=== PATIENT | female | born 1950 | race Caucasian/White ===

== ENCOUNTER → 2018-10-31 08:24 | Outpatient (CLI) | payer OTHER, SELFPAY ==
--- OUTSIDE RECORDS SUMMARY | 2018-12-24 08:31 | XMS RPT_ITS | Continuity of Care Document ---
:1950 Author Organization [facility] Address [address] [place] [address] Phone Care Team Providers Name Role Phone Bridgett Bansal DO Unavailable ROMAINE Eckert Unavailable Unavailable Sonia CASTILLORosie Unavailable Katie Kebede Unavailable Unavailable Raya Lou LPN Unavailable Unavailable PETER Guo Unavailable Unavailable Unavailable Unavailable Problems Name Dates Details Abnormal TSH (R79.89, 790.6) Status: Active Abnormal TSH (R79.89, 790.6) Status: Active Abnormal TSH (R79.89, 790.6) Status: Active Arthritis (M19.90, 716.90) Comments: improved pain wiht natural supplement taking with tumeric , boswellia etc in it Status: Active B12 deficiency (E53.8, 266.2) Status: Active BMI 39.0-39.9,adult (Z68.39, V85.39) Status: Active BMI 39.0-39.9,adult (Z68.39, V85.39) Status: Active BMI 40.0-44.9, adult (Z68.41, V85.41) Status: Active Bradycardia (R00.1, 427.89) Comments: holter 0.7% vetricular ectomy and SVE 1.7% Status: Active Bronchitis (J40, 490) Status: Active Colon cancer screening (Renamed from Encounter for screening for malignant neoplasm of colon) (Z12.11, V76.51) Comments: last colonoscopy jab Status: Active Cough (R05, 786.2) Status: Active Current non-smoker (Z78.9, V49.89) Status: Active Dizziness (R42, 780.4) Comments: ? 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, 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) Comments: new dx Status: Active Flexor tenosynovitis of finger (M65.88, 727.05) Comments: lil nodule if worsen or rom impaired rto and head host/hostess refer Status: Active Grieving (F43.21, 309.0) Comments: brother dying with hospice from cancersupport and enc given Status: Active Hand pain (M79.643, 729.5) Comments: suspect carpal tunnel -- wear splints otc and see how responds before do anything further Status: Active Hyperlipidemia (E78.5, 272.4) Comments: LDL >100 but doenst want meds and noncompliant with diet Status: Active Hypothyroidism (E03.9, 244.9) Status: Active Impaired glucose metabolism (R73.02, 790.22) Status: Active Influenza B (J10.1, 487.1) Status: Active Influenza vaccination declined (Renamed from Refused influenza vaccine) (Z28.21, V64.06) Status: Active Interstitial lung disease (J84.9, 515) Status: Active Leg length discrepancy (M21.70, 736.81) Status: Active Macrocytosis (D75.89, 289.89) Status: Active Non morbid obesity, unspecified obesity type (E66.9, 278.00) Status: Active Nonsmoker (Z78.9, V49.89) Status: Active Nutritional counseling (Z71.3, V65.3) Status: Active Paronychia (681.9) Status: Active Postmenopausal (Renamed from Postmenopausal status) (Z78.0, V49.81) Comments: pt refused Status: Active Pre-operative examination (Z01.818, V72.84) Comments: requested by Dr Martinez Status: Active Rash (R21, 782.1) Comments: will check labs and observe and follow up 7-10 days ? drug reaction recent contrast, lasix BP med Status: Active Right sciatic nerve pain (M54.31, 724.3) Status: Active Sinusitis, acute (J01.90, 461.9) Status: Active Therapeutic drug monitoring (Z51.81, V58.83) Status: Active TINEA CORPORIS (110.5) Status: Active Vitamin D deficiency (E55.9, 268.9) Status: Active Vitamin D deficiency (E55.9, 268.9) Status: Active Vitamin D deficiency, unspecified (E55.9, 268.9) Status: Active Well woman exam with routine gynecological exam (Z01.419, V72.31) Status: Active Medications Name Dates Details Bisoprolol-Hydrochlorothiazide 10-6.25 MG Oral Tablet 1/2 (one half) Tablet bid for 0 days Quantity: 30 {Tablet} Refills: 3 Ordered:18-May-2018 Nitin Bansal DO, DO, Kathleen Start : 18-May-2018 Active Comments:new dose-- cant take whole tablet w/o getting dizzy Levothyroxine Sodium 137 MCG Oral Tablet 1 (one) Tablet daily except sundays for 0 days Quantity: 30 {Tablet} Refills: 3 Ordered:15-Nov-2018 Sonia CASTILLO Mily Start : 15-Nov-2018 Active Losartan Potassium 50 MG Oral Tablet 1 (one) Tablet Tablet qd for 0 days Quantity: 30 {Tablet} Refills: 3 Ordered:23-Apr-2017 Radha Eckert LPN Start : 28-Jul-2016 Active AMLODIPINE BESYLATE, 2.5MG (Oral Tablet) 1 (one) Tablet qd for 0 days Quantity: 30 {Tablet} Refills: 3 Ordered:03-Oct-2014 Radha Eckert LPN Start : 10-Sep-2014 End : 03-Oct-2014 Inactive AMOXICILLIN-POT CLAVULANATE, 875-125MG (Oral Tablet) 1 (one) Tablet bid for 0 days Quantity: 20 {Tablet} Refills: 0 Ordered:23-May-2014 Radha Eckert LPN Start : 09-May-2014 End : 23-May-2014 Inactive ANTIVERT, 25MG (Oral Tablet) 1 (one) Tablet TID PRN for 0 days Refills: 0 Ordered:09-Jan-2009 PETER Guo Start : 25-Jul-2008 End : 09-Jan-2009 Inactive AUGMENTIN, 875-125MG (Oral Tablet) 1 (one) Tablet Twice daily for 0 days Quantity: 20 {Tablet} Refills: 0 Ordered:31-Jul-2008 Radha Eckert LPN Start : 31-Jul-2008 End : 10-Oct-2008 Inactive BIAXIN, 500MG (Oral Tablet) 1 Tablet bid for 0 days Quantity: 20 {Tablet} Refills: 0 Ordered:22-Mar-2013 Radha Eckert LPN Start : 04-Jan-2013 End : 22-Mar-2013 Inactive CEFADROXIL, 500MG (Oral Capsule) 1 (one) Capsule Capsule qid with food for 0 days Quantity: 28 {Capsule} Refills: 0 Ordered:22-May-2015 Radha Eckert LPN Start : 20-Feb-2015 End : 22-May-2015 Inactive Cheratussin AC 100-10 MG/5ML Oral Syrup 1-2 Teaspoon Teaspoon q 6hrs, prn for 0 days Quantity: 8 {Ounce} Refills: 0 Ordered:08-Feb-2017 Yaneli Girard Start : 25-Jan-2017 End : 08-Feb-2017 Inactive Comments:eight ounces CLARINEX, 5MG (Oral Tablet) 1 (one) Tablet Daily for 0 days Quantity: 30 {Tablet} Refills: 3 Ordered:12-Aug-2011 Radha Eckert LPN Start : 19-Aug-2009 End : 12-Aug-2011 Inactive ETODOLAC ER, 400MG (Oral Tablet Extended Release 24 Hour) 2 (two) Tablet ER 24HR Tablet ER 24HR qd with food for 0 days Quantity: 20 {Tablet} Refills: 0 Ordered:01-Jan-2016 Sandra Randle Start : 09-May-2014 End : 01-Jan-2016 Inactive LISINOPRIL, 20MG (Oral Tablet) 1 (one) Tablet qd for 0 days Quantity: 30 {Tablet} Refills: 3 Ordered:12-Aug-2011 Radha Eckert LPN Start : 11-Jun-2010 End : 12-Aug-2011 Inactive METFORMIN HCL, 500MG (Oral Tablet) 1 (one) Tablet Tablet qd for 0 days Quantity: 30 {Tablet} Refills: 3 Ordered:23-Jan-2015 Rolf OLIVER SalonijanicealisRolf Bridgett Start : 23-Jan-2015 End : 23-Jan-2015 Inactive Comments:dizzy NASACORT AQ, 55MCG/ACT (Nasal Aerosol Solution) 2 (two) Aerosol Soln Daily for 0 days Refills: 0 Ordered:09-Jan-2009 PETER Guo Start : 25-Jul-2008 End : 09-Jan-2009 Inactive Mize 5-325 MG Oral Tablet 1 (one) Tablet q 6 hrs prn for 7 days Quantity: 28 {Tablet} Refills: 0 Ordered:31-Aug-2016 Rahda Eckert LPN Start : 31-Aug-2016 End : 07-Sep-2016 Inactive Comments:twenty-eight OMNARIS, 50MCG/ACT (Nasal Suspension) 2 (two) Suspension Daily for 0 days Quantity: 1 {Suspension} Refills: 2 Ordered:12-Aug-2011 Radha Eckert LPN Start : 19-Aug-2009 End : 12-Aug-2011 Inactive PREDNISONE, 10MG (Oral Tablet) 3 (three) Tablet daily for 10 days Quantity: 30 {Tablet} Refills: 0 Ordered:30-May-2008 Cimanan CASTILLORosie Start : 30-May-2008 End : 22-Jun-2008 Inactive Prostolic 1 QD Inactive TAMIFLU, 75MG (Oral Capsule) 1 (one) Capsule bid for 0 days Quantity: 10 {Capsule} Refills: 0 Ordered:22-May-2015 Radha Eckert LPN Start : 25-Feb-2015 End : 22-May-2015 Inactive TIZANIDINE HCL, 4MG (Oral Tablet) 1 (one) Tablet Tablet bid prn for 0 days Quantity: 20 {Tablet} Refills: 0 Ordered:01-Jan-2016 Sandra Randel Start : 09-May-2014 End : 01-Jan-2016 Inactive DARVOCET-N 100, 100-650MG (Oral Tablet) 1 (one) Tablet TID for 0 days Quantity: 90 {Tablet} Refills: 0 Ordered:03-Nov-2007 Violet Lal Start : 03-Nov-2007 End : 30-May-2008 Discontinued Furosemide 20 MG Oral Tablet 1 (one) Tablet Tablet qam for 0 days Quantity: 4 {Tablet} Refills: 0 Ordered:22-Feb-2017 Raya Lou LPN Start : 05-Feb-2017 End : 22-Feb-2017 Discontinued Gabapentin 300 MG Oral Capsule 1 (one) Capsule Capsule qhs for 5days then bid for 0 days Quantity: 60 {Capsule} Refills: 0 Ordered:22-Feb-2017 Raya Lou LPN Start : 28-Aug-2016 End : 22-Feb-2017 Discontinued LOTREL, 5-20MG (Oral Capsule) 1 Capsule QD for 0 days Quantity: 30 {Capsule} Refills: 4 Ordered:22-Jun-2008 Janine Galicia RN Start : 06-Jun-2007 End : 22-Jun-2008 Discontinued Medrol 4 MG Oral Tablet Therapy Pack tad Tab Ther Pack Tab Ther Pack uad with food for 0 days Quantity: 1 {Package} Refills: 0 Ordered:22-Feb-2017 Raya Lou LPN Start : 28-Aug-2016 End : 22-Feb-2017 Discontinued Metaxalone 800 MG Oral Tablet 1 (one) Tablet Tablet tid prn for 0 days Quantity: 30 {Tablet} Refills: 0 Ordered:22-Feb-2017 Raya Lou LPN Start : 28-Aug-2016 End : 22-Feb-2017 Discontinued Nasonex 50 MCG/ACT Nasal Suspension 2 (two) Suspension each nostril qd for 0 days Quantity: 1 {[place]} Refills: 0 Ordered:11-Nov-2018 Katie Kebede Start : 25-Oct-2018 End : 11-Nov-2018 Discontinued NYSTATIN (Powder) 1 (one) Powder Twice daily for 0 days Quantity: 1 {Powder} Refills: 3 Ordered:10-Mar-2007 Violet Lal Start : 10-Mar-2007 End : 06-Jun-2007 Discontinued Comments:dispense one large bottle TOPICORT, 0.25% (External Cream) 1 Cream bid for 0 days Quantity: 1 {Cream} Refills: 1 Ordered:05-Jun-2008 Janine Galicia RN Start : 05-Jun-2008 End : 22-Jun-2008 Discontinued Zithromax Z-Silviano 250 MG Oral Tablet tad Tablet qd for 0 days Quantity: 1 {Package} Refills: 0 Ordered:22-Feb-2017 Raya Lou LPN Start : 05-Feb-2017 End : 22-Feb-2017 Discontinued Allergies and Adverse Reactions Name Dates Details amoxicillin (Allergy) Status: Active Comments: Dizziness, Nausea No Known Drug Allergies (Allergy) Onset: 09-May-2014 Status: Active Prednisone (Allergy) Status: Active Past Medical History Name Dates Details Abnormal chest xray (R93.89, 793.2) Status: Inactive as of 11-Aug-2017 Abnormal TSH (R79.89, 790.6) Status: Inactive as of 11-Aug-2017 Benign essential hypertension (I10, 401.1) Status: Resolved as of 18-Oct-2013 Benign paroxysmal positional vertigo (H81.10, 386.11) Status: Resolved as of 11-Jun-2010 BMI 34.0-34.9,adult (Z68.34, V85.34) Status: Inactive as of 22-Apr-2017 BMI 35.0-35.9,adult (Z68.35, V85.35) Status: Inactive as of 22-Apr-2017 BMI 38.0-38.9,adult (Z68.38, V85.38) Status: Resolved as of 11-Aug-2017 Cerumen impaction (H61.20, 380.4) Comments: rt ear Status: Inactive as of 22-May-2015 Contact dermatitis due to poison demi (L23.7, 692.6) Status: Inactive as of 15-May-2009 Cough (R05, 786.2) Status: Inactive as of 22-May-2015 Dorsalgia, unspecified (M54.9, 724.5) Status: Inactive as of 26-Jul-2013 Drug reaction (T50.905A, 995.20) Comments: ? to recent lasix contrast Status: Inactive as of 11-Aug-2017 Edema, unspecified type (R60.9, 782.3) Status: Inactive as of 11-Aug-2017 Eustachian tube dysfunction (H69.80, 381.81) Status: Inactive as of 22-Mar-2013 Excessive cerumen in both ear canals (H61.23, 380.4) Status: Inactive as of 11-Aug-2017 Family history of diabetes mellitus (Z83.3, V18.0) Comments: 2 hr test was negative Status: Inactive as of 15-May-2009 Fever (R50.9, 780.60) Status: Inactive as of 22-May-2015 Finger pain (M79.646, 729.5) Status: Inactive as of 22-May-2015 Flu-like symptoms (R68.89, 780.99) Status: Inactive as of 22-May-2015 Impacted cerumen of right ear (H61.21, 380.4) Comments: get debrox Status: Inactive as of 05-Aug-2016 Impingement syndrome of shoulder region, unspecified laterality (M75.40, 726.2) Status: Inactive as of 15-May-2009 Infected finger (L08.9, 686.9) Status: Inactive as of 22-May-2015 Muscle spasm (M62.838, 728.85) Status: Inactive as of 22-May-2015 Neck pain (M54.2, 723.1) Status: Inactive as of 22-May-2015 Other specified abnormal findings of blood chemistry (R79.89, 790.6) Comments: consider adding gymnema for sugar cravings belly fat etc - enc to do 21 day cleasne Status: Resolved as of 11-Aug-2017 Pharyngitis, acute (J02.9, 462) Status: Inactive as of 11-Jun-2010 Sciatica (M54.30, 724.3) Comments: resolved Status: Resolved as of 14-Oct-2016 Screening for osteoporosis (Renamed from Encounter for screening for osteoporosis) (Z13.820, V82.81) Status: Resolved as of 11-Aug-2017 Shoulder pain (M25.519, 719.41) Status: Inactive as of 15-May-2009 Simple chronic bronchitis (J41.0, 491.0) Status: Resolved as of 11-Aug-2017 Varicose vein (454.9) Status: Resolved as of 11-Aug-2017 Procedures Procedure Dates Details Colonoscopy, Screening Completed Comments: 02/13/2010 Date Value Details 27-Aug-2017 PT D/C Summary (1) Result: Comments: See Note; NOTES: [facility] [address] [place] [address] Fax REHABILITATION SERVICES DISCHAR JOSELINE SUMMARY MR#: [id number] Acct: [id number] Name: ERENDIRA ALANIZ Rep #: [id number] : 1950 67 From: Raya HAGAN Referring Dr.: Javi Washington MD Status: REG RCR [facility] - PT D/C Summary It has been my pleasure to treat ERENDIRA ALANIZ under orders from Javi Washington, for the diagnosis of L TKR for a total of 30 visit(s). Discharge Date: 08/27/17 Please see the following info rmation for a summary of their discharge status. - Subjective Subjective: Pt reports that she has no pain. She reports that she is able to do all of her ADL's independently. She is able to step up int o the buggy using her UE's. - Pain Left Knee Pain Intensity (Out of 10): 0 - Objective Objective/Function: 0 degrees L knee extension and 117 degrees L knee flexion. Gait: walks with increased side to side wobble but improved and able to correct with verbal cues. Stairs: up and down recip with a railing - Goals Goal 1:: I HEP Goal Progress: Goal Met Goal 2:: Increase L knee AROM 0- 120 degrees L knee flexion Goal Progress: Progressing Goal 3:: Increase gait to be able to walk with a normal stride and step length with a straight cane or least restricitive device Goal Progress: Goal Met Goal 4:: Decrease pain to 1/ 10 with ADL's Goal Progress: Goal Met Goal 5:: Up and down stairs recip with 1 rail with good fliudity Goal Progress: Goal Met - Plan Plan: DC PT to HEP - D/C Information Discharg e Comments: DC PT If there are questions or concerns regarding this patient's physical therapy, please feel free to call me at [phone]. Thank you for the referral of this patient. Sincerely, David Mitchell <Electronically signed by Raya Mitchell MPT> 08/27/17 1410 CC: Bridgett Bansal DO; Javi Washington MD Signed 15-May-2017 Venous Duplex Lower Extremity Result: Comments: See Note; NOTES: [facility] Cardiovascular Services [address] [place] [address] Venous Duplex US, Unilateral 05/14/17 1409 MR#: [id number] Acct: [id number] Name: ERENDIRA LAZARO Rep #: [id number] : 1950 66 From: Yash Stern MD Attending Dr: Valorie Wilson Status: REG CLI Ordering Dr: Valorie Wilson Date: 05/14/17 Location: [facility] Sex: F C Admitted: [facility] For Study: LEG PAIN AND SWELLING RIGHT LEFT CFV is compressible, spontaneous, phasic, GSV is normal. competent and demonstrates normal CFV is compressible, spontaneous, phasic , augmentation. compete nt, and demonstrates normal Procedure augmentation. Exam performed in department. FV is compressible, spontaneous, phasic, A preliminary report was called and/or faxed competent and demonstrates normal to Dr. Wilson. augmentation. POP V is compressible, spontaneous, phasic, competent and demonstrates normal augmentation. T/P Trunk is compressible. PTV is compressible. LT PerV is compressible. Interpr etation Summary Deep veins of the left lower extremity are patent and compressible segmentally. There is no evidence of left lower extremity deep vein thrombosis. Valvular competence appears intact with in the proximal deep venous system on the left . The left greater saphenous vein appears patent and compressible segmentally. Ordering Physician: Valorie Wilson Referring Physician: Bridgett Bansal M.D. Performed By: Iona Douglas RVT 05/15/171929 Date Yash Stern MD CC: Valorie Wilson; Bridgett Bansal Date Dictated: 05/14/17 1409 Date Transcribed: 05/15/171929 Complaint Supervisor: Signed 07-May-2017 Inital Evaluation (1) - PT Result: Comments: See Note; NOTES: [facility] [address] [place] [address] Fax REHABILITATION SERVICES INITIAL EVALUATION MR#: [id number] Acct: [id number] Name: ERENDIRA ALANIZ Rep #: [id number] : 1950 66 From: Raya Mitchell MPT Referring Dr.: Javi Washington MD Status: REG RCR Insurance: [employer] Visit Information ERENDIRA ALANIZ is a 66 year old F referred to Physical Therapy by Javi Washington with a diagnosis of L TKR. Date of Evaluation: 05/07/17 Physical Therapist: Raya Mitchell - Visit Pl an Frequency: 2-3x /Week Duration: 4-6 Weeks Plan: 2-3X/ week for 4-6 weeks for L knee AROM, PROM, stretching, strengtheingin *(hip and knee ) gait training, functional activities with HEP and ice PRN - Subjective Subjective: Patient is a 66 y/o female who presents with a knee replacement this past Wednesday. She states that it went okay but is very sore now. She was in the hospital for three days. She has been using a walker to get around. Before the surgery she was having signicant knee pain. She was able to walk but had signicant knee pain. She was able to do stairs before surgery but had to walk b ackwards. After surgery she tried stairs at the hospital in PT. Patient has the incision covered until her next doctor's visit. Currently signicantly swollen and red. She is staying at her daughters who has no stairs, in two weeks she is going to her house that has two stairs. She would like to return to gardening, laundry, cleaning. She has some difficulty getting out of chairs. She had trouble sleep ing the first night but slept well last night - Pain Left Knee Pain Intensity (Out of 10): 8 Pain Intensity Range: 10 - Objective Pt sits with guarded posture with the L knee. Observation: reddness around the medial aspect of the knee with some yellowing of brusing process starting. PALPATION: Tightness with patellar mobs today. ROM: Knee flexion/extension AAROM: -8-60 L knee flexion degrees. GAI T : Step 2 gait pattern with a rolling walker with much fatigue after about 24 feet. Unable to I SLR on the L LE. Poor QS on the L, needs AA to heel slide - Goals Goal 1:: I HEP Goal Time Frame: 4-6 We eks Goal 2:: Increase L knee AROM 0- 120 degrees L knee flexion Goal Time Frame: 4-6 Weeks Goal 3:: Increase gait to be able to walk with a normal stride and step length with a straight cane or least re stricitive device Goal Time Frame: 4-6 Weeks Goal 4:: Decrease pain to 1/ 10 with ADL's Goal Time Frame: 4-6 Weeks Goal 5:: Up and down stairs recip with 1 rail with good fliudity Goal Time Frame: 4-6 W eeks - Rehabilitation Potential Rehabilitation Potential: Good - Anticipated Interventions Therapeutic Exercise to Include: Strength training, Balance training, Flexibilty training, Gait and locomotor training, Neuromotor development, Passive ROM, Active ROM For the Purpose of:: To decrease pain, To decrease swelling/inflammation, To increase ROM, To improve nutrient delivery to tissue, To improve m uscle performance and motor function, To improve ability to perform ADL's, To improve ability of physical actions for home/community/ work/leisure, To improve gait and locomotor functions, To improve he alth of tissue Functional Training to Include: Gait training For the Purpose of:: To improve safety with gait Manual Therapy Techniques to Include: Mobilization, Passive ROM, Soft tissue mobilization Fo r the Purpose of:: To decrease pain, To decrease swelling/inflammation, To increase ROM, To increase oxygenation perfusion, To improve muscle performance and motor function Thank you for the harsha murray to evaluate your patient. For Medicare and Medicare HMO plans, please review the plan of care and approve it. It will need to be FAXED BACK to us at [phone] for Medicare purposes. Please le t me know if there are questions or concerns regarding this plan of care. Physician Signature: Date: <Electronically signed by Herber Mitchell MPT> 05/07/17 1347 CC: Bridgett Bansal DO; Javi Washington MD Signed For Medicare only, by signing this I certify the plan of care. Physicians Signature Date 27-Apr-2017 History and Physical Exam Result: Comments: See Note; NOTES: [facility] Medical Records Department [address] [place] [id number] History and Physical 04/21/17 1334 MR#: [id number] Acct: [id number] Name: Thelma ALANIZ Rep #: [id number] : 1950 66 From: Valorie Wilson PCP: Bridgett Bansal DO Status: PRE IN Location: [facility] DATE OF SERVICE: 05/03/2017 This is Valorie Wilson PA-C, dictating a preoperative history and physical exam per Dr. Javi Washington. PRIMARY CARE PROVIDER: Bridgett Bansal D.O. PROCEDURE TYPE: Left total knee arthroplasty. PROCEDURE DATE: May 03, 2017. ATTENDING PHYSICIAN: Javi Washington M.D. HISTORY OF PRESENT ILLNESS: This is a 66-year-old Anglican female with chief complaint of significant left knee pain over the past 2 or so years, has significant pain when she is active walki ng, constant aching pain between a 2 and 5/10, on average of 3/10. Symptoms are worse with stairs or walking any distance. She has not fallen. She does not feel unsafe doing any activities. She does not have difficulty with activities of daily living. Symptoms are somewhat relieved with ibuprofen. She has had 2 previous cortisone injections by Dr. Jem Babin. She has some mild hip pain. Denies any severe back pain. Left knee pain is limiting her activities. X-rays are with underlying joint degeneration. After failing conservative measures and discussing and reviewing all treatment options with Dr Carmela Washington, the patient does wish to proceed with a left total knee arthroplasty. PAST MEDICAL HISTORY: Significant for: 1. Osteoarthritis. 2. Hypertension. 3. Thyroid disease. PAST SURGICAL HIST ORY: 1. Hernia repair. 2. Bilateral feet bunionectomy. ASSISTIVE DEVICES: The patient admits to glasses, admits to dentures being full upper plate. Denies hearing aids. 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 Denies tobacco use, alcohol use or illicit drug use. REVIEW OF SYSTEMS: Within normal limits outside of what is documented below within the physical exam. ALLERGIES: No known d rug allergies. CURRENT MEDICATIONS: Include: 1. Bisoprolol fumarate/hydrochlorothiazide 10/6.25 one p.o. every day. 2. Levothyroxine 137 mcg 1 p.o. every day. PHYSICAL EXAMINATION: VITAL SIGNS: Height 61 inches, weight 200 pounds, BMI 37.8, blood pressure 150/72, pulse 70, respirations 16, temperature 97.5. GENERAL: The patient is alert and oriented x3 in no acute distress at rest. Breathing easily without respiratory distress. HEENT: Head is normocephalic, atraumatic. Eyes: PERRLA, EOMI, sclerae are anicteric, conjunctivae without injection. Ears: Auditory acuity grossly intact bilaterally. Nose: Bilateral patent nares without tenderness or drainage. Throat: Pharynx clear without erythema or exudate. Tongue and uvula midline. Buccal mucosa pink and moist. NECK: Supple without adenopathy, JVD, c arotid bruit, masses or tenderness. CHEST: Symmetrical, nontender to palpation. AP diameter within normal limits. HEART: Regular rate and rhythm without murmurs, rubs or gallops appreciated at this time . LUNGS: Clear to auscultation bilaterally without wheezes, rales or rhonchi. ABDOMEN: Soft, nondistended. Normoactive bowel sounds x4 without tenderness. NEUROLOGIC: Cranial nerves II through XII gross ly intact without any focal sensorimotor deficits noted. EXTREMITIES AND MUSCULOSKELETAL: Left knee range of motion is 0-100 degrees, varus deformity of the left knee pain and crepitus with left knee mo tion. Knee seems ligamentously stable. Grade 5 strength. No calf pain or swelling. Negative Homans sign. DIAGNOSTIC STUDIES: X-rays of the left knee dated January 22, 2017, [facility], weightbearing, AP, tunnel, sunrise, lateral views are with [id number] contact medially, bone spurring medially and laterally, patellofemoral arthritis with loss of joint space, scleros is of the distal femur, upper tibia varus deformity of the knee. IMPRESSION: 1. Left knee primary osteoarthritis. 2. Obesity. 3. Hypertension. 4. Hypothyroid. PLAN: Dr. Javi Washington did discuss and r nolviawed with the patient all treatment options including surgical versus nonsurgical. At this time, the patient does wish to proceed with left total knee arthroplasty. Potential risks, benefits and comp lications of this procedure were reviewed in detail including but not limited to , infection, nerve and blood vessel damage, persistent pain, numbness, tingling, paresthesias, blood clot, pulmonary embolism and requirement for possible further surgery. The patient expressed full understanding, has no further questions for the doctor and does agree to proceed with the above-stated procedure and si gned the appropriate surgery consent form. Her stay will be greater than 2 midnights. Her plan is for discharge to home upon leaving the hospital. KIMBERLY Duncan T: NTS JOB: [id number] 04/27/17 1025 <Electronically signed by Valorie Wilson > Date: Time: Valorie Wilson CC: Valorie Bansal DO Date Dictated: 0 04/21/17 1334 Date Transcribed: 04/21/171333 Complaint Supervisor: Signed ____ I have re-examined the patient. There are no clinical changes since date of exam. ____ See Progress Notes for Changes ____ D ictated on Admission Date: Time: Signature: 23-Apr-2017 12 Lead Electrocardiogram Result: Comments: See Note; NOTES: [facility] Cardiovascular Services [address] [place] [address] EKG - SDC 04/21/171506 MR#: [id number] Acct: [id number] Name: ERENDIRA ALANIZ Rep #: [id number] : 1950 66 From: Shay Winter MD Attending Dr: Javi Washington MD Status: PRE IN Ordering Dr: Javi Washington MD Date: 04/21/17 Location: [facility] Sex: F C Admitted: Test Reason : Blood Pr essure : / mmHG Vent. Rate : 056 BPM Atrial Rate : 056 BPM P-R Int : 146 ms QRS Dur : 084 ms QT Int : 414 ms P-R-T Axes : 061 036 013 degrees QTc Int : 399 ms Sinus bradycardia Low voltage QRS Santana rderline ECG Confirmed by SHAY WINTER ([id number]), editor newspaper JOSE WASHINGTON ([id number]) on 04/23/2017 11:44:40 AM Referred By: READER JAVI WASHINGTON Confirmed By:SHAY WINTER 04/23/17 1144 Date Shay Winter MD CC: Shay Winter MD; Bridgett Bansal DO Date Dictated: 04/21/17 150 Date Transcribed: 04/21/171506 Complaint Supervisor: Signed 23-Apr-2017 Chest PA and Lateral Result: Comments: See Note; NOTES: [facility] [place] [address] Verdana 4d Chest PA and Lateral MR#: [id number] Acct: [id number] Name: ERENDIRA ALANIZ Rep #: [id number] : 1950 F 66 From: Christian Cornelius MD PCP: Bridgett Bansal DO Status: REG CLI Study: Chest PA and Lateral Date of Exam: 04/23/17 Exam# [id number] Ordering Dr: Bridgett Bansal DO STUDY: X-RAY CHEST REASON FOR EXAM: Female, 66 years old. Preoperative evaluation. TECHNIQUE: PA and lateral views of the chest. COMPARISON: Comparison is made with prior study dated January 25 7. FINDINGS: The lungs are clear and expanded. There is no demonstrated pleural abnormality. There is borderline cardiomegaly. Normal mediastinum and edvin. Normal visualized pulmonary arteries. There is atherosclerotic tortuosity of the aortic arch and descending thoracic aorta. There are diffuse degenerative changes of the visualized thoracic spine. Normal visu alized ribs, clavicles, and shoulders. There is no demonstrated abnormality of the visualized soft tissue structures of the upper abdomen. RAD/C hest PA and Lateral IMPRESSION: Borderline cardiomegaly. Electronically Signed: Christian Cornelius MD at 15:04 EDT Tel [phone], Service support , C C: Bridgett Bansal DO Complaint Supervisor: Signed 03-Mar-2017 PT D/C Summary (1) Result: Comments: See Note; NOTES: [facility] [address] [place] [address]. [address] [place] [address] Fax REHABILITATION SERVICES DISCHAR SUMMARY MR#: [id number] Acct: [id number] Name: ERENDIRA ALANIZ Rep #: [id number] : 1950 66 From: Michelle Martinez DPT Referring Dr.: Javi Washington MD Status: REG RCR Insurance: COMMERCIAL OTHER HP - PT D/C Summary It has been my pleasure to treat EERNDIRA ALANIZ under orders from Javi Washington, for the diagnosis of Left Knee OA for a total of 9 visit(s). Discharge Date: Please see the follow ing information for a summary of their discharge status. - Subjective Subjective: Somedays good and somedays bad- plans to have surgery May 03, 2017- Heading to [place] March 19- will be down there about [address] Javi Washington. - Pain left knee Pain Intensity (Out of 10): 8 - Objective Objective/Function: Posture: FH, RS, Increased kyphosis. Gait: antalgic- decreased stance on left LE. Balance: WS but unable to SLS. HR/TR: able. Stairs: asc/desc non recip- 2 HR. ROM: 10-90 degrees. Strength: 4+/5 throughout - Goals Goal 1:: Patient will be I with HEP and progression Goal Prog ress: Goal Met Goal 2:: Patient will asc/desc 8 recip with 1 HR to ease ADL's. Goal Progress: Progressing Goal 3:: Patient will demo 0-115 degrees of ROM to ease ADL's. Goal Progress: Progressi ng Goal 4:: Patient will demo 4+/5 strength in LE where deficit to ease ADL's. Goal Progress: Goal Met - Plan Plan: Discharge to I HEP - D/C Information If there are questions or concerns regarding th is patient's physical therapy, please feel free to call me at [phone]. Thank you for the referral of this patient. Sincerely, Michelle Martinez <Electronically signed by Michelle Martinez DPT&am p;#62; 03/03/17 0955 CC: Bridgett Bansal DO; Javi Washington MD ELR Signed 01-Mar-2017 Pulmonary Function Report Comp Result: Comments: See Note; NOTES: [facility] Pulmonary Services/Neurology [address] [place] [address] Pulmonary Function Test (Comp) MR#: [id number] Acct: [id number] Name: LISA ALANIZ Rep #: [id number] : 1950 66 From: Godfrey Babin DO Referring Dr: Bridgett Bansal DO Status: REG CLI Ordering Dr: Bridgett Bansal DO Date: 02/26/17 Location: [facility] Sex: F C DATE OF SERVICE: INTRODUCTION: The patient is a 66-year-old female currently being seen by Dr. Bansal that presents for pulmonary function testing secondary to a diagnosis of interstitial lung disease . Respiratory therapy reports good patient effort and reports no other concerns. Bronchodilators were used during testing. INTERPRETATION: Forced expiration spirometry demonstrates no evidence of a lar ge airways obstructive ventilatory defect. There was no significant response to aerosolized bronchodilators. Spirograms are of good quality and do not plateau indicating slow emptying of lungs. The resp iratory flow volume loop reveals decreased expiratory flow rates at high lung volumes consistent with potential small airways obstruction. Body plethysmography was performed and revealed symmetrically r educed lung volumes. The TLC is 4.04 L, 80% of predicted, indicative of a mild restrictive ventilatory defect. Airway resistance is within normal limits. Diffusing capacity by single breath CO is mildly reduced to 64% of predicted. IMPRESSION: These pulmonary function studies demonstrate the presence of a mild restrictive ventilatory defect with symmetric reduction in diffusing capacity. This pattern can be seen in interstitial lung disease or pneumonitis such as sarcoidosis, IPF or drug toxicity. Consider dedicated chest imaging if not already obtained. There are no previous pulmonary function raphael dies available for comparison. DO Moreno Kerr C: The referring provider T: HARPER JOB: [id number] 03/01/17 0824 <Electronically signed by Godfrey Babin DO> Date Godfrey Babin DO CC: Godfrey Babin D.O.; Bridgett Bansal DO Date Dictated: 02/26/17 1248 Date Transcribed: 02/26/17 1248 Complaint Supervisor: Signed 23-Feb-2017 Echo, Complete w/ Contrast Result: Comments: See Note; NOTES: [facility] Cardiovascular Services [address] [place] [address] Echo Complete W/ Contrast 02/23/17 0904 MR#: [id number] Acct: [id number] Name: ERENDIRA PINEDA Rep #: [id number] : 1950 66 From: Andi Qureshi MD Attending Dr: Bridgett Bansal DO Status: REG CLI Ordering Dr: Bridgett Bansal DO Date: 02/23/17 Location: [facility] Sex: F C Admitted: Re ason For Study: Edema Procedure This was a 2D Doppler, Color Flow transthoracic echocardiogram. The study was technically difficult. Exam performed in department. Left Ventricle Normal LV size. Left v entricular systolic function is lower limits of normal. The estimated ejection fraction is 50 %. No regional wall motion abnormalities noted. Right Ventricle Normal RV size. Normal systolic function. Atria The left atrium is mildly enlarged. Normal right atrium. Mitral Valve Normal mitral valve. Tricuspid Valve Normal tricuspid valve. Mild to moderate (1-2+) tricuspid valve insufficiency. Pulmonary artery systolic pressure is 38 mmHg. Aortic Valve Normal aortic valve. Pulmonic Valve The pulmonic valve is not well visualized. Great Vessels Normal aortic root. The pulmonary artery is normal size . Normal inferior vena cava. Pericardium/Pleural No pericardial effusion. Medication Definity0.3ml given slow IV push to enhance endocardial definition. MMode/2D Measurements & Calculations LV IDd: 5.7 cm IVSd: 0.90 cm Ao root diam: 2.9 cm LVIDs: 3.8 cm LVPWd: 0.72 cm LA dimension: 4.0 cm RVDd: 3.5 cm FS: 33.9 % LAV(MOD-bp): 73.0 ml LAV(MOD-bp) Indexed: 36.9 ml/m2 LA A4 area: 23.9 cm2 RA A4 area: 13.8 cm2 LAV(MOD-sp2): 64.7 ml LAV(MOD-sp4): 76.5 ml Doppler Measurements & Calculations MV E max susanna: 61. 0 cm/sec Lat Peak E' Susanna: 11.6 cm/sec Med Peak E' Susanna: 5.1 cm/sec MV A max susanna: 71.4 cm/sec E/E' lat: 5.3 E/E' med: 12.0 MV E/A: 0.85 Ao V2 max: 114.9 cm/sec LV V1 max: 88.7 cm/sec PA V2 max: 67.9 cm/sec Ao max P.3 mmHg LV V1 max P.1 mmHg Ao V2 mean: 88.4 cm/sec Ao mean P.4 mmHg Ao V2 VTI: 25.5 cm TR max susanna: 286.4 cm/sec TR max P.9 mmHg Interpretation Summary Normal LV size. Left ventricular systolic function is lower l imits of normal. The estimated ejection fraction is 50 %. The left atrium is mildly enlarged. Contrast injection was performed. Ordering Physician: Bridgett Bansal Referring Physician: Bridgett Bansal Performed By: Annie Nazario RDCS, RVT 10 :39 AM 02/23/17 1039 Date Andi Qureshi MD CC: Bridgett Bansal DO Date Dictated: 02/23/1704 Date Transcribed: 02/23/17 1039 Complaint Supervisor: Signed 03-Feb-2017 Chest WITH Contrast Result: Comments: See Note; NOTES: [facility] Imaging Services [address] [place] [address] Verdana 4d Chest WITH Contrast MR#: [id number] Acct: [id number] Name: ERENDIRA ALANIZ Rep #: [id number] : 1950 F 66 From: Jun Zazueta MD PCP: Bridgett Bansal DO Status: REG CLI Study: Chest WITH Contrast Date of Exam: 02/03/17 Exam# [id number] Ordering Dr: Bridgett Bansal DO STUDY: CT CHEST WITH CONTRAST REASON FOR EXAM: Female, 66 years old. Hypertension and cough RADIATION DOSAGE (If Supplied By Facility): CTDIvol = ( 17.86 ) mGy, DLP = ( 757.76 ) mGycm TECHNIQUE: Transaxial im aging was performed following intravenous administration of 100mL ml of Isovue 300 contrast material. Multiplanar coronal and sagittal images were reformatted. Individualized dose optimization techniqu es were used for this CT. COMPARISON: None. FINDINGS: Soft tissue windows show a normal-appearing thyroid gland. There are scattered subcentimeter axillary and medi astinal lymph nodes. No pleural or pericardial effusions. No filling defects identified within the pulmonary arteries. Lung windows show chronic interstitial changes with evidence of interstitial edema suggesting pulmonary vascular congestion and peribronchial thickening suggesting bronchitis. Limited cuts through the upper abdomen do not show a suspicious abnormality. Bony structures show degenerat rudi change with multiple bridging anterior osteophytic spurs. CT/Chest WITH Contrast IMPRESSION: Chronic interstitial changes with superimposed i nterstitial edema and evidence of chronic bronchitis. No organized infiltrate or effusion. No suspicious noncalcified mass or nodule Scattered subcentimeter axillary and mediastinal lymphadenopathy D egenerative bony changes Electronically Signed: Alphonse Zazueta MD at 8:16 EST Tel , Service support [phone], CC: Bridgett Bansal DO Complaint Supervisor: Signed 01-Feb-2017 Inital Evaluation (1) - PT Result: Comments: See Note; NOTES: [facility] [address] [facility] [place], [place] [address] Fax REHABILITATION SERVICES INITIAL EVALUATION MR#: [id number] Acct: [id number] Name: ERENDIRA ALANIZ Rep #: [id number] : 1950 66 From: Michelle Martinez DPT Referring Dr.: Javi Washington MD Status: REG RCR Insurance: COMMERCIAL OTHER Patient's Visit Information ERENDIRA ALANIZ is a 66 year old F referred to Physical Therapy by Javi Washington with a diagnosis of Left Knee OA. Date of Evaluation: 02/01/17 Physical Therapist: Michelle goncalves - Visit Plan Frequency: 2x /Week Duration: 4 Weeks Plan: Focus on LE ROM, Strength, and muscular endurance. - Subjective Subjective: Left knee pain for a couple of month-insidious onset. Pain i s locate on the distal patella along the medial and lateral side of the knee. Describes the pain as achy. Worst: 5/10 Agg: walking. Best: 0/10 Eases: sitting or laying down. Sleep: not disturbed. No rad iating pain- Sometimes does have N/T. Has always had back problems. Had x-rays taken which showed arthritis- bone on bone on the inside. Offered an injection and therapy- she declined the injection. He told her that if therapy does not help she would have to have surgery. Scheduled surgery for May 03, 2017 but hoping to not have surgery- Goes to [place] March 22 (2 weeks). Does all her own housework a nd enjoys being on her feet throughout the day- more challenging due to her knee. No edema in the knee or ankle. PMHx: HTN Meds: Bisoprolol, levothyroxin, Codein for a cold. - Objective Posture: FH, RS , Increased kyphosis- unable to correct with verbal cues. Gait: antalgic- no AD - leans to the right to avoid WB through the left LE- poor heel/toe pattern. Stairs: asc non recip with 2 HR and increased UE A. Desc non recip sideways with 2 hands on single rail. HR/TR : able with UE A. Balance: WS but unable to SLS- reports pain with WS to the left. Palpation: tender along medial joint line and distal patella. ROM: 10- 100 degrees with pain at end ranges. Sensation: WNL. Strength: Ankle: 5/5, Knee: 4/5 with pain, Hip: 4/5 throughout, Core: poor - Goals Goal 1:: Patient will be I with HEP and progres joe Goal Time Frame: 4-6 Weeks Goal 2:: Patient will asc/desc 8 recip with 1 HR to ease ADL's. Goal Time Frame: 4-6 Weeks Goal 3:: Patient will demo 0-115 degrees of ROM to ease ADL's. Goal Ti me Frame: 4-6 Weeks Goal 4:: Patient will demo 4+/5 strength in LE where deficit to ease ADL's. Goal Time Frame: 4-6 Weeks - Rehabilitation Potential Physical Therapy Diagnosis: Patient presents with h ypomobility-she has decreased ROM, strength and muscular endurance leading to poor gait pattern and increased pain. Rehabilitation Potential: Fair - Anticipated Interventions Patient/Client Instruction : Educate patient on: Benefits of Fitness Program For the Purpose of:: To increase tolerance to activity/condition/position Therapeutic Exercise to Include: Strength training, Endurance training, Balanc e training, Agility training, Body mechanics, Postural training, Flexibilty training, Gait and locomotor training, Passive ROM, Active ROM, Dynamic Lumbar Stabilization For the Purpose of:: To improve m uscle performance and motor function TENS: Yes Cryotherapy (ice pack, ice massage): Yes Thermo therapy (hot pack): Yes Ultrasound (thermal/non thermal): Yes For the Purpose of:: To decrease pain Jorge nk you for the opportunity to evaluate your patient. For Medicare and Medicare HMO plans, please review the plan of care and approve it. It will need to be FAXED BACK to us at [phone] for Medicare purposes. Please let me know if there are questions or concerns regarding this plan of care. Physician Signature: Date: <Electr onically signed by Michelle Martinez DPT> 02/01/17 0948 CC: Bridgett Bansal DO; Javi Washington MD ELR Signed For Medicare only, by signing this I certify the plan of ca re. Physicians Signature Date 25-Jan-2017 Chest PA and Lateral Result: Comments: See Note; NOTES: [facility] Imaging Services [address] [place] [address] Verdana 4d Chest PA and Lateral MR#: [id number] Acct: [id number] Name: ERENDIRA ALANIZ Rep #: [id number] : 1950 F 66 From: Birgit Vilchis MD PCP: Bridgett Bansal DO Status: REG CLI Study: Chest PA and Lateral Date of Exam: 01/25/17 Exam# [id number] Ordering Dr: Bridgett Bansal DO STUDY: X-RAY CHEST REASON FOR EXAM: Female, 66 years old. Chronic cough TECHNIQUE: PA and lateral views of the chest. COMPARISON: None. FINDINGS: There is blunting of t he right cardiophrenic angle. There is no demonstrated pleural abnormality. There is borderline cardiomegaly. Normal mediastinum and edvin. Normal visualized pulmonary arteries. Normal visualized aortic arch and descending thoracic aorta. There are diffuse degenerative changes of the visualized thoracic spine. Normal visualized ribs, clavicles, and shoulders. There is no demonstrated abnormality of the visualized soft tissue structures of the upper abdomen. RAD/Chest PA and Lateral IMPRESSION: Blunting of the right cardiophrenic angle may be related to a prominent cardiophrenic fat pad however an underlying mass or cyst could potentially have this appearance. Recommend follow up CT scan of the chest when clinically appropriate unless a com parison study can prove stability. Electronically Signed: Birgit Vilchis MD at 23:01 EST Tel , Service support [phone], CC: Bridgett Bansal DO Complaint Supervisor: Signed 16-Sep-2016 PT D/C of Non Returning Pt (1) Result: Comments: See Note; NOTES: [facility] [address] [place], [place] [address] Fax REHABILITATION SERVICES DISCHA RGE SUMMARY MR#: [id number] Acct: [id number] Name: ERENDIRA ALANIZ Rep #: [id number] : 1950 66 From: Mary Cardenas PT, Cert. T Referring Dr.: Bridgett Bansal DO Status: REG R Insurance: [email or web address] - Discharge Summary (1) - Patient Information ERENDIRA ALANIZ was seen in my office for initial evaluation on 09/02/16. The following Plan of Care was established for this patient: Initial Freq uency: 2-3x /Week Initial Duration: 4-6 Weeks - Anticipated Interventions Patient/Client Instruction: Educate patient on: Condition, Plan of Care, Risk Factors, Benefits of Fitness Program For the Purp ose of:: To improve self management Therapeutic Exercise to Include: Strength training, Body mechanics, Postural training, Dynamic Lumbar Stabilization For the Purpose of:: To improve ability of physica l actions for home/community/work/leisure Manual Therapy Techniques to Include: Soft tissue mobilization For the Purpose of:: To decrease pain, To decrease swelling/inflammation, To increase ROM TENS: Y es IF ES: Yes Cryotherapy (ice pack, ice massage): Yes Thermo therapy (hot pack): Yes Ultrasound (thermal/non thermal): Yes This patient was last seen in our office 09/02/16. Pertinent comments regardin g their Physical therapy will appear below: This patient has not returned to PT and is appropriate to return to MD for further follow-up as needed. At this point I will be discontinuing this patient from physical therapy. I would be happy to see this patient again in the future if found appropriate by the physician. Thank you! Mary Cardenas <Electronically signed by Danna Tinajero PT, MDT> 09/16/16 1442 CC: Bridgett Bansal DO TANJA Signed 02-Sep-2016 Inital Evaluation (1) - PT Result: Comments: See Note; NOTES: [facility] [facility] [place], [place] [address] Fax REHABILITATION SERVICES INITIA L EVALUATION MR#: [id number] Acct: [id number] Name: ERENDIRA ALANIZ Rep #: [id number] : 1950 66 From: Mary Cardenas PT, CertCarmela BROWNT Referring Dr.: Bridgett Bansal DO Status: REG RCR Insurance: CIGN A Patient's Visit Information ERENDIRA ALANIZ is a 66 year old F referred to Physical Therapy by Bridgett Bansal with a diagnosis of SCIATICA R. LEG LENGTH DESCREPENCY. 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 Disability: NO. Present symptoms: RIGHT LOW BACK AND DOWN LEG TO THE ANKLE. PATIENT DENIES NUMBNESS AND TINGLING. Present since: ABOUT 3 WEEKS AGO. Pain Scale: 0-10/10. Currently: 0/10. Commenced as a result of: JUST CAME WHEN SHE GOT OUT OF BED ONE MORNING. Sympt oms at onset: RIGHT LATERAL LEG. Worse: WALKING, PERSONAL CARE, LIFTING, SITTING ON RIGHT SIDE OR HARD SURFACE, STANDING, TRAVEL, HOMEMAKING. Better: PAIN MEDICATION. Disturbed sleep: SOMETIMES YES. Pre vious history/Previous treatment: CHRONIC LOW BACK PAIN OFF AND ON FOR YEARS BUT NO H/O LEG SX'S. LONG HISTORY OF CHIROPRACTOR TREATMENTS OF LOW BACK OFF AND ON NEEDED. CHIROPRACTOR YESTERDAY - DIDN' T HELP. Coughing/ sneezing/straining: NO. Gait: LIMPING ON RIGHT LE. Difficulty initiating urinatin: NO. Accidents: NO. Unexplained weight loss: NO. Imaging: RECENENT LUMBAR X-RAY - SEE EMR. PMH: HTN, H YPOTHYROIDISM. Recent major surgery: NO - Objective Sitting Posture: POOR. Standing Posture: POOR. Lordosis: REDUCED. Lateral shift: MILD SCOLIOSIS. Active Correction of posture: WORSE. Other Observati ons: LLE SHORTER THAN RIGHT. Motor deficit: ISATU HIP FLEX 4-/5, BUT OTHERWISE ISATU LE'S 5/5. Sensory deficit: HYPERSENSATIVITY RIGHT LATERAL LEG COMPARED TO LEFT. ROM deficit: TIGHT ISATU HIP FLEXORS. Dural Signs: POSITIVE RIGHT LE. Lumbar mvmt loss: flex - NIL. ext - CAMERON. R SG - CAMERON. L SG - MOD. PATIENT HAS C/O PAIN WITH LUMBAR ROM TESTING ALL PLANES EXCEPT FLEXION. Core strength: POOR. OTHER: PATIENT IS ABLE TO INDEP'LY TRANSFER FROM SIT TO STAND WITHOUT UE ASSIST. GAIT : INDEP GAIT WITHOUT DEVICE AND WADDLE TYPE GAIT PATTERN WITH DECREASED WEIGHT BEARING TIME ON THE RIGHT LE. - Goals Goal 1:: DECREA SE C/O LBP Goal Time Frame: 4-6 Weeks Goal 2:: DECREASE C/O RIGHT LE PAIN Goal Time Frame: 4-6 Weeks Goal 3:: IMPROVE SITTING, STANDING, WALKING, BENDING, LIFTING, ADL, HOMEMAKING AND SLEEP FUNCTION Goa l Time Frame: 4-6 Weeks Goal 4:: INSTRUCT IN PROPHYLAXIS Goal Time Frame: 4-6 Weeks - Rehabilitation Potential Rehabilitation Potential: Good - Anticipated Interventions Patient/Client Instruction: Ed ucate patient on: Condition, Plan of Care, Risk Factors, Benefits of Fitness Program For the Purpose of:: To improve self management Therapeutic Exercise to Include: Strength training, Body mechanics, P ostural training, Dynamic Lumbar Stabilization For the Purpose of:: To improve ability of physical actions for home/community/work/leisure Manual Therapy Techniques to Include: Soft tissue mobilization For the Purpose of:: To decrease pain, To decrease swelling/inflammation, To increase ROM TENS: Yes IF ES: Yes Cryotherapy (ice pack, ice massage): Yes Thermo therapy (hot pack): Yes Ultrasound (thermal /non thermal): Yes Thank you for the opportunity to evaluate your patient. For Medicare and Medicare HMO plans, please review the plan of care and approve it. It will need to be FAXED BACK to us at [phone] for Medicare purposes. Please let me know if there are questions or concerns regarding this plan of care. Physician Signature: Date:____ <Electronically signed by Mary Cardenas PT, Cert. MDT> 09/02/16 1029 CC: Bridgett Bansal DO TANJA Signed For Medicare only, by signing this I certandrew fy the plan of care. Physicians Signature Date 28-Aug-2016 L/S Spine Min 4 Views Result: Comments: See Note; NOTES: [facility] Imaging Services [address] [place] [address] [place] 4d L/S Spine Min 4 Views MR#: [id number] Acct: [id number] Name: ERENDIRA ALANIZ Rep # : [id number] : [id number] F 66 From: Joy Rodriguez MD PCP: Bridgett Bansal DO Status: REG CLI Study: L/S Spine Min 4 Views Date of Exam: 08/28/16 Exam# [id number] Ordering Dr: Bridgett Bansal DO STUDY : X-RAY - LUMBAR SPINE REASON FOR EXAM: Female, 66 years old. right side hip and back pain, no trauma TECHNIQUE: 5 view(s) of the lumbar spine were obtained. COMPARISON: None FINDINGS: Normal lumbar lordosis. There is a dextroconvex curvature centered at the thoracolumbar junction. There is grade 1 anterolisthesis at L4/5, L3/4. There is multilevel endplate spo ndylosis of the lumbar vertebrae. There is multi-level degenerative disc disease with multi-level disc space narrowing. There is multilevel facet arthropathy. There is atherosclerotic calcification of the abdominal aorta without a demonstrated aneurysm. RAD/L/S Spine Min 4 Views IMPRESSION: Degenerative changes of the spine, as detailed above. Electronically Signed: Joy Rodriguez MD at 15:20 EDT cf, Service support [phone], CC: Bridgett Bansal DO Complaint Supervisor: Signed 01-Jan-2016 ELECTROCARDIOGRAM, COMPLETE (ECG) ([id number]) Comments: nsr no acute chg Result: [MEASUREMENTS ANALYSIS] Date of Test: 01/01/2016 10:13:18; Heart Rate: 56; MT Interval: 152; QRS: 90; QT Interval: 408; Corrected QT Interval (QTc): 401; P Wave [place]: 44; QRS [place]: 10; T Wave [place]: -1; Blood Pressure: 138/82 [ECG DIAGNOSTIC STATEMENTS] Date of Test: 01/01/2016 10:13:18; Summary: Sinus Bradycardia - Nonspecific T-abnormality. ABNORMAL 28-May-2014 Soft Tissue Neck WITH Contrast Result: Comments: See Note; NOTES: [facility] Imaging Services [address] [place] [id number] CAT Scan Report MR#: [id number] Acct: [id number] Name: ERENDIRA ALANIZ Rep #: [id number] : [id number] F [id number] From: Anabel Johnson MD PCP: Bridgett Bansal DO Status: REG CLI Study: Soft Tissue Neck WITH Contrast Date of Exam: 05/28/14 Exam# [id number] Ordering Dr: Bridgett Bansal DO STUDY: CT SOFT TISSUE NECK WITH CONTRAST REASON FOR EXAM: Female, 63 years old. Right posterior neck lump. RADIATION DOSAGE (If Supplied By Facility): CTDIvol = ( 31.73 ) mGy, DLP = ( 907.44 ) mGycm TECHNIQUE: The patient was scanned in a multi-detector CT scanner. High resolution transaxial imaging was performed following intravenous administration of 100 ml of Isovue 300 contrast mater ial. Sagittal and coronal images were reconstructed. COMPARISON: None. FINDINGS: No mass lesion is identified in the posterior neck soft tissues. There is pos sibly a small lipoma in the dorsal subcutaneous adipose tissue to the right of midline at the C3 vertebral level. A tiny nonenhancing 3 x 4 mm nodule is present in the upper aspect of this more focal fatty tissue. No mass lesion is identified in the nasopharynx, oropharynx, or hypopharynx. There is an old inflammatory calcification in the right tonsillar pillar within the oropharynx. The laryn x and visualized trachea appear normal. A tiny calcification is present in the right anterior parotid gland. No lesion is identified in the left parotid or submandibular glands. No thyroid lesion i s seen. No abnormal cervical lymph nodes are identified by size or enhancement criteria. The visualized brain shows no acute process. The visualized lung apices are clear. Advanced degenerative disc disease is present at C5-6 and C6-7. IMPRESSION: No malignant lesion identified in the head and neck. Possible small lipoma in the posterior subcutaneous fat of the upper right neck. There is a tiny nodule also in this region, which does not appear significant. 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 Status: Active Smoking Status Name Dates Details Never smoker Vital Signs Date Test Result Details :49 Temperature 97.8 f Comments: Method: Temporal Pulse 61 /min Comments: Pattern: Regular Respiration Rate 17 /min Comments: Pattern: Unlabored O2 SAT 96 % Comments: Room air BP Systolic 128 mm[Hg] Comments: Patient Position: Sitting; Cuff Location: Left Arm; Cuff Size: Standard BP Diastolic 82 mm[Hg] Comments: Patient Position: Sitting; Cuff Location: Left Arm; Cuff Size: Standard Weight 218.375 lb Height 62 in Body Mass Index Calculated 39.94 kg/m2 Body Surface Area Calculated 1.98 m2 :07 Comments: lying 160/82, 60sitting 156/78, 64standing 152/78, 68Asked if noticed any dizziness with positional changes and staes, some Temperature 97.5 f Comments: Method: Temporal Pulse 65 /min Comments: Pattern: Regular Respiration Rate 16 /min Comments: Pattern: Unlabored O2 SAT 94 % Comments: Room air BP Systolic 158 mm[Hg] Comments: Patient Position: Sitting; Cuff Location: Left Arm; Cuff Size: Standard BP Diastolic 80 mm[Hg] Comments: Patient Position: Sitting; Cuff Location: Left Arm; Cuff Size: Standard Weight 218.375 lb Height 62 in Body Mass Index Calculated 39.94 kg/m2 Body Surface Area Calculated 1.98 m2 :24 Temperature 97.2 f Comments: Method: Temporal Pulse 62 /min Comments: Pattern: Regular Respiration Rate 16 /min Comments: Pattern: Unlabored O2 SAT 94 % Comments: Room air BP Systolic 130 mm[Hg] Comments: Patient Position: Sitting; Cuff Location: Left Arm; Cuff Size: Large BP Diastolic 86 mm[Hg] Comments: Patient Position: Sitting; Cuff Location: Left Arm; Cuff Size: Large Weight 219 lb Height 62 in Body Mass Index Calculated 40.06 kg/m2 Body Surface Area Calculated 1.99 m2 :07 Pulse 65 /min Comments: Pattern: Regular Respiration Rate 18 /min Comments: Pattern: Unlabored O2 SAT 98 % Comments: Room air BP Systolic 124 mm[Hg] Comments: Patient Position: Sitting; Cuff Location: Left Arm; Cuff Size: Large BP Diastolic 80 mm[Hg] Comments: Patient Position: Sitting; Cuff Location: Left Arm; Cuff Size: Large Weight 222.25 lb Height 62 in Body Mass Index Calculated 40.65 kg/m2 Body Surface Area Calculated 2 m2 :52 Pulse 57 /min Comments: Pattern: Regular Respiration Rate 18 /min Comments: Pattern: Unlabored O2 SAT 98 % Comments: Room air BP Systolic 128 mm[Hg] Comments: Patient Position: Sitting; Cuff Location: Left Arm; Cuff Size: Large BP Diastolic 80 mm[Hg] Comments: Patient Position: Sitting; Cuff Location: Left Arm; Cuff Size: Large Weight 219 lb Height 62 in Body Mass Index Calculated 40.06 kg/m2 Body Surface Area Calculated 1.99 m2 :46 Pulse 60 /min Comments: Pattern: Regular Respiration Rate 18 /min Comments: Pattern: Unlabored O2 SAT 97 % Comments: Room air BP Systolic 136 mm[Hg] Comments: Patient Position: Sitting; Cuff Location: Left Arm; Cuff Size: Large BP Diastolic 82 mm[Hg] Comments: Patient Position: Sitting; Cuff Location: Left Arm; Cuff Size: Large Weight 219.5 lb Height 62 in Body Mass Index Calculated 40.15 kg/m2 Body Surface Area Calculated 1.99 m2 :40 Pulse 63 /min Comments: Pattern: Regular Respiration Rate 18 /min Comments: Pattern: Unlabored O2 SAT 92 % Comments: Room air BP Systolic 118 mm[Hg] Comments: Patient Position: Sitting; Cuff Location: Left Arm; Cuff Size: Large BP Diastolic 70 mm[Hg] Comments: Patient Position: Sitting; Cuff Location: Left Arm; Cuff Size: Large Weight 219.5 lb Height 62 in Body Mass Index Calculated 40.15 kg/m2 Body Surface Area Calculated 1.99 m2 :50 Temperature 97.6 f Comments: Method: Temporal Pulse 60 /min Comments: Pattern: Regular Respiration Rate 20 /min Comments: Pattern: Unlabored O2 SAT 97 % Comments: Room air BP Systolic 120 mm[Hg] Comments: Patient Position: Sitting; Cuff Location: Left Arm; Cuff Size: Large BP Diastolic 80 mm[Hg] Comments: Patient Position: Sitting; Cuff Location: Left Arm; Cuff Size: Large Weight 218 lb Height 62 in Body Mass Index Calculated 39.87 kg/m2 Body Surface Area Calculated 1.98 m2 [id number] Temperature 96.7 f Comments: Method: Temporal Pulse 74 /min Comments: Pattern: Regular Respiration Rate 18 /min Comments: Pattern: Unlabored O2 SAT 95 % Comments: Room air BP Systolic 162 mm[Hg] Comments: Patient Position: Sitting; Cuff Location: Left Arm; Cuff Size: Large BP Diastolic 80 mm[Hg] Comments: Patient Position: Sitting; Cuff Location: Left Arm; Cuff Size: Large Weight 214.25 lb Height 62 in Body Mass Index Calculated 39.19 kg/m2 Body Surface Area Calculated 1.97 m2 :26 Temperature 97.6 f Pulse 94 /min Comments: Pattern: Regular Respiration Rate 17 /min Comments: Pattern: Unlabored O2 SAT 96 % Comments: Room air BP Systolic 142 mm[Hg] Comments: Patient Position: Sitting; Cuff Location: Left Arm; Cuff Size: Standard BP Diastolic 84 mm[Hg] Comments: Patient Position: Sitting; Cuff Location: Left Arm; Cuff Size: Standard Weight 211.5 lb Height 62 in Body Mass Index Calculated 38.68 kg/m2 Body Surface Area Calculated 1.96 m2 :20 Temperature 98.2 f Comments: Method: Temporal Pulse 110 /min Comments: Pattern: Regular Respiration Rate 16 /min Comments: Pattern: Unlabored O2 SAT 96 % Comments: Room air BP Systolic 130 mm[Hg] Comments: Patient Position: Sitting; Cuff Location: Left Arm; Cuff Size: Standard BP Diastolic 80 mm[Hg] Comments: Patient Position: Sitting; Cuff Location: Left Arm; Cuff Size: Standard Weight 210.5 lb Height 62 in Body Mass Index Calculated 38.5 kg/m2 Body Surface Area Calculated 1.95 m2 :31 Temperature 96.6 f Comments: Method: Tympanic Pulse 62 /min Comments: Pattern: Regular Respiration Rate 18 /min Comments: Pattern: Unlabored O2 SAT 96 % Comments: Room air BP Systolic 120 mm[Hg] Comments: Patient Position: Sitting; Cuff Location: Left Arm; Cuff Size: Standard BP Diastolic 62 mm[Hg] Comments: Patient Position: Sitting; Cuff Location: Left Arm; Cuff Size: Standard Weight 210.5 lb Height 62 in Body Mass Index Calculated 38.5 kg/m2 Body Surface Area Calculated 1.95 m2 [id number] Pulse 76 /min Comments: Pattern: Regular Respiration Rate 18 /min Comments: Pattern: Unlabored O2 SAT 97 % Comments: Room air BP Systolic 138 mm[Hg] Comments: Patient Position: Sitting; Cuff Location: Left Arm; Cuff Size: Large BP Diastolic 80 mm[Hg] Comments: Patient Position: Sitting; Cuff Location: Left Arm; Cuff Size: Large Weight 210.5 lb Height 62 in Body Mass Index Calculated 38.5 kg/m2 Body Surface Area Calculated 1.95 m2 :18 Temperature 98 f Pulse 66 /min Comments: Pattern: Regular Respiration Rate 16 /min Comments: Pattern: Unlabored O2 SAT 96 % Comments: Room air BP Systolic 118 mm[Hg] Comments: Patient Position: Sitting; Cuff Location: Left Arm; Cuff Size: Standard BP Diastolic 72 mm[Hg] Comments: Patient Position: Sitting; Cuff Location: Left Arm; Cuff Size: Standard Weight 213.5 lb Height 62 in Body Mass Index Calculated 39.05 kg/m2 Body Surface Area Calculated 1.97 m2 :54 Pulse 62 /min Comments: Pattern: Regular Respiration Rate 18 /min Comments: Pattern: Unlabored O2 SAT 97 % Comments: Room air BP Systolic 142 mm[Hg] Comments: Patient Position: Sitting; Cuff Location: Left Arm; Cuff Size: Large BP Diastolic 80 mm[Hg] Comments: Patient Position: Sitting; Cuff Location: Left Arm; Cuff Size: Large Weight 210.5 lb Height 62 in Body Mass Index Calculated 38.5 kg/m2 Body Surface Area Calculated 1.95 m2 :15 Pulse 60 /min Comments: Pattern: Regular Respiration Rate 20 /min Comments: Pattern: Unlabored O2 SAT 97 % Comments: Room air BP Systolic 122 mm[Hg] Comments: Patient Position: Sitting; Cuff Location: Left Arm; Cuff Size: Large BP Diastolic 78 mm[Hg] Comments: Patient Position: Sitting; Cuff Location: Left Arm; Cuff Size: Large Weight 210.5 lb Height 62 in Body Mass Index Calculated 38.5 kg/m2 Body Surface Area Calculated 1.95 m2 :59 BP Systolic 158 mm[Hg] Comments: Patient Position: Sitting BP Diastolic 100 mm[Hg] Comments: Patient Position: Sitting :30 Temperature 98 f Pulse 68 /min Comments: Pattern: Regular Respiration Rate 16 /min Comments: Pattern: Unlabored O2 SAT 98 % Comments: Room air BP Systolic 170 mm[Hg] Comments: Patient Position: Sitting; Cuff Location: Left Arm; Cuff Size: Standard BP Diastolic 94 mm[Hg] Comments: Patient Position: Sitting; Cuff Location: Left Arm; Cuff Size: Standard Weight 210 lb Height 62 in Body Mass Index Calculated 38.41 kg/m2 Body Surface Area Calculated 1.95 m2 :25 Pulse 68 /min Comments: Pattern: Regular Respiration Rate 18 /min Comments: Pattern: Unlabored O2 SAT 96 % Comments: Room air BP Systolic 138 mm[Hg] Comments: Patient Position: Sitting; Cuff Location: Left Arm; Cuff Size: Large BP Diastolic 82 mm[Hg] Comments: Patient Position: Sitting; Cuff Location: Left Arm; Cuff Size: Large Weight 220.25 lb Height 62 in Body Mass Index Calculated 40.28 kg/m2 Body Surface Area Calculated 1.99 m2 :13 Pulse 72 /min Comments: Pattern: Regular Respiration Rate 18 /min Comments: Pattern: Unlabored O2 SAT 97 % Comments: Room air BP Systolic 120 mm[Hg] Comments: Patient Position: Sitting; Cuff Location: Left Arm; Cuff Size: Large BP Diastolic 82 mm[Hg] Comments: Patient Position: Sitting; Cuff Location: Left Arm; Cuff Size: Large Weight 220.25 lb Height 62 in Body Mass Index Calculated 40.28 kg/m2 Body Surface Area Calculated 1.99 m2 :58 Pulse 65 /min Comments: Pattern: Regular Respiration Rate 20 /min Comments: Pattern: Unlabored O2 SAT 97 % Comments: Room air BP Systolic 138 mm[Hg] Comments: Patient Position: Sitting; Cuff Location: Left Arm; Cuff Size: Large BP Diastolic 82 mm[Hg] Comments: Patient Position: Sitting; Cuff Location: Left Arm; Cuff Size: Large Weight 218.5 lb Height 62 in Body Mass Index Calculated 39.96 kg/m2 Body Surface Area Calculated 1.98 m2 :51 Temperature 95.8 f Comments: Method: Tympanic Pulse 73 /min Comments: Pattern: Regular Respiration Rate 18 /min Comments: Pattern: Unlabored O2 SAT 95 % Comments: Room air BP Systolic 138 mm[Hg] Comments: Patient Position: Sitting; Cuff Location: Left Arm; Cuff Size: Standard BP Diastolic 82 mm[Hg] Comments: Patient Position: Sitting; Cuff Location: Left Arm; Cuff Size: Standard Weight 208 lb Height 62 in Body Mass Index Calculated 38.04 kg/m2 Body Surface Area Calculated 1.94 m2 :11 Pulse 83 /min Comments: Pattern: Regular Respiration Rate 18 /min Comments: Pattern: Unlabored O2 SAT 98 % Comments: Room air BP Systolic 130 mm[Hg] Comments: Patient Position: Sitting; Cuff Location: Left Arm; Cuff Size: Large BP Diastolic 70 mm[Hg] Comments: Patient Position: Sitting; Cuff Location: Left Arm; Cuff Size: Large Weight 208.25 lb Height 62 in Body Mass Index Calculated 38.09 kg/m2 Body Surface Area Calculated 1.94 m2 :06 Pulse 67 /min Comments: Pattern: Regular Respiration Rate 18 /min Comments: Pattern: Unlabored O2 SAT 97 % Comments: Room air BP Systolic 122 mm[Hg] Comments: Patient Position: Sitting; Cuff Location: Left Arm; Cuff Size: Large BP Diastolic 70 mm[Hg] Comments: Patient Position: Sitting; Cuff Location: Left Arm; Cuff Size: Large Weight 210 lb Height 62 in Body Mass Index Calculated 38.41 kg/m2 Body Surface Area Calculated 1.95 m2 :13 Temperature 96.5 f Comments: Method: Oral Pulse 85 /min Comments: Pattern: Regular Respiration Rate 18 /min Comments: Pattern: Unlabored O2 SAT 97 % Comments: Room air BP Systolic 128 mm[Hg] Comments: Patient Position: Sitting; Cuff Location: Left Arm; Cuff Size: Large BP Diastolic 72 mm[Hg] Comments: Patient Position: Sitting; Cuff Location: Left Arm; Cuff Size: Large Weight 204.9 lb Height 62 in Body Mass Index Calculated 37.48 kg/m2 Body Surface Area Calculated 1.93 m2 :22 Temperature 98.2 f Comments: Method: Oral Pulse 72 /min Comments: Pattern: Regular Respiration Rate 16 /min Comments: Pattern: Unlabored O2 SAT 98 % Comments: Room air BP Systolic 140 mm[Hg] Comments: Patient Position: Sitting; Cuff Location: Left Arm; Cuff Size: Standard BP Diastolic 80 mm[Hg] Comments: Patient Position: Sitting; Cuff Location: Left Arm; Cuff Size: Standard Weight 204.9 lb Height 62 in Body Mass Index Calculated 37.48 kg/m2 Body Surface Area Calculated 1.93 m2 :47 Pulse 76 /min Comments: Pattern: Regular Respiration Rate 20 /min Comments: Pattern: Unlabored O2 SAT 96 % Comments: Room air BP Systolic 128 mm[Hg] Comments: Patient Position: Sitting; Cuff Location: Left Arm; Cuff Size: Large BP Diastolic 80 mm[Hg] Comments: Patient Position: Sitting; Cuff Location: Left Arm; Cuff Size: Large Weight 204.9 lb Height 62 in Body Mass Index Calculated 37.48 kg/m2 Body Surface Area Calculated 1.93 m2 :21 Temperature 98.7 f Comments: Method: Temporal Pulse 62 /min Comments: Pattern: Regular Respiration Rate 16 /min Comments: Pattern: Unlabored O2 SAT 98 % Comments: Room air BP Systolic 122 mm[Hg] Comments: Patient Position: Sitting; Cuff Location: Left Arm; Cuff Size: Standard BP Diastolic 80 mm[Hg] Comments: Patient Position: Sitting; Cuff Location: Left Arm; Cuff Size: Standard Weight 204.9 lb Height 62 in Body Mass Index Calculated 37.48 kg/m2 Body Surface Area Calculated 1.93 m2 :57 Temperature 96.7 f Comments: Method: Oral Pulse 78 /min Comments: Pattern: Regular Respiration Rate 18 /min Comments: Pattern: Unlabored O2 SAT 97 % Comments: Room air BP Systolic 122 mm[Hg] Comments: Patient Position: Sitting; Cuff Location: Left Arm; Cuff Size: Large BP Diastolic 60 mm[Hg] Comments: Patient Position: Sitting; Cuff Location: Left Arm; Cuff Size: Large Weight 203 lb Height 62 in Body Mass Index Calculated 37.13 kg/m2 Body Surface Area Calculated 1.92 m2 :31 Pulse 66 /min Comments: Pattern: Regular Respiration Rate 20 /min Comments: Pattern: Unlabored O2 SAT 99 % Comments: Room air BP Systolic 142 mm[Hg] Comments: Patient Position: Sitting; Cuff Location: Left Arm; Cuff Size: Large BP Diastolic 88 mm[Hg] Comments: Patient Position: Sitting; Cuff Location: Left Arm; Cuff Size: Large Weight 204.4375 lb Height 62 in Body Mass Index Calculated 37.39 kg/m2 Body Surface Area Calculated 1.93 m2 :32 Pulse 78 /min Comments: Pattern: Regular Respiration Rate 20 /min Comments: Pattern: Unlabored O2 SAT 97 % Comments: Room air BP Systolic 142 mm[Hg] Comments: Patient Position: Sitting; Cuff Location: Left Arm; Cuff Size: Large BP Diastolic 70 mm[Hg] Comments: Patient Position: Sitting; Cuff Location: Left Arm; Cuff Size: Large Weight 204.5 lb Height 62 in Body Mass Index Calculated 37.4 kg/m2 Body Surface Area Calculated 1.93 m2 :39 Pulse 80 /min Comments: Pattern: Regular Respiration Rate 18 /min Comments: Pattern: Unlabored O2 SAT 98 % Comments: Room air BP Systolic 128 mm[Hg] Comments: Patient Position: Sitting; Cuff Location: Left Arm; Cuff Size: Standard BP Diastolic 80 mm[Hg] Comments: Patient Position: Sitting; Cuff Location: Left Arm; Cuff Size: Standard Weight 205.5625 lb Height 62 in Body Mass Index Calculated 37.6 kg/m2 Body Surface Area Calculated 1.93 m2 :16 Pulse 60 /min Comments: Pattern: Regular Respiration Rate 18 /min Comments: Pattern: Unlabored O2 SAT 98 % Comments: Room air BP Systolic 124 mm[Hg] Comments: Patient Position: Sitting; Cuff Location: Left Arm; Cuff Size: Large BP Diastolic 82 mm[Hg] Comments: Patient Position: Sitting; Cuff Location: Left Arm; Cuff Size: Large Weight 205.5625 lb Height 62 in Body Mass Index Calculated 37.6 kg/m2 Body Surface Area Calculated 1.93 m2 :49 Temperature 96.4 f Comments: Method: Oral Pulse 64 /min Comments: Pattern: Regular Respiration Rate 18 /min Comments: Pattern: Unlabored O2 SAT 96 % Comments: Room air BP Systolic 128 mm[Hg] Comments: Patient Position: Sitting; Cuff Location: Left Arm; Cuff Size: Standard BP Diastolic 72 mm[Hg] Comments: Patient Position: Sitting; Cuff Location: Left Arm; Cuff Size: Standard Weight 206 lb Height 62 in Body Mass Index Calculated 37.68 kg/m2 Body Surface Area Calculated 1.94 m2 :50 BP Systolic 142 mm[Hg] Comments: Patient Position: Sitting; Cuff Location: Left Arm; Cuff Size: Standard BP Diastolic 86 mm[Hg] Comments: Patient Position: Sitting; Cuff Location: Left Arm; Cuff Size: Standard :47 Temperature 96.8 f Comments: Method: Temporal Pulse 95 /min Comments: Pattern: Regular Respiration Rate 16 /min Comments: Pattern: Unlabored O2 SAT 98 % Comments: Room air BP Systolic 148 mm[Hg] Comments: Patient Position: Sitting; Cuff Location: Left Arm; Cuff Size: Standard BP Diastolic 90 mm[Hg] Comments: Patient Position: Sitting; Cuff Location: Left Arm; Cuff Size: Standard Weight 202.375 lb Height 62 in Body Mass Index Calculated 37.01 kg/m2 Body Surface Area Calculated 1.92 m2 [id number] Pulse 81 /min Comments: Pattern: Regular Respiration Rate 20 /min Comments: Pattern: Unlabored O2 SAT 96 % Comments: Room air BP Systolic 130 mm[Hg] Comments: Patient Position: Sitting; Cuff Location: Left Arm; Cuff Size: Large BP Diastolic 84 mm[Hg] Comments: Patient Position: Sitting; Cuff Location: Left Arm; Cuff Size: Large Weight 202.375 lb Height 62 in Body Mass Index Calculated 37.01 kg/m2 Body Surface Area Calculated 1.92 m2 :24 Temperature 97.9 f Comments: Method: Oral Pulse 60 /min Comments: Pattern: Regular Respiration Rate 18 /min BP Systolic 126 mm[Hg] Comments: Patient Position: Sitting; Cuff Location: Left Arm; Cuff Size: Standard BP Diastolic 72 mm[Hg] Comments: Patient Position: Sitting; Cuff Location: Left Arm; Cuff Size: Standard Weight 196 lb Height 62 in Body Mass Index Calculated 35.85 kg/m2 Body Surface Area Calculated 1.9 m2 :27 BP Systolic 155 mm[Hg] Comments: Patient Position: Supine; Cuff Location: Right Arm; Cuff Size: Standard BP Diastolic 92 mm[Hg] Comments: Patient Position: Supine; Cuff Location: Right Arm; Cuff Size: Standard :35 Temperature 97.8 f Comments: Method: Oral Pulse 84 /min Comments: Pattern: Regular Respiration Rate 18 /min Comments: Pattern: Unlabored O2 SAT 98 % Comments: Room air BP Systolic 168 mm[Hg] Comments: Patient Position: Sitting; Cuff Location: Left Arm; Cuff Size: Standard BP Diastolic 102 mm[Hg] Comments: Patient Position: Sitting; Cuff Location: Left Arm; Cuff Size: Standard Weight 196 lb Height 62 in Body Mass Index Calculated 35.85 kg/m2 Body Surface Area Calculated 1.9 m2 :53 Temperature 97.4 f Comments: Method: Oral Pulse 88 /min Comments: Pattern: Regular Respiration Rate 16 /min Comments: Pattern: Unlabored O2 SAT 98 % Comments: Room air BP Systolic 120 mm[Hg] Comments: Patient Position: Sitting; Cuff Location: Left Arm; Cuff Size: Large BP Diastolic 68 mm[Hg] Comments: Patient Position: Sitting; Cuff Location: Left Arm; Cuff Size: Large Weight 196 lb Height 62 in Body Mass Index Calculated 35.85 kg/m2 Body Surface Area Calculated 1.9 m2 :22 Comments: recheck 144/88 Temperature 97.7 f Comments: Method: Oral Pulse 74 /min Comments: Pattern: Regular Respiration Rate 20 /min Comments: Pattern: Unlabored O2 SAT 97 % Comments: Room air BP Systolic 158 mm[Hg] Comments: Patient Position: Sitting; Cuff Location: Left Arm; Cuff Size: Large BP Diastolic 82 mm[Hg] Comments: Patient Position: Sitting; Cuff Location: Left Arm; Cuff Size: Large Weight 202.5 lb Height 62 in Body Mass Index Calculated 37.04 kg/m2 Body Surface Area Calculated 1.92 m2 :46 Temperature 97.9 f Comments: Method: Oral Pulse 68 /min Comments: Pattern: Regular Respiration Rate 20 /min Comments: Pattern: Unlabored BP Systolic 148 mm[Hg] Comments: Patient Position: Sitting; Cuff Location: Left Arm; Cuff Size: Large BP Diastolic 82 mm[Hg] Comments: Patient Position: Sitting; Cuff Location: Left Arm; Cuff Size: Large Weight 203.0625 lb Height 62 in Body Mass Index Calculated 37.14 kg/m2 Body Surface Area Calculated 1.92 m2 :11 Temperature 97.1 f Comments: Method: Oral Pulse 60 /min Comments: Pattern: Regular Respiration Rate 18 /min Comments: Pattern: Unlabored BP Systolic 138 mm[Hg] Comments: Patient Position: Sitting; Cuff Location: Left Arm; Cuff Size: Large BP Diastolic 78 mm[Hg] Comments: Patient Position: Sitting; Cuff Location: Left Arm; Cuff Size: Large Weight 208.125 lb Height 62 in Body Mass Index Calculated 38.07 kg/m2 Body Surface Area Calculated 1.94 m2 :53 Temperature 98.9 f Comments: Method: Temporal Pulse 78 /min Comments: Pattern: Regular Respiration Rate 15 /min BP Systolic 126 mm[Hg] Comments: Patient Position: Sitting; Cuff Location: Left Arm; Cuff Size: Standard BP Diastolic 78 mm[Hg] Comments: Patient Position: Sitting; Cuff Location: Left Arm; Cuff Size: Standard Weight 201.5 lb Height 62 in Body Mass Index Calculated 36.85 kg/m2 Body Surface Area Calculated 1.92 m2 :10 Temperature 97.7 f Comments: Method: Oral Pulse 72 /min Comments: Pattern: Regular Respiration Rate 20 /min Comments: Pattern: Unlabored BP Systolic 142 mm[Hg] Comments: Patient Position: Sitting; Cuff Location: Left Arm; Cuff Size: Large BP Diastolic 82 mm[Hg] Comments: Patient Position: Sitting; Cuff Location: Left Arm; Cuff Size: Large Weight 201.5 lb :03 Temperature 97.6 f Comments: Method: Oral Pulse 64 /min Comments: Pattern: Regular Respiration Rate 20 /min Comments: Pattern: Unlabored BP Systolic 138 mm[Hg] Comments: Patient Position: Sitting; Cuff Location: Left Arm; Cuff Size: Large BP Diastolic 82 mm[Hg] Comments: Patient Position: Sitting; Cuff Location: Left Arm; Cuff Size: Large Weight 201.3125 lb :37 Temperature 97.8 f Comments: Method: Oral Pulse 80 /min Comments: Pattern: Regular Respiration Rate 20 /min Comments: Pattern: Unlabored BP Systolic 128 mm[Hg] Comments: Patient Position: Sitting; Cuff Location: Left Arm; Cuff Size: Large BP Diastolic 90 mm[Hg] Comments: Patient Position: Sitting; Cuff Location: Left Arm; Cuff Size: Large Weight 202.375 lb :45 Pulse 68 /min Comments: Pattern: Regular Respiration Rate 20 /min Comments: Pattern: Unlabored BP Systolic 138 mm[Hg] Comments: Patient Position: Sitting; Cuff Location: Left Arm; Cuff Size: Large BP Diastolic 88 mm[Hg] Comments: Patient Position: Sitting; Cuff Location: Left Arm; Cuff Size: Large Weight 202.0625 lb :37 Temperature 96.1 f Comments: Method: Oral Pulse 80 /min Comments: Pattern: Regular Respiration Rate 20 /min Comments: Pattern: Unlabored BP Systolic 138 mm[Hg] Comments: Patient Position: Sitting; Cuff Location: Left Arm; Cuff Size: Large BP Diastolic 90 mm[Hg] Comments: Patient Position: Sitting; Cuff Location: Left Arm; Cuff Size: Large Weight 207.4375 lb Height 0 in Head Circumference 0.00 cm :55 Pulse 80 /min Comments: Pattern: Regular Respiration Rate 20 /min Comments: Pattern: Unlabored BP Systolic 134 mm[Hg] Comments: Patient Position: Sitting; Cuff Location: Left Arm; Cuff Size: Large BP Diastolic 88 mm[Hg] Comments: Patient Position: Sitting; Cuff Location: Left Arm; Cuff Size: Large Weight 207.4375 lb Height 0 in Head Circumference 0.00 cm :06 Pulse 68 /min Comments: Pattern: Regular Respiration Rate 16 /min Comments: Pattern: Unlabored BP Systolic 130 mm[Hg] Comments: Patient Position: Sitting; Cuff Location: Left Arm; Cuff Size: Large BP Diastolic 86 mm[Hg] Comments: Patient Position: Sitting; Cuff Location: Left Arm; Cuff Size: Large Weight 204 lb Height 0 in Head Circumference 0.00 cm :37 Pulse 80 /min Comments: Pattern: Regular Respiration Rate 20 /min Comments: Pattern: Unlabored BP Systolic 142 mm[Hg] Comments: Patient Position: Sitting; Cuff Location: Left Arm; Cuff Size: Large BP Diastolic 80 mm[Hg] Comments: Patient Position: Sitting; Cuff Location: Left Arm; Cuff Size: Large Weight 207.5625 lb Height 0 in Head Circumference 0.00 cm :11 Temperature 98.3 f Comments: Method: Oral Pulse 80 /min Comments: Pattern: Regular Respiration Rate 20 /min Comments: Pattern: Unlabored BP Systolic 110 mm[Hg] Comments: Patient Position: Sitting; Cuff Location: Right Arm; Cuff Size: Standard BP Diastolic 82 mm[Hg] Comments: Patient Position: Sitting; Cuff Location: Right Arm; Cuff Size: Standard Weight 210 lb Height 0 in Head Circumference 0.00 cm :12 Pulse 80 /min Comments: Pattern: Regular Respiration Rate 16 /min Comments: Pattern: Unlabored BP Systolic 122 mm[Hg] Comments: Patient Position: Sitting; Cuff Location: Right Arm; Cuff Size: Large BP Diastolic 70 mm[Hg] Comments: Patient Position: Sitting; Cuff Location: Right Arm; Cuff Size: Large Weight 211.125 lb Height 0 in Head Circumference 0.00 cm :19 Temperature 97.9 f Comments: Method: Oral Pulse 72 /min Comments: Pattern: Regular Respiration Rate 16 /min Comments: Pattern: Unlabored BP Systolic 126 mm[Hg] Comments: Patient Position: Sitting; Cuff Location: Left Arm; Cuff Size: Standard BP Diastolic 82 mm[Hg] Comments: Patient Position: Sitting; Cuff Location: Left Arm; Cuff Size: Standard Weight 0 lb Height 0 in Head Circumference 0.00 cm :49 Temperature 97.5 f Comments: Method: Oral Pulse 88 /min Comments: Pattern: Regular Respiration Rate 18 /min Comments: Pattern: Unlabored BP Systolic 146 mm[Hg] Comments: Patient Position: Sitting; Cuff Location: Left Arm; Cuff Size: Large BP Diastolic 90 mm[Hg] Comments: Patient Position: Sitting; Cuff Location: Left Arm; Cuff Size: Large Weight 209.3125 lb Height 0 in Head Circumference 0.00 cm :43 Pulse 88 /min Comments: Pattern: Regular Respiration Rate 16 /min Comments: Pattern: Unlabored BP Systolic 118 mm[Hg] Comments: Patient Position: Sitting; Cuff Location: Left Arm; Cuff Size: Standard BP Diastolic 62 mm[Hg] Comments: Patient Position: Sitting; Cuff Location: Left Arm; Cuff Size: Standard Weight 206 lb Height 0 in Head Circumference 0.00 cm :12 Temperature 97.4 f Comments: Method: Oral Pulse 72 /min Comments: Pattern: Regular Respiration Rate 16 /min Comments: Pattern: Unlabored BP Systolic 130 mm[Hg] Comments: Patient Position: Sitting; Cuff Location: Left Arm; Cuff Size: Standard BP Diastolic 80 mm[Hg] Comments: Patient Position: Sitting; Cuff Location: Left Arm; Cuff Size: Standard Weight 206 lb Height 0 in Head Circumference 0.00 cm :40 Temperature 97.8 f Comments: Method: Oral Pulse 80 /min Comments: Pattern: Regular Respiration Rate 20 /min Comments: Pattern: Unlabored BP Systolic 132 mm[Hg] Comments: Patient Position: Sitting; Cuff Location: Left Arm; Cuff Size: Standard BP Diastolic 80 mm[Hg] Comments: Patient Position: Sitting; Cuff Location: Left Arm; Cuff Size: Standard Weight 204 lb Height 0 in Head Circumference 0.00 cm :39 Temperature 98.1 f Comments: Method: Oral Pulse 84 /min Comments: Pattern: Regular Respiration Rate 18 /min Comments: Pattern: Unlabored BP Systolic 118 mm[Hg] Comments: Patient Position: Sitting; Cuff Location: Left Arm; Cuff Size: Small BP Diastolic 62 mm[Hg] Comments: Patient Position: Sitting; Cuff Location: Left Arm; Cuff Size: Small Weight 204 lb Height 0 in Head Circumference 0.00 cm :16 Temperature 98.3 f Comments: Method: Undefined Pulse 78 /min Comments: Pattern: Regular Respiration Rate 16 /min Comments: Pattern: Undefined BP Systolic 138 mm[Hg] Comments: Patient Position: Sitting; Cuff Location: Left Arm; Cuff Size: Large BP Diastolic 70 mm[Hg] Comments: Patient Position: Sitting; Cuff Location: Left Arm; Cuff Size: Large Weight 204 lb Height 0 in Head Circumference 0.00 cm Results Date Description Value Details [id number] Metabolic Panel, Comprehensive Comments: PATIENT NOT FASTINGPERFORMED BY: [facility][id number] [facility] [id number] ([id number]) ALT (SGPT) 23 [iU]/L (Normal) Range: 0-32 AST (SGOT) 21 [iU]/L (Normal) Range: 0-40 Alkaline Phosphatase 106 [iU]/L (Normal) Range: 39-117 Bilirubin, Total 0.5 mg/dL (Normal) Range: 0.0-1.2 A/G Ratio 1.8 (Normal) Range: 1.2-2.2 Globulin, Total 2.4 g/dL (Normal) Range: 1.5-4.5 Albumin 4.2 g/dL (Normal) Range: 3.6-4.8 Protein, Total 6.6 g/dL (Normal) Range: 6.0-8.5 Calcium 9.6 mg/dL (Normal) Range: 8.7-10.3 Carbon Dioxide, Total 25 mmol/L (Normal) Range: 20-29 Chloride 102 mmol/L (Normal) Range: 96-106 Potassium 4.5 mmol/L (Normal) Range: 3.5-5.2 Sodium 142 mmol/L (Normal) Range: 134-144 BUN/Creatinine Ratio 30 (Abnormal) Range: 12-28 eGFR If Africn Am 111 mL/min/1.73 (Normal) eGFR If NonAfricn Am 96 mL/min/1.73 (Normal) Creatinine 0.57 mg/dL (Normal) Range: 0.57-1.00 BUN 17 mg/dL (Normal) Range: 8-27 Glucose 104 mg/dL (Abnormal) Range: 65-99 66-Hgn-819898:21 TSH (THYROID STIMULATING Comments: PATIENT NOT FASTINGPERFORMED BY: [facility] [id number] [facility] [place] [id number] HORMONE) ([id number]) TSH 0.570 {uIU/mL} (Normal) Range: 0.450-4.500 31-Fjo-05332:20 HgA1C , Office (07158) HgA1C , Office 6.0 % (Normal) Range: 4.6 - 7.1 81-Bdl-04488:20 Blood Glucose , Office (18905) Blood Glucose , Office 121 (Normal) 80-Lqj-041702:41 VITAMIN B-12 (CYANOCOBALAMIN) Comments: PATIENT WAS FASTINGPERFORMED BY: [facility] [id number] [facility] [place] [id number] ([id number]) Vitamin B12 413 pg/mL (Normal) Range: 232-1245 27-Wnm-466282:41 CALCIFEDIOL (54391) Comments: PATIENT WAS FASTINGPERFORMED BY: [facility] Kissuo0976 [facility] [place] [id number] Vitamin D, 25-Hydroxy 43.1 ng/mL (Normal) Range: 30.0-100.0 Comments: Vitamin D deficiency has been defined by the [place] and an Endocrine Society practice guideline as alevel of serum 25-OH vitamin D less than 20 ng/mL (1,2).The Endocrine Society went on to further define vitamin Dinsufficiency as a level between 21 and 29 ng/mL (2).1. IOM ([place]). 2010. Dietary reference intakes for calcium and D. [place]: The National Academies Press.2. Willow [place], [place], Contreras BRANNON, et al. Evaluation, treatment, and prevention of vitamin D deficiency: an Endocrine Society clinical practice guideline. JCEM. 2010; 96(7):1911-30. 09-Kwo-564354:41 MICROALBUMIN: CREATININE RATIO Comments: PATIENT WAS FASTINGPERFORMED BY: [facility] [id number] [facility] [place] [id number] ([id number]) AND (68095) Alb/Creat Ratio <5.1 {mg/g_creat} (Normal) Range: 0.0-30.0 Albumin, Urine <3.0 ug/mL (Normal) Creatinine, Urine 58.8 mg/dL (Normal) 39-Owf-564017:41 METABOLIC PANEL, COMPREHENSIVE Comments: PATIENT WAS FASTINGPERFORMED BY: [employer] [facility][id number] [facility] [id number] (33935) ALT (SGPT) 23 [iU]/L (Normal) Range: 0-32 AST (SGOT) 21 [iU]/L (Normal) Range: 0-40 Alkaline Phosphatase 98 [iU]/L (Normal) Range: 39-117 Bilirubin, Total 0.5 mg/dL (Normal) Range: 0.0-1.2 A/G Ratio 1.7 (Normal) Range: 1.2-2.2 Globulin, Total 2.5 g/dL (Normal) Range: 1.5-4.5 Albumin 4.3 g/dL (Normal) Range: 3.6-4.8 Protein, Total 6.8 g/dL (Normal) Range: 6.0-8.5 Calcium 9.5 mg/dL (Normal) Range: 8.7-10.3 Carbon Dioxide, Total 28 mmol/L (Normal) Range: 18-29 Chloride 98 mmol/L (Normal) Range: 96-106 Potassium 4.7 mmol/L (Normal) Range: 3.5-5.2 Sodium 139 mmol/L (Normal) Range: 134-144 BUN/Creatinine Ratio 29 (Abnormal) Range: 12-28 eGFR If Africn Am 112 mL/min/1.73 (Normal) eGFR If NonAfricn Am 97 mL/min/1.73 (Normal) Creatinine 0.56 mg/dL (Abnormal) Range: 0.57-1.00 BUN 16 mg/dL (Normal) Range: 8-27 Glucose 111 mg/dL (Abnormal) Range: 65-99 51-Wfv-881470:41 LIPID PANEL (39001) Comments: PATIENT WAS FASTINGPERFORMED BY: [employer] [facility][id number] [facility] [id number] LDL/HDL Ratio 2.8 {ratio} (Normal) Range: 0.0-3.2 Comments: LDL/HDL Ratio Men Women 1/2 Avg.Risk 1.0 1.5 Av g.Risk 3.6 3.2 2X Avg.Risk 6.2 5.0 3X Avg.Risk 8.0 6.1 LDL Cholesterol Calc 128 mg/dL (Abnormal) Range: 0-99 VLDL Cholesterol Kareem 29 mg/dL (Normal) Range: 5-40 HDL Cholesterol 46 mg/dL (Normal) Triglycerides 145 mg/dL (Normal) Range: 0-149 Cholesterol, Total 203 mg/dL (Abnormal) Range: 100-199 30-Muh-259183:41 CBC with auto diff (38724) Comments: PATIENT WAS FASTINGPERFORMED BY: [facility][id number] [facility] [id number] Immature Grans (Abs) 0.0 {x10E3/uL} (Normal) Range: 0.0-0.1 Immature Granulocytes 0 % (Normal) Baso (Absolute) 0.0 {x10E3/uL} (Normal) Range: 0.0-0.2 Eos (Absolute) 0.3 {x10E3/uL} (Normal) Range: 0.0-0.4 Monocytes(Absolute) 0.6 {x10E3/uL} (Normal) Range: 0.1-0.9 Lymphs (Absolute) 1.4 {x10E3/uL} (Normal) Range: 0.7-3.1 Neutrophils (Absolute) 4.0 {x10E3/uL} (Normal) Range: 1.4-7.0 Basos 1 % (Normal) Eos 5 % (Normal) Monocytes 10 % (Normal) Lymphs 22 % (Normal) Neutrophils 62 % (Normal) Platelets 275 {x10E3/uL} (Normal) Range: 150-379 RDW 13.1 % (Normal) Range: 12.3-15.4 MCHC 33.3 g/dL (Normal) Range: 31.5-35.7 MCH 32.9 pg (Normal) Range: 26.6-33.0 MCV 99 fL (Abnormal) Range: 79-97 Hematocrit 40.6 % (Normal) Range: 34.0-46.6 Hemoglobin 13.5 g/dL (Normal) Range: 11.1-15.9 RBC 4.10 {x10E6/uL} (Normal) Range: 3.77-5.28 WBC 6.3 {x10E3/uL} (Normal) Range: 3.4-10.8 28-Sha-781235:41 TSH (THYROID STIMULATING Comments: PATIENT WAS FASTINGPERFORMED BY: [facility][id number] [facility] [id number] HORMONE) (10393) TSH 1.470 {uIU/mL} (Normal) Range: 0.450-4.500 :10 HgA1C , Office (58409) HgA1C , Office 5.9 % (Normal) Range: 4.6 - 7.1 :10 Blood Glucose , Office (57083) Blood Glucose , Office 104 (Normal) :46 HgA1C , Office (14822) HgA1C , Office 5.8 % (Normal) Range: 4.6 - 7.1 :46 Blood Glucose , Office (88349) Blood Glucose , Office 106 (Normal) :27 CBC W/Diff, Automated Comments: [facility] [address]jbaphhcl[address] [place] [place], [place], [id number] Absolute Lymph 1.67 {X10_3/ul} (Normal) Range: 0.83-4.51 Absolute Neut 3.8 {X10_3/uL} (Normal) Range: 2.0-7.7 IM GRAN % 0.200 % (Normal) Range: 0.0-0.9 Comments: IG% - Immature Granulocytes (promyelocytes, myelocytes andmetamyelocytes) > 1% indicates that a LEFT SHIFT is Present. BASO% 0.5 % (Normal) Range: 0-1 EO% 4.3 % (Normal) Range: 0-5 MONO% 8.2 % (Normal) Range: 0-10 LY% 26.5 % (Normal) Range: 19-41 NEUT% 60.3 % (Normal) Range: 47-70 MPV 9.6 fL (Normal) Range: 6.2-12.0 PLT 249 K/mm3 (Normal) Range: 150-450 RDW SD 48.1 fL (Abnormal) Range: 35.1-43.9 RDW CV 13.0 % (Normal) Range: 11.6-14.6 MCHC 32.1 {g/gl} (Normal) Range: 32-36 MCH 32.6 pg (Abnormal) Range: 27.0-32.0 MCV 101.5 fL (Abnormal) Range: 81-99 HCT 41.1 % (Normal) Range: 37-47 HGB 13.2 g/dL (Normal) Range: 12.0-15.0 RBC 4.05 {M/mm3} (Abnormal) Range: 4.2-5.4 WBC 6.3 K/mm3 (Normal) Range: 4.4-11.0 58-Aoj-01375:27 Comprehensive Metabolic Profil Comments: [facility] [address] [place], [address] GAP 7 (Normal) Range: 5-15 CO2 30.0 mmol/L (Normal) Range: 21.0-32.0 CL 102 mmol/L (Normal) Range: 98-107 K 4.1 mmol/L (Normal) Range: 3.5-5.1 NA 139 mmol/L (Normal) Range: 136-145 T BILI 0.50 mg/dL (Normal) Range: 0.20-1.00 ALT 33 U/L (Normal) Range: 12-78 ALK P 101 U/L (Normal) Range: 45-117 AST 24 U/L (Normal) Range: 15-37 CA 8.8 mg/dL (Normal) Range: 8.5-10.1 A/G 0.9 {RATIO} (Normal) Range: 0.9-2.4 GLOB 3.7 g/dL (Normal) Range: 2.2-4.2 ALB 3.5 g/dL (Normal) Range: 3.4-5.0 Comments: Please note revised Albumin AND Globulin reference rangeeffective 2017. T PROT 7.2 g/dL (Normal) Range: 6.4-8.2 BUN/CRE 32.8 {RATIO} (Abnormal) Range: 10-20 EST GFR - AA 143 mL/min (Normal) Comments: GFR Calc EST GFR 118 mL/min (Normal) Comments: Non- GFR Calc CREAT,SERUM 0.55 mg/dL (Normal) Range: 0.55-1.02 Comments: The validity of the calculated GFR AND GFRAA in patients over70 years has not been determined. Clinical correlation isessential. BUN 18 mg/dL (Normal) Range: 7-18 GLU 95 mg/dL (Normal) Range: 70-110 94-Ykd-44507:27 Lipid Profile Comments: [facility] [address] [place], [place], [id number] VLDL 26 mg/dL (Normal) Range: 5-40 LDL 110 mg/dL (Normal) Range: 0-130 HDL 50 mg/dL (Normal) Comments: The drugs N-Acetylcysteine and Metamizole may falselydepress this assay. Reference Range HDL <40 mg/dL Low HDL Cholesterol HDL >or= 60 mg/dL High HDL Cholesterol TRIG 131 mg/dL (Normal) Comments: The drugs N-Acetylcysteine and Metamizole may falselydepress this assay.Serum Triglycerides Reference Interval Normal <150 mg/dL Borderline high 150 - 199 mg/dL High 200 - 499 mg/dL Very High > or = 500 mg/dL CHOL 186 mg/dL (Normal) Comments: <200 mg/dL Desirable 200-240 mg/dL Borderline >240 mg/dL High Risk 35-Jte-79911:27 Microalb:Creat Ratio,Random UR Comments: [facility] [address] [place], [place], [id number] MALB:CREAT 11.5 {mg/g_CRE} (Normal) MICROALBUMIN,UR 5.9 mg/L (Normal) UR CREAT 51.10 mg/dL (Normal) 47-Ace-30256:27 Thyroid Stim Hormone (TSH) Comments: [facility] [address] [place], [address] TSH 3.83 {uIU/mL} (Abnormal) Range: 0.358-3.74 00-Svg-49925:27 Urinalysis, Complete Comments: How was Urine Obtained? CLEAN [facility] [address] [place], [address] MUCUS, URINE 0 SEEN {/hpf} (Normal) BACTERIA 0 SEEN {/hpf} (Normal) SQUAM EPI 0-5 SEEN {/hpf} (Normal) Range: 5-10 RBC-UA 0 SEEN {/hpf} (Normal) Range: 0-5 WBC 0 SEEN {/hpf} (Normal) Range: 0-5 LEUK ESTERASE Negative /ul (Normal) OCCULT BLOOD-UR Negative /ul (Normal) NITRITE UR Negative (Normal) UROBILI Normal mg/dL (Normal) PROT DIPSTX Negative mg/dL (Normal) pH UR 6.5 (Normal) Range: 5.0 - 8.0 SP.GR. DIPSTX 1.010 (Normal) Range: 1.002-1.030 KETONE UR Negative mg/dL (Normal) BILIRUBIN URINE Negative mg/dL (Normal) GLUCOSE, UR Normal mg/dL (Normal) CLARITY Clear (Normal) COLOR Yellow (Normal) 80-Ijf-64210:27 Vitamin D,25 Hydroxy Comments: [facility] [address] [place], [address] Vitamin D 25-OH 30.8 ng/mL (Normal) Comments: Vitamin D 25(OH) Status Range Deficiency <20 ng/mL (50nmol/L) Insuffciency 20 - 30 ng/mL (50 - 75 nmol/L) Sufficiency 30 - 100 ng/mL (75 - 250 nmol/L) Toxicity >100 ng/mL (>250 nmol/L) 0-Ebb-196109:26 RETICULOCYTE COUNT (17773) Comments: PATIENT NOT FASTINGPERFORMED BY: [facility] [place] [id number] Reticulocyte Count 1.7 % (Normal) Range: 0.6-2.6 6-Nof-148612:26 VITAMIN B-12 (CYANOCOBALAMIN) Comments: PATIENT NOT FASTINGPERFORMED BY: [facility] [id number] (37902) Vitamin B12 363 pg/mL (Normal) Range: 211-946 05-Qmw-371131:27 CBC With Differential/Platelet Comments: PATIENT WAS FASTINGPERFORMED BY: [facility] [id number] Immature Grans (Abs) 0.0 {x10E3/uL} (Normal) Range: 0.0-0.1 Immature Granulocytes 0 % (Normal) Baso (Absolute) 0.0 {x10E3/uL} (Normal) Range: 0.0-0.2 Eos (Absolute) 0.3 {x10E3/uL} (Normal) Range: 0.0-0.4 Monocytes(Absolute) 0.7 {x10E3/uL} (Normal) Range: 0.1-0.9 Lymphs (Absolute) 1.4 {x10E3/uL} (Normal) Range: 0.7-3.1 Neutrophils (Absolute) 3.9 {x10E3/uL} (Normal) Range: 1.4-7.0 Basos 1 % (Normal) Eos 5 % (Normal) Monocytes 11 % (Normal) Lymphs 22 % (Normal) Neutrophils 61 % (Normal) Platelets 239 {x10E3/uL} (Normal) Range: 150-379 RDW 13.3 % (Normal) Range: 12.3-15.4 MCHC 33.2 g/dL (Normal) Range: 31.5-35.7 MCH 32.4 pg (Normal) Range: 26.6-33.0 MCV 98 fL (Abnormal) Range: 79-97 Hematocrit 41.3 % (Normal) Range: 34.0-46.6 Hemoglobin 13.7 g/dL (Normal) Range: 11.1-15.9 RBC 4.23 {x10E6/uL} (Normal) Range: 3.77-5.28 WBC 6.4 {x10E3/uL} (Normal) Range: 3.4-10.8 19-Hxl-215768:27 Comp. Metabolic Panel (14) Comments: PATIENT WAS FASTINGPERFORMED BY: [facility]6370 [facility] [id number] ALT (SGPT) 20 [iU]/L (Normal) Range: 0-32 AST (SGOT) 22 [iU]/L (Normal) Range: 0-40 Alkaline Phosphatase, S 107 [iU]/L (Normal) Range: 39-117 Bilirubin, Total 0.6 mg/dL (Normal) Range: 0.0-1.2 A/G Ratio 1.5 (Normal) Range: 1.2-2.2 Globulin, Total 2.7 g/dL (Normal) Range: 1.5-4.5 Albumin, Serum 4.1 g/dL (Normal) Range: 3.6-4.8 Protein, Total, Serum 6.8 g/dL (Normal) Range: 6.0-8.5 Calcium, Serum 9.5 mg/dL (Normal) Range: 8.7-10.3 Carbon Dioxide, Total 24 mmol/L (Normal) Range: 18-29 Chloride, Serum 101 mmol/L (Normal) Range: 96-106 Potassium, Serum 4.5 mmol/L (Normal) Range: 3.5-5.2 Sodium, Serum 143 mmol/L (Normal) Range: 134-144 BUN/Creatinine Ratio 31 (Abnormal) Range: 12-28 eGFR If Africn Am 116 mL/min/1.73 (Normal) eGFR If NonAfricn Am 101 mL/min/1.73 (Normal) Creatinine, Serum 0.51 mg/dL (Abnormal) Range: 0.57-1.00 BUN 16 mg/dL (Normal) Range: 8-27 Glucose, Serum 108 mg/dL (Abnormal) Range: 65-99 28-Mbd-055813:27 Lipid Panel With LDL/HDL Comments: PATIENT WAS FASTINGPERFORMED BY: [employer] [facility] [id number] Ratio LDL/HDL Ratio 3.1 {ratio_units} Range: 0.0-3.2 (Normal) Comments: LDL/HDL Ratio Men Women 1/2 Avg.Risk 1.0 1.5 Av g.Risk 3.6 3.2 2X Avg.Risk 6.2 5.0 3X Avg.Risk 8.0 6.1 LDL Cholesterol Calc 140 mg/dL (Abnormal) Range: 0-99 VLDL Cholesterol Kareem 34 mg/dL (Normal) Range: 5-40 HDL Cholesterol 45 mg/dL (Normal) Triglycerides 171 mg/dL (Abnormal) Range: 0-149 Cholesterol, Total 219 mg/dL (Abnormal) Range: 100-199 20-Aug-2017 TSH 3.800 {uIU/mL} Comments: PATIENT WAS FASTINGPERFORMED BY: [employer] [facility] [id number] 10:27 (Normal) Range: 0.450-4.500 20-Aug-2017 Unable to Void SPRCS (Normal) Comments: PATIENT WAS FASTINGPERFORMED BY: [employer] [facility] [id number] 10:27 Comments: The patient was not able to render a urine sample and has beeninstructed to return for a urine collection at their earliestconvenience. The urine testing that you have requested hasbeen deleted from th is report. When the patient returns andprovides a urine specimen, the urine testing will be performedand separately reported. 20-Aug-2017 Vitamin D, 25-Hydroxy 22.7 ng/mL (Abnormal) Comments: PATIENT WAS FASTINGPERFORMED BY: [facility][id number] [facility] [id number] 10:27 Range: 30.0-100.0 Comments: Vitamin D deficiency has been defined by the [place] and an Endocrine Society practice guideline as alevel of serum 25-OH vitamin D less than 20 ng/mL (1,2).The Endocrine Society went on to further define vitamin Dinsufficiency as a level between 21 and 29 ng/mL (2).1. IOM ([place]). 2010. Dietary reference intakes for calcium and D. [place]: The National Academies Press.2. [place]ow [place], [place], Contreras BRANNON, et al. Evaluation, treatment, and prevention of vitamin D deficiency: an Endocrine Society clinical practice guideline. JCEM. 2010; 96(7):1911-30. 97-Sba-34472:52 HgA1C , Office (41769) HgA1C , Office 5.7 % (Normal) Range: 4.6 - 7.1 77-Pcr-423491:04 HgA1C , Office (66278) HgA1C , Office 5.8 % (Normal) Range: 4.6 - 7.1 86-Afj-719384:35 Basic Metabolic Profile (BMP) Comments: [facility] [address] [place], [address] GAP 3 (Abnormal) Range: 5-15 CO2 34.0 mmol/L (Abnormal) Range: 21.0-32.0 CL 105 mmol/L (Normal) Range: 98-107 K 4.4 mmol/L (Normal) Range: 3.5-5.1 NA 142 mmol/L (Normal) Range: 136-145 CA 9.2 mg/dL (Normal) Range: 8.5-10.1 BUN/CRE 35.2 {RATIO} (Abnormal) Range: 10-20 Estimated CRCL 86.98 ml/min (Normal) EST GFR - AA 155 mL/min (Normal) Comments: GFR Calc EST GFR 128 mL/min (Normal) Comments: Non- GFR Calc CREAT,SERUM 0.51 mg/dL (Abnormal) Range: 0.55-1.02 Comments: The validity of the calculated GFR AND GFRAA in patients over70 years has not been determined. Clinical correlation isessential. BUN 18 mg/dL (Normal) Range: 7-18 GLU 99 mg/dL (Normal) Range: 70-110 20-Ycg-501696:35 CBC-Complete Blood Cnt No Diff Comments: [facility] [address] [place], [place], [id number] MPV 9.3 fL (Normal) Range: 6.2-12.0 PLT 253 K/mm3 (Normal) Range: 150-450 RDW SD 45.0 fL (Abnormal) Range: 35.1-43.9 RDW CV 12.8 % (Normal) Range: 11.6-14.6 MCHC 32.9 {g/gl} (Normal) Range: 32-36 MCH 32.4 pg (Abnormal) Range: 27.0-32.0 MCV 98.3 fL (Normal) Range: 81-99 HCT 41.0 % (Normal) Range: 37-47 HGB 13.5 g/dL (Normal) Range: 12.0-15.0 RBC 4.17 {M/mm3} (Abnormal) Range: 4.2-5.4 WBC 7.0 K/mm3 (Normal) Range: 4.4-11.0 [id number] Thyroid Stim Hormone (TSH) Comments: [facility] [id number] [place], [address] TSH 0.21 {uIU/mL} (Abnormal) Range: 0.358-3.74 [id number] MRSA/SAID SCREEN Comments: [facility] [address] [place], [address] MRSA+SAID SCRN See Note (Normal) Comments: Results called on 04/23/17-1336 by NINA to /WIN [phone].MRSA/SAID SCRNS. AUREUS S. aureus PositiveMRSA MRSA Negative 03-Mmi-88294:22 C-Reactive Protein (80404) Comments: PATIENT NOT FASTINGPERFORMED BY: [facility] Ouqzce0061 [facility] [id number] C-Reactive Protein, Quant 4.5 mg/L (Normal) Range: 0.0-4.9 :22 Sed Rate Erythrocyte (01088) Comments: PATIENT NOT FASTINGPERFORMED BY: [facility] Qmbvnr5233 [facility] [id number] Sedimentation Rate-Westergren 17 mm/h (Normal) Range: 0-40 :22 CBC, PLATELETS & MANUAL DIFF Comments: PATIENT NOT FASTINGPERFORMED BY: [facility] Phuenw3726 [facility] [id number] ([id number]) Immature Grans (Abs) 0.0 {x10E3/uL} (Normal) Range: 0.0-0.1 Immature Granulocytes 0 % (Normal) Baso (Absolute) 0.0 {x10E3/uL} (Normal) Range: 0.0-0.2 Eos (Absolute) 0.3 {x10E3/uL} (Normal) Range: 0.0-0.4 Monocytes(Absolute) 0.7 {x10E3/uL} (Normal) Range: 0.1-0.9 Lymphs (Absolute) 1.4 {x10E3/uL} (Normal) Range: 0.7-3.1 Neutrophils (Absolute) 3.3 {x10E3/uL} (Normal) Range: 1.4-7.0 Basos 1 % (Normal) Eos 5 % (Normal) Monocytes 12 % (Normal) Lymphs 24 % (Normal) Neutrophils 58 % (Normal) Platelets 249 {x10E3/uL} (Normal) Range: 150-379 RDW 13.5 % (Normal) Range: 12.3-15.4 MCHC 33.0 g/dL (Normal) Range: 31.5-35.7 MCH 32.0 pg (Normal) Range: 26.6-33.0 MCV 97 fL (Normal) Range: 79-97 Hematocrit 40.0 % (Normal) Range: 34.0-46.6 Hemoglobin 13.2 g/dL (Normal) Range: 11.1-15.9 RBC 4.13 {x10E6/uL} (Normal) Range: 3.77-5.28 WBC 5.7 {x10E3/uL} (Normal) Range: 3.4-10.8 :46 Metabolic Panel, Basic (63418) Comments: PATIENT NOT FASTINGPERFORMED BY: [facility] Beoqey4921 [facility] [id number] Calcium, Serum 9.6 mg/dL (Normal) Range: 8.7-10.3 Carbon Dioxide, Total 22 mmol/L (Normal) Range: 18-29 Chloride, Serum 100 mmol/L (Normal) Range: 96-106 Potassium, Serum 4.4 mmol/L (Normal) Range: 3.5-5.2 Sodium, Serum 142 mmol/L (Normal) Range: 134-144 BUN/Creatinine Ratio 19 (Normal) Range: 11-26 eGFR If Africn Am 113 mL/min/1.73 (Normal) eGFR If NonAfricn Am 98 mL/min/1.73 (Normal) Creatinine, Serum 0.57 mg/dL (Normal) Range: 0.57-1.00 BUN 11 mg/dL (Normal) Range: 8-27 Glucose, Serum 141 mg/dL (Abnormal) Range: 65-99 :07 Serum Creatinine AND GFR Comments: [facility] [address] [place], [place], [id number] EST GFR - AA 112 mL/min (Normal) Comments: GFR Calc EST GFR 92 mL/min (Normal) Comments: Non- GFR Calc CREAT,SERUM 0.68 mg/dL (Normal) Range: 0.55-1.02 Comments: The validity of the calculated GFR AND GFRAA in patients over70 years has not been determined. Clinical correlation isessential. :04 HgA1C , Office (39106) HgA1C , Office 5.6 % (Normal) Range: 4.6 - 7.1 :04 Blood Glucose , Office (42726) Blood Glucose , Office 93 (Normal) [id number]-Zie-868397:38 TSH (09906) Comments: PATIENT WAS FASTINGPERFORMED BY: [employer] Tfxxig1108 [facility] [id number] TSH 1.530 {uIU/mL} (Normal) Range: 0.450-4.500 15-Ndo-451416:38 METABOLIC PANEL, COMPREHENSIVE Comments: PATIENT WAS FASTINGPERFORMED BY: [employer] Xwxbsr9670 [facility] [id number] (80651) ALT (SGPT) 23 [iU]/L (Normal) Range: 0-32 AST (SGOT) 24 [iU]/L (Normal) Range: 0-40 Alkaline Phosphatase, S 87 [iU]/L (Normal) Range: 39-117 Bilirubin, Total 0.5 mg/dL (Normal) Range: 0.0-1.2 A/G Ratio 1.7 (Normal) Range: 1.1-2.5 Globulin, Total 2.6 g/dL (Normal) Range: 1.5-4.5 Albumin, Serum 4.4 g/dL (Normal) Range: 3.6-4.8 Protein, Total, Serum 7.0 g/dL (Normal) Range: 6.0-8.5 Calcium, Serum 9.5 mg/dL (Normal) Range: 8.7-10.3 Carbon Dioxide, Total 25 mmol/L (Normal) Range: 18-29 Chloride, Serum 101 mmol/L (Normal) Range: 97-108 Potassium, Serum 5.0 mmol/L (Normal) Range: 3.5-5.2 Sodium, Serum 144 mmol/L (Normal) Range: 134-144 BUN/Creatinine Ratio 27 (Abnormal) Range: 11-26 eGFR If Africn Am 115 mL/min/1.73 (Normal) eGFR If NonAfricn Am 99 mL/min/1.73 (Normal) Creatinine, Serum 0.55 mg/dL (Abnormal) Range: 0.57-1.00 BUN 15 mg/dL (Normal) Range: 8-27 Glucose, Serum 113 mg/dL (Abnormal) Range: 65-99 08-Iwu-031928:38 CBC W/AUTO DIFF WBC Comments: PATIENT WAS FASTINGPERFORMED BY: [employer]70 [facility] [id number] Information: [id number] (32457) Immature Grans (Abs) 0.0 {x10E3/uL} (Normal) Range: 0.0-0.1 Immature Granulocytes 0 % (Normal) Baso (Absolute) 0.0 {x10E3/uL} (Normal) Range: 0.0-0.2 Eos (Absolute) 0.2 {x10E3/uL} (Normal) Range: 0.0-0.4 Monocytes(Absolute) 0.6 {x10E3/uL} (Normal) Range: 0.1-0.9 Lymphs (Absolute) 1.5 {x10E3/uL} (Normal) Range: 0.7-3.1 Neutrophils (Absolute) 4.6 {x10E3/uL} (Normal) Range: 1.4-7.0 Basos 0 % (Normal) Eos 3 % (Normal) Monocytes 9 % (Normal) Lymphs 21 % (Normal) Neutrophils 67 % (Normal) Platelets 266 {x10E3/uL} (Normal) Range: 150-379 RDW 13.1 % (Normal) Range: 12.3-15.4 MCHC 34.2 g/dL (Normal) Range: 31.5-35.7 MCH 32.9 pg (Normal) Range: 26.6-33.0 MCV 96 fL (Normal) Range: 79-97 Hematocrit 41.2 % (Normal) Range: 34.0-46.6 Hemoglobin 14.1 g/dL (Normal) Range: 11.1-15.9 RBC 4.29 {x10E6/uL} (Normal) Range: 3.77-5.28 WBC 6.9 {x10E3/uL} (Normal) Range: 3.4-10.8 31-Wtk-060139:20 IGP, Aptima HPV, Comments: Source.............Cervical;EndocervicalNo. of containers..01 CYTYC Thin Prep VialPATIENT NOT FASTINGPERFORMED BY: =G [facility] [address] [id number] BY: WB L rfx 16/18,[address] [facility] [address] [id number] HPV Aptima Negative (Normal) Comments: This test detects fourteen high-risk HPV types (16/18/31/33/35/39/45/51/52/56/58/59/66/68) without differentiation. Note: PAPSMR (Normal) Comments: The Pap smear is a screening test designed to aid in the detection ofpremalignant and malignant conditions of the uterine cervix. It is not adiagnostic procedure and should not be used as the sole mean s of detectingcervical cancer. Both false-positive and false-negative reports do occur. .This liquid based ThinPrep(R) pap test w as screened with theuse of an image guided system. See Note . (Normal) DIAGNOSIS: SPRCS (Normal) Comments: NEGATIVE FOR INTRAEPITHELIAL LESION AND MALIGNANCY.Satisfactory for evaluation. Endocervical and/or squamous metaplasticcells (endocervical component) are present.Z01.419Soco Hamilton Homeopathic Doctor (ASCP) 03-Lyt-687743:20 Thin prep Pap Comments: Source.............Cervical;EndocervicalNo. of containers..01 CYTYC Thin Prep VialPATIENT NOT FASTINGPERFORMED BY: =G [facility] [id number] BY: MYRA Diggs (75015) (no STD [facility] [address] [id number] Information: [id number] testing) Age Gdln ACOG Testing 30-65 (Normal) :50 Microscopic Examination Comments: PATIENT WAS FASTINGPERFORMED BY: CB [facility] Whidmh3979 [facility] [id number] Bacteria None seen (Normal) Mucus Threads Present (Normal) Epithelial Cells (non renal) 0-10 {/hpf} (Normal) Range: 0 - 10 RBC None seen {/hpf} (Normal) Range: 0 - 2 WBC 0-5 {/hpf} (Normal) Range: 0 - 5 :53 HgA1C , Office (07487) HgA1C , Office 6.0 % (Normal) Range: 4.6 - 7.1 :53 Blood Glucose , Office (76628) Blood Glucose , Office 92 (Normal) :50 CALCIFIDIOL (76076) VIT D 25 Comments: PATIENT WAS FASTINGPERFORMED BY: [employer] Fhjnnx9304 [facility] [id number] Vitamin D, 25-Hydroxy 24.7 ng/mL (Abnormal) Range: 30.0-100.0 Comments: Vitamin D deficiency has been defined by the [place] and an Endocrine Society practice guideline as alevel of serum 25-OH vitamin D less than 20 ng/mL (1,2).The Endocrine Society went on to further define vitamin Dinsufficiency as a level between 21 and 29 ng/mL (2).1. IOM ([place] [employer]). 2010. Dietary reference intakes for calcium and D. [place]: The National Academies Press.2. Willow [place], [place], Contreras BRANNON, et al. Evaluation, treatment, and prevention of vitamin D deficiency: an Endocrine Society clinical practice guideline. JCEM. 2010; 96(7):1911-30. :50 MICROALBUMIN: CREATININE RATIO Comments: PATIENT WAS FASTINGPERFORMED BY: [employer] Fwdapm0313 [facility] [id number] ([id number]) AND (34215) Microalb/Creat Ratio <9.7 {mg/g_creat} (Normal) Range: 0.0-30.0 Microalbumin, Urine <3.0 ug/mL (Normal) Range: 0.0-17.0 Comments: Effective April 06, 2016 the reference interval for Microalbumin, Urine will be changing to: Not Estab. Creatinine, Urine 30.8 mg/dL (Normal) Range: 15.0-278.0 Comments: Effective April 06, 2016 the reference interval for Creatinine, Urine will be changing to: Not Estab. :50 URINALYSIS, W/ MICRO (47091) Comments: PATIENT WAS FASTINGPERFORMED BY: [facility] Sxxlee6507 [facility] [id number] Microscopic Examination See below: (Normal) Comments: Microscopic was indicated and was performed. Microscopic Examination MICRON (Normal) Comments: Microscopic follows if indicated. Nitrite, Urine Negative (Normal) Urobilinogen,Semi-Qn 0.2 mg/dL (Normal) Range: 0.2-1.0 Bilirubin Negative (Normal) Occult Blood Negative (Normal) Ketones Negative (Normal) Glucose Negative (Normal) Protein Negative (Normal) WBC Esterase Negative (Normal) Appearance Clear (Normal) Urine-Color Yellow (Normal) pH 7.0 (Normal) Range: 5.0-7.5 Specific [place] 1.008 (Normal) Range: 1.005-1.030 01-Apr-20169:50 METABOLIC PANEL, COMPREHENSIVE Comments: PATIENT WAS FASTINGPERFORMED BY: [facility]Yfivcw0799 [facility] [id number] (06057) ALT (SGPT) 22 [iU]/L (Normal) Range: 0-32 AST (SGOT) 25 [iU]/L (Normal) Range: 0-40 Alkaline Phosphatase, S 86 [iU]/L (Normal) Range: 39-117 Bilirubin, Total 0.5 mg/dL (Normal) Range: 0.0-1.2 A/G Ratio 1.6 (Normal) Range: 1.1-2.5 Globulin, Total 2.7 g/dL (Normal) Range: 1.5-4.5 Albumin, Serum 4.2 g/dL (Normal) Range: 3.6-4.8 Protein, Total, Serum 6.9 g/dL (Normal) Range: 6.0-8.5 Calcium, Serum 9.6 mg/dL (Normal) Range: 8.7-10.3 Carbon Dioxide, Total 25 mmol/L (Normal) Range: 18-29 Chloride, Serum 96 mmol/L (Abnormal) Range: 97-108 Potassium, Serum 5.0 mmol/L (Normal) Range: 3.5-5.2 Sodium, Serum 140 mmol/L (Normal) Range: 134-144 BUN/Creatinine Ratio 31 (Abnormal) Range: 11-26 eGFR If Africn Am 117 mL/min/1.73 (Normal) eGFR If NonAfricn Am 101 mL/min/1.73 (Normal) Creatinine, Serum 0.52 mg/dL (Abnormal) Range: 0.57-1.00 BUN 16 mg/dL (Normal) Range: 8-27 Glucose, Serum 96 mg/dL (Normal) Range: 65-99 :50 CBC W/AUTO DIFF WBC Comments: PATIENT WAS FASTINGPERFORMED BY: [facility] [employer] IncubatorDr. Dan C. Trigg Memorial HospitalPospuc0308 [facility] [id number] Information: [id number] ([id number]) Immature Grans (Abs) 0.0 {x10E3/uL} (Normal) Range: 0.0-0.1 Immature Granulocytes 0 % (Normal) Baso (Absolute) 0.0 {x10E3/uL} (Normal) Range: 0.0-0.2 Eos (Absolute) 0.3 {x10E3/uL} (Normal) Range: 0.0-0.4 Monocytes(Absolute) 0.8 {x10E3/uL} (Normal) Range: 0.1-0.9 Lymphs (Absolute) 1.6 {x10E3/uL} (Normal) Range: 0.7-3.1 Neutrophils (Absolute) 4.9 {x10E3/uL} (Normal) Range: 1.4-7.0 Basos 0 % (Normal) Eos 4 % (Normal) Monocytes 10 % (Normal) Lymphs 21 % (Normal) Neutrophils 65 % (Normal) Platelets 263 {x10E3/uL} (Normal) Range: 150-379 RDW 13.3 % (Normal) Range: 12.3-15.4 MCHC 34.2 g/dL (Normal) Range: 31.5-35.7 MCH 32.9 pg (Normal) Range: 26.6-33.0 MCV 96 fL (Normal) Range: 79-97 Hematocrit 40.4 % (Normal) Range: 34.0-46.6 Hemoglobin 13.8 g/dL (Normal) Range: 11.1-15.9 RBC 4.19 {x10E6/uL} (Normal) Range: 3.77-5.28 WBC 7.7 {x10E3/uL} (Normal) Range: 3.4-10.8 :50 LIPID PANEL (20171) Comments: PATIENT WAS FASTINGPERFORMED BY: [facility]6370 [facility] [id number] LDL/HDL Ratio 3.0 {ratio_units} (Normal) Range: 0.0-3.2 Comments: LDL/HDL Ratio Men Women 1/2 Avg.Risk 1.0 1.5 Av g.Risk 3.6 3.2 2X Avg.Risk 6.2 5.0 3X Avg.Risk 8.0 6.1 LDL Cholesterol Calc 142 mg/dL (Abnormal) Range: 0-99 VLDL Cholesterol Kareem 40 mg/dL (Normal) Range: 5-40 HDL Cholesterol 48 mg/dL (Normal) Comments: According to ATP-III Guidelines, HDL-C >59 mg/dL is considered anegative risk factor for CHD. Triglycerides 202 mg/dL (Abnormal) Range: 0-149 Cholesterol, Total 230 mg/dL (Abnormal) Range: 100-199 :50 TSH (90784) Comments: PATIENT WAS FASTINGPERFORMED BY: [facility] Virilt4088 [facility] [id number] TSH 12.050 {uIU/mL} (Abnormal) Range: 0.450-4.500 :54 HgA1C , Office (82404) HgA1C , Office 5.7 % (Normal) Range: 4.6 - 7.1 :54 Blood Glucose , Office (10749) Blood Glucose , Office 96 (Normal) :05 HgA1C , Office (47693) HgA1C , Office 6.1 % (Normal) Range: 4.6 - 7.1 :05 Blood Glucose , Office (88619) Blood Glucose , Office 126 (Normal) :12 CBC W/Diff, Automated Comments: [facility] [address] [place], [place], [id number] Absolute Lymph 1.34 {X10_3/ul} (Normal) Range: 0.83-4.51 Absolute Neut 3.5 {X10_3/uL} (Normal) Range: 2.0-7.7 IM GRAN % 0.200 % (Normal) Range: 0.0-0.9 Comments: IG% - Immature Granulocytes (promyelocytes, myelocytes andmetamyelocytes) > 1% indicates that a LEFT SHIFT is Present. BASO% 0.7 % (Normal) Range: 0-1 EO% 3.4 % (Normal) Range: 0-5 MONO% 12.1 % (Abnormal) Range: 0-10 LY% 23.1 % (Normal) Range: 19-41 NEUT% 60.5 % (Normal) Range: 47-70 MPV 9.2 fL (Normal) Range: 6.2-12.0 PLT 250 K/mm3 (Normal) Range: 150-450 RDW SD 47.9 fL (Abnormal) Range: 35.1-43.9 RDW CV 13.0 % (Normal) Range: 11.6-14.6 MCHC 32.4 {g/gl} (Normal) Range: 32-36 MCH 32.6 pg (Abnormal) Range: 27.0-32.0 MCV 100.7 fL (Abnormal) Range: 81-99 HCT 41.7 % (Normal) Range: 37-47 HGB 13.5 g/dL (Normal) Range: 12.0-15.0 RBC 4.14 {M/mm3} (Abnormal) Range: 4.2-5.4 WBC 5.8 K/mm3 (Normal) Range: 4.4-11.0 04-Sep-20158:12 Comprehensive Metabolic Profil Comments: [facility] [address] [place], [address] GAP 7 (Normal) Range: 5-15 CO2 31.0 mmol/L (Normal) Range: 21.0-32.0 CL 104 mmol/L (Normal) Range: 98-107 K 4.3 mmol/L (Normal) Range: 3.5-5.1 NA 142 mmol/L (Normal) Range: 136-145 T BILI 0.60 mg/dL (Normal) Range: 0.20-1.00 ALT 31 U/L (Normal) Range: 12-78 ALK P 92 U/L (Normal) Range: 50-136 AST 29 U/L (Normal) Range: 15-37 CA 8.9 mg/dL (Normal) Range: 8.5-10.1 A/G 1.0 {RATIO} (Normal) Range: 0.9-2.4 GLOB 3.5 g/dL (Normal) Range: 2.3-3.5 ALB 3.6 g/dL (Normal) Range: 3.4-5.0 T PROT 7.1 g/dL (Normal) Range: 6.4-8.2 BUN/CRE 19.0 {RATIO} (Normal) Range: 10-20 EST GFR - AA 135 mL/min (Normal) EST GFR 111 mL/min (Normal) CREAT,SERUM 0.58 mg/dL (Normal) Range: 0.55-1.20 Comments: The validity of the calculated GFR AND GFRAA in patients over70 years has not been determined. Clinical correlation isessential. BUN 11 mg/dL (Normal) Range: 7-18 GLU 103 mg/dL (Normal) Range: 70-110 :12 Lipid Profile Comments: [facility] [address] [place], [place], [id number] VLDL 34 mg/dL (Normal) Range: 5-40 LDL 137 mg/dL (Abnormal) Range: 0-130 HDL 47 mg/dL (Normal) Comments: Reference Range HDL <40 mg/dL Low HDL Cholesterol HDL >or= 60 mg/dL High HDL Cholesterol TRIG 169 mg/dL (Normal) Comments: Serum Triglycerides Reference Interval Normal <150 mg/dL Borderline high 150 - 199 mg/dL High 200 - 499 mg/dL Very High > or = 500 mg/dL CHOL 218 mg/dL (Abnormal) Comments: <200 mg/dL Desirable 200-240 mg/dL Borderline >240 mg/dL High Risk :12 Microalb:Creat Ratio,Random UR Comments: [facility] [address] [place], [place], [id number] MALB:CREAT 10.0 {mg/g_CRE} (Normal) MICROALBUMIN,UR 13.6 mg/L (Normal) UR CREAT 125.00 mg/dL (Normal) :12 Thyroid Stim Hormone (TSH) Comments: [facility] [address] [place], [address] TSH 5.36 {uIU/mL} (Abnormal) Range: 0.358-3.74 :12 Urinalysis, Complete Comments: How was Urine Obtained? [facility] [address] [place], [place], [id number] MUCUS, URINE 0 SEEN {/hpf} (Normal) BACTERIA 1+ {/hpf} (Normal) SQUAM EPI 0-5 SEEN {/hpf} (Normal) Range: 5-10 RBC-UA 0 SEEN {/hpf} (Normal) Range: 0-5 WBC 25-50 SEEN {/hpf} (Normal) Range: 0-5 LEUK ESTERASE 500 /ul (Abnormal) OCCULT BLOOD-UR Negative /ul (Normal) NITRITE UR Negative (Normal) UROBILI Normal mg/dL (Normal) PROT DIPSTX Negative mg/dL (Normal) pH UR 6.5 (Normal) Range: 5.0 - 8.0 SP.GR. DIPSTX 1.015 (Normal) Range: 1.002-1.030 KETONE UR Negative mg/dL (Normal) BILIRUBIN URINE Negative mg/dL (Normal) GLUCOSE, UR Normal mg/dL (Normal) CLARITY Sl. Cloudy (Normal) COLOR Yellow (Normal) :03 HgA1C , Office (79365) HgA1C , Office 5.8 % (Normal) Range: 4.6 - 7.1 :03 Blood Glucose , Office (93686) Blood Glucose , Office 120 (Normal) 47-Kgi-700976:09 Rapid Flu (44340 x 2) Influenza A Ag positive b (Normal) 46-Ljx-495172:41 Culture, Wound Comments: Test performed at:[facility] [address] [place], [place] [address] CUW See Note (Normal) Comments: Comments: RIGHT RING FINGERGram StainGram Stain 2+ White Blood Cells 3+ Gram positive cocci in chains Wound Culture# 1 Penicillin is the drug of choice for Beta Streptococcal infections. For Penici llin allergic patients, Erythromycin may be used. ORGANISM 1: Streptococcus group AAmount Growth 3+ ORGANISM 2: Staphylococcus aureusAmount Growth 2+ Staphylococcus a ureus: REACTION Benzylpenicillin NF 0.25 R Cefoxitin *NF - Clindamycin $$ <=0.25 S Inducable Clindamycin Resistan - Erythromycin $ <=0.25 S Gentamicin $ <=0.5 S Levofloxacin $ 0.2 5 S Linezolid $$$$ 2 S Moxifloxicin *NF <=0.25 S Oxacillin NF <=0.25 S Tigecycline $$$$ <=0.12 S Rifampin $$ <=0.5 S Tetracycline NF <=1 S Trimethoprim/Sulfametho $ <=10 S Vancomyc in $ 1 S(NF) indicates non-formulary drug at [facility]. Approval by Infectious Disease Specialist required before non-formulary drugs may b e ordered and/or dispensed. * CLSI guidelines does not recommend testing of cephalosporins. This interpretation is deduced from Beta- lactam/penicillin results. :41 Microscopic Examination Comments: PATIENT WAS FASTINGPERFORMED BY: [facility] [id number] Bacteria None seen (Normal) Mucus Threads Present (Normal) Epithelial Cells (non renal) 0-10 {/hpf} (Normal) Range: 0 - 10 RBC 0-2 {/hpf} (Normal) Range: 0 - 2 WBC 0-5 {/hpf} (Normal) Range: 0 - 5 :41 TSH (64917) Comments: PATIENT WAS FASTINGPERFORMED BY: [employer]6370 [facility] [id number] TSH 2.840 {uIU/mL} (Normal) Range: 0.450-4.500 :41 URINALYSIS, W/ MICRO (74443) Comments: PATIENT WAS FASTINGPERFORMED BY: [employer] [facility] [id number] Microscopic Examination See below: (Normal) Comments: Microscopic was indicated and was performed. Microscopic Examination MICRON (Normal) Comments: Microscopic follows if indicated. Nitrite, Urine Negative (Normal) Urobilinogen,Semi-Qn 0.2 mg/dL (Normal) Range: 0.0-1.9 Bilirubin Negative (Normal) Occult Blood Negative (Normal) Ketones Negative (Normal) Glucose Negative (Normal) Protein Negative (Normal) WBC Esterase Negative (Normal) Appearance Clear (Normal) Urine-Color Yellow (Normal) pH 6.5 (Normal) Range: 5.0-7.5 Specific [place] 1.021 (Normal) Range: 1.005-1.030 :41 MICROALBUMIN: CREATININE RATIO Comments: PATIENT WAS FASTINGPERFORMED BY: [employer]6370 [facility] [id number] (98567) AND (86912) Microalb/Creat Ratio <4.6 {mg/g_creat} (Normal) Range: 0.0-30.0 Microalbumin, Urine <3.0 ug/mL (Normal) Range: 0.0-17.0 Creatinine, Urine 64.9 mg/dL (Normal) Range: 15.0-278.0 :41 METABOLIC PANEL, COMPREHENSIVE Comments: PATIENT WAS FASTINGPERFORMED BY: [employer]IX70 [facility] [id number] (91985) ALT (SGPT) 22 [iU]/L (Normal) Range: 0-32 AST (SGOT) 22 [iU]/L (Normal) Range: 0-40 Alkaline Phosphatase, S 95 [iU]/L (Normal) Range: 39-117 Bilirubin, Total 0.5 mg/dL (Normal) Range: 0.0-1.2 A/G Ratio 1.7 (Normal) Range: 1.1-2.5 Globulin, Total 2.4 g/dL (Normal) Range: 1.5-4.5 Albumin, Serum 4.1 g/dL (Normal) Range: 3.6-4.8 Protein, Total, Serum 6.5 g/dL (Normal) Range: 6.0-8.5 Calcium, Serum 9.4 mg/dL (Normal) Range: 8.7-10.3 Carbon Dioxide, Total 27 mmol/L (Normal) Range: 18-29 Chloride, Serum 99 mmol/L (Normal) Range: 97-108 Potassium, Serum 4.5 mmol/L (Normal) Range: 3.5-5.2 Sodium, Serum 142 mmol/L (Normal) Range: 134-144 BUN/Creatinine Ratio 27 (Abnormal) Range: 11-26 eGFR If Africn Am 118 mL/min/1.73 (Normal) eGFR If NonAfricn Am 102 mL/min/1.73 (Normal) Creatinine, Serum 0.52 mg/dL (Abnormal) Range: 0.57-1.00 BUN 14 mg/dL (Normal) Range: 8-27 Glucose, Serum 98 mg/dL (Normal) Range: 65-99 :41 LIPID PANEL (20148) Comments: PATIENT WAS FASTINGPERFORMED BY: [employer] [facility]ubatorCapital [facility])Xipegi1869 [facility] [id number] LDL/HDL Ratio 2.4 {ratio_units} (Normal) Range: 0.0-3.2 Comments: LDL/HDL Ratio Men Women 1/2 Avg.Risk 1.0 1.5 Av g.Risk 3.6 3.2 2X Avg.Risk 6.2 5.0 3X Avg.Risk 8.0 6.1 LDL Cholesterol Calc 121 mg/dL (Abnormal) Range: 0-99 VLDL Cholesterol Kareem 31 mg/dL (Normal) Range: 5-40 HDL Cholesterol 50 mg/dL (Normal) Comments: According to ATP-III Guidelines, HDL-C >59 mg/dL is considered anegative risk factor for CHD. Triglycerides 156 mg/dL (Abnormal) Range: 0-149 Cholesterol, Total 202 mg/dL (Abnormal) Range: 100-199 :41 CBC with auto diff Comments: PATIENT WAS FASTINGPERFORMED BY: [employer] IncubatorCapital [facility])Tjlyky2642 [facility] [id number] Information: [id number] (55639) Immature Grans (Abs) 0.0 {x10E3/uL} (Normal) Range: 0.0-0.1 Immature Granulocytes 0 % (Normal) Baso (Absolute) 0.0 {x10E3/uL} (Normal) Range: 0.0-0.2 Eos (Absolute) 0.2 {x10E3/uL} (Normal) Range: 0.0-0.4 Monocytes(Absolute) 0.5 {x10E3/uL} (Normal) Range: 0.1-0.9 Lymphs (Absolute) 1.4 {x10E3/uL} (Normal) Range: 0.7-3.1 Neutrophils (Absolute) 4.4 {x10E3/uL} (Normal) Range: 1.4-7.0 Basos 1 % (Normal) Eos 3 % (Normal) Monocytes 8 % (Normal) Lymphs 21 % (Normal) Neutrophils 67 % (Normal) Platelets 268 {x10E3/uL} (Normal) Range: 150-379 RDW 13.4 % (Normal) Range: 12.3-15.4 MCHC 33.4 g/dL (Normal) Range: 31.5-35.7 MCH 32.5 pg (Normal) Range: 26.6-33.0 MCV 97 fL (Normal) Range: 79-97 Hematocrit 40.4 % (Normal) Range: 34.0-46.6 Hemoglobin 13.5 g/dL (Normal) Range: 11.1-15.9 RBC 4.15 {x10E6/uL} (Normal) Range: 3.77-5.28 WBC 6.6 {x10E3/uL} (Normal) Range: 3.4-10.8 :30 Blood Glucose , Office (07207) Blood Glucose , Office 113 (Normal) :30 HgA1C , Office (39990) HgA1C , Office 6.1 % (Normal) Range: 4.6 - 7.1 :55 Microscopic Examination Comments: PATIENT WAS FASTINGPERFORMED BY: [facility] [id number] [facility] [id number] Bacteria None seen (Normal) Mucus Threads Present (Normal) Crystal Type Amorphous Sediment (Normal) Crystals Present (Abnormal) Epithelial Cells (non renal) 0-10 {/hpf} (Normal) Range: 0 - 10 RBC 0-2 {/hpf} (Normal) Range: 0 - 2 WBC 0-5 {/hpf} (Normal) Range: 0 - 5 :30 Blood Glucose , Office (28090) Blood Glucose , Office 79 (Normal) [id number] HgA1C , Office (00065) HgA1C , Office 6.0 % (Normal) Range: 4.6 - 7.1 :55 TSH (84790) Comments: PATIENT WAS FASTINGPERFORMED BY: [facility] [id number] [facility] [id number] TSH 1.750 {uIU/mL} (Normal) Range: 0.450-4.500 :55 URINALYSIS, W/ MICRO (24152) Comments: PATIENT WAS FASTINGPERFORMED BY: [id number] [facility] [id number] Microscopic Examination See below: (Normal) Comments: Microscopic was indicated and was performed. Microscopic Examination MICRON (Normal) Comments: Microscopic follows if indicated. Nitrite, Urine Negative (Normal) Urobilinogen,Semi-Qn 0.2 mg/dL (Normal) Range: 0.0-1.9 Bilirubin Negative (Normal) Occult Blood Negative (Normal) Ketones Negative (Normal) Glucose Negative (Normal) Protein Trace (Normal) WBC Esterase Negative (Normal) Appearance Cloudy (Abnormal) Urine-Color Yellow (Normal) pH 8.0 (Abnormal) Range: 5.0-7.5 Specific [place] 1.019 (Normal) Range: 1.005-1.030 :55 MICROALBUMIN: CREATININE RATIO Comments: PATIENT WAS FASTINGPERFORMED BY: OPHTHONIX70 [facility] [id number] ([id number]) AND (44695) Microalb/Creat Ratio 5.1 {mg/g_creat} (Normal) Range: 0.0-30.0 Microalbumin, Urine 3.7 ug/mL (Normal) Range: 0.0-17.0 Creatinine, Urine 71.9 mg/dL (Normal) Range: 15.0-278.0 :55 METABOLIC PANEL, COMPREHENSIVE Comments: PATIENT WAS FASTINGPERFORMED BY: [employer] Uhzhgh7082 [facility] [id number] ([id number]) ALT (SGPT) 19 [iU]/L (Normal) Range: 0-32 AST (SGOT) 21 [iU]/L (Normal) Range: 0-40 Alkaline Phosphatase, S 92 [iU]/L (Normal) Range: 39-117 Bilirubin, Total 0.4 mg/dL (Normal) Range: 0.0-1.2 A/G Ratio 2.0 (Normal) Range: 1.1-2.5 Globulin, Total 2.1 g/dL (Normal) Range: 1.5-4.5 Albumin, Serum 4.1 g/dL (Normal) Range: 3.6-4.8 Protein, Total, Serum 6.2 g/dL (Normal) Range: 6.0-8.5 Calcium, Serum 9.2 mg/dL (Normal) Range: 8.6-10.2 Carbon Dioxide, Total 28 mmol/L (Normal) Range: 18-29 Chloride, Serum 99 mmol/L (Normal) Range: 97-108 Potassium, Serum 4.6 mmol/L (Normal) Range: 3.5-5.2 Sodium, Serum 142 mmol/L (Normal) Range: 134-144 BUN/Creatinine Ratio 25 (Normal) Range: 11-26 eGFR If Africn Am 117 mL/min/1.73 (Normal) eGFR If NonAfricn Am 101 mL/min/1.73 (Normal) Creatinine, Serum 0.53 mg/dL (Abnormal) Range: 0.57-1.00 BUN 13 mg/dL (Normal) Range: 8-27 Glucose, Serum 104 mg/dL (Abnormal) Range: 65-99 02-Sys-537510:55 LIPID PANEL (34912) Comments: PATIENT WAS FASTINGPERFORMED BY: OPHTHONIX70 [facility] [id number] LDL/HDL Ratio 3.2 {ratio_units} (Normal) Range: 0.0-3.2 LDL Cholesterol Calc 145 mg/dL (Abnormal) Range: 0-99 VLDL Cholesterol Kareem 37 mg/dL (Normal) Range: 5-40 HDL Cholesterol 46 mg/dL (Normal) Comments: According to ATP-III Guidelines, HDL-C >59 mg/dL is considered anegative risk factor for CHD. Triglycerides 183 mg/dL (Abnormal) Range: 0-149 Cholesterol, Total 228 mg/dL (Abnormal) Range: 100-199 70-Pgq-164723:55 CBC W/AUTO DIFF WBC Comments: PATIENT WAS FASTINGPERFORMED BY: Diwanee Ezykyx8115 [facility] [id number] Information: [id number] ([id number]) Immature Grans (Abs) 0.0 {x10E3/uL} (Normal) Range: 0.0-0.1 Immature Granulocytes 0 % (Normal) Baso (Absolute) 0.0 {x10E3/uL} (Normal) Range: 0.0-0.2 Eos (Absolute) 0.2 {x10E3/uL} (Normal) Range: 0.0-0.4 Monocytes(Absolute) 0.5 {x10E3/uL} (Normal) Range: 0.1-0.9 Lymphs (Absolute) 1.5 {x10E3/uL} (Normal) Range: 0.7-3.1 Neutrophils (Absolute) 4.0 {x10E3/uL} (Normal) Range: 1.4-7.0 Basos 1 % (Normal) Eos 3 % (Normal) Monocytes 9 % (Normal) Lymphs 24 % (Normal) Neutrophils 63 % (Normal) Platelets 259 {x10E3/uL} (Normal) Range: 150-379 RDW 13.2 % (Normal) Range: 12.3-15.4 MCHC 32.8 g/dL (Normal) Range: 31.5-35.7 MCH 31.5 pg (Normal) Range: 26.6-33.0 MCV 96 fL (Normal) Range: 79-97 Hematocrit 40.5 % (Normal) Range: 34.0-46.6 Hemoglobin 13.3 g/dL (Normal) Range: 11.1-15.9 RBC 4.22 {x10E6/uL} (Normal) Range: 3.77-5.28 WBC 6.2 {x10E3/uL} (Normal) Range: 3.4-10.8 14-Btw-093198:09 HgA1C , Office (77154) HgA1C , Office 6.0 % (Normal) Range: 4.6 - 7.1 75-Nmj-405068:14 TSH (78258) Comments: PATIENT WAS FASTINGPERFORMED BY: [facility][id number] [facility] [id number] TSH 0.330 {uIU/mL} (Abnormal) Range: 0.450-4.500 :14 LIPID PANEL (35121) Comments: PATIENT WAS FASTINGPERFORMED BY: [facility][id number] [facility] [id number] LDL/HDL Ratio 3.0 {ratio_units} (Normal) Range: 0.0-3.2 LDL Cholesterol Calc 132 mg/dL (Abnormal) Range: 0-99 VLDL Cholesterol Kareem 31 mg/dL (Normal) Range: 5-40 HDL Cholesterol 44 mg/dL (Normal) Comments: According to ATP-III Guidelines, HDL-C >59 mg/dL is considered anegative risk factor for CHD. Triglycerides 155 mg/dL (Abnormal) Range: 0-149 Cholesterol, Total 207 mg/dL (Abnormal) Range: 100-199 66-Yde-479493:14 CMV ANTIBODY (42014) Comments: PATIENT WAS FASTINGPERFORMED BY: Milaap Social VenturesCap[facility][id number] [facility] [id number] Cytomegalovirus (CMV) Ab, IgG >10.00 U/mL (Abnormal) Range: 0.00-0.59 Comments: Negative <0.60 Equivocal 0.60 - 0.69 Positive >0.69 89-Mxt-183577:14 CMV IGM ANTBDY (42159) Comments: PATIENT WAS FASTINGPERFORMED BY: [employer] IncubatorCapital Health [facility][id number] [facility] [id number] Cytomegalovirus (CMV) Ab, IgM <30.0 AU/mL (Normal) Range: 0.0-29.9 Comments: Negative <30.0 Equivocal 30.0 - 34.9 Positive >34.9 A positive result is generally indicative of acute infection, reactivation or persistent IgM production. 70-Ror-365981:14 EB ANTIBODY VIRAL CAPSID Comments: PATIENT WAS FASTINGPERFORMED BY: [employer] IncubatorCapital [facility]Bzexbp[address] [place] [address] [id number] (57200) X2 Interpretation: SPRCS (Normal) Comments: EBV Interpretation Chart . Interpretation EBV-IgM VCA-IgG EBNA-IgG EA(D)-IgG . EBV Seronegative - - - - Early Phase + - - - Acute Primary + + - +or- Infection Convalescence/Past - + + +or- Infection Reactivated +or- + + + Infection + Antibody Present - Antibody Absent EBV Nuclear Antigen Ab, IgG 75.0 U/mL (Abnormal) Range: 0.0-17.9 Comments: Negative <18.0 Equivocal 18.0 - 21.9 Positive >21.9 EBV Ab VCA, IgG >600.0 U/mL (Abnormal) Range: 0.0-17.9 Comments: Negative <18.0 Equivocal 18.0 - 21.9 Positive >21.9 EBV Early Antigen Ab, IgG <9.0 U/mL (Normal) Range: 0.0-8.9 Comments: Negative < 9.0 Equivocal 9.0 - 10.9 Positive >10.9 EBV Ab VCA, IgM <36.0 U/mL (Normal) Range: 0.0-35.9 Comments: Negative <36.0 Equivocal 36.0 - 43.9 Positive >43.9 80-Uwj-356453:14 LDH (LD) (LACTATE DEHYDROGENASE) Comments: PATIENT WAS FASTINGPERFORMED BY: [employer] IncubatorCapital [facility]Swnsfh4843 [facility] [id number] ([id number]) LDH 188 [iU]/L (Normal) Range: 0-214 95-Ypd-498856:14 JAY (ANTINUCLEAR ANTIBODY) Comments: PATIENT WAS FASTINGPERFORMED BY: [facility]6370 [facility] [id number] ([id number]) JAY Direct Negative (Normal) 90-Vwp-583550:14 C-REACTIVE PROTEIN (67427) Comments: PATIENT WAS FASTINGPERFORMED BY: [employer] IncubatorCapital [facility][id number] [facility] [id number] C-Reactive Protein, Quant 6.4 mg/L (Abnormal) Range: 0.0-4.9 53-Ouz-831397:14 SED RATE ERYTHROCYTE (51154) Comments: PATIENT WAS FASTINGPERFORMED BY: [facility] [place] [address] [id number] Sedimentation Rate-Westergren 7 mm/h (Normal) Range: 0-40 83-Cyc-725410:14 CBC WITH MANUAL DIFF Comments: PATIENT WAS FASTINGPERFORMED BY: [facility]6370 [facility] [id number] Information: [id number] (67932) Immature Grans (Abs) 0.0 {x10E3/uL} (Normal) Range: 0.0-0.1 Immature Granulocytes 0 % (Normal) Range: 0-2 Baso (Absolute) 0.0 {x10E3/uL} (Normal) Range: 0.0-0.2 Eos (Absolute) 0.1 {x10E3/uL} (Normal) Range: 0.0-0.4 Monocytes(Absolute) 0.6 {x10E3/uL} (Normal) Range: 0.1-0.9 Lymphs (Absolute) 1.5 {x10E3/uL} (Normal) Range: 0.7-3.1 Neutrophils (Absolute) 4.6 {x10E3/uL} (Normal) Range: 1.4-7.0 Basos 0 % (Normal) Range: 0-3 Eos 2 % (Normal) Range: 0-5 Monocytes 9 % (Normal) Range: 4-12 Lymphs 21 % (Normal) Range: 14-46 Neutrophils 68 % (Normal) Range: 40-74 Platelets 253 {x10E3/uL} (Normal) Range: 150-379 Comments: Please note reference interval change RDW 13.2 % (Normal) Range: 12.3-15.4 MCHC 32.9 g/dL (Normal) Range: 31.5-35.7 MCH 31.8 pg (Normal) Range: 26.6-33.0 MCV 97 fL (Normal) Range: 79-97 Hematocrit 39.8 % (Normal) Range: 34.0-46.6 Hemoglobin 13.1 g/dL (Normal) Range: 11.1-15.9 RBC 4.12 {x10E6/uL} (Normal) Range: 3.77-5.28 WBC 6.9 {x10E3/uL} (Normal) Range: 3.4-10.8 17-Qdj-858369:14 METABOLIC PANEL, COMPREHENSIVE Comments: PATIENT WAS FASTINGPERFORMED BY: [facility]Co Pdqehg7061 [facility] [id number] ([id number]) ALT (SGPT) 18 [iU]/L (Normal) Range: 0-32 AST (SGOT) 22 [iU]/L (Normal) Range: 0-40 Alkaline Phosphatase, S 93 [iU]/L (Normal) Range: 39-117 Bilirubin, Total 0.3 mg/dL (Normal) Range: 0.0-1.2 A/G Ratio 1.9 (Normal) Range: 1.1-2.5 Globulin, Total 2.3 g/dL (Normal) Range: 1.5-4.5 Albumin, Serum 4.3 g/dL (Normal) Range: 3.6-4.8 Protein, Total, Serum 6.6 g/dL (Normal) Range: 6.0-8.5 Calcium, Serum 9.5 mg/dL (Normal) Range: 8.6-10.2 Carbon Dioxide, Total 25 mmol/L (Normal) Range: 18-29 Comments: Please note reference interval change Chloride, Serum 102 mmol/L (Normal) Range: 97-108 Potassium, Serum 4.0 mmol/L (Normal) Range: 3.5-5.2 Sodium, Serum 144 mmol/L (Normal) Range: 134-144 BUN/Creatinine Ratio 26 (Normal) Range: 11-26 eGFR If Africn Am 118 mL/min/1.73 (Normal) eGFR If NonAfricn Am 102 mL/min/1.73 (Normal) Creatinine, Serum 0.53 mg/dL (Abnormal) Range: 0.57-1.00 BUN 14 mg/dL (Normal) Range: 8-27 Glucose, Serum 110 mg/dL (Abnormal) Range: 65-99 :09 Blood Glucose , Office (71127) Blood Glucose , Office 89 (Normal) :09 HgA1C , Office (70074) HgA1C , Office 6.0 % (Normal) Range: 4.6 - 7.1 :28 HgA1C , Office (20703) HgA1C , Office 6.1 % (Normal) Range: 4.6 - 7.1 :26 Blood Glucose , Office (77238) Blood Glucose , Office 94 (Normal) :26 HgA1C , Office (64014) HgA1C , Office 5.7 % (Normal) Range: 4.6 - 7.1 :47 Vitamin D Hydroxy (50259) Comments: PATIENT WAS FASTINGPERFORMED BY: [facility]6370 [facility] [id number] Vitamin D, 25-Hydroxy 34.9 ng/mL (Normal) Range: 30.0-100.0 Comments: Vitamin D deficiency has been defined by the [place] and an Endocrine Society practice guideline as alevel of serum 25-OH vitamin D less than 20 ng/mL (1,2).The Endocrine Society went on to further define vitamin Dinsufficiency as a level between 21 and 29 ng/mL (2).1. IOM ([place]). 2010. Dietary reference intakes for calcium and D. [place]: The National Academies Press.2. Willow MF, [place], Contreras BRANNON, et al. Evaluation, treatment, and prevention of vitamin D deficiency: an Endocrine Society clinical practice guideline. JCEM. 2010; 96(7):1911-30. :47 URINALYSIS, W/ MICRO (39009) Comments: PATIENT WAS FASTINGPERFORMED BY: [facility] [id number] Microscopic Examination See below: (Normal) Nitrite, Urine Negative (Normal) Urobilinogen,Semi-Qn 0.2 mg/dL (Normal) Range: 0.0-1.9 Bilirubin Negative (Normal) Occult Blood Negative (Normal) Ketones Negative (Normal) Glucose Negative (Normal) Protein Negative (Normal) WBC Esterase 2+ (Abnormal) Appearance Clear (Normal) Urine-Color Yellow (Normal) pH 7.5 (Normal) Range: 5.0-7.5 Specific [place] 1.016 (Normal) Range: 1.005-1.030 :47 MICROALBUMIN: CREATININE RATIO Comments: PATIENT WAS FASTINGPERFORMED BY: [employer]6370 [facility]RealDirect[facility] [id number] ([id number]) AND (41937) Microalb/Creat Ratio 9.1 {mg/g_creat} (Normal) Range: 0.0-30.0 Microalbumin, Urine 5.6 ug/mL (Normal) Range: 0.0-17.0 Creatinine, Urine 61.6 mg/dL (Normal) Range: 15.0-278.0 :47 METABOLIC PANEL, COMPREHENSIVE Comments: PATIENT WAS FASTINGPERFORMED BY: OPHTHONIX70 [facility] [id number] (25164) ALT (SGPT) 22 [iU]/L (Normal) Range: 0-32 AST (SGOT) 20 [iU]/L (Normal) Range: 0-40 Alkaline Phosphatase, S 104 [iU]/L (Normal) Range: 25-165 Comments: Effective June 12, 2013 the reference interval for Alkaline Phosphatase, S will be changing to: Age Male Female 0 - 1 day 45 - 111 45 - 111 2 - 5 days 46 - 119 46 - 119 6 - 10 days 48 - 229 48 - 229 11 - 30 d ays 59 - 414 59 - 414 1 - 6 months 91 - 445 91 - 445 7 - 12 months 124 - 341 124 - 341 1 - 3 years 130 - 317 130 - 317 4 - 6 years 133 - 309 133 - 309 7 - 12 years 134 - 349 134 - 349 13 years 143 - 396 68 - 209 14 years 107 - 340 62 - 149 15 years 84 - 254 54 - 121 16 years 71 - 186 49 - 108 17 years 61 - 146 45 - 101 18 years 56 - 127 43 - 101 1 9 - 60 years 44 - 102 42 - 107 61 - 70 years 44 - 103 47 - 112 >70 years 44 - 105 45 - 108 Bilirubin, Total 0.6 mg/dL (Normal) Range: 0.0-1.2 A/G Ratio 2.2 (Normal) Range: 1.1-2.5 Globulin, Total 2.0 g/dL (Normal) Range: 1.5-4.5 Albumin, Serum 4.3 g/dL (Normal) Range: 3.6-4.8 Protein, Total, Serum 6.3 g/dL (Normal) Range: 6.0-8.5 Calcium, Serum 9.1 mg/dL (Normal) Range: 8.6-10.2 Carbon Dioxide, Total 24 mmol/L (Normal) Range: 19-28 Chloride, Serum 104 mmol/L (Normal) Range: 97-108 Potassium, Serum 4.2 mmol/L (Normal) Range: 3.5-5.2 Sodium, Serum 142 mmol/L (Normal) Range: 134-144 BUN/Creatinine Ratio 23 (Normal) Range: 11-26 eGFR If Africn Am 116 mL/min/1.73 (Normal) eGFR If NonAfricn Am 100 mL/min/1.73 (Normal) Creatinine, Serum 0.57 mg/dL (Normal) Range: 0.57-1.00 BUN 13 mg/dL (Normal) Range: 8-27 Glucose, Serum 104 mg/dL (Abnormal) Range: 65-99 :47 LIPID PANEL (92485) Comments: PATIENT WAS FASTINGPERFORMED BY: [facility][id number] [facility] [id number] LDL/HDL Ratio 2.8 {ratio_units} (Normal) Range: 0.0-3.2 LDL Cholesterol Calc 149 mg/dL (Abnormal) Range: 0-99 VLDL Cholesterol Kareem 22 mg/dL (Normal) Range: 5-40 HDL Cholesterol 54 mg/dL (Normal) Comments: According to ATP-III Guidelines, HDL-C >59 mg/dL is considered anegative risk factor for CHD. Triglycerides 112 mg/dL (Normal) Range: 0-149 Cholesterol, Total 225 mg/dL (Abnormal) Range: 100-199 :47 CBC WITH MANUAL DIFF Comments: PATIENT WAS FASTINGPERFORMED BY: [employer] Kuzrze0149 [facility] [id number] Information: [id number] (50731) Immature Grans (Abs) 0.0 {x10E3/uL} (Normal) Range: 0.0-0.1 Immature Granulocytes 0 % (Normal) Range: 0-2 Baso (Absolute) 0.0 {x10E3/uL} (Normal) Range: 0.0-0.2 Eos (Absolute) 0.2 {x10E3/uL} (Normal) Range: 0.0-0.4 Monocytes(Absolute) 0.6 {x10E3/uL} (Normal) Range: 0.1-1.0 Lymphs (Absolute) 1.5 {x10E3/uL} (Normal) Range: 0.7-4.5 Neutrophils (Absolute) 4.1 {x10E3/uL} (Normal) Range: 1.8-7.8 Basos 1 % (Normal) Range: 0-3 Eos 3 % (Normal) Range: 0-7 Monocytes 10 % (Normal) Range: 4-13 Lymphs 24 % (Normal) Range: 14-46 Neutrophils 62 % (Normal) Range: 40-74 Platelets 247 {x10E3/uL} (Normal) Range: 140-415 RDW 13.2 % (Normal) Range: 12.3-15.4 MCHC 32.9 g/dL (Normal) Range: 31.5-35.7 MCH 31.8 pg (Normal) Range: 26.6-33.0 MCV 97 fL (Normal) Range: 79-97 Hematocrit 41.6 % (Normal) Range: 34.0-46.6 Hemoglobin 13.7 g/dL (Normal) Range: 11.1-15.9 RBC 4.31 {x10E6/uL} (Normal) Range: 3.77-5.28 WBC 6.5 {x10E3/uL} (Normal) Range: 4.0-10.5 :47 TSH (02459) Comments: PATIENT WAS FASTINGPERFORMED BY: [employer] IncubatorCapital Health [facility]Oyctpz8849 [facility] [id number] TSH 2.380 {uIU/mL} (Normal) Range: 0.450-4.500 :47 Microscopic Examination Comments: PATIENT WAS FASTINGPERFORMED BY: [facility]6370 [facility] [id number] Bacteria Few (Normal) Mucus Threads Present (Normal) Crystal Type Amorphous Sediment (Normal) Crystals Present (Abnormal) Epithelial Cells (non renal) 0-10 {/hpf} (Normal) Range: 0 - 10 RBC 0-3 {/hpf} (Normal) Range: 0 - 3 WBC 11-30 {/hpf} (Abnormal) Range: 0 - 5 :46 Anti-TPO Antibody (26465) Comments: PATIENT NOT FASTINGPERFORMED BY: [facility]6370 [facility] [id number] Thyroid Peroxidase (TPO) Ab 113 {IU/mL} (Abnormal) Range: 0-34 :46 TSH (66372) Comments: PATIENT NOT FASTINGPERFORMED BY: [employer] [facility]atorCap[facility][id number] [facility] [id number] TSH 0.590 {uIU/mL} (Normal) Range: 0.450-4.500 :46 T4, FREE (THYROXINE) (11194) Comments: PATIENT NOT FASTINGPERFORMED BY: [facility]6370 [facility] [id number] T4,Free(Direct) 1.63 ng/dL (Normal) Range: 0.82-1.77 :46 T3, FREE (TRIDOTHYRONINE) (00427) Comments: PATIENT NOT FASTINGPERFORMED BY: [facility]6370 [facility] [id number] Triiodothyronine,Free,Serum 3.1 pg/mL (Normal) Range: 2.0-4.4 :34 Blood Glucose , Office (67800) Blood Glucose , Office 89 (Normal) :34 HgA1C , Office (95270) HgA1C , Office 5.7 % (Normal) Range: 4.6 - 7.1 :52 Microscopic Examination Comments: PATIENT NOT FASTINGPERFORMED BY: [facility]6370 [facility] [id number] Bacteria None seen (Normal) Mucus Threads Present (Normal) Epithelial Cells (non renal) 0-10 {/hpf} (Normal) Range: 0 - 10 RBC 0-3 {/hpf} (Normal) Range: 0 - 3 WBC 0-5 {/hpf} (Normal) Range: 0 - 5 :52 Vitamin D Hydroxy (63481) Comments: PATIENT NOT FASTINGPERFORMED BY: [facility]6370 [facility] [id number] Vitamin D, 25-Hydroxy 24.5 ng/mL (Abnormal) Range: 30.0-100.0 Comments: Vitamin D deficiency has been defined by the [place] of[facility]cine and an Endocrine Society practice guideline as alevel of serum 25-OH vitamin D less than 20 ng/mL (1,2).The Endocrine Society went on to further define vitamin Dinsufficiency as a level between 21 and 29 ng/mL (2).1. IOM ([place] [employer]). 2010. Dietary reference intakes for calcium and D. [place]: The National Academies Press.2. Willow MF, [place], Contreras BRANNON, et al. Evaluation, treatment, and prevention of vitamin D deficiency: an Endocrine Society clinical practice guideline. JCEM. 2010; 96(7):1911-30. :52 TSH (71055) Comments: PATIENT NOT FASTINGPERFORMED BY: [facility]6370 [facility] [id number] TSH 6.560 {uIU/mL} (Abnormal) Range: 0.450-4.500 :52 URINALYSIS, W/ MICRO (48769) Comments: PATIENT NOT FASTINGPERFORMED BY: [facility]6370 [facility] [id number] Microscopic Examination See below: (Normal) Microscopic Examination MICRON (Normal) Comments: Microscopic follows if indicated. Nitrite, Urine Negative (Normal) Urobilinogen,Semi-Qn 0.2 mg/dL (Normal) Range: 0.0-1.9 Bilirubin Negative (Normal) Occult Blood Negative (Normal) Ketones Negative (Normal) Glucose Negative (Normal) Protein Negative (Normal) WBC Esterase Negative (Normal) Appearance Clear (Normal) Urine-Color Yellow (Normal) pH 7.5 (Normal) Range: 5.0-7.5 Specific [place] 1.019 (Normal) Range: 1.005-1.030 :52 MICROALBUMIN: CREATININE RATIO Comments: PATIENT NOT FASTINGPERFORMED BY: [facility]6370 [facility] [id number] (58718) AND (40194) Microalb/Creat Ratio 15.5 {mg/g_creat} (Normal) Range: 0.0-30.0 Microalbumin, Urine 13.8 ug/mL (Normal) Range: 0.0-17.0 Creatinine, Urine 89.1 mg/dL (Normal) Range: 15.0-278.0 :52 METABOLIC PANEL, COMPREHENSIVE Comments: PATIENT NOT FASTINGPERFORMED BY: [facility]6370 [facility] [id number] (29589) ALT (SGPT) 24 [iU]/L (Normal) Range: 0-32 AST (SGOT) 21 [iU]/L (Normal) Range: 0-40 Alkaline Phosphatase, S 94 [iU]/L (Normal) Range: 25-165 Bilirubin, Total 0.5 mg/dL (Normal) Range: 0.0-1.2 A/G Ratio 1.9 (Normal) Range: 1.1-2.5 Globulin, Total 2.4 g/dL (Normal) Range: 1.5-4.5 Albumin, Serum 4.5 g/dL (Normal) Range: 3.6-4.8 Protein, Total, Serum 6.9 g/dL (Normal) Range: 6.0-8.5 Calcium, Serum 9.4 mg/dL (Normal) Range: 8.6-10.2 Carbon Dioxide, Total 24 mmol/L (Normal) Range: 20-32 Chloride, Serum 101 mmol/L (Normal) Range: 97-108 Potassium, Serum 4.1 mmol/L (Normal) Range: 3.5-5.2 Sodium, Serum 142 mmol/L (Normal) Range: 134-144 BUN/Creatinine Ratio 26 (Normal) Range: 11-26 eGFR If Africn Am 115 mL/min/1.73 (Normal) eGFR If NonAfricn Am 100 mL/min/1.73 (Normal) Creatinine, Serum 0.58 mg/dL (Normal) Range: 0.57-1.00 BUN 15 mg/dL (Normal) Range: 8-27 Glucose, Serum 105 mg/dL (Abnormal) Range: 65-99 :52 LIPID PANEL (38045) Comments: PATIENT NOT FASTINGPERFORMED BY: [facility] [id number] LDL Cholesterol Calc 163 mg/dL (Abnormal) Range: 0-99 LDL/HDL Ratio 2.9 {ratio_units} (Normal) Range: 0.0-3.2 VLDL Cholesterol Kareem 28 mg/dL (Normal) Range: 5-40 HDL Cholesterol 56 mg/dL (Normal) Comments: According to ATP-III Guidelines, HDL-C >59 mg/dL is considered anegative risk factor for CHD. Triglycerides 140 mg/dL (Normal) Range: 0-149 Cholesterol, Total 247 mg/dL (Abnormal) Range: 100-199 :52 CBC WITH MANUAL DIFF (82253) Comments: PATIENT NOT FASTINGPERFORMED BY: [employer]6370 [facility] [id number] Immature Grans (Abs) 0.0 {x10E3/uL} (Normal) Range: 0.0-0.1 Immature Granulocytes 0 % (Normal) Range: 0-2 Baso (Absolute) 0.0 {x10E3/uL} (Normal) Range: 0.0-0.2 Eos (Absolute) 0.2 {x10E3/uL} (Normal) Range: 0.0-0.4 Lymphs (Absolute) 1.3 {x10E3/uL} (Normal) Range: 0.7-4.5 Monocytes(Absolute) 0.6 {x10E3/uL} (Normal) Range: 0.1-1.0 Neutrophils (Absolute) 4.7 {x10E3/uL} (Normal) Range: 1.8-7.8 Basos 1 % (Normal) Range: 0-3 Eos 3 % (Normal) Range: 0-7 Monocytes 9 % (Normal) Range: 4-13 Lymphs 19 % (Normal) Range: 14-46 Neutrophils 68 % (Normal) Range: 40-74 Platelets 270 {x10E3/uL} (Normal) Range: 140-415 RDW 13.2 % (Normal) Range: 12.3-15.4 MCHC 33.9 g/dL (Normal) Range: 31.5-35.7 MCH 32.2 pg (Normal) Range: 26.6-33.0 MCV 95 fL (Normal) Range: 79-97 Hematocrit 42.8 % (Normal) Range: 34.0-46.6 Hemoglobin 14.5 g/dL (Normal) Range: 11.1-15.9 RBC 4.51 {x10E6/uL} (Normal) Range: 3.77-5.28 WBC 6.9 {x10E3/uL} (Normal) Range: 4.0-10.5 7-Lts-841457:07 CBC With Differential/Platelet Comments: PATIENT WAS FASTINGPERFORMED BY: [facility]Co Wclvjy2145 [facility] [id number] Immature Grans (Abs) 0.0 {x10E3/uL} (Normal) Range: 0.0-0.1 Immature Granulocytes 0 % (Normal) Range: 0-2 Comments: Please note reference interval change Baso (Absolute) 0.0 {x10E3/uL} (Normal) Range: 0.0-0.2 Eos (Absolute) 0.2 {x10E3/uL} (Normal) Range: 0.0-0.4 Monocytes(Absolute) 0.7 {x10E3/uL} (Normal) Range: 0.1-1.0 Lymphs (Absolute) 1.3 {x10E3/uL} (Normal) Range: 0.7-4.5 Neutrophils (Absolute) 4.2 {x10E3/uL} (Normal) Range: 1.8-7.8 Basos 0 % (Normal) Range: 0-3 Eos 4 % (Normal) Range: 0-7 Monocytes 11 % (Normal) Range: 4-13 Lymphs 19 % (Normal) Range: 14-46 Neutrophils 66 % (Normal) Range: 40-74 Platelets 267 {x10E3/uL} (Normal) Range: 140-415 RDW 13.0 % (Normal) Range: 11.7-15.0 MCHC 33.0 g/dL (Normal) Range: 32.0-36.0 MCH 32.2 pg (Normal) Range: 27.0-34.0 MCV 98 fL (Normal) Range: 80-98 Hematocrit 40.3 % (Normal) Range: 34.0-44.0 Hemoglobin 13.3 g/dL (Normal) Range: 11.5-15.0 RBC 4.13 {x10E6/uL} (Normal) Range: 3.80-5.10 WBC 6.5 {x10E3/uL} (Normal) Range: 4.0-10.5 [id number] Comp. Metabolic Panel (14) Comments: PATIENT WAS FASTINGPERFORMED BY: [id number] [id number] ALT (SGPT) 18 [iU]/L (Normal) Range: 0-40 AST (SGOT) 19 [iU]/L (Normal) Range: 0-40 Alkaline Phosphatase, S 103 [iU]/L (Normal) Range: 25-150 Bilirubin, Total 0.4 mg/dL (Normal) Range: 0.0-1.2 A/G Ratio 2.0 (Normal) Range: 1.1-2.5 Globulin, Total 2.2 g/dL (Normal) Range: 1.5-4.5 Albumin, Serum 4.3 g/dL (Normal) Range: 3.5-5.5 Protein, Total, Serum 6.5 g/dL (Normal) Range: 6.0-8.5 Calcium, Serum 9.4 mg/dL (Normal) Range: 8.7-10.2 Carbon Dioxide, Total 28 mmol/L (Normal) Range: 20-32 Chloride, Serum 103 mmol/L (Normal) Range: 97-108 Potassium, Serum 5.0 mmol/L (Normal) Range: 3.5-5.2 Sodium, Serum 142 mmol/L (Normal) Range: 135-145 BUN/Creatinine Ratio 27 (Abnormal) Range: 9-23 eGFR If Africn Am 124 mL/min/1.73 (Normal) Comments: Note: A persistent eGFR <60 mL/min/1.73 m2 (3 months or more) mayindicate chronic kidney disease. An eGFR >59 mL/min/1.73 m2 with anelevated urine protein also may indicate chronic kidney disease.Calculated using CKD-EPI formula. eGFR If NonAfricn Am 108 mL/min/1.73 (Normal) Creatinine, Serum 0.48 mg/dL (Abnormal) Range: 0.57-1.00 BUN 13 mg/dL (Normal) Range: 6-24 Glucose, Serum 105 mg/dL (Abnormal) Range: 65-99 8-Ysc-072494:07 Lipid Panel With LDL/HDL Comments: PATIENT WAS FASTINGPERFORMED BY: [employer] [facility] [id number] Ratio LDL/HDL Ratio 2.9 {ratio_units} Range: 0.0-3.2 (Normal) LDL Cholesterol Calc 124 mg/dL (Abnormal) Range: 0-99 HDL Cholesterol 43 mg/dL (Normal) Comments: According to ATP-III Guidelines, HDL-C >59 mg/dL is considered anegative risk factor for CHD. VLDL Cholesterol Kareem 30 mg/dL (Normal) Range: 5-40 Triglycerides 150 mg/dL (Abnormal) Range: 0-149 Cholesterol, Total 197 mg/dL (Normal) Range: 100-199 TSH 1.070 {uIU/mL} Comments: PATIENT WAS FASTINGPERFORMED BY: [id number] [facility] [id number] 2:07 (Normal) Range: 0.450-4.500 Vitamin D, 25-Hydroxy 20.4 ng/mL (Abnormal) Comments: PATIENT WAS FASTINGPERFORMED BY: [facility] Ltfawu35[address]Dublin [place] [id number] 2:07 Range: 32.0-100.0 Comments: Recent studies consider the lower limit of 32.0 ng/mL to be athreshold for optimal health.Branham BW. J Nutr. 2004;135(2):317-22. [id number]-Wat-[id number]:46 Glucose, PP/2 Hour Comments: PATIENT WAS FASTINGPERFORMED BY: [facility] Etwmne37[address]Dublin [place] [id number] Information: [id number] 75G DRAW N@10: (51899) Glucose, Two-Hour Postprandial 125 mg/dL (Normal) Range: 65-139 22-Ddb-386788:07 Microscopic Examination Comments: PATIENT WAS FASTINGPERFORMED BY: [facility] Jcgzpb216[address]Dublin [place] [id number] Bacteria None seen (Normal) Mucus Threads Present (Normal) Epithelial Cells (non renal) 0-10 {/hpf} (Normal) Range: 0 - 10 RBC 0-3 {/hpf} (Normal) Range: 0 - 3 WBC 6-10 {/hpf} (Abnormal) Range: 0 - 5 84-Bai-759628:07 Vitamin D Hydroxy (48155) Comments: PATIENT WAS FASTINGPERFORMED BY: [facility] Phroal[address]Dublin [place] [id number] Vitamin D, 25-Hydroxy 18.7 ng/mL (Abnormal) Range: 32.0-100.0 Comments: Recent studies consider the lower limit of 32.0 ng/mL to be athreshold for optimal health.Branham BW. J Nutr. 2004;135(2):317-22. 93-Ica-507200:07 TSH (90936) Comments: PATIENT WAS FASTINGPERFORMED BY: [facility] Scyjdh022[address]Dublin [place] [id number] TSH 1.020 {uIU/mL} (Normal) Range: 0.450-4.500 90-Kvv-454733:07 URINALYSIS, W/ MICRO (05621) Comments: PATIENT WAS FASTINGPERFORMED BY: [facility] [id number] Microscopic Examination See below: (Normal) Nitrite, Urine Negative (Normal) Urobilinogen,Semi-Qn 0.2 mg/dL (Normal) Range: 0.0-1.9 Bilirubin Negative (Normal) Glucose Negative (Normal) Ketones Negative (Normal) Occult Blood Negative (Normal) Appearance Clear (Normal) pH 6.5 (Normal) Range: 5.0-7.5 Protein Negative (Normal) Urine-Color Yellow (Normal) WBC Esterase 1+ (Abnormal) Specific [place] 1.026 (Normal) Range: 1.005-1.030 :07 MICROALBUMIN: CREATININE RATIO Comments: PATIENT WAS FASTINGPERFORMED BY: [employer] [facility][id number] [facility] [id number] (91299) AND (95101) Microalb/Creat Ratio 4.5 {mg/g_creat} (Normal) Range: 0.0-30.0 Microalbumin, Urine 4.4 ug/mL (Normal) Range: 0.0-17.0 Creatinine, Urine 97.0 mg/dL (Normal) Range: 15.0-278.0 :07 METABOLIC PANEL, COMPREHENSIVE Comments: PATIENT WAS FASTINGPERFORMED BY: [facility]6370 [facility] [id number] (69060) ALT (SGPT) 24 [iU]/L (Normal) Range: 0-40 AST (SGOT) 26 [iU]/L (Normal) Range: 0-40 A/G Ratio 1.9 (Normal) Range: 1.1-2.5 Albumin, Serum 4.6 g/dL (Normal) Range: 3.5-5.5 Alkaline Phosphatase, S 104 [iU]/L (Normal) Range: 25-150 Bilirubin, Total 0.6 mg/dL (Normal) Range: 0.0-1.2 Calcium, Serum 9.9 mg/dL (Normal) Range: 8.7-10.2 Globulin, Total 2.4 g/dL (Normal) Range: 1.5-4.5 Protein, Total, Serum 7.0 g/dL (Normal) Range: 6.0-8.5 BUN/Creatinine Ratio 29 (Abnormal) Range: 8-27 Carbon Dioxide, Total 23 mmol/L (Normal) Range: 20-32 Chloride, Serum 103 mmol/L (Normal) Range: 97-108 Potassium, Serum 4.2 mmol/L (Normal) Range: 3.5-5.2 Sodium, Serum 143 mmol/L (Normal) Range: 135-145 Creatinine, Serum 0.59 mg/dL (Normal) Range: 0.57-1.00 eGFR >59 mL/min/1.73 (Normal) eGFR AfricanAmerican >59 mL/min/1.73 Comments: Note: Persistent reduction for 3 months or more in an eGFR<60 mL/min/1.73 m2 defines CKD. Patients with eGFR values>/=60 mL/min/1.73 m2 may also have CKD if evidence of persistentproteinuria is (Normal) present. Additional information may be found [email or web address]. BUN 17 mg/dL (Normal) Range: 5-26 Glucose, Serum 114 mg/dL (Abnormal) Range: 65-99 43-Bgp-330907:07 LIPID PANEL (30241) Comments: PATIENT WAS FASTINGPERFORMED BY: [facility] Hivixc3586 [facility] [id number] LDL Cholesterol Calc 164 mg/dL (Abnormal) Range: 0-99 LDL/HDL Ratio 3.2 {ratio_units} (Normal) Range: 0.0-3.2 VLDL Cholesterol Kareem 26 mg/dL (Normal) Range: 5-40 HDL Cholesterol 51 mg/dL (Normal) Comments: According to ATP-III Guidelines, HDL-C >59 mg/dL is considered anegative risk factor for CHD. Triglycerides 130 mg/dL (Normal) Range: 0-149 Cholesterol, Total 241 mg/dL (Abnormal) Range: 100-199 36-Dzk-349116:07 CBC WITH MANUAL DIFF Comments: PATIENT WAS FASTINGPERFORMED BY: [facility] Xssxjl6840 [facility] [id number] Information: ADD [id number] AND DRAW FEE 99 0760 (30578) Immature Grans (Abs) 0.0 {x10E3/uL} (Normal) Range: 0.0-0.1 Immature Granulocytes 0 % (Normal) Range: 0-1 Baso (Absolute) 0.0 {x10E3/uL} (Normal) Range: 0.0-0.2 Eos (Absolute) 0.3 {x10E3/uL} (Normal) Range: 0.0-0.4 Lymphs (Absolute) 1.6 {x10E3/uL} (Normal) Range: 0.7-4.5 Monocytes(Absolute) 0.6 {x10E3/uL} (Normal) Range: 0.1-1.0 Neutrophils (Absolute) 4.1 {x10E3/uL} (Normal) Range: 1.8-7.8 Basos 1 % (Normal) Range: 0-3 Eos 4 % (Normal) Range: 0-7 Monocytes 9 % (Normal) Range: 4-13 Lymphs 25 % (Normal) Range: 14-46 Neutrophils 61 % (Normal) Range: 40-74 Platelets 256 {x10E3/uL} (Normal) Range: 140-415 MCH 32.2 pg (Normal) Range: 27.0-34.0 MCHC 34.3 g/dL (Normal) Range: 32.0-36.0 RDW 13.2 % (Normal) Range: 11.7-15.0 Hematocrit 42.3 % (Normal) Range: 34.0-44.0 Hemoglobin 14.5 g/dL (Normal) Range: 11.5-15.0 MCV 94 fL (Normal) Range: 80-98 RBC 4.50 {x10E6/uL} (Normal) Range: 3.80-5.10 WBC 6.6 {x10E3/uL} (Normal) Range: 4.0-10.5 :36 URINE CAMILO CULTURE (SUKUMAR Comments: PATIENT NOT FASTINGPERFORMED BY: [facility]CoCap[facility]Qsiisx9798 [facility] [id number] Information: SRC:UR ADD [id number] COL COUNT) (90866) Result 1 MUG (Normal) Comments: Mixed urogenital flora1,000 Colonies/mL Urine Culture,Comprehensive Final report (Normal) :50 Urinalysis, Office (40625) Comments: done aw UA - LEUKOCYTE Trace (Normal) ESTERASE UA - NITRITE Negative (Normal) URINE UROBILINGN SUKUMAR Normal mg/dL TIMED (Normal) UA - PROTEIN Negative mg/dL (Normal) UA - PH 6.0 (Normal) UA - BLOOD Negative (Normal) UA - SPECIFIC GRAVITY 1.025 (Normal) UA - KETONES Negative mg/dL (Normal) UA - BILIRUBIN Negative (Normal) UA - GLUCOSE Negative (Normal) TSH 0.741 {uIU/mL} Comments: PERFORMED BY: [facility] [id number] 3:42 (Normal) Range: 0.450-4.500 64-Rho-044956:16 CAMILO CULTURE-OTHER (77482) Comments: PATIENT NOT FASTINGClinical Information: SRC:THRT ADD [id number] PERFORMED BY: [facility] [id number] Result 1 RRF (Normal) Comments: Routine respiratory ronak Upper Respiratory Culture Final report (Normal) 74-Cyd-59305:13 Rapid Strep Test, Office (38696) Rapid Strep Test, Office Negative (Normal) 16-Nmq-255624:46 TSH (62749) Comments: PATIENT WAS FASTINGPERFORMED BY: [facility] [id number] TSH 10.376 {uIU/mL} (Abnormal) Range: 0.450-4.500 76-Rpp-591276:46 LIPID PANEL (85441) Comments: PATIENT WAS FASTINGClinical Information: ADD DRAW FEE [id number] ADD J 31415 PERFORMED BY: [employer] [facility] [id number] Cholesterol, Total 254 mg/dL (Abnormal) Range: 100-199 Comment SPRCS (Normal) Comments: If initial LDL-cholesterol result is >100 mg/dL, assess forrisk factors. HDL Cholesterol 51 mg/dL (Normal) Comments: According to ATP-III Guidelines, HDL-C >59 mg/dL is considered anegative risk factor for CHD. LDL Cholesterol Calc 169 mg/dL (Abnormal) Range: 0-99 LDL/HDL Ratio 3.3 {ratio_units} Range: 0.0-3.2 (Abnormal) Triglycerides 171 mg/dL (Abnormal) Range: 0-149 VLDL Cholesterol Kareem 34 mg/dL (Normal) Range: 5-40 0-Fxw-817667:30 GLUP 136 mg/dL (Normal) Comments: GLU,2HPPG 75gm GLUC PPG GLUP from 1006:D84415J. :25 TSH 3.21 {uIU/mL} (Normal) Range: 0.34-4.82 0-Aak-647834:19 Upper Respiratory Culture Comments: Clinical Information: SRC:TH PERFORMED BY: [employer] Iojhlw4561 [facility] [id number] Result 1 RRF (Normal) Comments: Routine respiratory ronak Upper Respiratory Culture Final report (Normal) 6-Qgg-002222:25 Rapid Strep Test, Office (59521) Comments: NEGATIVE Rapid Strep Test, Office Negative (Normal) :51 CBC With Differential/Platelet Comments: PATIENT WAS FASTINGPERFORMED BY: [employer] [facility] Luihjp4662 [facility] [id number] Baso (Absolute) 0.0 {x10E3/uL} (Normal) Range: 0.0-0.2 Basos 0 % (Normal) Range: 0-3 Eos 3 % (Normal) Range: 0-7 Eos (Absolute) 0.2 {x10E3/uL} (Normal) Range: 0.0-0.4 Lymphs 26 % (Normal) Range: 14-46 Lymphs (Absolute) 1.7 {x10E3/uL} (Normal) Range: 0.7-4.5 MCH 32.8 pg (Normal) Range: 27.0-34.0 MCHC 33.8 g/dL (Normal) Range: 32.0-36.0 Monocytes 9 % (Normal) Range: 4-13 Monocytes(Absolute) 0.6 {x10E3/uL} (Normal) Range: 0.1-1.0 Neutrophils 62 % (Normal) Range: 40-74 Neutrophils (Absolute) 4.0 {x10E3/uL} (Normal) Range: 1.8-7.8 Platelets 317 {x10E3/uL} (Normal) Range: 140-415 RDW 13.6 % (Normal) Range: 11.7-15.0 Hematocrit 39.3 % (Normal) Range: 34.0-44.0 Hemoglobin 13.3 g/dL (Normal) Range: 11.5-15.0 MCV 97 fL (Normal) Range: 80-98 RBC 4.05 {x10E6/uL} (Normal) Range: 3.80-5.10 WBC 6.4 {x10E3/uL} (Normal) Range: 4.0-10.5 :51 Comp. Metabolic Panel (14) Comments: PATIENT WAS FASTINGPERFORMED BY: [facility]6370 [facility] [id number] A/G Ratio 1.7 (Normal) Range: 1.1-2.5 Albumin, Serum 4.3 g/dL (Normal) Range: 3.5-5.5 Alkaline Phosphatase, S 100 [iU]/L (Normal) Range: 25-150 ALT (SGPT) 22 [iU]/L (Normal) Range: 0-40 AST (SGOT) 24 [iU]/L (Normal) Range: 0-40 Bilirubin, Total 0.6 mg/dL (Normal) Range: 0.1-1.2 BUN 11 mg/dL (Normal) Range: 5-26 BUN/Creatinine Ratio 18 (Normal) Range: 8-27 Calcium, Serum 9.7 mg/dL (Normal) Range: 8.5-10.6 Carbon Dioxide, Total 26 mmol/L (Normal) Range: 20-32 Chloride, Serum 103 mmol/L (Normal) Range: 97-108 Creatinine, Serum 0.60 mg/dL (Normal) Range: 0.50-1.50 Globulin, Total 2.6 g/dL (Normal) Range: 1.5-4.5 Glom Filt Rate, Est >60 mL/min (Normal) Range: 60-128 Glucose, Serum 107 mg/dL (Abnormal) Range: 65-99 If -Cypriot >60 mL/min (Normal) Range: 60-128 Comments: Note: Persistent reduction for 3 months or more in an eGFR<60 mL/min/1.73 m2 defines CKD. Patients with eGFR values>/=60 mL/min/1.73 m2 may also have CKD if evidence of persistentproteinuria is present. Additional information may be found [email or web address]. Potassium, Serum 4.8 mmol/L (Normal) Range: 3.5-5.2 Protein, Total, Serum 6.9 g/dL (Normal) Range: 6.0-8.5 Sodium, Serum 141 mmol/L (Normal) Range: 135-145 :51 Lipid Panel With LDL/HDL Comments: PATIENT WAS FASTINGPERFORMED BY: [employer] [facility] [id number] Ratio Cholesterol, Total 213 mg/dL (Abnormal) Range: 100-199 Comment SPRCS (Normal) Comments: If initial LDL-cholesterol result is >100 mg/dL, assess forrisk factors. HDL Cholesterol 46 mg/dL (Normal) Range: 40-59 LDL Cholesterol Calc 137 mg/dL (Abnormal) Range: 0-99 LDL/HDL Ratio 3.0 {ratio_units} (Normal) Range: 0.0-3.2 Triglycerides 150 mg/dL (Abnormal) Range: 0-149 VLDL Cholesterol Kareem 30 mg/dL (Normal) Range: 5-40 :51 Microalb/Creat Ratio, Randm Ur Comments: PATIENT WAS FASTINGPERFORMED BY: [employer]6370 [facility] [id number] Creatinine, Urine 62.0 mg/dL (Normal) Microalb/Creat Ratio 7.9 {ug/mg_creat} (Normal) Range: 0.0-30.0 Microalbum.,U,Random 4.9 ug/mL (Normal) Range: 0.0-17.0 :51 Microscopic Examination Comments: PATIENT WAS FASTINGPERFORMED BY: [employer] [facility] [id number] Bacteria None seen (Normal) Crystal Type Amorphous Sediment (Normal) Crystals Present (Abnormal) Epithelial Cells (non 0-10 {/hpf} (Normal) Range: 0 - 10 renal) Mucus Threads Present (Abnormal) RBC None seen {/hpf} Range: 0 - 3 (Normal) WBC 0-5 {/hpf} (Normal) Range: 0 - 5 TSH 17.282 {uIU/mL} Comments: PATIENT WAS FASTINGPERFORMED BY: [employer] [facility] [id number] :51 (Abnormal) Range: 0.350-5.500 Comments: Adult TSH concentrations below 5.5 uIU/mL do not rule out the presence of subclinical hypothyroidism. . EFFECTIVE JUN US2007 the adult reference interval for TSH will be changing to 0.450 - 4.500 uIU/mL. 48-Fdk-27472:51 Urinalysis, Routine Comments: PATIENT WAS FASTINGPERFORMED BY: [facility]Xspxam6795 [facility] [id number] Appearance Cloudy (Abnormal) Bilirubin Negative (Normal) Glucose Negative (Normal) Ketones Negative (Normal) Microscopic Examination See below: (Normal) Nitrite, Urine Negative (Normal) Occult Blood Negative (Normal) pH 7.5 (Normal) Range: 5.0-7.5 Protein Negative (Normal) Specific [place] 1.016 (Normal) Range: 1.005-1.030 Urine-Color Yellow (Normal) Urobilinogen,Semi-Qn 0.2 mg/dL (Normal) Range: 0.0-1.9 WBC Esterase Negative (Normal) :23 UPPER EXT/JT ONLY (ROUTINE) Radiology Report See Note (Normal) Comments: Exam Number: [id number] RIGHT SHOULDER MRI REASON FOR EXAMINATIONRight shoulder pain. The patient denies trauma. TECHNIQUET1-weighted, proton density, and T2-weighted sequences were obtainedin various s agittal, axial, and coronal planes. FINDINGSThe study is technically challenging and limited by motion artifact. The patient had difficulty holding stool for the study. Within the constrains of image de gradation, marrow signal is withinnormal limits as visualized. There is complete tear and retraction of the supraspinatus tendon fromits insertion in the greater tuberosity. There is full-thickness t earof the infraspinatus tendon. Both tendons are retracted to the levelof the acromioclavicular joint. There is moderate fatty infiltrationof the belly of the supraspinatus muscle. There is advancedh ypertrophic change at the overlying acromioclavicular jointassociated with moderate effacement of subacromial fat and contactwith the superior surface of the supraspinatus musculotendinousjunction. The re is a small amount of fluid distension of subacromialand subdeltoid bursa. There is small joint effusion. There isoverall limited assessment of the glenoid labrum largely a result ofthe blurring fro m motion artifact. Tendon for the long head of the biceps muscle is normally locatedwithin the bicipital tendon groove. IMPRESSION1. Complete tear with retraction of the distal supraspinatus andinfras pinatus tendons from the inferior in the greater tuberosity. Tendons are retracted to the level of the acromioclavicular joint. There is associated moderate fatty infiltration of the belly of thesuprasp inatus muscle.2. Advanced hypertrophic degenerative change at the overlyingacromioclavicular joint.3. Subacromial and subdeltoid bursitis. Reported By: CHICO CHAVEZ M.D. :20 MAMM, BILAT SCRN DIGITAL & CAD Radiology Report See Note (Normal) Comments: Exam Number: [id number] MAMMOGRAPHY, BILATERAL SCREENING DIGITAL AND CAD HISTORYRoutine screening. Full field digital images were obtained in mediolateral oblique andcraniocaudal projections. CAD images were reviewed. The current study is compared to the examination of January 2005. There is a mild extent of fibroglandular parenchyma present. There isno skin thickening or retraction, architectural dist ortion, or clusterof suspicious microcalcifications. No dominant mass or significantinterval change is identified. Followup mammogram in 1 year isrecommended. IMPRESSIONThere is no radiographic eviden ce of malignancy identified. FINAL ASSESSMENT: Benign findings.BIRADS Category 2. A letter regarding these results has been sent to the patient. This interpretation was rendered by a radiologist michael rome under theMammography Quality Standards Act of 1992 (MQSA). The mammograms werealso examined with computer-aided detection software ([employer], [employer] Reported By: ANABEL LINK M.D. :1 TSH 5.17 {uIU/mL} Range: 0.34-4.82 3 (Abnormal) 28-Wgb-166858:47 CBC HCT 40.2 % (Normal) Range: 37-47 HGB 13.9 g/dL (Normal) Range: 12.0-16.0 MCH 33.7 pg (Abnormal) Range: 27.0-32.0 MCHC 34.7 g/dL (Normal) Range: 32-36 MCV 97.3 fL (Normal) Range: 81-99 PLT 334 K/mm3 (Normal) Range: 150-450 RBC 4.14 {M/mm3} (Abnormal) Range: 4.2-5.4 RDW 13.0 % (Normal) Range: 11.6-14.6 WBC 7.3 K/mm3 (Normal) Range: 4.4-11.0 :47 COMP METABOLIC A/G 1.2 {RATIO} (Normal) Range: 0.9-2.4 ALB 4.1 g/dL (Normal) Range: 3.4-5.0 ALK P 98 U/L (Normal) Range: 50-136 ALT 38 [iU]/L (Normal) Range: 30-65 AST 29 U/L (Normal) Range: 15-37 BUN 12 mg/dL (Normal) Range: 7-18 BUN/CRE 20.0 {RATIO} (Normal) Range: 10-20 CA 9.5 mg/dL (Normal) Range: 8.5-10.1 CL 102 mmol/L (Normal) Range: 98-107 CO2 28.4 mmol/L (Normal) Range: 22.0-29.0 CREAT,SERUM 0.6 mg/dL (Normal) Range: 0.6-1.0 GAP 10 (Normal) Range: 5-15 GLOB 3.5 g/dL (Normal) Range: 2.3-3.5 GLU 88 mg/dL (Normal) Range: 70-110 K 3.9 mmol/L (Normal) Range: 3.5-5.1 NA 140 mmol/L (Normal) Range: 136-145 T BILI 0.59 mg/dL (Normal) Range: 0.00-1.00 T PROT 7.6 g/dL (Normal) Range: 6.4-8.2 :47 LIPID CHOL 197 mg/dL (Normal) Comments: <200 mg/dL Desirable 200-240 mg/dL Borderline >240 mg/dL High Risk HDL 49 mg/dL (Normal) Comments: Reference Range HDL <40 mg/dL Low HDL Cholesterol HDL >or= 60 mg/dL High HDL Cholesterol LDL 124 mg/dL (Normal) Range: 0-130 TRIG 120 mg/dL (Normal) Comments: Serum Triglycerides Reference Interval Normal <150 mg/dL Borderline high 150 - 199 mg/dL High 200 - 499 mg/dL Very High > or = 500 mg/dL VLDL 24 mg/dL (Normal) Range: 5-40 :47 TSH 7.68 {uIU/mL} (Abnormal) Range: 0.34-4.82 :50 GLUP 115 mg/dL (Normal) Comments: GLU,2HPPG 75gm GLUC PPG GLUP from 1117:P22991F. :42 CBC HCT 38.3 % (Normal) Range: 37-47 HGB 13.6 g/dL (Normal) Range: 12.0-16.0 MCH 34.0 pg (Abnormal) Range: 27.0-32.0 MCHC 35.5 g/dL (Normal) Range: 32-36 MCV 95.6 fL (Normal) Range: 81-99 PLT 318 K/mm3 (Normal) Range: 150-450 RBC 4.01 {M/mm3} (Abnormal) Range: 4.2-5.4 RDW 12.6 % (Normal) Range: 11.6-14.6 WBC 5.6 K/mm3 (Normal) Range: 4.4-11.0 :42 COMP METABOLIC A/G 1.3 {RATIO} (Normal) Range: 0.9-2.4 ALB 4.1 g/dL (Normal) Range: 3.4-5.0 ALK P 101 U/L (Normal) Range: 50-136 ALT 37 [iU]/L (Normal) Range: 30-65 AST 21 U/L (Normal) Range: 15-37 BUN 10 mg/dL (Normal) Range: 7-18 BUN/CRE 20.0 {RATIO} (Normal) Range: 10-20 CA 9.5 mg/dL (Normal) Range: 8.5-10.1 CL 105 mmol/L (Normal) Range: 98-107 CO2 32.2 mmol/L (Abnormal) Range: 22.0-29.0 CREAT,SERUM 0.5 mg/dL (Abnormal) Range: 0.6-1.0 GAP 9 (Normal) Range: 5-15 GLOB 3.2 g/dL (Normal) Range: 2.3-3.5 GLU 104 mg/dL (Normal) Range: 70-110 K 4.5 mmol/L (Normal) Range: 3.5-5.1 NA 146 mmol/L (Abnormal) Range: 136-145 T BILI 0.51 mg/dL (Normal) Range: 0.00-1.00 T PROT 7.3 g/dL (Normal) Range: 6.4-8.2 :42 PFLIP CHOL 210 mg/dL (Abnormal) Comments: <200 mg/dL Desirable 200-240 mg/dL Borderline >240 mg/dL High Risk HDL 41 mg/dL (Normal) Comments: Reference Range HDL <40 mg/dL Low HDL Cholesterol HDL >or= 60 mg/dL High HDL Cholesterol LDL 145 mg/dL (Abnormal) Range: 0-130 TRIG 121 mg/dL (Normal) Comments: Serum Triglycerides Reference Interval Normal <150 mg/dL Borderline high 150 - 199 mg/dL High 200 - 499 mg/dL Very High > or = 500 mg/dL VLDL 24 mg/dL (Normal) Range: 5-40 :42 TSH 2.42 {uIU/mL} (Normal) Range: 0.34-4.82 Plan of Care Name Dates Details Instructions Abnormal TSH : Reviewed Lab Indication: Abnormal TSH Bradycardia : Reviewed Lab Indication: Bradycardia Nonsmoker : Eprescribed prescriptions (G8553) Indication: Nonsmoker BMI 39.0-39.9,adult : Follow up in 2 weeks Indication: BMI 39.0-39.9,adult Nonsmoker : Eprescribed prescriptions (G8553) Indication: Nonsmoker Hyperlipidemia : Cholesterol mgmt Indication: Hyperlipidemia Essential hypertension : Diet, Exercise, and Wt loss Indication: Essential hypertension Essential hypertension : HTN/CAD Red Flags Indication: Essential hypertension Impaired glucose metabolism : Follow up in 4 months Indication: Impaired glucose metabolism Impaired glucose metabolism : Follow up in 4 months Indication: Impaired glucose metabolism Essential hypertension : HTN/CAD Red Flags Indication: Essential hypertension Impaired glucose metabolism : Diet, Exercise, and Wt loss Indication: Impaired glucose metabolism Impaired glucose metabolism : *Diabetes Education Indication: Impaired glucose metabolism Impaired glucose metabolism : Follow up in 3 months Indication: Impaired glucose metabolism Vitamin D deficiency : Continue Current Prescription(s) Indication: Vitamin D deficiency Vitamin D deficiency : Reviewed Lab Indication: Vitamin D deficiency Hyperlipidemia : Cholesterol mgmt Indication: Hyperlipidemia Essential hypertension : Diet, Exercise, and Wt loss Indication: Essential hypertension Essential hypertension : HTN/CAD Red Flags Indication: Essential hypertension Macrocytosis : Reviewed Lab Indication: Macrocytosis B12 deficiency : Eprescribed prescriptions (G8553) Indication: B12 deficiency Hyperlipidemia : Reviewed Lab Indication: Hyperlipidemia Hyperlipidemia : Diet, Exercise, and Wt loss Indication: Hyperlipidemia Hypothyroidism : Reviewed Lab Indication: Hypothyroidism Hyperlipidemia : Cholesterol mgmt Indication: Hyperlipidemia Hypothyroidism : Continue Current Prescription(s) Indication: Hypothyroidism Impaired glucose metabolism : Follow up in 4 months Indication: Impaired glucose metabolism Essential hypertension : Diet, Exercise, and Wt loss Indication: Essential hypertension Essential hypertension : HTN/CAD Red Flags Indication: Essential hypertension Essential hypertension : Continue Current Prescription(s) Indication: Essential hypertension Impaired glucose metabolism : Follow up in 3 months- gen med Indication: Impaired glucose metabolism Rash : Follow up in 7-10 days Indication: Rash Rash : Eprescribed prescriptions (G8553) Indication: Rash Cough : Continue Current Prescription(s) Indication: Cough Current non-smoker : Eprescribed prescriptions (G8553) Indication: Current non-smoker Abnormal chest xray : Reviewed Diagnostic Tests Indication: Abnormal chest xray Current non-smoker : Eprescribed prescriptions (G8553) Indication: Current non-smoker Current non-smoker : Eprescribed prescriptions (G8553) Indication: Current non-smoker Sciatica : Eprescribed prescriptions (G8553) Indication: Sciatica Right sciatic nerve pain : Follow up in 6 weeks Indication: Right sciatic nerve pain Essential hypertension : Reviewed Lab Indication: Essential hypertension Hypothyroidism : Reviewed Lab Indication: Hypothyroidism Essential hypertension : HTN/CAD Red Flags Indication: Essential hypertension Hyperlipidemia : Cholesterol mgmt Indication: Hyperlipidemia Impaired glucose metabolism : Follow up in 4 months Indication: Impaired glucose metabolism Impaired glucose metabolism : Eprescribed prescriptions (G8553) Indication: Impaired glucose metabolism Current non-smoker : Eprescribed prescriptions (G8553) Indication: Current non-smoker Hypothyroidism : Reviewed Lab Indication: Hypothyroidism Hyperlipidemia : Cholesterol mgmt Indication: Hyperlipidemia Hypothyroidism : Eprescribed prescriptions (G8553) Indication: Hypothyroidism Well woman exam with routine gynecological exam : Follow up next week to rev lab result s Indication: Well woman exam with routine gynecological exam Well woman exam with routine gynecological exam : Safe sex Indication: Well woman exam with routine gynecological exam Well woman exam with routine gynecological exam : HPV Vaccine Information 2005 Indication: Well woman exam with routine gynecological exam Well woman exam with routine gynecological exam : Self breast exam Indication: Well woman exam with routine gynecological exam Well woman exam with routine gynecological exam : *Well Female Maintenance ([facility]) Indication: Well woman exam with routine gynecological exam Well woman exam with routine gynecological exam : Pap/Pelvic/Bimanual/Rectal/Breast Exam was done. Indication: Well woman exam with routine gynecological exam Impaired glucose metabolism : Follow up in 1 week- sched female wellness -pap Indication: Impaired glucose metabolism Essential hypertension : Continue Current Prescription(s) Indication: Essential hypertension Impaired glucose metabolism : *Diabetes Education Indication: Impaired glucose metabolism Essential hypertension : HTN/CAD Red Flags Indication: Essential hypertension Hyperlipidemia : Cholesterol mgmt Indication: Hyperlipidemia Hypothyroidism : Continue Current Prescription(s) Indication: Hypothyroidism Impaired glucose metabolism : Follow up in 4 months- gen med Indication: Impaired glucose metabolism Impaired glucose metabolism : Eprescribed prescriptions (G8553) Indication: Impaired glucose metabolism Impaired glucose metabolism : Follow up in 3 months Indication: Impaired glucose metabolism Hyperlipidemia : Cholesterol mgmt Indication: Hyperlipidemia Impaired glucose metabolism : *Diabetes Education Indication: Impaired glucose metabolism Essential hypertension : HTN/CAD Red Flags Indication: Essential hypertension Essential hypertension : Eprescribed prescriptions (G8553) Indication: Essential hypertension Impaired glucose metabolism : Follow up in 3 months Indication: Impaired glucose metabolism Essential hypertension : HTN/CAD Red Flags Indication: Essential hypertension Hyperlipidemia : Cholesterol mgmt Indication: Hyperlipidemia Hyperlipidemia : Cholesterol mgmt Indication: Hyperlipidemia Impaired glucose metabolism : Follow up in 4 months: do ekg / gen med Indication: Impaired glucose metabolism Influenza B : Eprescribed prescriptions (G8553) Indication: Influenza B Paronychia : Eprescribed prescriptions (G8553) Indication: Paronychia Impaired glucose metabolism : Eprescribed prescriptions (G8553) Indication: Impaired glucose metabolism Impaired glucose metabolism : Follow up in 4 months Indication: Impaired glucose metabolism Hypothyroidism : Continue Current Prescription(s) Indication: Hypothyroidism Essential hypertension : HTN/CAD Red Flags Indication: Essential hypertension Hyperlipidemia : Cholesterol mgmt Indication: Hyperlipidemia Impaired glucose metabolism : *Diabetes Education Indication: Impaired glucose metabolism Impaired glucose metabolism : Follow up in 2 months: gen med Indication: Impaired glucose metabolism Impaired glucose metabolism : *Diabetes Education Indication: Impaired glucose metabolism Essential hypertension : Eprescribed prescriptions (G8553) Indication: Essential hypertension Impaired glucose metabolism : *Diabetes Education Indication: Impaired glucose metabolism Impaired glucose metabolism : Follow up -- mid to end october -- assure set up already Indication: Impaired glucose metabolism Essential hypertension : HTN/CAD Red Flags Indication: Essential hypertension Essential hypertension : Follow up in 3 weeks Indication: Essential hypertension Impaired glucose metabolism : Follow up in 4 months Indication: Impaired glucose metabolism Impaired glucose metabolism : *Diabetes Education Indication: Impaired glucose metabolism Essential hypertension : Reviewed Lab Indication: Essential hypertension Essential hypertension : Eprescribed prescriptions (G8553) Indication: Essential hypertension Essential hypertension : Continue Current Prescription(s) Indication: Essential hypertension Essential hypertension : Diet, Exercise, and Wt loss Indication: Essential hypertension Essential hypertension : HTN/CAD Red Flags Indication: Essential hypertension Other specified abnormal findings of blood chemistry : Follow up in 3 months Indication: Other specified abnormal findings of blood chemistry Essential hypertension : Follow up in 2 weeks Indication: Essential hypertension Essential hypertension : BP MONITORING - SELF Indication: Essential hypertension Other specified abnormal findings of blood chemistry : Diet, Exercise, and Wt loss Indication: Other specified abnormal findings of blood chemistry Other specified abnormal findings of blood chemistry : *Diabetes Education Indication: Other specified abnormal findings of blood chemistry Hyperlipidemia : Cholesterol mgmt Indication: Hyperlipidemia Essential hypertension : HTN/CAD Red Flags Indication: Essential hypertension Hypothyroidism : Flu Shots (Influenza Vaccine): flu shot Indication: Hypothyroidism Hypothyroidism : Eprescribed prescriptions (G8553) Indication: Hypothyroidism Hyperlipidemia : Cholesterol mgmt Indication: Hyperlipidemia Reviewed Lab Reviewed Diagnostic Tests Follow up in 3 months Essential hypertension : Diet, Exercise, and Wt loss Indication: Essential hypertension Essential hypertension : HTN/CAD Red Flags Indication: Essential hypertension Follow up after cat scan Essential hypertension : Continue Current Prescription(s) Indication: Essential hypertension Follow up in 2 weeks--fu and gen med Essential hypertension : Eprescribed prescriptions (G8553) Indication: Essential hypertension Other specified abnormal findings of blood chemistry : Follow up in 4 months: gen med Indication: Other specified abnormal findings of blood chemistry Essential hypertension : Follow up in 2 weeks Indication: Essential hypertension Essential hypertension : HTN/CAD Red Flags Indication: Essential hypertension Hyperlipidemia : Diet, Exercise, and Wt loss Indication: Hyperlipidemia Hyperlipidemia : HTN/CAD Red Flags Indication: Hyperlipidemia Pre-operative examination : Follow up in 2.5 months general medical Indication: Pre-operative examination Varicose vein : Follow up in 6 weeks with [facility] Indication: Varicose vein Essential hypertension : Diet, Exercise, and Wt loss Indication: Essential hypertension Cerumen impaction : Follow up in 2 weeks with [facility] Indication: Cerumen impaction Benign essential hypertension : Follow up in 4 months: general medical Indication: Benign essential hypertension Hypothyroidism : Reviewed Lab Indication: Hypothyroidism Non morbid obesity, unspecified obesity type : Diet, Exercise, and Wt loss Indication: Non morbid obesity, unspecified obesity type Benign essential hypertension : BP MONITORING - SELF Indication: Benign essential hypertension Non morbid obesity, unspecified obesity type : Follow up in 1 month Indication: Non morbid obesity, unspecified obesity type BMI 34.0-34.9,adult : Follow up in 1 month Indication: BMI 34.0-34.9,adult Other specified abnormal findings of blood chemistry : Follow up in 4 months Indication: Other specified abnormal findings of blood chemistry Hyperlipidemia : Cholesterol mgmt Indication: Hyperlipidemia Benign essential hypertension : HTN/CAD Red Flags Indication: Benign essential hypertension Hypothyroidism : Reviewed Lab Indication: Hypothyroidism Hypothyroidism : Continue Current Prescription(s) Indication: Hypothyroidism Hypothyroidism : Hypothyroidism: Brief Version *: hypothyroidism Indication: Hypothyroidism Benign essential hypertension : Continue Current Prescription(s) Indication: Benign essential hypertension Benign essential hypertension : HTN/CAD Red Flags Indication: Benign essential hypertension Dysmetabolic syndrome X : Diet, Exercise, and Wt loss Indication: Dysmetabolic syndrome X Dysmetabolic syndrome X : *Diabetes Education Indication: Dysmetabolic syndrome X Hyperlipidemia : Cholesterol mgmt Indication: Hyperlipidemia Hypothyroidism : Hypothyroidism: Brief Version *: hypothyroidism Indication: Hypothyroidism Sinusitis, acute : *URI Symptoms Indication: Sinusitis, acute Sinusitis, acute : *Antibiotic Usage Education - Female Indication: Sinusitis, acute Dysmetabolic syndrome X : Follow up in 4 months Indication: Dysmetabolic syndrome X Dysmetabolic syndrome X : *Diabetes Education Indication: Dysmetabolic syndrome X Essential hypertension : HTN/CAD Red Flags Indication: Essential hypertension Hyperlipidemia : *Cholesterol - Nonprescription Treatment Indication: Hyperlipidemia Hyperlipidemia : Cholesterol mgmt Indication: Hyperlipidemia Essential hypertension : High Blood Pressure (Essential Hypertension) *: blood pressure problems Indication: Essential hypertension Dysmetabolic syndrome X : Diet, Exercise, and Wt loss Indication: Dysmetabolic syndrome X Dysmetabolic syndrome X : Reviewed Lab Indication: Dysmetabolic syndrome X Benign essential hypertension : Follow up in 1 week to rev results Indication: Benign essential hypertension Benign essential hypertension : Follow up in 4 months Indication: Benign essential hypertension Non morbid obesity, unspecified obesity type : Diet, Exercise, and Wt loss Indication: Non morbid obesity, unspecified obesity type Vitamin D deficiency, unspecified : *ERGOCALCIFEROL DOSAGE PER [place] Indication: Vitamin D deficiency, unspecified Benign essential hypertension : Diet, Exercise, and Wt loss Indication: Benign essential hypertension Benign essential hypertension : HTN/CAD Red Flags Indication: Benign essential hypertension Essential hypertension : BP MONITORING - SELF Indication: Essential hypertension Essential hypertension : FOLLOW UP IN 4 MONTHS Indication: Essential hypertension Essential hypertension : Diet, Exercise, and Wt loss Indication: Essential hypertension Essential hypertension : HTN/CAD Red Flags Indication: Essential hypertension Hyperlipidemia : CHOLESTEROL MGMT. Indication: Hyperlipidemia Hyperlipidemia : *Cholesterol - Nonprescription Treatment Indication: Hyperlipidemia Hyperlipidemia : *Cholesterol - Medication Side Effects Indication: Hyperlipidemia Pharyngitis, acute : *URI Treatment Indication: Pharyngitis, acute Pharyngitis, acute : Sore throat: diagnosis and treatment Indication: Pharyngitis, acute Hyperlipidemia : Cholesterol - Nonprescription Treatment Indication: Hyperlipidemia Hyperlipidemia : CHOLESTEROL MGMT. Indication: Hyperlipidemia Hyperlipidemia : Cholesterol - Medication Side Effects Indication: Hyperlipidemia Benign essential hypertension : Continue Current Prescription(s) Indication: Benign essential hypertension Hyperlipidemia : Diet, Exercise, and Wt loss Indication: Hyperlipidemia Hyperlipidemia : CHOLESTEROL MGMT. Indication: Hyperlipidemia Hyperlipidemia : Cholesterol - Nonprescription Treatment Indication: Hyperlipidemia Hyperlipidemia : Cholesterol - Medication Side Effects Indication: Hyperlipidemia Non morbid obesity, unspecified obesity type : Diet, Exercise, and Wt loss Indication: Non morbid obesity, unspecified obesity type Benign essential hypertension : Continue Current Prescription(s) Indication: Benign essential hypertension Benign essential hypertension : HTN and Decongestants Indication: Benign essential hypertension Pharyngitis, acute : *URI Treatment Indication: Pharyngitis, acute Pharyngitis, acute : Sore throat: diagnosis and treatment Indication: Pharyngitis, acute Non morbid obesity, unspecified obesity type : Diet, Exercise, and Wt loss Indication: Non morbid obesity, unspecified obesity type Hyperlipidemia : CHOLESTEROL MGMT. Indication: Hyperlipidemia Hyperlipidemia : Cholesterol - Nonprescription Treatment Indication: Hyperlipidemia Hyperlipidemia : Cholesterol - Medication Side Effects Indication: Hyperlipidemia Contact dermatitis due to poison demi : FOLLOW UP NEEDED Indication: Contact dermatitis due to poison demi Contact dermatitis due to poison demi : Poison Demi Education Indication: Contact dermatitis due to poison demi Benign essential hypertension : HTN/CAD Red Flags Indication: Benign essential hypertension Well woman exam with routine gynecological exam : Pap/Pelvic/Bimanual/Rectal/Breast Exam was done. Indication: Well woman exam with routine gynecological exam Well woman exam with routine gynecological exam : Self Breast Exam Education Indication: Well woman exam with routine gynecological exam Well woman exam with routine gynecological exam : Well Female Maintenance ([facility]) Indication: Well woman exam with routine gynecological exam Hyperlipidemia : Cholesterol - Nonprescription Treatment Indication: Hyperlipidemia Hyperlipidemia : Cholesterol - Medication Side Effects Indication: Hyperlipidemia Essential hypertension : FOLLOW UP IN 4 MONTHS Indication: Essential hypertension Hyperlipidemia : Cholesterol - Nonprescription Treatment Indication: Hyperlipidemia Hypothyroidism : Reviewed Lab Indication: Hypothyroidism Essential hypertension : Reviewed Lab Indication: Essential hypertension Hyperlipidemia : Reviewed Lab Indication: Hyperlipidemia Hyperlipidemia : Diet and Exercise Indication: Hyperlipidemia Planned Observations TSH (THYROID STIMULATING HORMONE) ([id number])Indication: Hypothyroidism On: 68-Zoi-63005:10 Request Cologuard - Strool Based DNA Test, CRC SCREEN (43339)Indication: Colon cancer screening (Renamed from Encounter for screening for malignant neoplasm of colon) On: :22 Request VITAMIN B-12 (CYANOCOBALAMIN) ([id number])Indication: B12 deficiency On: :17 Request CALCIFIDIOL (30184) VIT D 25Indication: Vitamin D deficiency On: :16 Request URINALYSIS, W/ MICRO ([id number])Indication: Impaired glucose metabolism On: :16 Request MICROALBUMIN: CREATININE RATIO (53633) AND ([id number])Indication: Impaired glucose metabolism On: :16 Request METABOLIC PANEL, COMPREHENSIVE ([id number])Indication: Impaired glucose metabolism On: :16 Request LIPOPROTEIN, BLD, BY NMR ([id number])Indication: Hyperlipidemia On: :16 Request CBC W/AUTO DIFF WBC ([id number])Indication: Impaired glucose metabolism On: :16 Request TSH ([id number])Indication: Hypothyroidism On: :16 Request VITAMIN B-12 (CYANOCOBALAMIN) ([id number])Indication: B12 deficiency On: :21 Request TSH ([id number])Indication: Abnormal TSH On: :18 Request T4, FREE (THYROXINE) (51732)Indication: Abnormal TSH On: :18 Request T3, FREE (TRIDOTHYRONINE) ([id number])Indication: Abnormal TSH On: :18 Request CALCIFEDIOL (10938)Indication: Vitamin D deficiency On: :16 Request Methymalonic Acid, Serum (94248)Indication: B12 deficiency On: :28 Request VITAMIN B-12 (CYANOCOBALAMIN) (00851)Indication: B12 deficiency On: :27 Request TSH ([id number])Indication: Hypothyroidism On: : Request CALCIFEDIOL (70203)Indication: Vitamin D deficiency On: : Request CALCIFEDIOL (64053)Indication: Vitamin D deficiency On: :03 Request URINALYSIS, W/ MICRO ([id number])Indication: Essential hypertension On: :02 Request MICROALBUMIN: CREATININE RATIO ([id number]) AND ([id number])Indication: Essential hypertension On: : Request METABOLIC PANEL, COMPREHENSIVE ([id number])Indication: Essential hypertension On: : Request LIPID PANEL (88315)Indication: Hyperlipidemia On: : Request CBC W/AUTO DIFF WBC ([id number])Indication: Essential hypertension On: :02 Request TSH ([id number])Indication: Hypothyroidism On: :02 Request Blood Glucose , Office (67443)Indication: Impaired glucose metabolism On: :52 Request CALCIFIDIOL ([id number]) VIT D 25Indication: Vitamin D deficiency On: :17 Request TSH ([id number])Indication: Abnormal TSH On: :15 Request T4, FREE (THYROXINE) ([id number])Indication: Abnormal TSH On: :15 Request T3, FREE (TRIDOTHYRONINE) ([id number])Indication: Abnormal TSH On: :15 Request LIPID PANEL (46413)Indication: Hyperlipidemia On: :13 Request URINALYSIS, W/ MICRO ([id number])Indication: Impaired glucose metabolism On: :12 Request MICROALBUMIN: CREATININE RATIO ([id number]) AND ([id number])Indication: Impaired glucose metabolism On: :12 Request METABOLIC PANEL, COMPREHENSIVE ([id number])Indication: Impaired glucose metabolism On: :12 Request LIPID PANEL ([id number])Indication: Impaired glucose metabolism On: :12 Request CBC W/AUTO DIFF WBC ([id number])Indication: Impaired glucose metabolism On: :12 Request TSH ([id number])Indication: Hypothyroidism On: :12 Request Influenza A&B Viral Culture ([id number])Indication: Flu-like symptoms On: 52-Gxi-176573:09 Request CAMILO CULTURE-OTHER (98336)Indication: Paronychia On: :52 Request EB ANTIBODY NUCLR ANTIGN (80264) On: 12-Vyo-811380:08 Request Vitamin D Hydroxy ([id number])Indication: Other specified abnormal findings of blood chemistry On: 12-Vdt-90635:10 Request TSH ([id number])Indication: Hypothyroidism On: :09 Request URINALYSIS, W/ MICRO ([id number])Indication: Essential hypertension On: :09 Request MICROALBUMIN: CREATININE RATIO ([id number]) AND ([id number])Indication: Essential hypertension On: :09 Request METABOLIC PANEL, COMPREHENSIVE ([id number])Indication: Essential hypertension On: :09 Request LIPID PANEL ([id number])Indication: Essential hypertension On: :09 Request CBC WITH MANUAL DIFF ([id number])Indication: Essential hypertension On: :09 Request TSH ([id number])Indication: Abnormal TSH On: 53-Jvf-209714:04 Request TSH ([id number])Indication: Hypothyroidism On: 43-Hmq-369301:33 Request Blood Glucose , Office ([id number])Indication: Dysmetabolic syndrome X On: :23 Request HgA1C , Office ([id number])Indication: Dysmetabolic syndrome X On: :23 Request CALCIFIDIOL (16883) VIT D 25Indication: Vitamin D deficiency, unspecified On: :04 Request TSH ([id number])Indication: Hypothyroidism On: 41-Lou-759886:03 Request URINALYSIS, W/ MICRO ([id number])Indication: Benign essential hypertension On: 59-Bau-345700:03 Request MICROALBUMIN: CREATININE RATIO ([id number]) AND ([id number])Indication: Benign essential hypertension On: 60-Djy-084165:03 Request METABOLIC PANEL, COMPREHENSIVE ([id number])Indication: Benign essential hypertension On: :03 Request CBC WITH MANUAL DIFF ([id number])Indication: Benign essential hypertension On: 65-Wqo-433973:03 Request LIPID PANEL ([id number])Indication: Hyperlipidemia On: :03 Request CAMILO CULTURE-OTHER ([id number])Indication: Pharyngitis, acute On: 7-Xwd-114362:25 Request Glucose, PP/2 Hour (72149)Indication: Other specified abnormal findings of blood chemistry On: 51-Wrt-457329:00 Request TSH ([id number])Indication: Abnormal TSH On: 00-Yas-536097:00 Request Comments: DO IN 6 WEEKS MICROALBUMIN: CREATININE RATIO ([id number]) AND ([id number])Indication: Benign essential hypertension On: 64-Oqu-73029:36 Request URINALYSIS W/O MICRO ([id number])Indication: Benign essential hypertension On: :36 Request LIPID PANEL ([id number])Indication: Hyperlipidemia On: :36 Request METABOLIC PANEL, COMPREHENSIVE ([id number])Indication: Benign essential hypertension On: :36 Request CBC WITH MANUAL DIFF ([id number])Indication: Benign essential hypertension On: :36 Request TSH ([id number])Indication: Hypothyroidism On: :35 Request TSH ([id number])Indication: Hypothyroidism On: 7-Xfg-881740:32 Request Comments: DO IN 8 WEEKS Thin prep Pap ([id number])Indication: Well woman exam with routine gynecological exam On: 49-Weu-854490:05 Request TSH ([id number])Indication: Abnormal TSH On: 58-Lgl-518044:13 Request Comments: do in 10 weeks LIPID PANEL ([id number])Indication: Hyperlipidemia On: 02-Kcy-88333:45 Request Planned Encounters Medical; 4 Month FU - On: 28-Dec-2018 9:45 [facility] Bridgett Bansal DO, DO, Kathleen Planned Procedures Holter Monitor 24 hrsBy: Sonia CASTILLO, On: 25-Oct-2018 Intent Mily ELECTROCARDIOGRAM, COMPLETE (ECG) On: 25-Oct-2018 Intent ([id number])By: Katie Kebede Comments: sinus bradycardia, ELECTROCARDIOGRAM, COMPLETE (ECG) On: 20-Apr-2018 Intent ([id number])By: Bridgett Bansal DO Comments: nsr no acute cgh Bridgett Bansal DO B 12 Injection, 1000 mcg ([id number])By: On: 08-Sep-2017 Intent Bridgett Bansal DO, DO, Comments: Lot:[id number]:07/16Dose:1mlRoute:IMSite:l armGiven By:JEREMY signed Bridgett Radiology - Chest- PA and LatBy: On: 23-Apr-2017 Intent Bridgett Bansal DO Rolf DO, Bridgett Spirometry ([id number])By: Rolf OLIVER, On: 23-Apr-2017 Intent Bridgett Weinstein DO Comments: mild obstruction but poor technique Echo CompleteBy: Rolf OLIVER, On: 05-Feb-2017 Intent Bridgett Weinstein DO PFT - CompleteBy: Rolf OLIVER, On: 05-Feb-2017 Intent Bridgett Weinstein DO Comments: dr Alves to read CT - Chest (IV Contrast Needed)By: On: 27-Jan-2017 Intent Bridgett Bansal DO, DO Bridgett Aerosol Treatment ([id number])By: Rolf On: 25-Jan-2017 Intent Bridgett OLIVER DO, Kathleen Comments: albulterol 0.83%more a/e but pt states notices no differecne Radiology - Chest- PA and LatBy: On: 25-Jan-2017 Intent Rolf DOSaloniBridgett Rolf DO, Bridgett Spirometry ([id number])By: Rolf OLIVER, On: 25-Jan-2017 Intent Bridgett Weinstein DO Comments: restrictive disease but poor technique X-RAY OF LUMBAR SPINE, FOUR VIEWS On: 28-Aug-2016 Intent ([id number])By: Bridgett Bansal DO, DO, Kathleen Wax Currettes ([id number])By: Rolf OLIVER, On: 05-Aug-2016 Intent Bridgett Weinstein DO Ear Irrigation ([id number])By: Rolf On: 05-Aug-2016 Intent Bridgett OLIVER DO, Kathleen Comments: Ear Irrigation performed on:bilateralAmount/color removed cerumen: moderate amount, OUtcome:clear and toleratedUsed wax curettes ELECTROCARDIOGRAM, COMPLETE (ECG) On: 28-Jul-2016 Intent ([id number])By: Shalini Johnson DO Comments: sinus bradyfreq pacs and no acute st twave chnages MAMMOGRAM, SCREENING, BOTH BREAST On: 08-Apr-2016 Intent ([id number])By: Bridgett Bansal DO, DO, Kathleen DEXA SCAN AXIAL SKELETON ([id number])By: On: 08-Apr-2016 Intent Bridgett Bansal DO, DO, Kathleen MAMMOGRAM, SCREENING, BOTH BREAST On: 01-Apr-2016 Intent ([id number])By: Bridgett Bansal DO, DO, Kathleen ELECTROCARDIOGRAM, COMPLETE (ECG) On: 14-Nov-2014 Intent ([id number])By: Bridgett Bansal DO Comments: nsr no acute chg Bridgett Bansal DO CT - Neck (IV Contrast Needed)By: On: 23-May-2014 Intent Bridgett Bansal DO, DO, Kathleen Eprescribed prescriptions On: 21-Mar-2014 Intent (G8553)By: Bridgett Bansal DO, DO, Kathleen EKG ([id number])By: Radha Eckert On: 25-Dec-2013 Intent WATER PURIFIER Comments: sinus martha no acute chg Venous Doppler - RightBy: Ciesa On: 20-Nov-2013 Intent Rosie CASTILLO Wax CurettesBy: Ciesa Rosie CASTILLO On: 07-Nov-2013 Intent Ear Irrigation ([id number])By: Ciesa On: 07-Nov-2013 Intent Rosie CASTILLO Eprescribed prescriptions On: 18-Oct-2013 Intent (G8553)By: Bridgett Bansal DO, DO, Kathleen [id number] On: 18-Oct-2013 Intent FOR OBESITY, 15 MINUTES ([id number])By: Bridgett Bansal DO, DO, Kathleen EKG ([id number])By: Bridgett Bansal DO On: 26-Jul-2013 Intent Bridgett Bansal DO Comments: nsr no acute chg Eprescribed prescriptions On: 26-Jul-2013 Intent (G8553)By: Radha Eckert LPN Eprescribed prescriptions On: 22-Mar-2013 Intent (G8553)By: Radha Eckert LPN Eprescribed prescriptions On: 04-Jan-2013 Intent (G8553)By: Bridgett Bansal DO, DO, Kathleen EKG ([id number])By: Bridgett Bansal DO On: 23-Nov-2012 Intent Bridgett Bansal DO Comments: nsr no acute chg Eprescribed prescriptions On: 23-Nov-2012 Intent (G8553)By: Radha Eckert LPN EKG ([id number])By: Bridgett Bansal DO On: 29-Jul-2011 Intent Bridgett Bansal DO Comments: nsr no acute chg TDAP VACCINE >7 IM ([id number])By: On: 29-Jul-2011 Intent Bridgett Bansal DO, DO, Comments: Pt refused Bridgett Radiology - Lumbar SpineBy: Rolf On: 11-Jun-2010 Bridgett Barboza DO, DO, Kathleen EKG ([id number])By: Radha Eckert On: 11-Jun-2010 Intent WATER PURIFIER Comments: done awnsr no avute chsg pvc noted SPECIMEN HNDLNG/TRNSPRT, OFFC > LAB On: 12-Aug-2009 Intent ([id number])By: Bridgett Bansal DO, DO, Kathleen EKG ([id number])By: Radha Eckert On: 18-Mar-2009 Intent WATER PURIFIER Comments: nsr no acute changes -nonspecific flattening SPECIMEN HNDLNG/TRNSPRT, OFFC > LAB On: 31-Jul-2008 Intent ([id number])By: Bridgett Bansal DO, DO, Kathleen EKG ([id number])By: Bridgett Bansal DO On: 22-Jun-2008 Intent Bridgett Bansal DO Comments: NSR NO ACUTE ISCHEMIC CHANGES EKG ([id number])By: Bridgett Bansal DO On: 06-Jun-2007 Intent Bridgett Bansal DO Comments: NSR NO ACUTE ISCHEMIC CHANGES DXA, BONE DENSITY, AXIAL SKELETON On: 10-Mar-2007 Intent ([id number])By: Bridgett Bansal DO, DO, Kathleen MAMMOGRAM, SCREENING, BOTH BREASTS On: 10-Mar-2007 Intent ([id number])By: Bridgett Bansal DO, DO, Kathleen Planned Medications Vitamin B-12 1000 MCG/ML Injection Solution Ordered: 08-Sep-2017 Pending Bridgett Bansal DO, DO, Kathleen Instructions Name Dates Details Nonsmoker : How to access health information online Indication: Nonsmoker Nonsmoker : How to access health information online - Detail Indication: Nonsmoker Nonsmoker : Patient Instructions Indication: Nonsmoker Nonsmoker : How to access health information online Indication: Nonsmoker Nonsmoker : How to access health information online - Detail Indication: Nonsmoker Nonsmoker : Patient Instructions Indication: Nonsmoker Impaired glucose metabolism : How to access health information online Indication: Impaired glucose metabolism Impaired glucose metabolism : How to access health information online - Detail Indication: Impaired glucose metabolism Impaired glucose metabolism : Patient Instructions Indication: Impaired glucose metabolism BMI 40.0-44.9, adult : How to access health information online Indication: BMI 40.0-44.9, adult BMI 40.0-44.9, adult : How to access health information online - Detail Indication: BMI 40.0-44.9, adult BMI 40.0-44.9, adult : Patient Instructions Indication: BMI 40.0-44.9, adult Impaired glucose metabolism : How to access health information online Indication: Impaired glucose metabolism Impaired glucose metabolism : How to access health information online - Detail Indication: Impaired glucose metabolism Impaired glucose metabolism : Patient Instructions Indication: Impaired glucose metabolism Macrocytosis : Patient Instructions Indication: Macrocytosis B12 deficiency : How to access health information online Indication: B12 deficiency B12 deficiency : How to access health information online - Detail Indication: B12 deficiency BMI 40.0-44.9, adult : How to access health information online Indication: BMI 40.0-44.9, adult BMI 40.0-44.9, adult : How to access health information online - Detail Indication: BMI 40.0-44.9, adult BMI 40.0-44.9, adult : Patient Instructions Indication: BMI 40.0-44.9, adult Impaired glucose metabolism : How to access health information online Indication: Impaired glucose metabolism Impaired glucose metabolism : How to access health information online - Detail Indication: Impaired glucose metabolism Impaired glucose metabolism : Patient Instructions Indication: Impaired glucose metabolism Pre-operative examination : How to access health information online Indication: Pre-operative examination Pre-operative examination : How to access health information online - Detail Indication: Pre-operative examination Pre-operative examination : Patient Instructions Indication: Pre-operative examination Rash : How to access health information online Indication: Rash Rash : How to access health information online - Detail Indication: Rash Rash : Patient Instructions Indication: Rash Current non-smoker : How to access health information online Indication: Current non-smoker Current non-smoker : How to access health information online - Detail Indication: Current non-smoker Current non-smoker : Patient Instructions Indication: Current non-smoker Current non-smoker : How to access health information online Indication: Current non-smoker Current non-smoker : How to access health information online - Detail Indication: Current non-smoker Current non-smoker : Patient Instructions Indication: Current non-smoker Current non-smoker : How to access health information online Indication: Current non-smoker Current non-smoker : How to access health information online - Detail Indication: Current non-smoker Current non-smoker : Patient Instructions Indication: Current non-smoker Sciatica : How to access health information online Indication: Sciatica Sciatica : How to access health information online - Detail Indication: Sciatica Sciatica : Patient Instructions Indication: Sciatica Impaired glucose metabolism : How to access health information online Indication: Impaired glucose metabolism Impaired glucose metabolism : How to access health information online - Detail Indication: Impaired glucose metabolism Impaired glucose metabolism : Patient Instructions Indication: Impaired glucose metabolism Current non-smoker : How to access health information online Indication: Current non-smoker Current non-smoker : How to access health information online - Detail Indication: Current non-smoker Current non-smoker : Patient Instructions Indication: Current non-smoker Vitamin D deficiency : How to access health information online Indication: Vitamin D deficiency Vitamin D deficiency : How to access health information online - Detail Indication: Vitamin D deficiency Vitamin D deficiency : Patient Instructions Indication: Vitamin D deficiency Impaired glucose metabolism : How to access health information online Indication: Impaired glucose metabolism Impaired glucose metabolism : How to access health information online - Detail Indication: Impaired glucose metabolism Impaired glucose metabolism : Patient Instructions Indication: Impaired glucose metabolism Essential hypertension : How to access health information online Indication: Essential hypertension Impaired glucose metabolism : How to access health information online Indication: Impaired glucose metabolism Impaired glucose metabolism : How to access health information online - Detail Indication: Impaired glucose metabolism Impaired glucose metabolism : Patient Instructions Indication: Impaired glucose metabolism Impaired glucose metabolism : How to access health information online Indication: Impaired glucose metabolism Impaired glucose metabolism : How to access health information online - Detail Indication: Impaired glucose metabolism Impaired glucose metabolism : Patient Instructions Indication: Impaired glucose metabolism Influenza B : How to access health information online Indication: Influenza B Influenza B : How to access health information online - Detail Indication: Influenza B Influenza B : Patient Instructions Indication: Influenza B Paronychia : How to access health information online Indication: Paronychia Paronychia : How to access health information online - Detail Indication: Paronychia Paronychia : Patient Instructions Indication: Paronychia Impaired glucose metabolism : Patient Instructions Indication: Impaired glucose metabolism Abnormal TSH : Patient Instructions Indication: Abnormal TSH Essential hypertension : How to access health information online Indication: Essential hypertension Essential hypertension : How to access health information online - Detail Indication: Essential hypertension Essential hypertension : Patient Instructions Indication: Essential hypertension Impaired glucose metabolism : Patient Instructions Indication: Impaired glucose metabolism Impaired glucose metabolism : obesity counseling Indication: Impaired glucose metabolism Essential hypertension : Patient Instructions Indication: Essential hypertension Essential hypertension : How to access health information online Indication: Essential hypertension Essential hypertension : How to access health information online - Detail Indication: Essential hypertension BMI 35.0-35.9,adult : obesity counseling Indication: BMI 35.0-35.9,adult Hypothyroidism : Patient Instructions Indication: Hypothyroidism How to access health information online How to access health information online - Detail Patient Instructions Other specified abnormal findings of blood chemistry : obesity counseling Indication: Other specified abnormal findings of blood chemistry Essential hypertension : Patient Instructions Indication: Essential hypertension Varicose vein : Patient Instructions Indication: Varicose vein Essential hypertension : Patient Instructions Indication: Essential hypertension Benign essential hypertension : Patient Instructions Indication: Benign essential hypertension BMI 35.0-35.9,adult : obesity counseling Indication: BMI 35.0-35.9,adult Benign essential hypertension : Patient Instructions Indication: Benign essential hypertension Non morbid obesity, unspecified obesity type : obesity counseling Indication: Non morbid obesity, unspecified obesity type BMI 34.0-34.9,adult : obesity counseling Indication: BMI 34.0-34.9,adult Hypothyroidism : Patient Instructions Indication: Hypothyroidism Hypothyroidism : Patient Instructions Indication: Hypothyroidism Sinusitis, acute : Patient Instructions Indication: Sinusitis, acute Essential hypertension : Patient Instructions Indication: Essential hypertension Encounters Lab Order On: 15-Nov-2018 8:04 Encounter Diagnosis: Hypothyroidism End: 15-Nov-2018 8:11 [facility] Office Visit On: 11-Nov-2018 8:47 Encounter Reason: Follow up tests - Diagnostic tests include other (holter monitor)., [ADDITIONAL REASON] Headache - Symptoms include new onset headache. The patient describes the pain a End: 11-Nov-2018 9:51 s aching. Onset was 2 week(s) ago. Note for Headache: Headache central frontal head took nasal spray x 2 days and headache worse, so quit , [ADDITIONAL REASON] Dizziness - Note for Dizziness: Dizziness went away Encounter Diagnosis: BMI 39.0-39.9,adult, Nonsmoker, Bradycardia, Dysmetabolic syndrome X, Abnormal TSH, Abnormal TSH, Hyperlipidemia, Dizziness [facility] Office Visit On: 25-Oct-2018 10:05 Encounter Reason: Dizziness - Symptoms include dizziness. The dizziness is described as loss of balance. Onset was 3 day(s) ago. Note for Dizziness: Dizzy with walking around has to watch so not to fall, lying in bed better.Encounter Diagnosis: End: 25-Oct-2018 10:51 Nonsmoker, BMI 39.0-39.9,adult, Dizziness, Bradycardia [facility] Phone Encounter On: 24-Aug-2018 13:33 [facility] End: 24-Aug-2018 13:34 Office Visit On: 24-Aug-2018 8:19 Encounter Reason: Follow up for chronic medical issues - The patient feels well with minor complaints, has good energy level and is sleeping well. Patient has been compliant with instructions. Current medication use: no End: 24-Aug-2018 9:23 side effects and compliant with dosing regimen. Patient sleeps 7 hours per night. Nutrition: balanced diet and supplemental vitamins. The medical issues the patient is following up for include All ident ified problems below, blood sugar issues, high blood pressure and hypothyroid. blood pressure range : and weight :.Encounter Diagnosis: Impaired glucose metabolism, BMI 40.0-44.9, adult, Influenza vaccination declined (Renamed from Refused influenza vaccine), Hypothyroidism, Nutritional counseling, B12 deficiency, Vitamin D deficiency, Essential hypertension, Hyperlipidemia, Encounter for screening mammogram for breast cancer (Renamed from Encounter for screening mammogram for malignant neoplasm of breast), Postmenopausal (Renamed from Postmenopausal status), Colon cancer screening (Renamed from Encounter for screening for malignant neoplasm of colon) [facility] Office Visit On: 20-Apr-2018 9:03 Encounter Reason: Follow up for chronic medical issues - The patient feels well with minor complaints, has good energy level and is sleeping well. Patient has been compliant with instructions. Current medication use: no End: 20-Apr-2018 12:36 side effects and compliant with dosing regimen. Patient sleeps 7 hours per night. Nutrition: balanced diet and no supplemental vitamins & iron. The medical issues the patient is following up for inc lude All identified problems below, blood sugar issues, high blood pressure and hypothyroid. blood pressure range : and weight :.Encounter Diagnosis: BMI 40.0- 44.9, adult, Hypothyroidism, Nonsmoker, Impaired glucose metabolism, Essential hypertension , Vitamin D deficiency, B12 deficiency, Nutritional counseling [facility] Office Visit On: 15-Dec-2017 8:41 Encounter Reason: Follow up tests - Date: (12/10/17 labs)., [ADDITIONAL REASON] Follow up for chronic medical issues - The patient feels well with minor complai End: 15-Dec-2017 9:22 nts, has good energy level and is sleeping well. Patient has been compliant with instructions. Current medication use: no side effects and compliant with dosing regimen. Patient sleeps 7 hours per night . Nutrition: balanced diet and supplemental vitamins. The medical issues the patient is following up for include All identified problems below, blood sugar issues, high blood pressure and high cholesterol. blood pressure range :. Encounter Diagnosis: Impaired glucose metabolism, Hypothyroidism, Nutritional counseling, Vitamin D deficiency, Essential hypertension, Hyperlipidemia, Abnormal TSH, B12 deficiency [facility] Office Visit On: 08-Sep-2017 9:27 Encounter Reason: Follow up tests - Date: (09/03/17 labs ad will need a b12 injection).Encounter Diagnosis: B12 deficiency, BMI 40.0-44.9, adult, Nonsmoker, Macrocytosis, Vitamin D deficiency, Nutritional counseling End: 08-Sep-2017 12:29 [facility] Office Visit On: 03-Sep-2017 10:17 Encounter Reason: Follow up tests - Date: (08/20/17 labs).Encounter Diagnosis: Nonsmoker, BMI 40.0-44.9, adult, Hyperlipidemia, Hypothyroidism, Nutritional counseling, Vitamin D deficiency, Macrocytosis End: 03-Sep-2017 11:21 [facility] Office Visit On: 11-Aug-2017 8:59 Encounter Reason: Follow up for chronic medical issues - The patient feels well with no complaints, has good energy level and is sleeping well. Patient has been compliant with instructions. Current medication use: no ludwin End: 11-Aug-2017 11:08 e effects, compliant with dosing regimen and considered effective by patient. Patient sleeps 8 hours per night. Impact of disease: emotional impact-mild. Nutrition: balanced diet and supplemental vitami ns. The medical issues the patient is following up for include blood sugar issues, cardiac issues, high blood pressure, high cholesterol and other (obesity, vitmain D def., fatty tumor).Encounter Diagnosis: Nonsmoker, BMI 39.0-39.9,adult, Nutritional counseling, Essential hypertension, Impaired glucose metabolism, Hypothyroidism, Hyperlipidemia, Vitamin D deficiency, Arthritis [facility] Office Visit On: 23-Apr-2017 9:51 Encounter Reason: Pre-Op Visit - The procedure scheduled is a lt total knee on 05/03/17. The surgeon for the procedure will be Dr. Javi Washington.Encounter Diagnosis: Pre-operative examination, Nonsmoker, BMI 39.0-39.9,adult, Impaired glucose metabolism End: 23-Apr-2017 13:07 , Abnormal TSH, Non morbid obesity, unspecified obesity type, Essential hypertension, Nutritional counseling, Interstitial lung disease, Hypothyroidism [facility] Office Visit On: 22-Feb-2017 8:22 Encounter Reason: Rash - Symptoms include skin redness. The skin rash is located on the left arm, left leg, right arm and right leg. Onset was 2 week(s) ago. The symptoms occur constantly. The patient describes this as u End: 22-Feb-2017 9:50 nchanged. Symptoms are exacerbated by hot water.Encounter Diagnosis: BMI 38.0-38.9,adult, Nonsmoker, Rash, Drug reaction [facility] Office Visit On: 08-Feb-2017 7:19 Encounter Reason: Follow up acute care visit - The patient feeling better since last seen. Patient has been compliant with instructions. Current medication use: no side effects, compliant with dosing regimen and considered effective by patient. End: 08-Feb-2017 8:36 Encounter Diagnosis: Cough, BMI 38.0-38.9,adult, Current non-smoker, Abnormal chest xray, Edema, unspecified type, Interstitial lung disease, Therapeutic drug monitoring [facility] Office Visit On: 05-Feb-2017 8:27 Encounter Reason: Follow up tests - Date: (02/03/17 CT SCAN).Encounter Diagnosis: Current non-smoker, BMI 38.0-38.9,adult, Interstitial lung disease, Edema, unspecified type, Simple chronic bronchitis, Abnormal chest xray, Cough End: 05-Feb-2017 13:09 [facility] Phone Encounter On: 27-Jan-2017 13:19 Encounter Diagnosis: Abnormal chest xray End: 27-Jan-2017 13:21 [facility] Office Visit On: 25-Jan-2017 13:01 Encounter Reason: Cough - No changes in management were made at the last visit. Symptoms include cough, wheezing and runny nose, while symptoms do not include chills or fever. The cough is described as hacking. Cough ons End: 25-Jan-2017 14:21 et was sudden 2 day(s) ago. Onset of cough followed cold symptoms. The cough occurs constantly. Symptoms are described as worsening.Encounter Diagnosis: BMI 38.0- 38.9,adult, Current non-smoker, Cough, Bronchitis, Grieving [facility] Office Visit On: 14-Oct-2016 9:14 Encounter Reason: Follow up acute care visit - The patient feeling better since last seen (chiropractor has helped her with 2 pinched nerves, was going 2 times a week and now she is only going once a week). Patient has b End: 14-Oct-2016 10:07 een compliant with instructions. Patient sleeps 7 hours per night. Nutrition: balanced diet. The medical issues the patient is following up for include high blood pressure and other (high chol, hypo thyroid).Encounter Diagnosis: Sciatica (724.3), BMI 39.0-39.9,adult, Current non-smoker, Leg length discrepancy [facility] Phone Encounter On: 31-Aug-2016 17:18 Encounter Diagnosis: Arthritis End: 31-Aug-2016 17:22 [facility] Office Visit On: 28-Aug-2016 10:46 Encounter Reason: Sciatica - The cause of the sciatica is unknown. This condition is not related to a specific injury. Past treatment has included nonsteroidal anti-inflammatory drugs (400mg to 600mg).Encounter Diagnosis: Leg length discrepancy, End: 28-Aug-2016 11:48 Right sciatic nerve pain [facility] Office Visit On: 05-Aug-2016 9:03 Encounter Reason: Follow up for chronic medical issues - The patient feels well with minor complaints, has good energy level and is sleeping well. Patient has been compliant with instructions. Current medication use: no End: 05-Aug-2016 10:55 side effects and compliant with dosing regimen. Patient sleeps 7 hours per night. Nutrition: balanced diet and supplemental vitamins. The medical issues the patient is following up for include All ident ified problems below, blood sugar issues, high blood pressure and high cholesterol. blood pressure range :, fasting blood sugars : and weight :., [ADDITIONAL REASON] Follow up tests - Date: (07/28/16). Encounter Diagnosis: Impaired glucose metabolism , Hypothyroidism, Hyperlipidemia, Essential hypertension, Current non-smoker, Vitamin D deficiency, Excessive cerumen in both ear canals [facility] Office Visit On: 28-Jul-2016 10:22 Encounter Reason: dizzy, [ADDITIONAL REASON] Dizziness - The last clinic visit was 2 day(s) ago. Symptoms include dizziness (nausiated) and difficulty ambulating (has to watch her step, but if she lays down she feels just fine End: 28-Jul-2016 14:19 ). The dizziness is described as lightheadedness. The patient describes this as moderate in severity and unchanged. Symptoms are exacerbated by bending over. Symptoms are relieved by lying still. Associ ated symptoms include nausea. Note for Dizziness: not much salt not eating out only taking half her bp pill a day- not ??taking bid - never did- no chest pain or sob no leg swelling - doing way too much cafeine this weekend Encounter Diagnosis: BMI 38.0-38.9,adult, Current non-smoker, Essential hypertension, Dizziness, Abnormal TSH, Impacted cerumen of right ear [facility] Office Visit On: 17-Apr-2016 8:23 Encounter Reason: Follow up tests - Date: (04/01/16 labs).Encounter Diagnosis: Hypothyroidism, Hyperlipidemia, Dysmetabolic syndrome X, Vitamin D deficiency, Abnormal TSH End: 17-Apr-2016 9:19 [facility] Office Visit On: 08-Apr-2016 9:05 Encounter Reason: Well Women Exam - The patient feels well with minor complaints, has good energy level and is sleeping well. Pap smear: date of last pap: (yrs). Contraceptive history: The patient is not using any method End: 08-Apr-2016 9:45 of contraception at this time. Patient exercises 3 - 4 times per week. The patient reports that she does not perform monthly breast self exam. Calcium intake includes 2 serving(s) milk daily. The patie nt denies the use of oral contraceptives or hormone replacement therapy. Menstruation: Last menstrual period date: (yrs).Encounter Diagnosis: Well woman exam with routine gynecological exam, Screening for osteoporosis (Renamed from Encounter for screening for osteoporosis), Encounter for screening mammogram for breast cancer (Renamed from Encounter for screening mammogram for malignant neoplasm of breast) [facility] Office Visit On: 01-Apr-2016 8:50 Encounter Reason: Follow up for chronic medical issues - The patient feels well with minor complaints, has good energy level and is sleeping well. Patient has been compliant with instructions. Current medication use: no End: 01-Apr-2016 9:43 side effects and compliant with dosing regimen. Patient sleeps 8 hours per night. Nutrition: balanced diet and supplemental vitamins. The medical issues the patient is following up for include All ident ified problems below, blood sugar issues, high blood pressure and high cholesterol. blood pressure range :, fasting blood sugars : and weight :.Encounter Diagnosis: Impaired glucose metabolism, Hypothyroidism, Hyperlipidemia, Hypertension, Encounter for screening mammogram for breast cancer (Renamed from Encounter for screening mammogram for malignant neoplasm of breast) [facility] Office Visit On: 01-Jan-2016 8:48 Encounter Reason: Follow up for chronic medical issues - The patient feels well with no complaints, has good energy level and is sleeping well. Patient has been compliant with instructions. Current medication use: no ludwin End: 01-Jan-2016 17:09 e effects and compliant with dosing regimen. Patient sleeps 8 hours per night. Nutrition: balanced diet. blood pressure range :.Encounter Diagnosis: Hypertension, Impaired glucose metabolism, Hyperlipidemia, Hypothyroidism, Vitamin D deficiency, unspecified [facility] Office Visit On: 18-Sep-2015 9:04 Encounter Reason: Follow up tests - Date: (09/04/15 labs)., [ADDITIONAL REASON] Follow up for chronic medical issues - The patient feels well with minor complai End: 18-Sep-2015 9:58 nts, has good energy level and is sleeping well. Patient has been compliant with instructions. Current medication use: no side effects and compliant with dosing regimen. Patient sleeps 7 hours per night . Nutrition: balanced diet and no supplemental vitamins & iron. The medical issues the patient is following up for include All identified problems below, blood sugar issues and high blood pressure. blood pressure range :, fasting blood sugars : and weight :. Encounter Diagnosis: Impaired glucose metabolism, Hypothyroidism, Hyperlipidemia, Hypertension, Abnormal TSH [facility] Office Visit On: 22-May-2015 8:01 Encounter Reason: Follow up for chronic medical issues - The patient feels well with minor complaints, has good energy level and is sleeping well. Patient has been compliant with instructions. Current medication use: no End: 22-May-2015 17:54 side effects and compliant with dosing regimen. Patient sleeps 7 hours per night. Nutrition: balanced diet and supplemental vitamins. The medical issues the patient is following up for include All ident ified problems below, blood sugar issues, high blood pressure, high cholesterol and hypothyroid. blood pressure range :, fasting blood sugars : and weight :.Encounter Diagnosis: Abnormal Glucose Tolerance Test (790.22), Hypothyroidism(244.9), Hyperlipidemia (272.4) [facility] Phone Encounter On: 28-Feb-2015 10:00 Encounter Diagnosis: Cough End: 28-Feb-2015 10:06 [facility] Office Visit On: 25-Feb-2015 13:08 Encounter Reason: Flu Like Symptoms - The last clinic visit was 3 day(s) ago. No changes in management were made at the last visit. Symptoms include body aches, hoarseness, dry cough and headache, while symptoms do not i End: 25-Feb-2015 13:38 nclude fever or sore throat. Onset was sudden. There is no known event that preceded symptom onset. The symptoms occur constantly. The patient describes this as moderate in severity and unchanged.Encounter Diagnosis: Flu-like symptoms, Fever, Influenza B [facility] Office Visit On: 20-Feb-2015 9:20 Encounter Reason: Infection - Unspecified - The onset of the unspecified infection has been sudden. The unspecified infection has been occurring for hours. The course has been worsening. The symptoms have included pain, End: 20-Feb-2015 9:59 but not fever. There have been no recent exposure to infectious disease.Encounter Diagnosis: Paronychia, Finger pain, Infected finger [facility] Office Visit On: 23-Jan-2015 8:44 Encounter Reason: Follow up for diabetes/glucose intolerance - The patient feels well with minor complaints, has good energy level and is sleeping well. Patient has been non-compliant with instructions. Current medicatio End: 23-Jan-2015 17:35 n use: non-compliant with dosing regimen. Nutrition: balanced diet. fasting blood sugars : (99 fasting this am).Encounter Diagnosis: Abnormal TSH (794.5), Abnormal Glucose Tolerance Test (790.22), Hyperlipidemia (272.4), Hypertension (401.0), Hypothyroidism(244.9), Hand pain [facility] Office Visit On: 14-Nov-2014 8:20 Encounter Reason: Follow up acute care visitEncounter Diagnosis: Hypertension (401.0), Dizziness(780.4), Abnormal Glucose Tolerance Test (790.22) End: 14-Nov-2014 9:12 [facility] Office Visit On: 03-Oct-2014 8:55 Encounter Reason: Follow up Hypertension - The symptoms have been associated with obesity, while the symptoms have not been associated with anxiety or excessive caffeine intake. blood pressure range : (140 to 116/60 to 70)., End: 03-Oct-2014 10:14 [ADDITIONAL REASON] Follow up Meds - The patient feels well with minor complaints. Patient has been non-compliant with instructions. Current medication use: experiencing side effects. Encounter Diagnosis: Hypertension (401.0), Abnormal Glucose Tolerance Test (790.22) [facility] Office Visit On: 10-Sep-2014 8:17 Encounter Reason: Follow up Hypertension - The symptoms have been associated with obesity. blood pressure range : (130/70).Encounter Diagnosis: Hypertension (401.0), Abnormal Glucose Tolerance Test (790.22) End: 10-Sep-2014 9:09 [facility] Office Visit On: 22-Aug-2014 9:30 Encounter Reason: Follow up for chronic medical issues - The patient feels well with minor complaints, has good energy level and is sleeping well. Patient has been compliant with instructions. Current medication use: no End: 22-Aug-2014 11:32 side effects and compliant with dosing regimen. Patient sleeps 7 hours per night. Nutrition: balanced diet and supplemental vitamins. The medical issues the patient is following up for include All ident ified problems below, high blood pressure and high cholesterol. blood pressure range : and weight :.Encounter Diagnosis: Hypothyroidism(244.9), Hyperlipidemia (272.4), Hypertension (401.0), Hyperglycemia (790.29), BMI 35.0-35.9, ADULT (V85.35) [facility] Office Visit On: 20-Jun-2014 9:16 Encounter Reason: Follow up tests - Date: (05/23/14 labs).Encounter Diagnosis: Hypothyroidism(244.9), Fatty tumor, Abnormal TSH (794.5), Hyperlipidemia (272.4) End: 20-Jun-2014 10:22 [facility] Office Visit On: 23-May-2014 9:13 Encounter Reason: Follow up for chronic medical issues - The patient feels well with minor complaints (lumph node or bump in back no better). Patient has been compliant with instructions. Current medication use: no side End: 23-May-2014 11:49 effects. Patient sleeps 7 hours per night. Impact of disease: no emotional impact (worried about lump). Nutrition: inappropriate diet (too many calories). The medical issues the patient is following up for include blood sugar issues, high blood pressure, high cholesterol and hypothyroid.Encounter Diagnosis: Lymphadenopathy, cervical, Muscle spasm, Neck pain, Hypothyroidism(244.9), Hyperlipidemia (272.4), Hyperglycemia (790.29), Hypertension (401.0) [facility] Office Visit On: 09-May-2014 9:45 Encounter Reason: Follow up Meds - The patient feels well with minor complaints, has good energy level and is sleeping well. Patient has been compliant with instructions. Current medication use: no side effects and compl End: 09-May-2014 10:49 iant with dosing regimen. Patient sleeps 8 hours per night. Nutrition: balanced diet.Encounter Diagnosis: Neck pain, Muscle spasm, Hypertension (401.0), Lymphadenopathy, cervical, Hypothyroidism(244.9) [facility] Office Visit On: 21-Mar-2014 8:46 Encounter Reason: Follow up for chronic medical issues - The patient feels well with minor complaints, has good energy level and is sleeping well. Patient has been compliant with instructions. Current medication use: no End: 21-Mar-2014 13:11 side effects and compliant with dosing regimen. Patient sleeps 7 hours per night. Nutrition: balanced diet and supplemental vitamins. The medical issues the patient is following up for include All ident ified problems below and hypothyroid. blood pressure range : (usually higher in the am when first check like today and then comes down later in the day) and weight :.Encounter Diagnosis: Hypertension (401.0), Hypothyroidism(244.9), Hyperlipidemia (272.4), Obesity, unspecified (278.00), Hyperglycemia (790.29) [facility] Office Visit On: 25-Dec-2013 10:32 Encounter Reason: Pre-Op Visit - The procedure scheduled is a rt bunion sx on 01/03/14. The surgeon for the procedure will be Dr. Martinez.Encounter Diagnosis: Pre- operative examination, unspecified (V72.84) End: 25-Dec-2013 17:22 [facility] Office Visit On: 20-Nov-2013 8:16 Encounter Reason: Follow up Hypertension - There has been no associated anxiety or sleep apnea symptoms. blood pressure range : (125/76, 147/86, 126/76, 132/77, 138/78)., End: 20-Nov-2013 8:54 [ADDITIONAL REASON] Follow up acute care visit - The patient feeling better since last seen and improving. Patient has been compliant with instructions. Nutrition: balanced diet. The medical issues the patient is following up for include All identified problems below. Encounter Diagnosis: Hypertension (401.0), Varicose vein (454.9) [facility] Office Visit On: 07-Nov-2013 10:25 Encounter Reason: Follow up Hypertension - The symptoms have been associated with family history of hypertension and obesity. blood pressure range : (171/99).Encounter Diagnosis: Hypertension (401.0), Cerumen impaction (380.4) End: 07-Nov-2013 11:31 [facility] Office Visit On: 18-Oct-2013 8:37 Encounter Reason: Follow up Hypertension - blood pressure range : (its been good).Encounter Diagnosis: Benign essential hypertension (401.1), Obesity, unspecified (278.00), BMI 35.0-35.9, ADULT (V85.35), Hypothyroidism(244.9) End: 18-Oct-2013 10:00 [facility] Office Visit On: 06-Sep-2013 8:22 Encounter Diagnosis: BMI 34.0-34.9, ADULT (V85.34), Dysmetabolic syndrome X (277.7), Obesity, unspecified (278.00), Benign essential hypertension (401.1) End: 06-Sep-2013 9:21 [facility] Office Visit On: 26-Jul-2013 8:59 Encounter Reason: Follow up tests - Date: (06/09/13 labs)., [ADDITIONAL REASON] Follow up for chronic medical issues - The patient feels well with minor complai End: 26-Jul-2013 13:42 nts, has good energy level and is sleeping well. Patient has been compliant with instructions. Current medication use: no side effects and compliant with dosing regimen. Patient sleeps 7 hours per night . Nutrition: balanced diet and supplemental vitamins. The medical issues the patient is following up for include All identified problems below and hypothyroid. blood pressure range : and weight :. Encounter Diagnosis: Hypothyroidism(244.9), Benign essential hypertension (401.1), Dysmetabolic syndrome X (277.7), Hyperglycemia (790.29), Hyperlipidemia (272.4), BMI 34.0-34.9, ADULT (V85.34) [facility] Office Visit On: 22-Mar-2013 8:08 Encounter Reason: Follow up for chronic medical issues - The patient feels well with minor complaints, has good energy level and is sleeping well. Patient has been compliant with instructions. Current medication use: no End: 22-Mar-2013 9:00 side effects and compliant with dosing regimen. Patient sleeps 7 hours per night. Nutrition: balanced diet and no supplemental vitamins & iron. The medical issues the patient is following up for inc lude All identified problems below, high blood pressure, high cholesterol and hypothyroid. blood pressure range : and weight :.Encounter Diagnosis: Hypothyroidism(244.9), Hyperlipidemia (272.4), Vitamin D deficiency, unspecified (268.9), Dysmetabolic syndrome X (277.7), Benign essential hypertension (401.1), Sciatica (724.3) [facility] Phone Encounter On: 12-Jan-2013 14:59 Encounter Diagnosis: Abnormal TSH (794.5) End: 12-Jan-2013 15:04 [facility] Office Visit On: 04-Jan-2013 9:48 Encounter Reason: Ear Discharge - Symptoms include ear fullness, ear itching and ear pain, while symptoms do not include ear discharge, ear pulling, ear swelling, dizziness, hearing impairment, need for high sound levels End: 04-Jan-2013 10:22 or tinnitus. Symptoms are located in both ears. Onset was sudden 1 week(s) ago. The patient describes this as moderate in severity and worsening. Associated symptoms include headache, while associated symptoms do not include sleep disruption. Encounter Diagnosis: SINUSITIS, ACUTE NOS (461.9), Eustachian tube dysfunction (381.81) [facility] Lab Order On: 24-Nov-2012 15:30 Encounter Diagnosis: Hypothyroidism(244.9) End: 24-Nov-2012 15:34 [facility] Office Visit On: 23-Nov-2012 8:55 Encounter Reason: Follow up for chronic medical issues - The patient feels well with minor complaints, has good energy level and is sleeping well. Patient has been compliant with instructions. Current medication use: no End: 23-Nov-2012 10:29 side effects and compliant with dosing regimen. Patient sleeps 7 hours per night. Nutrition: balanced diet and supplemental vitamins. The medical issues the patient is following up for include All ident ified problems below, high blood pressure, high cholesterol and hypothyroid.Encounter Diagnosis: Hypertension (401.0), Hypothyroidism(244.9), Dysmetabolic syndrome X (277.7), Hyperlipidemia (272.4), Vitamin D deficiency, unspecified (268.9), Flexor tenosynovitis of finger (727.05) [facility] Office Visit On: 12-Aug-2011 9:02 Encounter Reason: Follow up tests - Date: (08/05/11 labs).Encounter Diagnosis: Dysmetabolic syndrome X (277.7), Vitamin D deficiency, unspecified (268.9) End: 12-Aug-2011 9:19 [facility] Office Visit On: 29-Jul-2011 8:13 Encounter Reason: Follow up for chronic medical issues - The patient feels well with minor complaints, has good energy level and is sleeping well. Patient has been compliant with instructions. Current medication use: no End: 29-Jul-2011 16:26 side effects and compliant with dosing regimen. Patient sleeps 6 hours per night. Nutrition: balanced diet and no supplemental vitamins & iron. The medical issues the patient is following up for inc lude All identified problems below, high blood pressure and hypothyroid. blood pressure range : and weight :.Encounter Diagnosis: Hyperlipidemia (272.4), Hypothyroidism(244.9), Benign essential hypertension (401.1), Obesity, unspecified (278.00), Vitamin D deficiency, unspecified (268.9), Dysmetabolic syndrome X (277.7) [facility] Office Visit On: 11-Jun-2010 8:34 Encounter Reason: Follow up for chronic medical issues - The patient feels well with minor complaints ,has good energy level and is sleeping well. Patient has been compliant with instructions. Current medication use: no End: 11-Jun-2010 11:50 side effects and compliant with dosing regimen. Patient sleeps 7 hours per night. Nutrition: balanced diet and supplemental vitamins. The medical issues the patient is following up for include All ident ified problems below ,high blood pressure ,high cholesterol and hypothyroid. blood pressure range : and weight :. Encounter Diagnosis: Hypertension (401.0), Hyperlipidemia (272.4), Hypothyroidism(244.9), BACKACHE NOS (724.5), Obesity, unspecified (278.00), Benign paroxysmal positional vertigo (386.11), arthritis,unspecified (716.90) [facility] Historical Summary On: 19-Aug-2009 10:40 [facility] End: 19-Aug-2009 10:43 Office Visit On: 12-Aug-2009 8:37 Encounter Reason: Sore throat - The onset of the sore throat has been gradual and has been occurring in an intermittent pattern for 2 weeks. The course has been worsening. The symptoms have been associated with cough (bu End: 12-Aug-2009 9:46 t went away) ,ear pain ,post-nasal drip and swelling of neck glands, while the symptoms have not been associated with change in voice ,chills ,fever ,purulent sputum or runny nose. Encounter Diagnosis: ACUTE PHARYNGITIS (462.), Eustachian tube dysfunction (381.81) [facility] Office Visit On: 18-Mar-2009 9:55 Encounter Reason: Preoperative evaluation - The patient feels well with minor complaints. Surgical procedures include: other. Date of procedure: (03-27-09 left foot great toe sx). There have been no problems with general End: 18-Mar-2009 10:27 anesthesia or blood/blood products. Encounter Diagnosis: Pre-operative examination, unspecified (V72.84), Benign essential hypertension (401.1) [facility] Office Visit On: 09-Jan-2009 9:04 Encounter Reason: Follow up for chronic medical issues - The patient feels well with minor complaints ,has decreased energy level and is sleeping well. Patient has been compliant with instructions. Current medication use End: 09-Jan-2009 11:15 : compliant with dosing regimen. Patient sleeps 7 hours per night. Impact of disease: emotional impact-mild. Nutrition: balanced diet and supplemental vitamins. The medical issues the patient is followi ng up for include cardiac issues ,high blood pressure ,high cholesterol ,hypothyroid and other (obesity, arthiritis ). Encounter Diagnosis: Benign essential hypertension (401.1), Hypothyroidism(244.9), Hyperlipidemia (272.4), Dizziness(780.4) [facility] Office Visit On: 10-Oct-2008 8:48 Encounter Reason: Follow up for chronic medical issues - The patient feels well with minor complaints ,has good energy level and is sleeping well. Patient has been compliant with instructions. Current medication use: no End: 10-Oct-2008 10:01 side effects and compliant with dosing regimen. Patient sleeps 7 hours per night. Nutrition: balanced diet and supplemental vitamins. The medical issues the patient is following up for include asthma ,h igh cholesterol and hypothyroid. blood pressure range :. , [ADDITIONAL REASON] Follow up, Laboratory Test Results - Date: (09/03/08). Encounter Diagnosis: Benign essential hypertension (401.1), Hypothyroidism(244.9), Hyperlipidemia (272.4), Obesity, unspecified (278.00) [facility] Office Visit On: 31-Jul-2008 12:11 Encounter Reason: Follow up acute care visit - The patient feeling better since last seen. Patient has been compliant with instructions. Current medication use: no side effects. Patient sleeps 8 hours per night. Nutritio End: 31-Jul-2008 15:08 n: balanced diet. The medical issues the patient is following up for include other (dizziness). Encounter Diagnosis: Benign paroxysmal positional vertigo (386.11), ACUTE PHARYNGITIS (462.), Benign essential hypertension (401.1) [facility] Office Visit On: 25-Jul-2008 11:55 Encounter Reason: Dizziness/ - The onset of the dizziness/ has been sudden and has been occurring in a persistent pattern for 3 days. The course has been constant. The dizziness/ is characterized as lightheadedness. The End: 25-Jul-2008 12:23 dizziness/ is precipitated by position change. The symptoms have been associated with loss of balance ,nausea and vomiting (1st night), while the symptoms have not been associated with tinnitus (left ear and side of throat hurts). Encounter Diagnosis: Benign paroxysmal positional vertigo (386.11) [facility] Office Visit On: 12-Jul-2008 9:10 Encounter Reason: Follow up, Laboratory Test Results - Date: (06-28-08 on face sheet). Encounter Diagnosis: Hypothyroidism(244.9), Abnormal TSH (794.5), Hyperglycemia (790.29), Obesity, unspecified (278.00) End: 12-Jul-2008 10:22 [facility] Office Visit On: 22-Jun-2008 8:19 Encounter Reason: Abdominal pain - The onset of the pain has been acute and has been occurring in a persistent pattern for 2 weeks. The course has been constant. The pain is described as a severe sharp pain. The pain is End: 22-Jun-2008 9:35 described as being located in the right upper quadrant. The pain radiates to the right flank. The symptoms are aggravated by standing. Encounter Diagnosis: Benign essential hypertension (401.1), Hypothyroidism(244.9), Hyperlipidemia (272.4) [facility] Annotation/Addendum On: 05-Jun-2008 15:05 Encounter Diagnosis: Unspecified Diagnosis End: 05-Jun-2008 15:33 [facility] Office Visit On: 30-May-2008 13:48 Encounter Reason: Rash - The onset of the rash has been acute and has been occurring in a persistent pattern for 1 weeks. The course has been constant. The rash is characterized as red and raised above the skin. The rash End: 30-May-2008 14:21 was first seen on exposed areas (started on fingers of right hand). It spread to the face ,the neck ,the trunk and the upper extremity. There has been associated itching, while there has been no alopec ia ,anorexia ,chills ,fatigue ,fever ,kidney disease ,liver disease ,loss of sensation ,lymphadenopathy ,malaise ,mucous membrane lesions ,nail changes ,pain or weight loss. Encounter Diagnosis: CONTACT DERMATITIS D/T POISON DEMI, (692.6) [facility] Office Visit On: 03-Nov-2007 9:42 Encounter Reason: Shoulder Pain - The onset of the shoulder pain has been sudden and has been occurring in a persistent pattern for 4 weeks. The course has been gradually worsening. The shoulder pain is moderate to sever End: 03-Nov-2007 10:33 e. The shoulder pain is characterized as a dull aching. The shoulder pain is described as being located in the right shoulder. The shoulder pain is aggravated by physical activity and any movement. Ther e are no relieving factors. Associated features include: painful ROM and decreased ROM. Encounter Diagnosis: Shoulder pain (719.41), Shoulder Impingment Syndrome (726.2), Benign essential hypertension (401.1) [facility] Office Visit On: 06-Jun-2007 10:12 Encounter Reason: Follow up for chronic medical issues - The patient feels well with no complaints. Patient has been compliant with instructions. Current medication use: no side effects. Patient sleeps 8 hours per night. End: 06-Jun-2007 10:54 Nutrition: balanced diet. The medical issues the patient is following up for include All identified problems below ,high blood pressure ,high cholesterol ,hypothyroid and osteoarthritis. Encounter Diagnosis: Benign essential hypertension (401.1), Hypothyroidism(244.9) [facility] Office Visit On: 10-Mar-2007 13:34 Encounter Reason: Well Women Exam - The patient feels well with no complaints ,has good energy level and is sleeping well (6-8 Hrs). Pap smear: date of last pap: (2004). Contraceptive history: The patient is not using an End: 10-Mar-2007 14:09 y method of contraception at this time. Patient does not exercise. The patient's libido is normal. The patient reports that she does not perform monthly breast self exam. The patient denies the use of o ral contraceptives or hormone replacement therapy. Menstruation: Last menstrual period date: (2000). Encounter Diagnosis: Well Woman Exam (V72.31) (Pap,Mammo,Routine Female), TINEA CORPORIS (110.5) [facility] Office Visit On: 24-Feb-2007 9:39 Encounter Reason: Follow up for chronic medical issues - The patient feels well with minor complaints (stinging pain in right index finger (on occasion)). Patient has been compliant with instructions. Current medication End: 24-Feb-2007 12:43 use: no side effects. Patient sleeps 7 hours per night. Nutrition: balanced diet. The medical issues the patient is following up for include All identified problems below ,high blood pressure ,high cholesterol and hypothyroid. Encounter Diagnosis: Hypertension (401.0), Hypothyroidism(244.9), Abnormal TSH (794.5), Hyperlipidemia (272.4) [facility] Office Visit On: 28-Oct-2006 9:17 Encounter Reason: Follow up Hypertension - The patient has experienced follow up hypertension for months. blood pressure range : (says has been in normal ranges). , End: 28-Oct-2006 9:53 [ADDITIONAL REASON] Follow up, Laboratory Test Results - Lab results: abnormal blood chemistry ,abnormal blood lipids and abnormal CBC. Date: (10-04). Current symptoms/reason for visit include/s Follow up visit with no current symptoms. Past medical history includes elevated cholesterol ,hypertension and hypothyroidism. 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
--- OUTSIDE RECORDS SUMMARY | 2018-12-24 08:32 | XMS RPT_ITS | Continuity of Care Document ---
:1950 Author Organization [facility] Address [address] [place] [address] Phone Care Team Providers Name Role Phone Bridgett Bansal DO Unavailable ROMAINE Eckert Unavailable Unavailable Katie Kebede Unavailable Unavailable Sonia CASTILLO, Rosie Olivo Unavailable Raya Lou LPN Unavailable Unavailable PETER [...] (Z68.41, V85.41) Status: Active Bradycardia (R00.1, 427.89) Status: Active Bronchitis (J40, 490) Status: Active Colon cancer screening (Renamed from Encounter for screening for malignant neoplasm of colon) (Z12.11, V76.51) Comments: last colonoscopy jab Status: Active Cough (R05, 786.2) Status: Active Current non-smoker (Z78.9, V49.89) Status: Active Dizziness (R42, 780.4) Comments: suspect orthostasis vs vertigo -- enc to drink more water/ pt didint want zny rx for meclizine Status: Active Dizziness (R42, 780.4) Comments: ? 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 Status: Active Grieving (F43.21, 309.0) Comments: brother dying with hospice from [facility] and enc given Status: Active Hand pain [...] 137 MCG Oral Tablet 1 (one) Tablet qd for 0 days Quantity: 30 {Tablet} Refills: 3 Ordered:24-Aug-2018 Radha Eckert LPN Start : 24-Aug-2018 Active Losartan Potassium 50 MG Oral Tablet 1 (one) Tablet Tablet qd for 0 days Quantity: 30 {Tablet} Refills: 3 Ordered:23-Apr-2017 Radha Eckert LPN Start : 28-Jul-2016 Active Nasonex 50 MCG/ACT Nasal Suspension 2 (two) Suspension each nostril qd for 0 days Quantity: 1 {Niwot} Refills: 0 Ordered:25-Oct-2018 Rosie Scott CNP Start : 25-Oct-2018 Active AMLODIPINE BESYLATE, 2.5MG (Oral Tablet) 1 [...] 30 {Tablet} Refills: 3 Ordered:23-Jan-2015 Rolf OLIVER RylandCarlos Bridgett Start : 23-Jan-2015 End : 23-Jan-2015 Inactive Comments:dizzy NASACORT AQ, 55MCG/ACT (Nasal Aerosol Solution) 2 (two) Aerosol Soln Daily for 0 days Refills: 0 Ordered:09-Jan-2009 PETER Guo Start : 25-Jul-2008 End : 09-Jan-2009 Inactive Wheeler 5-325 MG Oral Tablet 1 (one) Tablet q 6 hrs prn for 7 days Quantity: 28 {Tablet} Refills: 0 Ordered:31-Aug-2016 Radha Eckert LPN Start : 31-Aug-2016 End : 07-Sep-2016 Inactive Comments:twenty-eight OMNARIS, 50MCG/ACT (Nasal Suspension) 2 (two) Suspension Daily for 0 days Quantity: 1 {Suspension} Refills: 2 Ordered:12-Aug-2011 Radha Eckert LPN Start : 19-Aug-2009 End : 12-Aug-2011 Inactive PREDNISONE, 10MG (Oral Tablet) 3 (three) Tablet daily for 10 days Quantity: 30 {Tablet} Refills: 0 Ordered:30-May-2008 Sonia CASTILLO Mily Start : 30-May-2008 End : 22-Jun-2008 Inactive [...] Start : 28-Aug-2016 End : 22-Feb-2017 Discontinued NYSTATIN (Powder) 1 (one) Powder Twice [...] TSH (R79.89, 790.6) Status: Inactive as of 01-Apr-2016 Abnormal TSH (R79.89, 790.6) Status: Inactive as [...] Summary (1) Result: Comments: See Note; NOTES: [facility] Physical Therapy [facility] [address] [place] [address]. [address] [place] [address] Fax REHABILITATION SERVICES DISCHAR GE SUMMARY MR#: [id number] Acct: [id number] Name: ERENDIRA ALANIZ Rep #: [id number] : 1950 67 From: Raya HAGAN Referring Dr.: Javi Washington MD Status: REG RCR Insurance: [facility] - PT D/C Summary It has been [...] please feel free to call me at [phone]. Thank you for the referral of this patient. Sincerely, David Mitchell <Electronically signed by Raya Mitchell MPT> 08/27/17 1410 CC: Bridgett Bansal DO; Javi Washington MD Signed 15-May-2017 Venous Duplex Lower Extremity Result: Comments: See Note; NOTES: [facility] Cardiovascular Services [address] [place] [address] Venous Duplex US, Unilateral 05/14/17 1409 MR#: [id number] Acct: [id number] Name: ERENDIRA LAZARO Rep #: [id number] : 1950 66 From: Yash Stern MD Attending Dr: Valorie Wilson Status: REG CLI Ordering Dr: Valorie Wilson Date: 05/14/17 Location: [facility] Sex: F C [facility]: LEG PAIN AND SWELLING RIGHT [...] Bansal M.D. Performed By: Iona Douglas RVT 05/15/17 193 Date Yash Stern MD CC: Valorie Wilson; Bridgett Bansal DO Date Dictated: 05/14/17 1409 Date Transcribed: 05/15/171929 Home Coordinator: Signed 07-May-2017 Inital Evaluation (1) - PT Result: Comments: See Note; NOTES: [facility] Physical Therapy [facility] [address] [place] [address] Fax REHABILITATION SERVICES INITIAL EVALUATION MR#: [id number] Acct: [id number] Name: ERENDIRA ALANIZ Rep #: [id number] : 1950 66 From: Raya Mitchell MPT Referring Dr.: Javi Washington MD Status: REG RCR Insurance: [employer] Information ERENDIRA ALANIZ is a 66 [...] to be FAXED BACK to us at [phone] for Medicare purposes. Please le t me know if there are questions or concerns regarding this plan of care. Physician Signature: Date: <Electronically signed by Herber Mitchell MPT> 05/07/17 1347 CC: Bridgett Bansal DO; Javi Washington MD Signed For Medicare only, by signing this I certify the plan of care. Physicians Signature Date 27-Apr-2017 History and Physical Exam Result: Comments: See Note; NOTES: [facility] Medical Records Department [address] [place] [address] History and Physical 04/21/17 1334 MR#: [id number] Acct: [id number] Name: Thelma ALANIZ Rep #: [id number] : 1950 66 From: Valorie Wilson PCP: Bridgett Bansal DO Status: PRE IN Location: [facility] DATE OF SERVICE: 05/03/2017 This is Valorie Wilson PA-C, dictating a preoperative history and physical exam per Dr. Javi Washington. PRIMARY CARE PROVIDER: Bridgett Bansal D.O. PROCEDURE TYPE: Left total knee arthroplasty. PROCEDURE DATE: May 03, 2017. ATTENDING PHYSICIAN: Javi Washington M.D. HISTORY OF PRESENT ILLNESS: This is a 66-year-old [facility] female with chief complaint of significant left [...] the left [facility] January 22, 2017[facility], weight[facility], AP, tunnel, sunrise, lateral views are with gvpn-ce-jxgw contact medially, bone spurring medially and laterally, [...] the hospital. KIMBERLY Duncan T: NTS JOB: [id number] 04/27/17 1025 <Electronically signed by Valorie Wilson > Date: Time: Valorie Wilson CC: Valorie Bansal DO Date Dictated: 0 04/21/17 1334 Date Transcribed: 04/21/171333 Home Coordinator: Signed ____ I have re-examined the patient. There are no clinical changes since date of exam. ____ See Progress Notes for Changes ____ D ictated on Admission Date: Time: Signature: 23-Apr-2017 12 Lead Electrocardiogram Result: Comments: See Note; NOTES: [facility] Cardiovascular Services [address] [place] [address] EKG - SDC 04/21/17 1507 MR#: [id number] Acct: [id number] Name: ERENDIRA ALANIZ Rep #: [id number] : 1950 66 From: Shay Winter MD Attending Dr: Javi Washington MD Status: PRE IN Ordering Dr: Javi Washington MD Date: 04/21/17 Location: [facility] Sex: F C Admitted: Test Reason [...] ECG Confirmed by SHAY WINTER ([id number]), editor news JOSE WASHINGTON ([id number]) on 04/23/2017 11:44:40 AM Referred By: READER JAVI WASHINGTON Confirmed By:SHAY WINTER 04/23/17 1144 Date Shay Winter MD CC: Shay Winter MD; Bridgett Bansal DO Date Dictated: 04/21/171506 Date Transcribed: 04/21/171506 Home Coordinator: Signed 23-Apr-2017 Chest PA and Lateral Result: Comments: See Note; NOTES: [facility] Imaging Services [address] [place] [address] Verdana 4d Chest PA and Lateral MR#: [id number] Acct: [id number] Name: ERENDIRA ALANIZ Rep #: [id number] : 1950 F 66 From: Christian Cornelius MD PCP: Bridgett Bansal DO Status: REG CLI Study: Chest PA and Lateral Date of Exam: 04/23/17 Exam# [id number] Ordering Dr: Bridgett Bansal DO STUDY: X-RAY [...] Christian Cornelius MD at 15:04 EDT Tel [phone], Service support , C C: Bridgett Bansal DO Home Coordinator: Signed 03-Mar-2017 PT D/C Summary (1) Result: Comments: See Note; NOTES: [facility] Physical Therapy [address] [place] [address] Fax REHABILITATION SERVICES DISCHAR GE SUMMARY MR#: [id number] Acct: [id number] Name: ERENDIRA ALANIZ Rep #: [id number] [...] have surgery May 03, 2017- Heading to [place] March 19- will be down there about [...] please feel free to call me at [phone]. Thank you for the referral of this patient. Sincerely, Michelle Martinez <Electronically signed by Michelle Martinez DPT&am p;#62; 03/03/17 0955 CC: Bridgett Bansal DO; Javi Washington MD ELR Signed 01-Mar-2017 Pulmonary Function Report Comp Result: Comments: See Note; NOTES: [facility] Pulmonary Services/Neurology [address] [place] [address] Pulmonary Function Test (Comp) MR#: [id number] Acct: [id number] Name: LISA ALANIZ JAVED Rep #: [id number] : 1950 66 From: Godfrey Babin DO Referring Dr: Bridgett Bansal DO Status: REG CLI Ordering Dr: Bridgett Bansal DO Date: 02/26/17 Location: [facility] Sex: F C DATE OF [...] C: The referring provider T: HARPER JOB: [id number] 03/01/17 0824 <Electronically signed by Godfrey Babin DO> Date Godfrey Babin DO CC: Godfrey Babin D.O.; Bridgett Bansal DO Date Dictated: 02/26/17 1248 Date Transcribed: 02/26/17 1248 Home Coordinator: Signed 23-Feb-2017 Echo, Complete w/ Contrast Result: Comments: See Note; NOTES: [facility] Cardiovascular Services [address] [place] [address] Echo Complete W/ Contrast 02/23/17 0904 MR#: [id number] Acct: [id number] Name: ERENDIRA PINEDA Rep #: [id number] : 1950 66 From: Andi Qureshi MD Attending Dr: Bridgett Bansal DO Status: REG CLI Ordering Dr: Bridgett Bansal DO Date: 02/23/17 Location: [facility] Sex: F C Admitted: Re ason For [...] Referring Physician: Bridgett Bansal Performed By: Annie Nazario, RYAN, RVT 10 :39 AM 02/23/17 1039 Date Andi Qureshi MD CC: Bridgett Bansal DO Date Dictated: 02/23/17 0904 Date Transcribed: 02/23/17 1039 Home Coordinator: Signed 03-Feb-2017 Chest WITH Contrast Result: Comments: See Note; NOTES: [facility] Imaging Services [address] [place] [address] Verdana 4d Chest WITH Contrast MR#: [id number] Acct: [id number] Name: ERENDIRA ALANIZ Rep #: [id number] : 1950 F 66 From: Jun Zazueta MD PCP: Bridgett Bansal DO Status: REG CLI Study: Chest WITH Contrast Date of Exam: 02/03/17 Exam# [id number] Ordering Dr: Bridgett Bansal DO STUDY: CT [...] at 8:16 EST Tel , Service support [phone], CC: Bridgett Bansal DO Home Coordinator: Signed 01-Feb-2017 Inital Evaluation (1) - PT Result: Comments: See Note; NOTES: [facility] Physical Therapy [facility] [address] [place], [place] [address] Fax REHABILITATION SERVICES INITIAL EVALUATION MR#: [id number] Acct: [id number] Name: ERENDIRA ALANIZ Rep #: [id number] [...] hoping to not have surgery- Goes to [place] March 22 (2 weeks). Does all her [...] to be FAXED BACK to us at [phone] for Medicare purposes. Please let me know [...] and Lateral Result: Comments: See Note; NOTES: [facility] Imaging Services [address] [place] [address] Verdana 4d Chest PA and Lateral MR#: [id number] Acct: [id number] Name: ERENDIRA ALANIZ Rep #: [id number] : 1950 F 66 From: Birgit Vilchis MD PCP: Bridgett Bansal DO Status: REG CLI Study: Chest PA and Lateral Date of Exam: 01/25/17 Exam# [id number] Ordering Dr: Bridgett Bansal DO STUDY: X-RAY [...] at 23:01 EST Tel , Service support [phone], CC: Bridgett Bansal DO Home Coordinator: Signed 16-Sep-2016 PT D/C of Non Returning Pt (1) Result: Comments: See Note; NOTES: [facility] Physical Therapy [facility] [address] [place], [place] [address] Fax REHABILITATION SERVICES DISCHA RGE SUMMARY MR#: [id number] Acct: [id number] Name: ERENDIRA ALANIZ Rep #: [id number] : 1950 66 From: Mary Cardenas PT, Cert. MDT Referring Dr.: Bridgett Bansal DO Status: REG RCR Insurance: Need - Discharge Summary (1) - Patient Information [...] - PT Result: Comments: See Note; NOTES: [facility] Physical Therapy [facility] [address] [place], [place] [address] Fax REHABILITATION SERVICES INITIA L EVALUATION MR#: [id number] Acct: [id number] Name: ERENDIRA ALANIZ Rep #: [id number] : 1950 66 From: Mary Cardenas PT, Cert. BROWNT Referring Dr.: Bridgett Bansal DO Status: [...] to be FAXED BACK to us at [phone] for Medicare purposes. Please let me know if there are questions or concerns regarding this plan of care. Physician Signature: Date:____ <Electronically signed by Mary Cardenas PT, Cert. MDT> 09/02/16 1029 CC: Bridgett Bansal DO TANJA Signed For Medicare only, by signing this I michael warren the plan of care. Physicians Signature Date 28-Aug-2016 L/S Spine Min 4 Views Result: Comments: See Note; NOTES: [facility] Imaging Services [address] [place] [address] Verdana 4d L/S Spine Min 4 Views MR#: [id number] Acct: [id number] Name: ERENDIRA ALANIZ Rep # : [id number] : 1950 F 66 From: Joy Rodriguez MD PCP: Bridgett Bansal DO Status: REG CLI Study: L/S Spine Min 4 Views Date of Exam: 08/28/16 Exam# [id number] Ordering Dr: Bridgett Bansal DO STUDY : [...] Signed: Joy Rodriguez MD at 15:20 EDT , Service support [phone], CC: Bridgett Bansal DO Home Coordinator: Signed 01-Jan-2016 ELECTROCARDIOGRAM, COMPLETE (ECG) (63432) Comments: nsr no acute chg Result: [MEASUREMENTS ANALYSIS] Date of Test: 01/01/2016 10:13:18; Heart Rate: 56; AL Interval: 152; QRS: 90; QT Interval: 408; Corrected QT Interval (QTc): 401; P Wave Alexander: 44; QRS Wave Alexander: 10; T Wave Alexander: -1; Blood Pressure: 138/82 [ECG DIAGNOSTIC STATEMENTS] Date of Test: 01/01/2016 10:13:18; Summary: Sinus Bradycardia - Nonspecific T-abnormality. ABNORMAL 28-May-2014 Soft Tissue Neck WITH Contrast Result: Comments: See Note; NOTES: [facility] Imaging Services [address] [place] [address] CAT Scan Report MR#: [id number] Acct: [id number] Name: ERENDIRA ALANIZ Rep #: [id number] : 1950 F 63 From: Anabel Johnson MD PCP: Bridgett Bansal DO Status: REG CLI Study: Soft Tissue Neck WITH Contrast Date of Exam: 05/28/14 Exam# [id number] Ordering Dr: Bridgett Bansal DO STUDY: CT [...] MD at 10:53 EDT , Service support [phone], CC: Bridgett Bansal DO Home Coordinator: Signed Family History Unknown Family Member Name [...] smoker Vital Signs Date Test Result Details 75-Iiz-099090:07 Comments: lying 160/82, 60sitting 156/78, 64standing 152/78, [...] kg/m2 Body Surface Area Calculated 1.98 m2 :41 Temperature 96.7 f Comments: Method: Temporal Pulse [...] kg/m2 Body Surface Area Calculated 1.95 m2 :06 Pulse 76 /min Comments: Pattern: Regular Respiration [...] kg/m2 Body Surface Area Calculated 1.92 m2 :44 Pulse 81 /min Comments: Pattern: Regular Respiration [...] 0.00 cm Results Date Description Value Details :20 HgA1C , Office (35496) HgA1C , Office 6.0 % (Normal) Range: 4.6 - 7.1 94-Tbn-04124:20 Blood Glucose , Office (19132) Blood Glucose , Office 121 (Normal) 30-Uyi-121476:41 VITAMIN B-12 (CYANOCOBALAMIN) Comments: PATIENT WAS FASTINGPERFORMED BY: [employer] Fbvcpl[address] [facility] [place] [id number] (676[address]) Vitamin B12 413 pg/mL (Normal) Range: 232-1245 28-Mep-693553:41 CALCIFEDIOL (93412) Comments: PATIENT WAS FASTINGPERFORMED BY: [employer] Geejxe5570 [facility] [place] [id number] Vitamin D, 25-Hydroxy 43.1 ng/mL (Normal) Range: 30.0-100.0 Comments: Vitamin D deficiency has been defined by the [facility] and an Endocrine Society practice guideline as alevel of serum 25-OH vitamin D less than 20 ng/mL (1,2).The Endocrine Society went on to further define vitamin Dinsufficiency as a level between 21 and 29 ng/mL (2).1. IOM ([place] of Medicine). 2010. Dietary reference intakes for calcium and D. [place]: The National Academies Press.2. Willow MF, [place], Contreras BRANNON, et al. Evaluation, treatment, and prevention of vitamin D deficiency: an Endocrine Society clinical practice guideline. JCEM. 2010; 96(7):1911-30. 03-Yrn-887434:41 MICROALBUMIN: CREATININE RATIO Comments: PATIENT WAS FASTINGPERFORMED BY: [employer] Jwcevx2911 [facility] [id number] (50419) AND (39825) Alb/Creat Ratio <5.1 {mg/g_creat} (Normal) Range: 0.0-30.0 Albumin, Urine <3.0 ug/mL (Normal) Creatinine, Urine 58.8 mg/dL (Normal) 01-Gxh-823966:41 METABOLIC PANEL, COMPREHENSIVE Comments: PATIENT WAS FASTINGPERFORMED BY: [employer] Hkeqvs8049 [facility] [place] [id number] (56550) ALT (SGPT) 23 [iU]/L (Normal) Range: 0-32 [...] 8-27 Glucose 111 mg/dL (Abnormal) Range: 65-99 00-Kue-467880:41 LIPID PANEL (90284) Comments: PATIENT WAS FASTINGPERFORMED BY: [facility]6370 [facility] [id number] LDL/HDL Ratio 2.8 {ratio} (Normal) Range: 0.0-3.2 Comments: LDL/HDL Ratio Men Women 1/2 Avg.Risk 1.0 1.5 Av g.Risk 3.6 3.2 2X Avg.Risk 6.2 5.0 3X Avg.Risk 8.0 6.1 LDL Cholesterol Calc 128 mg/dL (Abnormal) Range: 0-99 VLDL Cholesterol Kareem 29 mg/dL (Normal) Range: 5-40 HDL Cholesterol 46 mg/dL (Normal) Triglycerides 145 mg/dL (Normal) Range: 0-149 Cholesterol, Total 203 mg/dL (Abnormal) Range: 100-199 28-Bdt-876507:41 CBC with auto diff (20470) Comments: PATIENT WAS FASTINGPERFORMED BY: [facility]CoGall[facility] Medical CenterUrouzr6446 [facility] [id number] Immature Grans (Abs) 0.0 {x10E3/uL} (Normal) Range: [...] 3.77-5.28 WBC 6.3 {x10E3/uL} (Normal) Range: 3.4-10.8 65-Eod-451441:41 TSH (THYROID STIMULATING Comments: PATIENT WAS FASTINGPERFORMED BY: LabCoTrenton Psychiatric HospitalOiuabw9712 [facility] [id number] HORMONE) (81435) TSH 1.470 {uIU/mL} (Normal) Range: 0.450-4.500 60-Dns-36103:10 HgA1C , Office (65930) HgA1C , Office 5.9 % (Normal) Range: 4.6 - 7.1 :10 Blood Glucose , Office (94014) Blood Glucose , Office 104 (Normal) :46 HgA1C , Office (58888) HgA1C , Office 5.8 % (Normal) Range: 4.6 - 7.1 :46 Blood Glucose , Office (72909) Blood Glucose , Office 106 (Normal) :27 CBC W/Diff, Automated Comments: [facility] [address] [place], [address] Absolute Lymph 1.67 {X10_3/ul} (Normal) Range: 0.83-4.51 [...] 4.2-5.4 WBC 6.3 K/mm3 (Normal) Range: 4.4-11.0 51-Ldj-84986:27 Comprehensive Metabolic Profil Comments: [facility] [address] [place], [place], [address] GAP 7 (Normal) Range: 5-15 CO2 30.0 [...] 7-18 GLU 95 mg/dL (Normal) Range: 70-110 75-Bin-93689:27 Lipid Profile Comments: [facility] [address] [place], [place], [id number] VLDL 26 mg/dL (Normal) Range: 5-40 LDL [...] 200-240 mg/dL Borderline >240 mg/dL High Risk 30-Xri-77706:27 Microalb:Creat Ratio,Random UR Comments: [facility] [address] [place], [place], [id number] MALB:CREAT 11.5 {mg/g_CRE} (Normal) MICROALBUMIN,UR 5.9 mg/L (Normal) UR CREAT 51.10 mg/dL (Normal) 77-Quc-34677:27 Thyroid Stim Hormone (TSH) Comments: [facility] [address] [place], [address] TSH 3.83 {uIU/mL} (Abnormal) Range: 0.358-3.74 44-Krr-63430:27 Urinalysis, Complete Comments: How was Urine Obtained? CLEAN [facility] [address] [place], [place], [id number] MUCUS, URINE 0 SEEN {/hpf} (Normal) BACTERIA [...] (Normal) CLARITY Clear (Normal) COLOR Yellow (Normal) 62-Sdb-41838:27 Vitamin D,25 Hydroxy Comments: [facility] [address] [place], [address] Vitamin D 25-OH 30.8 ng/mL (Normal) Comments: Vitamin D 25(OH) Status Range Deficiency <20 ng/mL (50nmol/L) Insuffciency 20 - 30 ng/mL (50 - 75 nmol/L) Sufficiency 30 - 100 ng/mL (75 - 250 nmol/L) Toxicity >100 ng/mL (>250 nmol/L) 4-Xwy-094130:26 RETICULOCYTE COUNT (73296) Comments: PATIENT NOT FASTINGPERFORMED BY: [employer] LabCoAnacle SystemsWlaovs4278 [address] JosephICan LLCDublin [place] [id number] Reticulocyte Count 1.7 % (Normal) Range: 0.6-2.6 1-Wao-347928:26 VITAMIN B-12 (CYANOCOBALAMIN) Comments: PATIENT NOT FASTINGPERFORMED BY: [employer] [facility] Kcnomd8554 [address] JosephICan LLCDublin [place] [id number] (36688) Vitamin B12 363 pg/mL (Normal) Range: 211-946 51-Ffg-134416:27 CBC With Differential/Platelet Comments: PATIENT WAS FASTINGPERFORMED BY: [employer] [facility] Buleod7331 [address] JosephICan LLCDublin [place] [id number] Immature Grans (Abs) 0.0 {x10E3/uL} (Normal) Range: [...] 3.77-5.28 WBC 6.4 {x10E3/uL} (Normal) Range: 3.4-10.8 11-Woj-895513:27 Comp. Metabolic Panel (14) Comments: PATIENT WAS FASTINGPERFORMED BY: LabCoTrenton Psychiatric HospitalNzslvw3286 [facility] [id number] ALT (SGPT) 20 [iU]/L (Normal) Range: 0-32 [...] Glucose, Serum 108 mg/dL (Abnormal) Range: 65-99 94-Bgj-959549:27 Lipid Panel With LDL/HDL Comments: PATIENT WAS FASTINGPERFORMED BY: Hypecallin6370 [facility] [id number] Ratio LDL/HDL Ratio 3.1 {ratio_units} Range: 0.0-3.2 [...] 3.800 {uIU/mL} Comments: PATIENT WAS FASTINGPERFORMED BY: [employer] Rlfyey3210 [facility] [id number] 10:27 (Normal) Range: 0.450-4.500 20-Aug-2017 Unable to Void SPRCS (Normal) Comments: PATIENT WAS FASTINGPERFORMED BY: C[employer] TechnologiesAlexis [place] 1550270 [facility] [id number] 10:27 Comments: The patient was not able [...] ng/mL (Abnormal) Comments: PATIENT WAS FASTINGPERFORMED BY: [employer] [address]wa[address] [place] [id number] 10:27 Range: 30.0-100.0 Comments: Vitamin D deficiency has been defined by the [place] ofMedicine and an Endocrine Society practice guideline as alevel of serum 25-OH vitamin D less than 20 ng/mL (1,2).The Endocrine Society went on to further define vitamin Dinsufficiency as a level between 21 and 29 ng/mL (2).1. IOM ([place] of Medicine). 2010. Dietary reference intakes for calcium and D. [place]: The National Academies Press.2. Willow MF, [place], Contreras BRANNON, et al. Evaluation, treatment, and prevention of vitamin D deficiency: an Endocrine Society clinical practice guideline. JCEM. 2010; 96(7):1911-30. :52 HgA1C , Office (80900) HgA1C , Office 5.7 % (Normal) Range: 4.6 - 7.1 40-Cez-229978:04 HgA1C , Office (02763) HgA1C , Office 5.8 % (Normal) Range: 4.6 - 7.1 77-Kjd-052119:35 Basic Metabolic Profile (BMP) Comments: [facility] [address] [place], [address] GAP 3 (Abnormal) Range: 5-15 CO2 34.0 [...] 7-18 GLU 99 mg/dL (Normal) Range: 70-110 11-Dcs-782187:35 CBC-Complete Blood Cnt No Diff Comments: [facility] [address] [facility] [address] [place], [place], [address] MPV 9.3 fL (Normal) Range: 6.2-12.0 PLT [...] 4.2-5.4 WBC 7.0 K/mm3 (Normal) Range: 4.4-11.0 60-Udw-948380:35 Thyroid Stim Hormone (TSH) Comments: [facility] [address] [facility] [place], [place], [address] TSH 0.21 {uIU/mL} (Abnormal) Range: 0.358-3.74 71-Kld-610240:12 MRSA/SAID SCREEN Comments: [facility] [address]uk[address] [facility] [place], [place], [id number] MRSA+SAID SCRN See Note (Normal) Comments: Results called on 04/23/17 by DCANNON to /WIN Mcneil [phone].MRSA/SAID SCRNS. AUREUS S. aureus PositiveMRSA MRSA Negative 82-Jib-58947:22 C-Reactive Protein (82613) Comments: PATIENT NOT FASTINGPERFORMED BY: LabCoTrenton Psychiatric HospitalEbojau0058 [facility] [id number] C-Reactive Protein, Quant 4.5 mg/L (Normal) Range: 0.0-4.9 :22 Sed Rate Erythrocyte (43816) Comments: PATIENT NOT FASTINGPERFORMED BY: [facility] HospitalCoTrenton Psychiatric HospitalEkwjxw0850 [facility] [id number] Sedimentation Rate-Westergren 17 mm/h (Normal) Range: 0-40 :22 CBC, PLATELETS & MANUAL DIFF Comments: PATIENT NOT FASTINGPERFORMED BY: LabCoTrenton Psychiatric HospitalCitcaq7920 [facility] [id number] (09587) Immature Grans (Abs) 0.0 {x10E3/uL} (Normal) Range: [...] (Normal) Range: 3.4-10.8 :46 Metabolic Panel, Basic (95847) Comments: PATIENT NOT FASTINGPERFORMED BY: Diet TVTrenton Psychiatric HospitalGnkofp9694 [facility] [id number] Calcium, Serum 9.6 mg/dL (Normal) Range: 8.7-10.3 [...] 65-99 :07 Serum Creatinine AND GFR Comments: [facility] [address] [place], [place], [address] EST GFR - AA 112 mL/min (Normal) Comments: GFR Calc EST GFR 92 mL/min (Normal) Comments: Non- GFR Calc CREAT,SERUM 0.68 mg/dL (Normal) Range: 0.55-1.02 Comments: The validity of the calculated GFR AND GFRAA in patients over70 years has not been determined. Clinical correlation isessential. :04 HgA1C , Office (22085) HgA1C , Office 5.6 % (Normal) Range: 4.6 - 7.1 :04 Blood Glucose , Office (37049) Blood Glucose , Office 93 (Normal) :38 TSH (95187) Comments: PATIENT WAS FASTINGPERFORMED BY: Diet TVTrenton Psychiatric HospitalAxrtlb1798 [facility] [id number] TSH 1.530 {uIU/mL} (Normal) Range: 0.450-4.500 :38 METABOLIC PANEL, COMPREHENSIVE Comments: PATIENT WAS FASTINGPERFORMED BY: LabCoTrenton Psychiatric HospitalBxhaaq6721 [facility] [id number] (28894) ALT (SGPT) 23 [iU]/L (Normal) Range: 0-32 [...] Glucose, Serum 113 mg/dL (Abnormal) Range: 65-99 87-Vyo-401404:38 CBC W/AUTO DIFF WBC Comments: PATIENT WAS FASTINGPERFORMED BY: LabCoTrenton Psychiatric HospitalIgkduz4154 [facility] [id number] Information: [id number] (32528) Immature Grans (Abs) 0.0 {x10E3/uL} (Normal) Range: [...] 3.77-5.28 WBC 6.9 {x10E3/uL} (Normal) Range: 3.4-10.8 61-Mju-694638:20 IGP, Aptima HPV, Comments: Source.............Cervical;EndocervicalNo. of containers..01 CYTYC Thin Prep VialPATIENT NOT FASTINGPERFORMED BY: =G [facility] Unlvcablxg312 [facility] [id number] BY: WB L rfx 16/18,45 [facility] Jmvazbguwv220 [facility] [id number] HPV Aptima Negative (Normal) Comments: This test [...] and/or squamous metaplasticcells (endocervical component) are present.Z01.419Soco Hamilton, Is Analyst (ASCP) 98-Kjj-431480:20 Thin prep Pap Comments: Source.............Cervical;EndocervicalNo. of containers..01 CYTYC Thin Prep VialPATIENT NOT FASTINGPERFORMED BY: =G [facility]CoDiagn[facility]ations[address] [place] [address] [id number] BY: MYRA Diggs (44049) (no STD [facility] Uqvlggspfs[address] [id number] Information: [id number] testing) Age Gdln ACOG Testing 30-65 (Normal) :50 Microscopic Examination Comments: PATIENT WAS FASTINGPERFORMED BY: t-Art [place] [id number] Bacteria None seen (Normal) Mucus Threads Present (Normal) Epithelial Cells (non renal) 0-10 {/hpf} (Normal) Range: 0 - 10 RBC None seen {/hpf} (Normal) Range: 0 - 2 WBC 0-5 {/hpf} (Normal) Range: 0 - 5 :53 HgA1C , Office (51144) HgA1C , Office 6.0 % (Normal) Range: 4.6 - 7.1 :53 Blood Glucose , Office (70159) Blood Glucose , Office 92 (Normal) :50 CALCIFIDIOL (34635) VIT D 25 Comments: PATIENT WAS FASTINGPERFORMED BY: Re[employer] [id number] Vitamin D, 25-Hydroxy 24.7 ng/mL (Abnormal) Range: 30.0-100.0 Comments: Vitamin D deficiency has been defined by the [place] of[place]icine and an Endocrine Society practice guideline as alevel of serum 25-OH vitamin D less than 20 ng/mL (1,2).The Endocrine Society went on to further define vitamin Dinsufficiency as a level between 21 and 29 ng/mL (2).1. IOM ([place] of Medicine). 2010. Dietary reference intakes for calcium and D. [place]: The National Academies Press.2. Willow MF, [place], Contreras BRANNON, et al. Evaluation, treatment, and prevention of vitamin D deficiency: an Endocrine Society clinical practice guideline. JCEM. 2010; 96(7):1911-30. :50 MICROALBUMIN: CREATININE RATIO Comments: PATIENT WAS FASTINGPERFORMED BY: Packetworx6370 DAXKO [facility] ServicesXterprise SolutionsAtrium Health Providence [id number] (86579) AND (55518) Microalb/Creat Ratio <9.7 {mg/g_creat} (Normal) Range: 0.0-30.0 Microalbumin, Urine <3.0 ug/mL (Normal) Range: 0.0-17.0 Comments: Effective April 06, 2016 the reference interval for Microalbumin, Urine will be changing to: Not Estab. Creatinine, Urine 30.8 mg/dL (Normal) Range: 15.0-278.0 Comments: Effective April 06, 2016 the reference interval for Creatinine, Urine will be changing to: Not Estab. :50 URINALYSIS, W/ MICRO (81782) Comments: PATIENT WAS FASTINGPERFORMED BY: [employer] LabAppSame6370 [address] [facility] [id number] Microscopic Examination See below: (Normal) Comments: Microscopic was indicated and was performed. Microscopic Examination MICRON (Normal) Comments: Microscopic follows if indicated. Nitrite, Urine Negative (Normal) Urobilinogen,Semi-Qn 0.2 mg/dL (Normal) Range: 0.2-1.0 Bilirubin Negative (Normal) Occult Blood Negative (Normal) Ketones Negative (Normal) Glucose Negative (Normal) Protein Negative (Normal) WBC Esterase Negative (Normal) Appearance Clear (Normal) Urine-Color Yellow (Normal) pH 7.0 (Normal) Range: 5.0-7.5 Specific [place] 1.008 (Normal) Range: 1.005-1.030 :50 METABOLIC PANEL, COMPREHENSIVE Comments: PATIENT WAS FASTINGPERFORMED BY: Diet TVTrenton Psychiatric HospitalSfzbxw8391 [facility] [id number] (57314) ALT (SGPT) 22 [iU]/L (Normal) Range: 0-32 [...] DIFF WBC Comments: PATIENT WAS FASTINGPERFORMED BY: Diet TVTrenton Psychiatric HospitalExngte1316 [facility] [id number] Information: [id number] (90102) Immature Grans (Abs) 0.0 {x10E3/uL} (Normal) Range: [...] {x10E3/uL} (Normal) Range: 3.4-10.8 :50 LIPID PANEL (74146) Comments: PATIENT WAS FASTINGPERFORMED BY: LabCoTrenton Psychiatric HospitalXmezbn9663 [facility] [id number] LDL/HDL Ratio 3.0 {ratio_units} (Normal) Range: 0.0-3.2 [...] 230 mg/dL (Abnormal) Range: 100-199 :50 TSH (53900) Comments: PATIENT WAS FASTINGPERFORMED BY: LabCoTrenton Psychiatric HospitalVqnbfu9311 [facility] [id number] TSH 12.050 {uIU/mL} (Abnormal) Range: 0.450-4.500 :54 HgA1C , Office (33410) HgA1C , Office 5.7 % (Normal) Range: 4.6 - 7.1 :54 Blood Glucose , Office (97354) Blood Glucose , Office 96 (Normal) :05 HgA1C , Office (93803) HgA1C , Office 6.1 % (Normal) Range: 4.6 - 7.1 :05 Blood Glucose , Office (38414) Blood Glucose , Office 126 (Normal) :12 CBC W/Diff, Automated Comments: [facility] [address] [place], [address] Absolute Lymph 1.34 {X10_3/ul} (Normal) Range: 0.83-4.51 [...] Range: 4.4-11.0 04-Sep-20158:12 Comprehensive Metabolic Profil Comments: [facility] [address] [place], [address] GAP 7 (Normal) Range: 5-15 CO2 31.0 [...] (Normal) Range: 70-110 :12 Lipid Profile Comments: [facility] [address] [place], [place], [id number] VLDL 34 mg/dL (Normal) Range: 5-40 LDL [...] High Risk :12 Microalb:Creat Ratio,Random UR Comments: [facility] Ofcrwdmqew9318 [facility] [address]. [place], [place], [id number] MALB:CREAT 10.0 {mg/g_CRE} (Normal) MICROALBUMIN,UR 13.6 mg/L (Normal) UR CREAT 125.00 mg/dL (Normal) :12 Thyroid Stim Hormone (TSH) Comments: [facility] Eibiahzqto9373 [facility] [address]. [place], [place], [id number] TSH 5.36 {uIU/mL} (Abnormal) Range: 0.358-3.74 :12 Urinalysis, Complete Comments: How was Urine Obtained? [facility] Bpxtavgech[address] [place], [place], [id number] MUCUS, URINE 0 SEEN {/hpf} (Normal) BACTERIA [...] COLOR Yellow (Normal) :03 HgA1C , Office (37083) HgA1C , Office 5.8 % (Normal) Range: 4.6 - 7.1 :03 Blood Glucose , Office (33901) Blood Glucose , Office 120 (Normal) 31-Tfr-730612:09 Rapid Flu (34896 x 2) Influenza A Ag positive b (Normal) 03-Oxx-751338:41 Culture, Wound Comments: Test performed at:[facility] [address] [place] [address] CUW See Note (Normal) Comments: Comments: RIGHT [...] $ 1 S(NF) indicates non-formulary drug at [facility]. Approval by Infectious Disease Specialist required before non-formulary drugs may b e ordered and/or dispensed. * CLSI guidelines does not recommend testing of cephalosporins. This interpretation is deduced from Beta- lactam/penicillin results. :41 Microscopic Examination Comments: PATIENT WAS FASTINGPERFORMED BY: [facility]rim[facility].comAtrium Health Providence [id number] Bacteria None seen (Normal) Mucus Threads Present (Normal) Epithelial Cells (non renal) 0-10 {/hpf} (Normal) Range: 0 - 10 RBC 0-2 {/hpf} (Normal) Range: 0 - 2 WBC 0-5 {/hpf} (Normal) Range: 0 - 5 :41 TSH (12351) Comments: PATIENT WAS FASTINGPERFORMED BY: [facility].comAtrium Health Providence [id number] TSH 2.840 {uIU/mL} (Normal) Range: 0.450-4.500 :41 URINALYSIS, W/ MICRO (92029) Comments: PATIENT WAS FASTINGPERFORMED BY: [facility].comAtrium Health Providence [id number] Microscopic Examination See below: (Normal) Comments: Microscopic was indicated and was performed. Microscopic Examination MICRON (Normal) Comments: Microscopic follows if indicated. Nitrite, Urine Negative (Normal) Urobilinogen,Semi-Qn 0.2 mg/dL (Normal) Range: 0.0-1.9 Bilirubin Negative (Normal) Occult Blood Negative (Normal) Ketones Negative (Normal) Glucose Negative (Normal) Protein Negative (Normal) WBC Esterase Negative (Normal) Appearance Clear (Normal) Urine-Color Yellow (Normal) pH 6.5 (Normal) Range: 5.0-7.5 Specific [place] 1.021 (Normal) Range: 1.005-1.030 :41 MICROALBUMIN: CREATININE RATIO Comments: PATIENT WAS FASTINGPERFORMED BY: [facility].comAt[facility] Health Providence [id number] (13296) AND (98292) Microalb/Creat Ratio <4.6 {mg/g_creat} (Normal) Range: 0.0-30.0 Microalbumin, Urine <3.0 ug/mL (Normal) Range: 0.0-17.0 Creatinine, Urine 64.9 mg/dL (Normal) Range: 15.0-278.0 :41 METABOLIC PANEL, COMPREHENSIVE Comments: PATIENT WAS FASTINGPERFORMED BY: Coomuna70 Healthcare ITAtrium Health Providence [id number] (77915) ALT (SGPT) 22 [iU]/L (Normal) Range: 0-32 [...] mg/dL (Normal) Range: 65-99 :41 LIPID PANEL (85564) Comments: PATIENT WAS FASTINGPERFORMED BY: Packetworx6370 Healthcare ITAtrium Health Providence [id number] LDL/HDL Ratio 2.4 {ratio_units} (Normal) Range: 0.0-3.2 [...] Cholesterol, Total 202 mg/dL (Abnormal) Range: 100-199 31-Gjp-47163:41 CBC with auto diff Comments: PATIENT WAS FASTINGPERFORMED BY: LabCoTrenton Psychiatric HospitalWrtoth4841 [facility] [id number] Information: [id number] (70931) Immature Grans (Abs) 0.0 {x10E3/uL} (Normal) Range: [...] Range: 3.4-10.8 :30 Blood Glucose , Office (07444) Blood Glucose , Office 113 (Normal) :30 HgA1C , Office (74563) HgA1C , Office 6.1 % (Normal) Range: 4.6 - 7.1 :55 Microscopic Examination Comments: PATIENT WAS FASTINGPERFORMED BY: CRI TechnologiesTrenton Psychiatric HospitalDiruwu5076 [facility] [id number] Bacteria None seen (Normal) Mucus Threads Present (Normal) Crystal Type Amorphous Sediment (Normal) Crystals Present (Abnormal) Epithelial Cells (non renal) 0-10 {/hpf} (Normal) Range: 0 - 10 RBC 0-2 {/hpf} (Normal) Range: 0 - 2 WBC 0-5 {/hpf} (Normal) Range: 0 - 5 :30 Blood Glucose , Office (74040) Blood Glucose , Office 79 (Normal) :30 HgA1C , Office (36990) HgA1C , Office 6.0 % (Normal) Range: 4.6 - 7.1 :55 TSH (01124) Comments: PATIENT WAS FASTINGPERFORMED BY: Diet TVTrenton Psychiatric HospitalGjxgee4625 [facility] [id number] TSH 1.750 {uIU/mL} (Normal) Range: 0.450-4.500 :55 URINALYSIS, W/ MICRO (48963) Comments: PATIENT WAS FASTINGPERFORMED BY: Diet TVTrenton Psychiatric HospitalNnuerh3181 [facility] [id number] Microscopic Examination See below: (Normal) Comments: Microscopic was indicated and was performed. Microscopic Examination MICRON (Normal) Comments: Microscopic follows if indicated. Nitrite, Urine Negative (Normal) Urobilinogen,Semi-Qn 0.2 mg/dL (Normal) Range: 0.0-1.9 Bilirubin Negative (Normal) Occult Blood Negative (Normal) Ketones Negative (Normal) Glucose Negative (Normal) Protein Trace (Normal) WBC Esterase Negative (Normal) Appearance Cloudy (Abnormal) Urine-Color Yellow (Normal) pH 8.0 (Abnormal) Range: 5.0-7.5 Specific [place] 1.019 (Normal) Range: 1.005-1.030 :55 MICROALBUMIN: CREATININE RATIO Comments: PATIENT WAS FASTINGPERFORMED BY: CRI TechnologiesTrenton Psychiatric HospitalSwfvam0573 [address] [facility] [id number] (58619) AND (34666) Microalb/Creat Ratio 5.1 {mg/g_creat} (Normal) Range: 0.0-30.0 Microalbumin, Urine 3.7 ug/mL (Normal) Range: 0.0-17.0 Creatinine, Urine 71.9 mg/dL (Normal) Range: 15.0-278.0 :55 METABOLIC PANEL, COMPREHENSIVE Comments: PATIENT WAS FASTINGPERFORMED BY: CRI TechnologiesGallup Indian Medical CenterTnavkk0766 [address] [facility] [id number] (56689) ALT (SGPT) 19 [iU]/L (Normal) Range: 0-32 [...] Glucose, Serum 104 mg/dL (Abnormal) Range: 65-99 89-Tzy-774346:55 LIPID PANEL (72685) Comments: PATIENT WAS FASTINGPERFORMED BY: CRI TechnologiesTrenton Psychiatric HospitalFcxgyp5779 [facility] [id number] LDL/HDL Ratio 3.2 {ratio_units} (Normal) Range: 0.0-3.2 LDL Cholesterol Calc 145 mg/dL (Abnormal) Range: 0-99 VLDL Cholesterol Kareem 37 mg/dL (Normal) Range: 5-40 HDL Cholesterol 46 mg/dL (Normal) Comments: According to ATP-III Guidelines, HDL-C >59 mg/dL is considered anegative risk factor for CHD. Triglycerides 183 mg/dL (Abnormal) Range: 0-149 Cholesterol, Total 228 mg/dL (Abnormal) Range: 100-199 :55 CBC W/AUTO DIFF WBC Comments: PATIENT WAS FASTINGPERFORMED BY: CRI TechnologiesTrenton Psychiatric HospitalNefbsg1394 [facility] [id number] Information: [id number] (52377) Immature Grans (Abs) 0.0 {x10E3/uL} (Normal) Range: [...] 3.77-5.28 WBC 6.2 {x10E3/uL} (Normal) Range: 3.4-10.8 40-Ydf-426051:09 HgA1C , Office (06290) HgA1C , Office 6.0 % (Normal) Range: 4.6 - 7.1 11-Aif-924607:14 TSH (89248) Comments: PATIENT WAS FASTINGPERFORMED BY: LabCoTrenton Psychiatric HospitalNesomb7361 [facility] [id number] TSH 0.330 {uIU/mL} (Abnormal) Range: 0.450-4.500 98-Wdd-267548:14 LIPID PANEL (61994) Comments: PATIENT WAS FASTINGPERFORMED BY: [employer] [facility] Evdutu5772 [facility] [id number] LDL/HDL Ratio 3.0 {ratio_units} (Normal) Range: 0.0-3.2 LDL Cholesterol Calc 132 mg/dL (Abnormal) Range: 0-99 VLDL Cholesterol Kareem 31 mg/dL (Normal) Range: 5-40 HDL Cholesterol 44 mg/dL (Normal) Comments: According to ATP-III Guidelines, HDL-C >59 mg/dL is considered anegative risk factor for CHD. Triglycerides 155 mg/dL (Abnormal) Range: 0-149 Cholesterol, Total 207 mg/dL (Abnormal) Range: 100-199 02-Ywv-505598:14 CMV ANTIBODY (26350) Comments: PATIENT WAS FASTINGPERFORMED BY: [facility]6370 [facility] [id number] Cytomegalovirus (CMV) Ab, IgG >10.00 U/mL (Abnormal) Range: 0.00-0.59 Comments: Negative <0.60 Equivocal 0.60 - 0.69 Positive >0.69 26-Oux-513584:14 CMV IGM ANTBDY (05259) Comments: PATIENT WAS FASTINGPERFORMED BY: [place] 6244170 [facility] [id number] Cytomegalovirus (CMV) Ab, IgM <30.0 AU/mL (Normal) Range: 0.0-29.9 Comments: Negative <30.0 Equivocal 30.0 - 34.9 Positive >34.9 A positive result is generally indicative of acute infection, reactivation or persistent IgM production. :14 EB ANTIBODY VIRAL CAPSID Comments: PATIENT WAS FASTINGPERFORMED BY: [facility]6370 [facility] [id number] (50836) X2 Interpretation: SPRCS (Normal) Comments: EBV Interpretation [...] <36.0 Equivocal 36.0 - 43.9 Positive >43.9 :14 LDH (LD) (LACTATE DEHYDROGENASE) Comments: PATIENT WAS FASTINGPERFORMED BY: Diet TV Dcwvdo8261 [facility] [id number] (15330) LDH 188 [iU]/L (Normal) Range: 0-214 :14 JAY (ANTINUCLEAR ANTIBODY) Comments: PATIENT WAS FASTINGPERFORMED BY: [employer] Crbfdz4938 [facility] [id number] (80204) JAY Direct Negative (Normal) :14 C-REACTIVE PROTEIN (64317) Comments: PATIENT WAS FASTINGPERFORMED BY: Diet TV Sulken5963 [facility] [id number] C-Reactive Protein, Quant 6.4 mg/L (Abnormal) Range: 0.0-4.9 :14 SED RATE ERYTHROCYTE (52506) Comments: PATIENT WAS FASTINGPERFORMED BY: Diet TV Tcrrqe6829 [facility] [id number] Sedimentation Rate-Westergren 7 mm/h (Normal) Range: 0-40 :14 CBC WITH MANUAL DIFF Comments: PATIENT WAS FASTINGPERFORMED BY: LabHealPay Eyqjdq2251 [facility] [id number] Information: [id number] (47064) Immature Grans (Abs) 0.0 {x10E3/uL} (Normal) Range: [...] 3.77-5.28 WBC 6.9 {x10E3/uL} (Normal) Range: 3.4-10.8 84-Ztl-725557:14 METABOLIC PANEL, COMPREHENSIVE Comments: PATIENT WAS FASTINGPERFORMED BY: LabCoTrenton Psychiatric HospitalRtmtxx9477 [facility] [id number] (62301) ALT (SGPT) 18 [iU]/L (Normal) Range: 0-32 [...] Range: 65-99 :09 Blood Glucose , Office (64550) Blood Glucose , Office 89 (Normal) :09 HgA1C , Office (13177) HgA1C , Office 6.0 % (Normal) Range: 4.6 - 7.1 22-Bbm-060043:28 HgA1C , Office (54021) HgA1C , Office 6.1 % (Normal) Range: 4.6 - 7.1 34-Xri-200734:26 Blood Glucose , Office (02497) Blood Glucose , Office 94 (Normal) 60-Etc-136537:26 HgA1C , Office (98519) HgA1C , Office 5.7 % (Normal) Range: 4.6 - 7.1 :47 Vitamin D Hydroxy (31469) Comments: PATIENT WAS FASTINGPERFORMED BY: LabCoTrenton Psychiatric HospitalDihsgo2512 [facility] [id number] Vitamin D, 25-Hydroxy 34.9 ng/mL (Normal) Range: 30.0-100.0 Comments: Vitamin D deficiency has been defined by the [place] ofMedicine and an Endocrine Society practice guideline as alevel of serum 25-OH vitamin D less than 20 ng/mL (1,2).The Endocrine Society went on to further define vitamin Dinsufficiency as a level between 21 and 29 ng/mL (2).1. IOM ([place] of Medicine). 2010. Dietary reference intakes for calcium and D. [place]: The National Academies Press.2. Willow MF, [place], Contreras BRANNON, et al. Evaluation, treatment, and prevention of vitamin D deficiency: an Endocrine Society clinical practice guideline. JCEM. 2010; 96(7):1911-30. :47 URINALYSIS, W/ MICRO (79895) Comments: PATIENT WAS FASTINGPERFORMED BY: Diet TV Cbthaj3853 [facility] [id number] Microscopic Examination See below: (Normal) Nitrite, Urine Negative (Normal) Urobilinogen,Semi-Qn 0.2 mg/dL (Normal) Range: 0.0-1.9 Bilirubin Negative (Normal) Occult Blood Negative (Normal) Ketones Negative (Normal) Glucose Negative (Normal) Protein Negative (Normal) WBC Esterase 2+ (Abnormal) Appearance Clear (Normal) Urine-Color Yellow (Normal) pH 7.5 (Normal) Range: 5.0-7.5 Specific [place] 1.016 (Normal) Range: 1.005-1.030 :47 MICROALBUMIN: CREATININE RATIO Comments: PATIENT WAS FASTINGPERFORMED BY: Diet TV Igxdff0040 [facility] [id number] (42442) AND (89061) Microalb/Creat Ratio 9.1 {mg/g_creat} (Normal) Range: 0.0-30.0 Microalbumin, Urine 5.6 ug/mL (Normal) Range: 0.0-17.0 Creatinine, Urine 61.6 mg/dL (Normal) Range: 15.0-278.0 :47 METABOLIC PANEL, COMPREHENSIVE Comments: PATIENT WAS FASTINGPERFORMED BY: Diet TV Kckiwt1381 [facility] [id number] (99197) ALT (SGPT) 22 [iU]/L (Normal) Range: 0-32 [...] Glucose, Serum 104 mg/dL (Abnormal) Range: 65-99 08-Azh-39069:47 LIPID PANEL (60759) Comments: PATIENT WAS FASTINGPERFORMED BY: LabCoTrenton Psychiatric HospitalJwlxjc2774 [facility] [id number] LDL/HDL Ratio 2.8 {ratio_units} (Normal) Range: 0.0-3.2 LDL Cholesterol Calc 149 mg/dL (Abnormal) Range: 0-99 VLDL Cholesterol Kareem 22 mg/dL (Normal) Range: 5-40 HDL Cholesterol 54 mg/dL (Normal) Comments: According to ATP-III Guidelines, HDL-C >59 mg/dL is considered anegative risk factor for CHD. Triglycerides 112 mg/dL (Normal) Range: 0-149 Cholesterol, Total 225 mg/dL (Abnormal) Range: 100-199 07-Kld-84320:47 CBC WITH MANUAL DIFF Comments: PATIENT WAS FASTINGPERFORMED BY: LabCo Slqhcm5652 [facility] [id number] Information: [id number] (17426) Immature Grans (Abs) 0.0 {x10E3/uL} (Normal) Range: [...] 6.5 {x10E3/uL} (Normal) Range: 4.0-10.5 :47 TSH (89360) Comments: PATIENT WAS FASTINGPERFORMED BY: [address] [id number] TSH 2.380 {uIU/mL} (Normal) Range: 0.450-4.500 :47 Microscopic Examination Comments: PATIENT WAS FASTINGPERFORMED BY: [address] [id number] Bacteria Few (Normal) Mucus Threads Present (Normal) Crystal Type Amorphous Sediment (Normal) Crystals Present (Abnormal) Epithelial Cells (non renal) 0-10 {/hpf} (Normal) Range: 0 - 10 RBC 0-3 {/hpf} (Normal) Range: 0 - 3 WBC 11-30 {/hpf} (Abnormal) Range: 0 - 5 :46 Anti-TPO Antibody (02619) Comments: PATIENT NOT FASTINGPERFORMED BY: [address] [id number] Thyroid Peroxidase (TPO) Ab 113 {IU/mL} (Abnormal) Range: 0-34 :46 TSH (73727) Comments: PATIENT NOT FASTINGPERFORMED BY: [address] [id number] TSH 0.590 {uIU/mL} (Normal) Range: 0.450-4.500 :46 T4, FREE (THYROXINE) (75010) Comments: PATIENT NOT FASTINGPERFORMED BY: [address] [id number] T4,Free(Direct) 1.63 ng/dL (Normal) Range: 0.82-1.77 :46 T3, FREE (TRIDOTHYRONINE) (31370) Comments: PATIENT NOT FASTINGPERFORMED BY: [address] [id number] Triiodothyronine,Free,Serum 3.1 pg/mL (Normal) Range: 2.0-4.4 :34 Blood Glucose , Office (93861) Blood Glucose , Office 89 (Normal) :34 HgA1C , Office (19523) HgA1C , Office 5.7 % (Normal) Range: 4.6 - 7.1 :52 Microscopic Examination Comments: PATIENT NOT FASTINGPERFORMED BY: LabHealPay Morbsn5200 [address]hari RoadDublin [place] [id number] Bacteria None seen (Normal) Mucus Threads Present (Normal) Epithelial Cells (non renal) 0-10 {/hpf} (Normal) Range: 0 - 10 RBC 0-3 {/hpf} (Normal) Range: 0 - 3 WBC 0-5 {/hpf} (Normal) Range: 0 - 5 :52 Vitamin D Hydroxy (10080) Comments: PATIENT NOT FASTINGPERFORMED BY: [facility] Ufhjqi5737 [address] Cont[address]+in [place] [id number] Vitamin D, 25-Hydroxy 24.5 ng/mL (Abnormal) Range: 30.0-100.0 Comments: Vitamin D deficiency has been defined by the [place] of[place] and an Endocrine Society practice guideline as alevel of serum 25-OH vitamin D less than 20 ng/mL (1,2).The Endocrine Society went on to further define vitamin Dinsufficiency as a level between 21 and 29 ng/mL (2).1. IOM ([place] of Medicine). 2010. Dietary reference intakes for calcium and D. [place]: The National Academies Press.2. Willow MF, [place], Contreras BRANNON, et al. Evaluation, treatment, and prevention of vitamin D deficiency: an Endocrine Society clinical practice guideline. JCEM. 2010; 96(7):1911-30. :52 TSH (19907) Comments: PATIENT NOT FASTINGPERFORMED BY: CB [facility] Lagcqz2375 [address] JosephICan LLCDublin [place] [id number] TSH 6.560 {uIU/mL} (Abnormal) Range: 0.450-4.500 :52 URINALYSIS, W/ MICRO (78403) Comments: PATIENT NOT FASTINGPERFORMED BY: [facility] Gvtcxz2544 [facility] [id number] Microscopic Examination See below: (Normal) Microscopic Examination MICRON (Normal) Comments: Microscopic follows if indicated. Nitrite, Urine Negative (Normal) Urobilinogen,Semi-Qn 0.2 mg/dL (Normal) Range: 0.0-1.9 Bilirubin Negative (Normal) Occult Blood Negative (Normal) Ketones Negative (Normal) Glucose Negative (Normal) Protein Negative (Normal) WBC Esterase Negative (Normal) Appearance Clear (Normal) Urine-Color Yellow (Normal) pH 7.5 (Normal) Range: 5.0-7.5 Specific [place] 1.019 (Normal) Range: 1.005-1.030 :52 MICROALBUMIN: CREATININE RATIO Comments: PATIENT NOT FASTINGPERFORMED BY: [facility]6[address] [facility] [id number] ([id number]) AND (70656) Microalb/Creat Ratio 15.5 {mg/g_creat} (Normal) Range: 0.0-30.0 Microalbumin, Urine 13.8 ug/mL (Normal) Range: 0.0-17.0 Creatinine, Urine 89.1 mg/dL (Normal) Range: 15.0-278.0 :52 METABOLIC PANEL, COMPREHENSIVE Comments: PATIENT NOT FASTINGPERFORMED BY: [facility]6[address] [facility] [id number] (46925) ALT (SGPT) 24 [iU]/L (Normal) Range: 0-32 [...] mg/dL (Abnormal) Range: 65-99 :52 LIPID PANEL (07793) Comments: PATIENT NOT FASTINGPERFORMED BY: [employer] Aaodfs7039 [facility] [id number] LDL Cholesterol Calc 163 mg/dL (Abnormal) Range: 0-99 LDL/HDL Ratio 2.9 {ratio_units} (Normal) Range: 0.0-3.2 VLDL Cholesterol Kareem 28 mg/dL (Normal) Range: 5-40 HDL Cholesterol 56 mg/dL (Normal) Comments: According to ATP-III Guidelines, HDL-C >59 mg/dL is considered anegative risk factor for CHD. Triglycerides 140 mg/dL (Normal) Range: 0-149 Cholesterol, Total 247 mg/dL (Abnormal) Range: 100-199 :52 CBC WITH MANUAL DIFF (67810) Comments: PATIENT NOT FASTINGPERFORMED BY: [facility] Puiczk7805 [facility] [id number] Immature Grans (Abs) 0.0 {x10E3/uL} (Normal) Range: [...] 3.77-5.28 WBC 6.9 {x10E3/uL} (Normal) Range: 4.0-10.5 7-Dry-644958:07 CBC With Differential/Platelet Comments: PATIENT WAS FASTINGPERFORMED BY: [facility]CoTrenton Psychiatric HospitalHckbpj4873 [facility] [id number] Immature Grans (Abs) 0.0 {x10E3/uL} (Normal) Range: [...] 3.80-5.10 WBC 6.5 {x10E3/uL} (Normal) Range: 4.0-10.5 5-Qze-568329:07 Comp. Metabolic Panel (14) Comments: PATIENT WAS FASTINGPERFORMED BY: [facility]CoTrenton Psychiatric HospitalBofvfi3931 [facility] [id number] ALT (SGPT) 18 [iU]/L (Normal) Range: 0-40 [...] Glucose, Serum 105 mg/dL (Abnormal) Range: 65-99 1-Vvf-492393:07 Lipid Panel With LDL/HDL Comments: PATIENT WAS FASTINGPERFORMED BY: [employer]70 [facility] [id number] Ratio LDL/HDL Ratio 2.9 {ratio_units} Range: 0.0-3.2 [...] 1.070 {uIU/mL} Comments: PATIENT WAS FASTINGPERFORMED BY: [employer]6370 [facility] [id number] 2:07 (Normal) Range: 0.450-4.500 Vitamin D, 25-Hydroxy 20.4 ng/mL (Abnormal) Comments: PATIENT WAS FASTINGPERFORMED BY: [employer]70 [facility] [id number] 2:07 Range: 32.0-100.0 Comments: Recent studies consider the lower limit of 32.0 ng/mL to be athreshold for optimal health.Yonas DAWN. J Nutr. 2004;135(2):317-22. 3-Idc-022624:46 Glucose, PP/2 Hour Comments: PATIENT WAS FASTINGPERFORMED BY: [facility] Juglrh4055 [facility] [place] [id number] Information: [id number] 75G DRAW N@10: (61681) Glucose, Two-Hour Postprandial 125 mg/dL (Normal) Range: 65-139 18-Dfi-233873:07 Microscopic Examination Comments: PATIENT WAS FASTINGPERFORMED BY: [facility] Rassts9543 [facility] [place] [id number] Bacteria None seen (Normal) Mucus Threads Present (Normal) Epithelial Cells (non renal) 0-10 {/hpf} (Normal) Range: 0 - 10 RBC 0-3 {/hpf} (Normal) Range: 0 - 3 WBC 6-10 {/hpf} (Abnormal) Range: 0 - 5 59-Nfu-622036:07 Vitamin D Hydroxy (49973) Comments: PATIENT WAS FASTINGPERFORMED BY: [facility]Saint [facility] Kmhrep5068 [facility] [place] [id number] Vitamin D, 25-Hydroxy 18.7 ng/mL (Abnormal) Range: 32.0-100.0 Comments: Recent studies consider the lower limit of 32.0 ng/mL to be athreshold for optimal health.Branham LÓPEZ. J Nutr. 2004;135(2):317-22. 71-Opr-420158:07 TSH (82625) Comments: PATIENT WAS FASTINGPERFORMED BY: [facility] Eeonbe5534 [facility]aud[facility] [facility] [place] [id number] TSH 1.020 {uIU/mL} (Normal) Range: 0.450-4.500 38-Bpv-343377:07 URINALYSIS, W/ MICRO (43632) Comments: PATIENT WAS FASTINGPERFORMED BY: [facility] Btkqwh9528 [facility] ServicesDublin [place] [id number] Microscopic Examination See below: (Normal) Nitrite, Urine Negative (Normal) Urobilinogen,Semi-Qn 0.2 mg/dL (Normal) Range: 0.0-1.9 Bilirubin Negative (Normal) Glucose Negative (Normal) Ketones Negative (Normal) Occult Blood Negative (Normal) Appearance Clear (Normal) pH 6.5 (Normal) Range: 5.0-7.5 Protein Negative (Normal) Urine-Color Yellow (Normal) WBC Esterase 1+ (Abnormal) Specific [place] 1.026 (Normal) Range: 1.005-1.030 :07 MICROALBUMIN: CREATININE RATIO Comments: PATIENT WAS FASTINGPERFORMED BY: [employer]70 [facility] [id number] ([id number]) AND ([id number]) Microalb/Creat Ratio 4.5 {mg/g_creat} (Normal) Range: 0.0-30.0 Microalbumin, Urine 4.4 ug/mL (Normal) Range: 0.0-17.0 Creatinine, Urine 97.0 mg/dL (Normal) Range: 15.0-278.0 :07 METABOLIC PANEL, COMPREHENSIVE Comments: PATIENT WAS FASTINGPERFORMED BY: [employer]6370 [facility] [id number] (37459) ALT (SGPT) 24 [iU]/L (Normal) Range: 0-40 [...] Glucose, Serum 114 mg/dL (Abnormal) Range: 65-99 94-Mqj-363932:07 LIPID PANEL (77691) Comments: PATIENT WAS FASTINGPERFORMED BY: [facility] [facility]Care[facility] [id number] LDL Cholesterol Calc 164 mg/dL (Abnormal) Range: 0-99 LDL/HDL Ratio 3.2 {ratio_units} (Normal) Range: 0.0-3.2 VLDL Cholesterol Kareem 26 mg/dL (Normal) Range: 5-40 HDL Cholesterol 51 mg/dL (Normal) Comments: According to ATP-III Guidelines, HDL-C >59 mg/dL is considered anegative risk factor for CHD. Triglycerides 130 mg/dL (Normal) Range: 0-149 Cholesterol, Total 241 mg/dL (Abnormal) Range: 100-199 42-Aeu-928834:07 CBC WITH MANUAL DIFF Comments: PATIENT WAS FASTINGPERFORMED BY: [facility]PlanetRe[facility] [id number] Information: ADD [id number] AND DRAW FEE 99 3508 (06417) Immature Grans (Abs) 0.0 {x10E3/uL} (Normal) Range: [...] CULTURE (SUKUMAR Comments: PATIENT NOT FASTINGPERFORMED BY: [facility] Bwfdke6953 [facility] [id number] Information: SRC:UR ADD [id number] COL COUNT) (56218) Result 1 MUG (Normal) Comments: Mixed urogenital flora1,000 Colonies/mL Urine Culture,Comprehensive Final report (Normal) :50 Urinalysis, Office (25789) Comments: done aw UA - LEUKOCYTE Trace [...] (Normal) TSH 0.741 {uIU/mL} Comments: PERFORMED BY: [employer] [facility] Haosvb8451 [facility] [id number] 3:42 (Normal) Range: 0.450-4.500 94-Dzl-995773:16 CAMILO CULTURE-OTHER (28597) Comments: PATIENT NOT FASTINGClinical Information: SRC:THRT ADD [id number] PERFORMED BY: [facility] Zptvgk8653 [facility] [id number] Result 1 RRF (Normal) Comments: Routine respiratory ronak Upper Respiratory Culture Final report (Normal) :13 Rapid Strep Test, Office (35945) Rapid Strep Test, Office Negative (Normal) 90-Jvk-826220:46 TSH (20914) Comments: PATIENT WAS FASTINGPERFORMED BY: [facility] Xmueoe8306 [facility] [id number] TSH 10.376 {uIU/mL} (Abnormal) Range: 0.450-4.500 33-Mpc-971814:46 LIPID PANEL (02168) Comments: PATIENT WAS FASTINGClinical Information: ADD DRAW FEE [id number] ADD J 85996 PERFORMED BY: [facility] Zhzxlp2629 [facility] [id number] Cholesterol, Total 254 mg/dL (Abnormal) Range: 100-199 [...] Cholesterol Kareem 34 mg/dL (Normal) Range: 5-40 0-Alc-139966:30 GLUP 136 mg/dL (Normal) Comments: GLU,2HPPG 75gm GLUC PPG GLUP from 1006:Q88218F. :25 TSH 3.21 {uIU/mL} (Normal) Range: 0.34-4.82 8-Epb-377162:19 Upper Respiratory Culture Comments: Clinical Information: SRC:TH PERFORMED BY: LabCoTrenton Psychiatric HospitalFmffru2231 [facility] [id number] Result 1 RRF (Normal) Comments: Routine respiratory ronak Upper Respiratory Culture Final report (Normal) 8-Agt-122196:25 Rapid Strep Test, Office (94439) Comments: NEGATIVE Rapid Strep Test, Office Negative (Normal) :51 CBC With Differential/Platelet Comments: PATIENT WAS FASTINGPERFORMED BY: LabCoTrenton Psychiatric HospitalXowgwm5838 [facility] [id number] Baso (Absolute) 0.0 {x10E3/uL} (Normal) Range: 0.0-0.2 [...] Panel (14) Comments: PATIENT WAS FASTINGPERFORMED BY: [employer]6370 [facility] [id number] A/G Ratio 1.7 (Normal) Range: 1.1-2.5 Albumin, [...] Serum 107 mg/dL (Abnormal) Range: 65-99 If -Niuean >60 mL/min (Normal) Range: 60-128 Comments: Note: [...] With LDL/HDL Comments: PATIENT WAS FASTINGPERFORMED BY: [employer]6370 [facility] [id number] Ratio Cholesterol, Total 213 mg/dL (Abnormal) Range: [...] Randm Ur Comments: PATIENT WAS FASTINGPERFORMED BY: [employer] [facility] [id number] Creatinine, Urine 62.0 mg/dL (Normal) Microalb/Creat Ratio 7.9 {ug/mg_creat} (Normal) Range: 0.0-30.0 Microalbum.,U,Random 4.9 ug/mL (Normal) Range: 0.0-17.0 :51 Microscopic Examination Comments: PATIENT WAS FASTINGPERFORMED BY: [employer] [facility] [id number] Bacteria None seen (Normal) Crystal Type Amorphous Sediment (Normal) Crystals Present (Abnormal) Epithelial Cells (non 0-10 {/hpf} (Normal) Range: 0 - 10 renal) Mucus Threads Present (Abnormal) RBC None seen {/hpf} Range: 0 - 3 (Normal) WBC 0-5 {/hpf} (Normal) Range: 0 - 5 TSH 17.282 {uIU/mL} Comments: PATIENT WAS FASTINGPERFORMED BY: [employer] Lqxdao8130 [facility] [id number] :51 (Abnormal) Range: 0.350-5.500 Comments: Adult TSH concentrations below 5.5 uIU/mL do not rule out the presence of subclinical hypothyroidism. . EFFECTIVE Jun the adult reference interval for TSH will be changing to 0.450 - 4.500 uIU/mL. :51 Urinalysis, Routine Comments: PATIENT WAS FASTINGPERFORMED BY: [place] LabCoTrenton Psychiatric HospitalWttvnv1770 [facility] [id number] Appearance Cloudy (Abnormal) Bilirubin Negative (Normal) Glucose Negative (Normal) Ketones Negative (Normal) Microscopic Examination See below: (Normal) Nitrite, Urine Negative (Normal) Occult Blood Negative (Normal) pH 7.5 (Normal) Range: 5.0-7.5 Protein Negative (Normal) Specific [place] 1.016 (Normal) Range: 1.005-1.030 Urine-Color Yellow (Normal) Urobilinogen,Semi-Qn 0.2 mg/dL (Normal) Range: 0.0-1.9 WBC Esterase Negative (Normal) 71-Gto-18708:23 UPPER EXT/JT ONLY (ROUTINE) Radiology Report See Note (Normal) Comments: Exam Number: [id number] RIGHT SHOULDER MRI REASON FOR EXAMINATIONRight shoulder [...] subdeltoid bursitis. Reported By: CHICO CHAVEZ M.D. 01-Vxp-27448:20 MAMM, BILAT SCRN DIGITAL & CAD Radiology Report See Note (Normal) Comments: Exam Number: [id number] MAMMOGRAPHY, BILATERAL SCREENING DIGITAL AND CAD HISTORYRoutine [...] mammograms werealso examined with computer-aided detection software ([employer], [place] [employer] Reported By: ANABEL LINK M.D. :1 TSH 5.17 {uIU/mL} Range: 0.34-4.82 3 (Abnormal) :47 CBC HCT 40.2 % (Normal) Range: 37-47 [...] Comments: GLU,2HPPG 75gm GLUC PPG GLUP from 1117:E97406A. :42 CBC HCT 38.3 % (Normal) Range: [...] Plan of Care Name Dates Details Instructions BMI 39.0-39.9,adult : Follow up in 2 [...] routine gynecological exam : *Well Female Maintenance ([facility]) Indication: Well woman exam with routine gynecological [...] : Follow up in 6 weeks with [facility] Indication: Varicose vein Essential hypertension : Diet, Exercise, and Wt loss Indication: Essential hypertension Cerumen impaction : Follow up in 2 weeks with [facility] Indication: Cerumen impaction Benign essential hypertension [...] Diet and Exercise Indication: Hyperlipidemia Planned Observations Cologuard - Strool Based DNA Test, CRC SCREEN (94973)Indication: Colon cancer screening (Renamed from Encounter for screening for malignant neoplasm of colon) On: :22 Request VITAMIN B-12 (CYANOCOBALAMIN) (35406)Indication: B12 deficiency On: :17 Request CALCIFIDIOL (71495) VIT D 25Indication: Vitamin D deficiency On: :16 Request URINALYSIS, W/ MICRO (96303)Indication: Impaired glucose metabolism On: :16 Request MICROALBUMIN: CREATININE RATIO (14915) AND (95002)Indication: Impaired glucose metabolism On: :16 Request METABOLIC PANEL, COMPREHENSIVE (79430)Indication: Impaired glucose metabolism On: :16 Request LIPOPROTEIN, BLD, BY NMR (07022)Indication: Hyperlipidemia On: : Request CBC W/AUTO DIFF WBC (59365)Indication: Impaired glucose metabolism On: :16 Request TSH (74648)Indication: Hypothyroidism On: 99-Qmn-61370:16 Request VITAMIN B-12 (CYANOCOBALAMIN) (70260)Indication: B12 deficiency On: :21 Request TSH (61473)Indication: Abnormal TSH On: :18 Request T4, FREE (THYROXINE) (45644)Indication: Abnormal TSH On: :18 Request T3, FREE (TRIDOTHYRONINE) (35018)Indication: Abnormal TSH On: :18 Request CALCIFEDIOL (78985)Indication: Vitamin D deficiency On: :16 Request Methymalonic Acid, Serum (34826)Indication: B12 deficiency On: :28 Request VITAMIN B-12 (CYANOCOBALAMIN) (66378)Indication: B12 deficiency On: :27 Request TSH (34048)Indication: Hypothyroidism On: 8-Kiz-939314:17 Request CALCIFEDIOL (54811)Indication: Vitamin D deficiency On: 8-Nsy-113515:17 Request CALCIFEDIOL (88059)Indication: Vitamin D deficiency On: :03 Request URINALYSIS, W/ MICRO (53204)Indication: Essential hypertension On: : Request MICROALBUMIN: CREATININE RATIO (16217) AND (67532)Indication: Essential hypertension On: : Request METABOLIC PANEL, COMPREHENSIVE (11860)Indication: Essential hypertension On: : Request LIPID PANEL (04641)Indication: Hyperlipidemia On: : Request CBC W/AUTO DIFF WBC (30374)Indication: Essential hypertension On: : Request TSH (20141)Indication: Hypothyroidism On: : Request Blood Glucose , Office (16794)Indication: Impaired glucose metabolism On: :52 Request CALCIFIDIOL (43793) VIT D 25Indication: Vitamin D deficiency On: :17 Request TSH (72464)Indication: Abnormal TSH On: :15 Request T4, FREE (THYROXINE) (54536)Indication: Abnormal TSH On: :15 Request T3, FREE (TRIDOTHYRONINE) (19624)Indication: Abnormal TSH On: :15 Request LIPID PANEL (00979)Indication: Hyperlipidemia On: :13 Request URINALYSIS, W/ MICRO (86480)Indication: Impaired glucose metabolism On: :12 Request MICROALBUMIN: CREATININE RATIO (88818) AND (27646)Indication: Impaired glucose metabolism On: :12 Request METABOLIC PANEL, COMPREHENSIVE (43509)Indication: Impaired glucose metabolism On: :12 Request LIPID PANEL (20547)Indication: Impaired glucose metabolism On: :12 Request CBC W/AUTO DIFF WBC (89457)Indication: Impaired glucose metabolism On: :12 Request TSH (58108)Indication: Hypothyroidism On: :12 Request Influenza A&B Viral Culture (87642)Indication: Flu-like symptoms On: 02-Mwz-408796:09 Request CAMILO CULTURE-OTHER (28241)Indication: Paronychia On: :52 Request LIPID PANEL (02111)Indication: Hyperlipidemia On: 2-Ocf-265714:20 Request HEPATIC FUNCTION PANEL (22100)Indication: Hyperlipidemia On: :19 Request TSH (29121)Indication: Abnormal TSH On: 9-Dlt-339713:18 Request EB ANTIBODY NUCLR ANTIGN (67945) On: 21-Xni-199091:08 Request Vitamin D Hydroxy (12809)Indication: Other specified abnormal findings of blood chemistry On: :10 Request TSH (55587)Indication: Hypothyroidism On: :09 Request URINALYSIS, W/ MICRO (27413)Indication: Essential hypertension On: :09 Request MICROALBUMIN: CREATININE RATIO (51491) AND (59993)Indication: Essential hypertension On: :09 Request METABOLIC PANEL, COMPREHENSIVE (52821)Indication: Essential hypertension On: :09 Request LIPID PANEL (90421)Indication: Essential hypertension On: :09 Request CBC WITH MANUAL DIFF (83815)Indication: Essential hypertension On: :09 Request TSH (35060)Indication: Abnormal TSH On: 76-Lyo-009821:04 Request TSH (64401)Indication: Hypothyroidism On: 87-Wmi-609145:33 Request Blood Glucose , Office (47149)Indication: Dysmetabolic syndrome X On: :23 Request HgA1C , Office (86858)Indication: Dysmetabolic syndrome X On: :23 Request CALCIFIDIOL (76047) VIT D 25Indication: Vitamin D deficiency, unspecified On: 97-Wli-224946:04 Request TSH (78903)Indication: Hypothyroidism On: :03 Request URINALYSIS, W/ MICRO (30522)Indication: Benign essential hypertension On: :03 Request MICROALBUMIN: CREATININE RATIO (48531) AND (07119)Indication: Benign essential hypertension On: 82-Xud-865030:03 Request METABOLIC PANEL, COMPREHENSIVE (71809)Indication: Benign essential hypertension On: :03 Request CBC WITH MANUAL DIFF (58458)Indication: Benign essential hypertension On: 37-Net-773409:03 Request LIPID PANEL (00964)Indication: Hyperlipidemia On: 89-Qph-608961:03 Request CAMILO CULTURE-OTHER (93770)Indication: Pharyngitis, acute On: 9-Nem-480032:25 Request Glucose, PP/2 Hour (38940)Indication: Other specified abnormal findings of blood chemistry On: 34-Pik-654559:00 Request TSH (58337)Indication: Abnormal TSH On: 96-Lhl-272954:00 Request Comments: DO IN 6 WEEKS MICROALBUMIN: CREATININE RATIO (58851) AND (48058)Indication: Benign essential hypertension On: :36 Request URINALYSIS W/O MICRO (14190)Indication: Benign essential hypertension On: :36 Request LIPID PANEL (77481)Indication: Hyperlipidemia On: :36 Request METABOLIC PANEL, COMPREHENSIVE (37159)Indication: Benign essential hypertension On: :36 Request CBC WITH MANUAL DIFF (75863)Indication: Benign essential hypertension On: 25-Wde-61350:36 Request TSH (65120)Indication: Hypothyroidism On: 86-Gpt-39624:35 Request TSH (40989)Indication: Hypothyroidism On: 5-Lib-717261:32 Request Comments: DO IN 8 WEEKS Thin prep Pap (30646)Indication: Well woman exam with routine gynecological exam On: 99-Oec-205001:05 Request TSH (64098)Indication: Abnormal TSH On: 88-Tqs-115319:13 Request Comments: do in 10 weeks LIPID PANEL (71626)Indication: Hyperlipidemia On: 91-Akz-90864:45 Request Planned Encounters Medical; 2 Week FU - On: 11-Nov-2018 9:45 [facility] Rosie Scott CNP Medical; 4 Month FU - On: 28-Dec-2018 9:45 [facility] Bridgett Bansal DO, DO, Kathleen Planned Procedures Holter Monitor 24 hrsBy: Sonia CASTILLO, On: 25-Oct-2018 Intent Rosie Olivo ELECTROCARDIOGRAM, COMPLETE (ECG) On: 25-Oct-2018 Intent (02406)By: Katie Kebede Comments: sinus bradycardia, ELECTROCARDIOGRAM, COMPLETE (ECG) On: 20-Apr-2018 Intent (73551)By: Bridgett Bansal DO Comments: nsr no acute cgh Bridgett Bansal DO B 12 Injection, 1000 mcg (J3420)By: On: 08-Sep-2017 Intent Bridgett Bansal DO, DO, Comments: Lot:[id number]:07/16Dose:1mlRoute:IMSite:bridger Cagle By:JEREMY signed Bridgett Radiology - Chest- PA and LatBy: On: 23-Apr-2017 Intent Bridgett Bansal DO, DO, Bridgett Spirometry (58259)By: Rolf OLIVER, On: 23-Apr-2017 Intent Bridgett Weinstein DO Comments: mild obstruction but poor technique Echo CompleteBy: Rolf OLIVER, On: 05-Feb-2017 Intent Bridgett Weinstein DO PFT - CompleteBy: Rolf OLIVER, On: 05-Feb-2017 Intent Bridgett Weinstein DO Comments: dr Alves to read CT - Chest (IV Contrast Needed)By: On: 27-Jan-2017 Intent Bridgett Bansal DO, DO, Kathleen Aerosol Treatment (57098)By: Rolf On: 25-Jan-2017 Intent Bridgett OLIVER DO, Kathleen Comments: albulterol 0.83%more a/e but pt states notices no differecne Radiology - Chest- PA and LatBy: On: 25-Jan-2017 Intent Bridgett Bansal DO, DO, Bridgett Spirometry (83932)By: Rolf OLIVER, On: 25-Jan-2017 Intent Bridgett Weinstein DO Comments: restrictive disease but poor technique X-RAY OF LUMBAR SPINE, FOUR VIEWS On: 28-Aug-2016 Intent (09897)By: Bridgett Bansal DO, DO, Kathleen Wax Currettes (87123)By: Rolf OLIVER, On: 05-Aug-2016 Intent Bridgett Weinstein DO Ear Irrigation (32125)By: Rolf On: 05-Aug-2016 Intent Bridgett OLIVER DO, Kathleen Comments: Ear Irrigation performed on:bilateralAmount/color removed cerumen: moderate amount, OUtcome:clear and toleratedUsed wax curettes ELECTROCARDIOGRAM, COMPLETE (ECG) On: 28-Jul-2016 Intent (06626)By: Shalini Johnson DO Comments: sinus bradyfreq pacs and no acute st twave chnages MAMMOGRAM, SCREENING, BOTH BREAST On: 08-Apr-2016 Intent (57417)By: Bridgett Bansal DO, DO, Kathleen DEXA SCAN AXIAL SKELETON (06217)By: On: 08-Apr-2016 Intent Bridgett Bansal DO DO, Bridgett MAMMOGRAM, SCREENING, BOTH BREAST On: 01-Apr-2016 Intent (78050)By: Bridgett Bansal DO, DO, Kathleen ELECTROCARDIOGRAM, COMPLETE (ECG) On: 14-Nov-2014 Intent (41868)By: Bridgett Bansal DO Comments: nsr no acute chg Bridgett Bansal DO CT - Neck (IV Contrast Needed)By: On: 23-May-2014 Intent Bridgett Bansal DO, DO, Kathleen Eprescribed prescriptions On: 21-Mar-2014 Intent (G8553)By: Bridgett Bansal DO, DO, Kathleen EKG (24871)By: Radha Eckert On: 25-Dec-2013 Intent WARRANTY MANAGER Comments: sinus martha no acute chg Venous Doppler - RightBy: Ciesa On: 20-Nov-2013 Intent Rosie CASTILLO Wax CurettesBy: Ciesa Rosie CASTILLO On: 07-Nov-2013 Intent Ear Irrigation (76356)By: Ciesa On: 07-Nov-2013 Intent Rosie CASTILLO E Eprescribed prescriptions On: 18-Oct-2013 Intent (G8553)By: Bridgett Bansal DO, DO, Kathleen XSDR-SX-JIMR BEHAVIORAL COUNSELING On: 18-Oct-2013 Intent FOR OBESITY, 15 MINUTES (G0447)By: Bridgett Bansal DO, DO, Kathleen EKG (31735)By: Bridgett Bansal DO On: 26-Jul-2013 Intent Bridgett Bansal DO Comments: nsr no acute chg Eprescribed prescriptions On: 26-Jul-2013 Intent (G8553)By: Radha Eckert WARRANTY MANAGER Eprescribed prescriptions On: 22-Mar-2013 Intent (G8553)By: Radha Eckert LPN Eprescribed prescriptions On: 04-Jan-2013 Intent (G8553)By: Bridgett Bansal DO, DO, Kathleen EKG (37201)By: Bridgett Bansal DO On: 23-Nov-2012 Intent Bridgett Bansal DO Comments: nsr no acute chg Eprescribed prescriptions On: 23-Nov-2012 Intent (G8553)By: Radha Eckert LPN EKG (54855)By: Bridgett Bansal DO On: 29-Jul-2011 Intent Bridgett Bansal DO Comments: nsr no acute chg TDAP VACCINE >7 IM (24674)By: On: 29-Jul-2011 Intent Bridgett Bansal DO, DO, Comments: Pt refused Bridgett Radiology - Lumbar SpineBy: Rolf On: 11-Jun-2010 Intent Bridgett OLIVER DO, Kathleen EKG (05432)By: Radha Eckert On: 11-Jun-2010 Intent WARRANTY MANAGER Comments: done awnsr no avute chsg pvc noted SPECIMEN HNDLNG/TRNSPRT, OFFC > LAB On: 12-Aug-2009 Intent (52412)By: Bridgett Bansal DO, DO, Kathleen EKG (40093)By: Radha Eckert On: 18-Mar-2009 Intent WARRANTY MANAGER Comments: nsr no acute changes -nonspecific flattening SPECIMEN HNDLNG/TRNSPRT, OFFC > LAB On: 31-Jul-2008 Intent (17334)By: Bridgett Bansal DO, DO, Kathleen EKG (40325)By: Bridgett Bansal DO On: 22-Jun-2008 Intent Bridgett Bansal DO Comments: NSR NO ACUTE ISCHEMIC CHANGES EKG (60965)By: Bridgett Bansal DO On: 06-Jun-2007 Intent Bridgett Bansal DO Comments: NSR NO ACUTE ISCHEMIC CHANGES DXA, BONE DENSITY, AXIAL SKELETON On: 10-Mar-2007 Intent (59849)By: Bridgett Bansal DO, DO, Kathleen MAMMOGRAM, SCREENING, BOTH BREASTS On: 10-Mar-2007 Intent (82811)By: Bridgett Bansal DO, DO, Kathleen Planned Medications [...] : Patient Instructions Indication: Essential hypertension Encounters Office Visit On: 25-Oct-2018 10:05 Encounter Reason: [...] Internal Medicine End: 26-Oct-2006 13:31 Payers Sahil Alaniz; nadege guarantor
--- OUTSIDE RECORDS SUMMARY | 2018-12-24 08:34 | XMS RPT_ITS ---
:1950 Author Organization OHIP Care Team Providers Name Role Phone Bridgett Bansal DO Attending Unavailable Bridgett Bansal DO Consulting Unavailable Bridgett Bansal Attending Unavailable Bridgett Bansal Referring Unavailable Bridgett Bansal Primary Care Unavailable Rosie Scott Attending Unavailable Rosie Scott Referring Unavailable Bridgett Bansal Primary Care Unavailable PROBLEMS PROBLEMS DATE TYPE CONDITION / CODE ATTENDING STATUS SOURCE 12/10/2017 Unknown E78.5 - Rolf, Active [place] Hyperlipidemia, [facility] unspecified / Hospital E78.5(ICD-10) Repository 12/10/2017 Unknown E55.9 - Vitamin D [place], Active [place] deficiency, [facility] unspecified / Hospital E55.9(ICD-10) Repository 12/10/2017 Unknown E03.9 - [place]olf, Active [place] Hypothyroidism, [facility] unspecified / Hospital E03.9(ICD-10) Repository 12/10/2017 Unknown I10 - Essential [place], Active [place] (primary) [facility] hypertension / Hospital I10(ICD-10) Repository PROCEDURES PROCEDURES No Procedure Records FoundRESULTS RESULTS CBC W/DIFF, AUTOMATED Collected: 12/10/2017 Status: F Source: [place] 8:27 AM [facility] REPOSITORY TYPE CODE TESTS RESULT OUT OF RANGE REFERENCE UNITS LAB L100.1000 4.4-11.0 K/mm3 Normal WBC 6.3 LAB L100.1200 4.2-5.4 M/mm3 Low RBC 4.05 LAB L100.1300 12.0-15.0 g/dl Normal HGB 13.2 LAB L100.1400 37-47 % Normal HCT 41.1 LAB L100.1500 81-99 fL High MCV 101.5 LAB L100.1600 27.0-32.0 pg High MCH 32.6 LAB L100.1700 32-36 g/gl Normal MCHC 32.1 LAB L100.1810 11.6-14.6 % Normal RDW CV 13.0 LAB L100.1820 35.1-43.9 fl High RDW SD 48.1 LAB L100.1900 150-450 K/mm3 Normal PLT 249 LAB L100.2000 6.2-12.0 fl Normal MPV 9.6 LAB L100.2100 47-70 % Normal NEUT% 60.3 LAB L100.2200 19-41 % Normal LY% 26.5 LAB L100.2300 0-10 % Normal MONO% 8.2 LAB L100.2400 0-5 % Normal EO% 4.3 LAB L100.2500 0-1 % Normal BASO% 0.5 LAB L100.2550 0.0-0.9 % Normal IM GRAN % 0.200 Result Comment: IG% - Immature Granulocytes (promyelocytes, myelocytes and metamyelocytes) > 1% indicates that a LEFT SHIFT is Present. LAB L100.2620 2.0-7.7 X10 3/uL Normal Absolute Neut 3.8 LAB L100.2720 0.83-4.51 X10 3/ul Normal Absolute Lymph 1.67 Performed By: #### L100.0100 #### [facility] [address] [place] [address]. [place], [place], [address] MICROALB:CREAT Collected: 12/10/2017 Status: F Source: [facility] 8:27 AM [facility] REPOSITORY TYPE CODE TESTS RESULT OUT OF RANGE REFERENCE UNITS LAB L501.1200 NO RANGE EST. mg/dL Normal UR CREAT 51.10 LAB L502.0500 NO RANGE EST. mg/L Normal 5.9 MICROALBUMIN ,UR LAB L502.0600 <30 mg/g CRE mg/g CRE Normal 11.5 MALB:CREAT Performed By: #### L502.0250 #### [facility] [address] [place], [address] URINALYSIS, COMPLETE Collected: 12/10/2017 Status: F Source: [place] 8:27 AM [facility] REPOSITORY Order Comment: How was Urine Obtained? CLEAN CATCH TYPE CODE TESTS RESULT OUT OF RANGE REFERENCE UNITS LAB L400.3000 Yellow COLOR Normal Yellow LAB L400.3050 Clear Normal CLARITY Clear LAB L400.3200 Normal mg/dl Normal GLUCOSE, UR Normal LAB L400.3300 Negative mg/dL Normal BILIRUBIN URINE Negative LAB L400.3400 Negative mg/dl Normal KETONE UR Negative LAB L400.3465 1.002-1.030 Normal SP.GR. DIPSTX 1.010 LAB L400.3550 5.0 - 8.0 pH UR Normal 6.5 LAB L400.3600 Negative mg/dl PROT Normal DIPSTX Negative LAB L400.3700 Normal mg/dl Normal UROBILI Normal LAB L400.3750 Negative Normal NITRITE UR Negative LAB L400.3780 Negative /ul Normal OCCULT BLOOD-UR Negative LAB L400.3800 Negative /ul LEUK Normal ESTERASE Negative LAB L400.4050 0-5 /hpf WBC 0 Normal SEEN LAB L400.4100 0-5 /hpf 0 Normal RBC-UA SEEN LAB L400.4150 5-10 /hpf SQUAM Normal EPI 0-5 SEEN LAB L400.4300 None Seen /hpf 0 Normal BACTERIA SEEN LAB L400.4350 <or=2+ /hpf 0 Normal MUCUS, URINE SEEN Performed By: #### L400.0001 #### [facility] [address] [place], [address] COMPREHENSIVE METABOLIC Collected: 12/10/2017 Status: F Source: [facility] 8:27 AM [facility] REPOSITORY TYPE CODE TESTS RESULT OUT OF RANGE REFERENCE UNITS LAB L501.0100 70-110 mg/dL Normal GLU 95 LAB L501.1000 7-18 mg/dL Normal BUN 18 LAB L501.1100 0.55-1.02 mg/dL Normal 0.55 CREAT,SERUM Result Comment: The validity of the calculated GFR AND GFRAA in patients over 70 years has not been determined. Clinical correlation is essential. LAB L501.1110 >60 mL/min Normal EST GFR 118 Result Comment: Non- GFR Calc LAB L501.1115 >60 mL/min Normal EST GFR - AA 143 Result Comment: GFR Calc LAB L501.1300 10-20 RATIO High BUN/CRE 32.8 LAB L501.1500 6.4-8.2 g/dL T Normal PROT 7.2 LAB L501.1800 3.4-5.0 g/dL Normal ALB 3.5 Result Comment: Please note revised Albumin AND Globulin reference range effective 2017. LAB L501.1950 2.2-4.2 g/dL Normal GLOB 3.7 LAB L501.2000 0.9-2.4 RATIO Normal A/G 0.9 LAB L501.2200 8.5-10.1 mg/dL Normal CA 8.8 LAB L501.4100 15-37 U/L Normal AST 24 LAB L501.4305 45-117 U/L Normal ALK P 101 LAB L501.4405 12-78 U/L Normal ALT 33 LAB L501.4600 0.20-1.00 mg/dL Normal T BILI 0.50 LAB L501.5300 136-145 mmol/L Normal NA 139 LAB L501.5600 3.5-5.1 mmol/L Normal K 4.1 LAB L501.5900 98-107 mmol/L Normal CL 102 LAB L501.6100 21.0-32.0 mmol/L Normal CO2 30.0 LAB L501.6200 5-15 Normal GAP 7 Performed By: #### L500.4050, L500.4100, L501.9520 #### [facility] [address] [place], [place], [address] LIPID PROFILE Collected: 12/10/2017 Status: F Source: [place] [facility] 8:27 AM [facility] REPOSITORY TYPE CODE TESTS RESULT OUT OF RANGE REFERENCE UNITS LAB L501.4900 200 mg/dL Normal CHOL 186 Result Comment: <200 mg/dL Desirable 200-240 mg/dL Borderline >240 mg/dL High Risk LAB L501.5000 mg/dL Normal TRIG 131 Result Comment: The drugs N-Acetylcysteine and Metamizole may falsely depress this assay. Serum Triglycerides Reference Interval Normal <150 mg/dL Borderline high 150 - 199 mg/dL High 200 - 499 mg/dL Very High > or = 500 mg/dL LAB L501.6400 mg/dL Normal HDL 50 Result Comment: The drugs N-Acetylcysteine and Metamizole may falsely depress this assay. Reference Range HDL <40 mg/dL Low HDL Cholesterol HDL >or= 60 mg/dL High HDL Cholesterol LAB L501.6500 0-130 mg/dL Normal LDL 110 LAB L501.6600 5-40 mg/dL Normal VLDL 26 Performed By: #### L500.4050, L500.4100, L501.9520 #### [facility] [address] [place], [address] THYROID STIM HORMONE Collected: 12/10/2017 Status: F Source: [place] [facility] ([facility]) 8:27 AM [facility] REPOSITORY TYPE CODE TESTS RESULT OUT OF RANGE REFERENCE UNITS LAB L501.9520 0.358-3.74 uIU/mL High TSH 3.83 Performed By: #### L500.4050, L500.4100, L501.9520 #### [facility] [address] [place], [address] VITAMIN D,25 HYDROXY Collected: 12/10/2017 Status: F Source: [place] [facility] 8:27 AM [facility] REPOSITORY TYPE CODE TESTS RESULT OUT OF RANGE REFERENCE UNITS LAB L506.1000 ng/mL Normal Vitamin D 30.8 25-OH Result Comment: Vitamin D 25(OH) Status Range Deficiency <20 ng/mL (50nmol/L) Insuffciency 20 - 30 ng/mL (50 - 75 nmol/L) Sufficiency 30 - 100 ng/mL (75 - 250 nmol/L) Toxicity >100 ng/mL (>250 nmol/L) Performed By: #### L506.1000 #### [facility] [address] [place], [address] ALLERGIES ALLERGIES DATE TYPE / CODE NAME / CODE REACTION SEVERITY SOURCE 04/21/2017 Drug No Known Unknown [facility] Allergy/4160 Allergies/F00 [facility] [address](SNOMED 2137047(RXNOR Repository CT) M) ENCOUNTERS ENCOUNTERS ADMIT/DISCHARGE ACCOUNT ADMITTING ENCOUNTER LOCATION SOURCE NUMBER CLASS 10/31/2018 [id number] Ambulatory [place] 6 [facility] ing:PSN Repository 10/25/2018 [address] Ambulatory Building:[facility] OHIP Practices Repository 12/10/2017 [id number] Ambulatory [place] 4 [facility] ing:LAB Repository PAYERS PAYERS ENCOUNTER GUARANTOR PAYER SUBSCRIBER SOURCE 10/31/2018 ISMAEL R Primary ISMAEL R [place] [id number] E Insurance:CIGNAPolicy YODERDOB: [facility] [place]: [id number] [id number] Repository [address]: 330) Date:[phone] () [id number], [place] [address]GT: 10/31/2018 [facility]LF [facility] Number: Effective Repository Date:2018-10-25 10/25/2018 Natalie A Primary Ismael YoderDOB: OH[facility] Practices YoderDOB: Insurance:[employer] [id number] Repository [id number] E PPOPolicy Number: 9 E [facility] [id number] [facility], [facility], Date:[id number] [address]H[place]: [place] [address]Skn: Name:[facility] [address]Oynxivbqinv, [place] (HP) (QA) [phone]: 10/25/2018 Secondary Natalie A [facility] Practices Insurance:ReferralsPo YoderDOB: Repository licy Number: [id number] Effective Date: - [address] [id number] Name:[place], [place] [address]Xei: ~(3 [phone] (HP) 10/25/2018 Tertiary Natalie A [facility] Practices Insurance:[place] YoderDOB: Repository BC/BSPolicy Number: [id number] [address] Date:2012-06-03 - [facility], [id number] [place] [address]Dvn: Name:[facility] Box ~([phone], [place] 30 () [phone]: 12/10/2017 Ismael [id number] Primary Ismael CordovaB: [place] Geovani Carty Insurance:CIGNAPolicy [id number] [facility], Number: [facility] [address]Tsp: [id number] Repository Date:[id number] [address] () [address]AFDSAYCDJD, [place] [address]PQ: 12/10/2017 Secondary NOT GIVENUNK [place] Insurance:SELF PAY [facility] Number: Effective Repository Date:2017-12-10
--- OUTSIDE RECORDS SUMMARY | 2018-12-24 08:34 | XMS RPT_ITS | Continuity of Care Document ---
:1950 Author Organization [facility] Address [address] [place] [address] Phone Care Team Providers Name Role Phone [...] if worsen or rom impaired rto and manager transition refer Status: Active Grieving (F43.21, 309.0) Comments: [...] 30 {Tablet} Refills: 3 Ordered:23-Jan-2015 Rolf OLIVER Nitin OLIVER Bridgett Start : 23-Jan-2015 End : 23-Jan-2015 Inactive Comments:dizzy NASACORT AQ, 55MCG/ACT (Nasal Aerosol Solution) 2 (two) Aerosol Soln Daily for 0 days Refills: 0 Ordered:09-Jan-2009 PETER Guo Start : 25-Jul-2008 End : 09-Jan-2009 Inactive [place] 5-325 MG Oral Tablet 1 (one) Tablet [...] days Quantity: 30 {Tablet} Refills: 0 Ordered:30-May-2008 Monikamanan ANNARosie Start : 30-May-2008 End : 22-Jun-2008 Inactive [...] nostril qd for 0 days Quantity: 1 {[place]} Refills: 0 Ordered:11-Nov-2018 Katie Kebede Start : [...] Summary (1) Result: Comments: See Note; NOTES: [facility] Physical Therapy [facility] [place] [address] Fax REHABILITATION SERVICES ADRIÁNAR JSOELINE SUMMARY MR#: [id number] Acct: [id number] Name: ERENDIRA ALANIZ Rep #: [id number] : 1950 67 From: Raya HAGAN Referring Dr.: Javi Washington MD Status: REG RCR Insurance: [facility] - PT D/C Summary It has been [...] please feel free to call me at [phone]. Thank you for the referral of this patient. Sincerely, David Mtichell <Electronically signed by Raya Mitchell MPT> 08/27/17 6853 CC: Bridgett Bansal DO; Javi Washington MD Signed 15-May-2017 Venous Duplex Lower Extremity Result: Comments: See Note; NOTES: [facility] Cardiovascular Services [address] [place] [address] Venous Duplex US, Unilateral 05/14/17 1409 MR#: [id number] Acct: [id number] Name: ERENDIRA LAZARO Rep #: [id number] : 1950 66 From: Yash Stern MD Attending Dr: Valorie Wilson Status: REG CLI Ordering Dr: Valorie Wilson Date: 05/14/17 Location: [facility] Sex: F C Admitted: [facility] n For Study: LEG PAIN AND SWELLING [...] RVT 05/15/171929 Date Yash Stern MD CC: Valoriecolton Wilson; Bridgett Bansal Date Dictated: 05/14/17 1409 Date Transcribed: 05/15/171929 Utilities Estimator And Drafter: Signed 07-May-2017 Inital Evaluation (1) - PT Result: Comments: See Note; NOTES: [facility] Physical [facility] [address] [place], [place] [address] Fax REHABILITATION SERVICES INITIAL EVALUATION MR#: [id number] Acct: [id number] Name: ERENDIRA ALANIZ Rep #: [id number] : 1950 66 From: Raya Mitchell MPT Referring Dr.: Javi Washington MD Status: REG R Insurance: [employer] Visit Information ERENDIRA ALANIZ is a 66 [...] and motor function Thank you for the opportu ebonyy to evaluate your patient. For Medicare and Medicare HMO plans, please review the plan of care and approve it. It will need to be FAXED BACK to us at [phone] for Medicare purposes. Please le t me know if there are questions or concerns regarding this plan of care. Physician Signature: Date: <Electronically signed by Herber Mitchell MPT> 05/07/17 1347 CC: Bridgett Bansal DO; Javi Washington MD Signed For Medicare only, by signing this I certify the plan of care. Physicians Signature Date 27-Apr-2017 History and Physical Exam Result: Comments: See Note; NOTES: [facility] Medical Records Department [address] [place] [address] History and Physical 04/21/17 1334 MR#: [id number] Acct: [id number] Name: Thelma ALANIZ Rep #: [id number] : 1950 66 From: Valorie Wislon PCP: Bridgett Bansal DO Status: PRE IN Location: [facility] DATE OF SERVICE: 05/03/2017 This is Valorie Wilson PA-C, dictating a preoperative history and physical exam per Dr. Javi Washintgon. PRIMARY CARE PROVIDER: Bridgett Bansal D.O. PROCEDURE TYPE: Left total knee arthroplasty. PROCEDURE DATE: May 03, 2017. ATTENDING PHYSICIAN: Javi Washington M.D. HISTORY OF PRESENT ILLNESS: This is a 66-year-old [facility] female with chief complaint of significant left [...] the left knee dated January 22, 2017, [facility], weightbearing, AP, tunnel, sunrise, lateral views are with aafg-pd-ocaw contact medially, bone spurring medially and laterally, [...] the hospital. KIMBERLY Duncan T: NTS JOB: [id number] 04/27/17 1025 <Electronically signed by Valorie Wilson > Date: Time: Valorie Wilson CC: Valorie Bansal DO Date Dictated: 0 04/21/17 1334 Date Transcribed: 04/21/171333 Utilities Estimator And Drafter: Signed ____ I have re-examined the patient. There are no clinical changes since date of exam. ____ See Progress Notes for Changes ____ D ictated on Admission Date: Time: Signature: 23-Apr-2017 12 Lead Electrocardiogram Result: Comments: See Note; NOTES: [facility] Cardiovascular Services [address] [place] [address] EKG - SDC 04/21/17 1507 MR#: [id number] Acct: [id number] Name: ERENDIRA ALANIZ Rep #: [id number] : 1950 66 From: Shay Winter MD Attending Dr: Javi Washington MD Status: PRE IN Ordering Dr: Javi Washington MD Date: 04/21/17 Location: [facility] Sex: F C Admitted: Test Reason [...] rderline ECG Confirmed by SHAY WINTER ([id number]), image editor JOSE WASHINGTON ([id number]) on 04/23/2017 11:44:40 AM Referred By: READER JAVI WASHINGTON Confirmed By:SHAY WINTER 04/23/17 1144 Date Shay Winter MD CC: Shay Winter MD; Bridgett Bansal DO Date Dictated: 04/21/171506 Date Transcribed: 04/21/171506 Utilities Estimator And Drafter: Signed 23-Apr-2017 Chest PA and Lateral Result: Comments: See Note; NOTES: [facility] Imaging Services [address] [place] [address] Verdana 4d Chest PA and Lateral MR#: [id number] Acct: [id number] Name: ERENDIRA ALANIZ Rep #: [id number] : 1950 F 66 From: Christian Cornelius MD PCP: Bridgett Bansal DO Status: REG CLI Study: Chest PA and Lateral Date of Exam: 04/23/17 Exam# [id number] Ordering Dr: Bridgett Bansal DO STUDY: X-RAY [...] Christian Cornelius MD at 15:04 EDT Tel [phone], Service support , C C: Bridgett Bansal DO Utilities Estimator And Drafter: Signed 03-Mar-2017 PT D/C Summary (1) Result: Comments: See Note; NOTES: [facility] Physical Therapy [facility] [address] [place] [address]. [address] [place], [place] [address] Fax REHABILITATION SERVICES DISCHAR GE SUMMARY MR#: [id number] Acct: [id number] Name: ERENDIRA ALANIZ Rep #: [id number] : 1950 66 From: Michelle Martinez DPT Referring DrCarmela: Javi Washington MD Status: REG RCR Insurance: [...] have surgery May 03, 2017- Heading to [place] March 19- will be down there about [...] please feel free to call me at [phone]. Thank you for the referral of this patient. Sincerely, Michelle Martinez <Electronically signed by Michelle Martinez DPT&am p;#62; 03/03/17 0955 CC: Bridgett Bansal DO; Javi Washington MD ELR Signed 01-Mar-2017 Pulmonary Function Report Comp Result: Comments: See Note; NOTES: [facility] Pulmonary Services/Neurology [address] [place] [address] Pulmonary Function Test (Comp) MR#: [id number] Acct: [id number] Name: LISA ALANIZ Rep #: [id number] : 1950 66 From: Godfrey Babin DO Referring Dr: Bridgett Bansal DO Status: REG CLI Ordering Dr: Bridgett Bansal DO Date: 02/26/17 Location: PSN Sex: F C DATE OF SERVICE: INTRODUCTION: [...] C: The referring provider T: HARPER JOB: [id number] 03/01/17 0824 <Electronically signed by Godfrey Babin DO> Date Godfrey Babin DO CC: Godfrey Babin D.O.; Bridgett Bansal DO Date Dictated: 02/26/17 1248 Date Transcribed: 02/26/17 1248 Utilities Estimator And Drafter: Signed 23-Feb-2017 Echo, Complete w/ Contrast Result: Comments: See Note; NOTES: [facility] Cardiovascular Services [address] [place] [address] Echo Complete W/ Contrast 02/23/17 0904 MR#: [id number] Acct: [id number] Name: ERENDIRA PINEDA Rep #: [id number] : 1950 66 From: Andi Qureshi MD [...] Dictated: 02/23/17 0904 Date Transcribed: 02/23/17 1039 Utilities Estimator And Drafter: Signed 03-Feb-2017 Chest WITH Contrast Result: Comments: See Note; NOTES: [facility] Imaging Services [address] [place] [address] Verdana 4d Chest WITH Contrast MR#: [id number] Acct: [id number] Name: ERENDIRA ALANIZ Rep #: [id number] : 1950 F 66 From: Jun Zazueta MD PCP: Bridgett Bansal DO Status: REG CLI Study: Chest WITH Contrast Date of Exam: 02/03/17 Exam# [id number] Ordering Dr: Birdgett Bansal DO STUDY: CT CHEST WITH CONTRAST [...] at 8:16 EST Tel , Service support [phone], CC: Bridgett Bansal DO Utilities Estimator And Drafter: Signed 01-Feb-2017 Inital Evaluation (1) - PT Result: Comments: See Note; NOTES: [facility] [address] [place], [place] [address] Fax REHABILITATION SERVICES INITIAL EVALUATION MR#: [id number] Acct: [id number] Name: ERENDIRA ALANIZ Rep #: [id number] [...] hoping to not have surgery- Goes to [place] March 22 (2 weeks). Does all her [...] to be FAXED BACK to us at [phone] for Medicare purposes. Please let me know [...] and Lateral Result: Comments: See Note; NOTES: [facility] Imaging Services [address] [place] [address] Verdana 4d Chest PA and Lateral MR#: [id number] Acct: [id number] Name: ERENDIRA ALANIZ Rep #: [id number] : 1950 F 66 From: Birgit Vilchis MD PCP: Bridgett Bansal DO Status: REG CLI Study: Chest PA and Lateral Date of Exam: 01/25/17 Exam# [id number] Ordering Dr: Bridgett Bansal DO STUDY: X-RAY [...] at 23:01 EST Tel , Service support [phone], CC: Bridgett Bansal DO Utilities Estimator And Drafter: Signed 16-Sep-2016 PT D/C of Non Returning Pt (1) Result: Comments: See Note; NOTES: [facility] Physical Therapy [facility] [address] [place], [place] [address] Fax REHABILITATION SERVICES DISCHA RGE SUMMARY MR#: [id number] Acct: [id number] Name: ERENDIRA ALANIZ Rep #: [id number] : 1950 66 From: Mary Cardenas PT, Cert. T Referring Dr.: Bridgett Bansal DO Status: REG R Insurance: [facility] - Discharge Summary (1) - Patient Information [...] - PT Result: Comments: See Note; NOTES: [facility] Physical Therapy [facility] [address] [place] [address] Fax REHABILITATION SERVICES INITIA L EVALUATION MR#: [id number] Acct: [id number] Name: ERENDIRA ALANIZ Rep #: [id number] : 1950 66 From: Mary Cardenas PT, CertCarmela BROWNT Referring Dr.: Bridgett Bansal DO Status: REG RCR Insurance: CIGN A Patient's Visit Information ERENDIRA ALANIZ is a 66 year old F referred to Physical Therapy by Bridgtet Bansal with a diagnosis of SCIATICA R. [...] Potential: Good - Anticipated Interventions Patient/Client Instruction: Deven irbyate patient on: Condition, Plan of Care, Risk [...] to be FAXED BACK to us at [phone] for Medicare purposes. Please let me know [...] 4 Views Result: Comments: See Note; NOTES: [facility] Imaging Services [address] [place] [address] Verdana 4d L/S Spine Min 4 Views MR#: [id number] Acct: [id number] Name: ERENDIRA ALANIZ Rep # : [id number] : 1950 F 66 From: Joy Rodriguez MD PCP: Bridgett Bansal DO Status: REG CLI Study: L/S Spine Min 4 Views Date of Exam: 08/28/16 Exam# [id number] Ordering Dr: Bridgett Bansal DO STUDY : [...] MD at 15:20 EDT cf, Service support [phone], CC: Bridgett Bansal DO Utilities Estimator And Drafter: Signed 01-Jan-2016 ELECTROCARDIOGRAM, COMPLETE (ECG) (27711) Comments: nsr no acute chg Result: [MEASUREMENTS ANALYSIS] Date of Test: 01/01/2016 10:13:18; Heart Rate: 56; SC Interval: 152; QRS: 90; QT Interval: 408; Corrected QT Interval (QTc): 401; P Wave Moccasin: 44; QRS Wave [place]: 10; T Wave [place]: -1; Blood Pressure: 138/82 [ECG DIAGNOSTIC STATEMENTS] Date of Test: 01/01/2016 10:13:18; Summary: Sinus Bradycardia - Nonspecific T-abnormality. ABNORMAL 28-May-2014 Soft Tissue Neck WITH Contrast Result: Comments: See Note; NOTES: [facility] Imaging Services [address] [place] [address] CAT Scan Report MR#: [id number] Acct: [id number] Name: ERENDIRA ALANIZ Rep #: [id number] : 1950 F 63 From: Anabel Johnson MD PCP: Bridgett Bansal DO Status: REG CLI Study: Soft Tissue Neck WITH Contrast Date of Exam: 05/28/14 Exam# [id number] Ordering Dr: Bridgett Bansal DO STUDY: CT [...] MD at 10:53 EDT , Service support [phone], CC: Bridgett Bansal DO Utilities Estimator And Drafter: Signed Family History Unknown Family Member Name [...] kg/m2 Body Surface Area Calculated 1.98 m2 73-Rkc-230408:07 Comments: lying 160/82, 60sitting 156/78, 64standing 152/78, [...] kg/m2 Body Surface Area Calculated 1.92 m2 80-Uny-075168:44 Pulse 81 /min Comments: Pattern: Regular Respiration [...] Description Value Details :20 HgA1C , Office (06621) HgA1C , Office 6.0 % (Normal) Range: 4.6 - 7.1 :20 Blood Glucose , Office (97837) Blood Glucose , Office 121 (Normal) 69-Lhu-206501:41 VITAMIN B-12 (CYANOCOBALAMIN) Comments: PATIENT WAS FASTINGPERFORMED BY: [place] [id number] (51055) Vitamin B12 413 pg/mL (Normal) Range: 232-1245 63-Yql-358971:41 CALCIFEDIOL (85509) Comments: PATIENT WAS FASTINGPERFORMED BY: [employer] [address] RoadDublin [place] [id number] Vitamin D, 25-Hydroxy 43.1 ng/mL (Normal) Range: 30.0-100.0 Comments: Vitamin D deficiency has been defined by the [place] of[place]icine and an Endocrine Society practice guideline as alevel of serum 25-OH vitamin D less than 20 ng/mL (1,2).The Endocrine Society went on to further define vitamin Dinsufficiency as a level between 21 and 29 ng/mL (2).1. IOM ([place] of Medicine). 2010. Dietary reference intakes for calcium and D. [place]: The National Academies Press.2. Willow MF, [place], Contreras BRANNON, et al. Evaluation, treatment, and prevention of vitamin D deficiency: an Endocrine Society clinical practice guideline. JCEM. 2010; 96(7):1911-30. 79-Pfz-429510:41 MICROALBUMIN: CREATININE RATIO Comments: PATIENT WAS FASTINGPERFORMED BY: [facility] LabCoupad Quqogw1101 [facility] [id number] (79911) AND (02056) Alb/Creat Ratio <5.1 {mg/g_creat} (Normal) Range: 0.0-30.0 Albumin, Urine <3.0 ug/mL (Normal) Creatinine, Urine 58.8 mg/dL (Normal) 12-Lkj-176675:41 METABOLIC PANEL, COMPREHENSIVE Comments: PATIENT WAS FASTINGPERFORMED BY: [facility] Ztmmeb5700 [facility] [id number] (15654) ALT (SGPT) 23 [iU]/L (Normal) Range: 0-32 [...] 8-27 Glucose 111 mg/dL (Abnormal) Range: 65-99 08-Fit-831126:41 LIPID PANEL (06288) Comments: PATIENT WAS FASTINGPERFORMED BY: LabCoFlipxing.com Chxuhf1977 [facility] [id number] LDL/HDL Ratio 2.8 {ratio} (Normal) Range: 0.0-3.2 Comments: LDL/HDL Ratio Men Women 1/2 Avg.Risk 1.0 1.5 Av g.Risk 3.6 3.2 2X Avg.Risk 6.2 5.0 3X Avg.Risk 8.0 6.1 LDL Cholesterol Calc 128 mg/dL (Abnormal) Range: 0-99 VLDL Cholesterol Kareem 29 mg/dL (Normal) Range: 5-40 HDL Cholesterol 46 mg/dL (Normal) Triglycerides 145 mg/dL (Normal) Range: 0-149 Cholesterol, Total 203 mg/dL (Abnormal) Range: 100-199 47-Wzu-296789:41 CBC with auto diff (52062) Comments: PATIENT WAS FASTINGPERFORMED BY: [facility]CoRe[facility] South JerseyUqqchp0327 [facility] [id number] Immature Grans (Abs) 0.0 {x10E3/uL} (Normal) Range: [...] 3.77-5.28 WBC 6.3 {x10E3/uL} (Normal) Range: 3.4-10.8 85-Pfj-726220:41 TSH (THYROID STIMULATING Comments: PATIENT WAS FASTINGPERFORMED BY: [facility] Ntebsq7353 [facility] [id number] HORMONE) (45655) TSH 1.470 {uIU/mL} (Normal) Range: 0.450-4.500 :10 HgA1C , Office (85871) HgA1C , Office 5.9 % (Normal) Range: 4.6 - 7.1 :10 Blood Glucose , Office (00461) Blood Glucose , Office 104 (Normal) :46 HgA1C , Office (47971) HgA1C , Office 5.8 % (Normal) Range: 4.6 - 7.1 :46 Blood Glucose , Office (22686) Blood Glucose , Office 106 (Normal) :27 CBC W/Diff, Automated Comments: [facility] [address] [place], [place], [address] Absolute Lymph 1.67 {X10_3/ul} (Normal) Range: 0.83-4.51 [...] 4.2-5.4 WBC 6.3 K/mm3 (Normal) Range: 4.4-11.0 60-Xvl-59699:27 Comprehensive Metabolic Profil Comments: [facility] [address] [place], [address] GAP 7 (Normal) Range: 5-15 CO2 30.0 [...] 7-18 GLU 95 mg/dL (Normal) Range: 70-110 :27 Lipid Profile Comments: [facility] [address] [place], [address] VLDL 26 mg/dL (Normal) Range: 5-40 LDL [...] 200-240 mg/dL Borderline >240 mg/dL High Risk :27 Microalb:Creat Ratio,Random UR Comments: [facility] [address] [place], [place], [address] MALB:CREAT 11.5 {mg/g_CRE} (Normal) MICROALBUMIN,UR 5.9 mg/L (Normal) UR CREAT 51.10 mg/dL (Normal) 98-Cen-86850:27 Thyroid Stim Hormone (TSH) Comments: [facility] [address] [place], [address] TSH 3.83 {uIU/mL} (Abnormal) Range: 0.358-3.74 83-Xci-19516:27 Urinalysis, Complete Comments: How was Urine Obtained? CLEAN [facility] [address] [place], [address] MUCUS, URINE 0 SEEN {/hpf} [...] (Normal) CLARITY Clear (Normal) COLOR Yellow (Normal) 35-Aaq-25457:27 Vitamin D,25 Hydroxy Comments: [facility] [address] [place], [place], [address] Vitamin D 25-OH 30.8 ng/mL (Normal) Comments: Vitamin D 25(OH) Status Range Deficiency <20 ng/mL (50nmol/L) Insuffciency 20 - 30 ng/mL (50 - 75 nmol/L) Sufficiency 30 - 100 ng/mL (75 - 250 nmol/L) Toxicity >100 ng/mL (>250 nmol/L) 2-Hmp-677228:26 RETICULOCYTE COUNT (97570) Comments: PATIENT NOT FASTINGPERFORMED BY: LabCoVertical [employer] [facility] [id number] Reticulocyte Count 1.7 % (Normal) Range: 0.6-2.6 5-Iaw-974050:26 VITAMIN B-12 (CYANOCOBALAMIN) Comments: PATIENT NOT FASTINGPERFORMED BY: [employer] [facility] [id number] (72960) Vitamin B12 363 pg/mL (Normal) Range: 211-946 51-Kwf-396206:27 CBC With Differential/Platelet Comments: PATIENT WAS FASTINGPERFORMED BY: [facility] Nuve [facility] [id number] Immature Grans (Abs) 0.0 {x10E3/uL} (Normal) Range: [...] 3.77-5.28 WBC 6.4 {x10E3/uL} (Normal) Range: 3.4-10.8 55-Uhd-621259:27 Comp. Metabolic Panel (14) Comments: PATIENT WAS FASTINGPERFORMED BY: LabCoRehabilitation Hospital of South JerseyHsheun3127 [facility] [id number] ALT (SGPT) 20 [iU]/L (Normal) Range: 0-32 [...] Glucose, Serum 108 mg/dL (Abnormal) Range: 65-99 31-Eic-685548:27 Lipid Panel With LDL/HDL Comments: PATIENT WAS FASTINGPERFORMED BY: [employer]70 [facility] [id number] Ratio LDL/HDL Ratio 3.1 {ratio_units} Range: 0.0-3.2 [...] 3.800 {uIU/mL} Comments: PATIENT WAS FASTINGPERFORMED BY: ZYOMYX6370 [facility] [id number] 10:27 (Normal) Range: 0.450-4.500 20-Aug-2017 Unable to Void SPRCS (Normal) Comments: PATIENT WAS FASTINGPERFORMED BY: LabCoRehabilitation Hospital [facility] South JerseyPbnbft2698 [facility] [id number] 10:27 Comments: The patient was not able [...] ng/mL (Abnormal) Comments: PATIENT WAS FASTINGPERFORMED BY: [facility]CoRe[facility] Hospital [facility] South JerseyNqstmt4500 [facility] [id number] 10:27 Range: 30.0-100.0 Comments: Vitamin D deficiency has been defined by the [place] of[place]icine and an Endocrine Society practice guideline as alevel of serum 25-OH vitamin D less than 20 ng/mL (1,2).The Endocrine Society went on to further define vitamin Dinsufficiency as a level between 21 and 29 ng/mL (2).1. IOM ([place] of Medicine). 2010. Dietary reference intakes for calcium and D. [place]: The National Academies Press.2. Willow MF, [place], Contreras BRANNON, et al. Evaluation, treatment, and prevention of vitamin D deficiency: an Endocrine Society clinical practice guideline. JCEM. 2010; 96(7):1911-30. 11-Qou-25318:52 HgA1C , Office (24557) HgA1C , Office 5.7 % (Normal) Range: 4.6 - 7.1 12-Ktl-406430:04 HgA1C , Office (00477) HgA1C , Office 5.8 % (Normal) Range: 4.6 - 7.1 47-Kot-694739:35 Basic Metabolic Profile (BMP) Comments: [facility] [address] [place], [address] GAP 3 (Abnormal) Range: 5-15 CO2 34.0 [...] 7-18 GLU 99 mg/dL (Normal) Range: 70-110 34-Twb-604895:35 CBC-Complete Blood Cnt No Diff Comments: [facility] [address] [place], [place], [address] MPV 9.3 fL (Normal) Range: 6.2-12.0 PLT [...] 4.2-5.4 WBC 7.0 K/mm3 (Normal) Range: 4.4-11.0 22-Xgo-485429:35 Thyroid Stim Hormone (TSH) Comments: [facility] [address] [place], [place], [address] TSH 0.21 {uIU/mL} (Abnormal) Range: 0.358-3.74 43-Xyr-007030:12 MRSA/SAID SCREEN Comments: [facility] [address] [place], [address] MRSA+SAID SCRN See Note (Normal) Comments: Results called on 04/23/17 by NINA to /WIN Mcneil [phone].MRSA/SAID SCRNS. AUREUS S. aureus PositiveMRSA MRSA Negative :22 C-Reactive Protein (75974) Comments: PATIENT NOT FASTINGPERFORMED BY: [facility] Ddoqgr6281 [facility] [id number] C-Reactive Protein, Quant 4.5 mg/L (Normal) Range: 0.0-4.9 :22 Sed Rate Erythrocyte (39867) Comments: PATIENT NOT FASTINGPERFORMED BY: [facility] Hcistq6320 [facility] [id number] Sedimentation Rate[facility] 17 mm/h (Normal) Range: 0-40 :22 CBC, PLATELETS & MANUAL DIFF Comments: PATIENT NOT FASTINGPERFORMED BY: [facility] Deolfg0871 [facility] [id number] (47809) Immature Grans (Abs) 0.0 {x10E3/uL} (Normal) Range: [...] (Normal) Range: 3.4-10.8 :46 Metabolic Panel, Basic (54597) Comments: PATIENT NOT FASTINGPERFORMED BY: [facility] Dymwuv0192 [facility] [id number] Calcium, Serum 9.6 mg/dL (Normal) Range: 8.7-10.3 [...] 65-99 :07 Serum Creatinine AND GFR Comments: [facility] [address] [place], [place], [address] EST GFR - AA 112 mL/min (Normal) Comments: GFR Calc EST GFR 92 mL/min (Normal) Comments: Non- GFR Calc CREAT,SERUM 0.68 mg/dL (Normal) Range: 0.55-1.02 Comments: The validity of the calculated GFR AND GFRAA in patients over70 years has not been determined. Clinical correlation isessential. :04 HgA1C , Office (60114) HgA1C , Office 5.6 % (Normal) Range: 4.6 - 7.1 :04 Blood Glucose , Office (95678) Blood Glucose , Office 93 (Normal) 86-Hux-837611:38 TSH (80835) Comments: PATIENT WAS FASTINGPERFORMED BY: [facility] Snhdzv2843 [facility] [id number] TSH 1.530 {uIU/mL} (Normal) Range: 0.450-4.500 67-Kge-148170:38 METABOLIC PANEL, COMPREHENSIVE Comments: PATIENT WAS FASTINGPERFORMED BY: [facility]CoRe[facility] South JerseyFqbiuu0901 [facility] [id number] (53772) ALT (SGPT) 23 [iU]/L (Normal) Range: 0-32 [...] Glucose, Serum 113 mg/dL (Abnormal) Range: 65-99 59-Clv-212034:38 CBC W/AUTO DIFF WBC Comments: PATIENT WAS FASTINGPERFORMED BY: [facility] Nqucqp8837 [facility] [id number] Information: 250208,[id number] (98457) Immature Grans (Abs) 0.0 {x10E3/uL} (Normal) Range: [...] 3.77-5.28 WBC 6.9 {x10E3/uL} (Normal) Range: 3.4-10.8 20-Mmb-421495:20 IGP, Aptima HPV, Comments: Source.............Cervical;EndocervicalNo. of containers..01 CYTYC Thin Prep VialPATIENT NOT FASTINGPERFORMED BY: =Do [facility] [address] [id number] BY: MYRA Diggs rfx 16/18,[address] [id number] HPV Aptima Negative (Normal) Comments: This test [...] squamous metaplasticcells (endocervical component) are present.Z01.419Soco Hamilton, Pupil Personnel Services Director (ASCP) 16-Zhy-223743:20 Thin prep Pap Comments: Source.............Cervical;EndocervicalNo. of containers..01 CYTYC Thin Prep VialPATIENT NOT FASTINGPERFORMED BY: =G LabSwingPalSiokzp[address] [id number] BY: MYRA Diggs (44960) (no STD [address] [id number] Information: [id number] testing) Age Gdln ACOG Testing 30-65 (Normal) 01-Apr-20169:50 Microscopic Examination Comments: PATIENT WAS FASTINGPERFORMED BY: [facility] Hjxmye1961 Fara [facility] [id number] Bacteria None seen (Normal) Mucus Threads Present (Normal) Epithelial Cells (non renal) 0-10 {/hpf} (Normal) Range: 0 - 10 RBC None seen {/hpf} (Normal) Range: 0 - 2 WBC 0-5 {/hpf} (Normal) Range: 0 - 5 :53 HgA1C , Office (72492) HgA1C , Office 6.0 % (Normal) Range: 4.6 - 7.1 :53 Blood Glucose , Office (68439) Blood Glucose , Office 92 (Normal) :50 CALCIFIDIOL (93405) VIT D 25 Comments: PATIENT WAS FASTINGPERFORMED BY: LabCoRehabilitation Hospital of South JerseyTeyixr4066 [facility] [id number] Vitamin D, 25-Hydroxy 24.7 ng/mL (Abnormal) Range: 30.0-100.0 Comments: Vitamin D deficiency has been defined by the [place] [facility] and an Endocrine Society practice guideline as alevel of serum 25-OH vitamin D less than 20 ng/mL (1,2).The Endocrine Society went on to further define vitamin Dinsufficiency as a level between 21 and 29 ng/mL (2).1. IOM ([place] of Medicine). 2010. Dietary reference intakes for calcium and D. [place]: The National Academies Press.2. Willow MF, [place], Contreras BRANNON, et al. Evaluation, treatment, and prevention of vitamin D deficiency: an Endocrine Society clinical practice guideline. JCEM. 2010; 96(7):1911-30. :50 MICROALBUMIN: CREATININE RATIO Comments: PATIENT WAS FASTINGPERFORMED BY: LabT-RAM SemiconductorRehabilitation Hospital of South JerseyRhqlcj2569 [facility] [id number] (97491) AND (20499) Microalb/Creat Ratio <9.7 {mg/g_creat} (Normal) Range: 0.0-30.0 Microalbumin, Urine <3.0 ug/mL (Normal) Range: 0.0-17.0 Comments: Effective April 06, 2016 the reference interval for Microalbumin, Urine will be changing to: Not Estab. Creatinine, Urine 30.8 mg/dL (Normal) Range: 15.0-278.0 Comments: Effective April 06, 2016 the reference interval for Creatinine, Urine will be changing to: Not Estab. :50 URINALYSIS, W/ MICRO (46228) Comments: PATIENT WAS FASTINGPERFORMED BY: LabCoRehabilitation Hospital of South JerseyXfhnzi4675 [facility] [id number] Microscopic Examination See below: (Normal) Comments: Microscopic was indicated and was performed. Microscopic Examination MICRON (Normal) Comments: Microscopic follows if indicated. Nitrite, Urine Negative (Normal) Urobilinogen,Semi-Qn 0.2 mg/dL (Normal) Range: 0.2-1.0 Bilirubin Negative (Normal) Occult Blood Negative (Normal) Ketones Negative (Normal) Glucose Negative (Normal) Protein Negative (Normal) WBC Esterase Negative (Normal) Appearance Clear (Normal) Urine-Color Yellow (Normal) pH 7.0 (Normal) Range: 5.0-7.5 Specific [place] 1.008 (Normal) Range: 1.005-1.030 01-Apr-20169:50 METABOLIC PANEL, COMPREHENSIVE Comments: PATIENT WAS FASTINGPERFORMED BY: [facility] LabCoRehabilitation Hospital of South JerseyByjhcj2358 [facility] [id number] (16542) ALT (SGPT) 22 [iU]/L (Normal) Range: 0-32 [...] Glucose, Serum 96 mg/dL (Normal) Range: 65-99 01-Apr-20169:50 CBC W/AUTO DIFF WBC Comments: PATIENT WAS FASTINGPERFORMED BY: [facility] Qlbkph9305 [facility] [id number] Information: [id number] (81777) Immature Grans (Abs) 0.0 {x10E3/uL} (Normal) Range: [...] {x10E3/uL} (Normal) Range: 3.4-10.8 :50 LIPID PANEL (64008) Comments: PATIENT WAS FASTINGPERFORMED BY: LabCoRehabilitation Hospital of South JerseyGkxcbg6284 [facility] [id number] LDL/HDL Ratio 3.0 {ratio_units} (Normal) Range: 0.0-3.2 [...] 230 mg/dL (Abnormal) Range: 100-199 :50 TSH (84126) Comments: PATIENT WAS FASTINGPERFORMED BY: LabCoRehabilitation Hospital of South JerseyHazmvz4315 [facility] [id number] TSH 12.050 {uIU/mL} (Abnormal) Range: 0.450-4.500 :54 HgA1C , Office (54302) HgA1C , Office 5.7 % (Normal) Range: 4.6 - 7.1 :54 Blood Glucose , Office (81833) Blood Glucose , Office 96 (Normal) :05 HgA1C , Office (58174) HgA1C , Office 6.1 % (Normal) Range: 4.6 - 7.1 :05 Blood Glucose , Office (86905) Blood Glucose , Office 126 (Normal) :12 CBC W/Diff, Automated Comments: [facility] [address] [place], [address] Absolute Lymph 1.34 {X10_3/ul} (Normal) Range: 0.83-4.51 [...] Range: 4.4-11.0 04-Sep-20158:12 Comprehensive Metabolic Profil Comments: [facility] [address] [place], [address] GAP 7 (Normal) Range: 5-15 CO2 31.0 [...] (Normal) Range: 70-110 :12 Lipid Profile Comments: [facility] [address] [place], [address] VLDL 34 mg/dL (Normal) Range: 5-40 LDL [...] 200-240 mg/dL Borderline >240 mg/dL High Risk 04-Sep-20158:12 Microalb:Creat Ratio,Random UR Comments: [facility] [address] [place], [address] MALB:CREAT 10.0 {mg/g_CRE} (Normal) MICROALBUMIN,UR 13.6 mg/L (Normal) UR CREAT 125.00 mg/dL (Normal) 04-Sep-20158:12 Thyroid Stim Hormone (TSH) Comments: [facility] [address] [place], [address] TSH 5.36 {uIU/mL} (Abnormal) Range: 0.358-3.74 :12 Urinalysis, Complete Comments: How was Urine Obtained? CLEAN [facility] [address] [place], [address] MUCUS, URINE 0 SEEN {/hpf} [...] COLOR Yellow (Normal) :03 HgA1C , Office (69864) HgA1C , Office 5.8 % (Normal) Range: 4.6 - 7.1 :03 Blood Glucose , Office (64905) Blood Glucose , Office 120 (Normal) 85-Yku-699547:09 Rapid Flu (82712 x 2) Influenza A Ag positive b (Normal) 36-Gqq-033795:41 Culture, Wound Comments: Test performed at:[facility] [address] [place] [address] CUW See Note (Normal) Comments: Comments: RIGHT [...] $ 1 S(NF) indicates non-formulary drug at [facility]. Approval by Infectious Disease Specialist required before non-formulary drugs may b e ordered and/or dispensed. * CLSI guidelines does not recommend testing of cephalosporins. This interpretation is deduced from Beta- lactam/penicillin results. :41 Microscopic Examination Comments: PATIENT WAS FASTINGPERFORMED BY: Tribridge [facility] [id number] Bacteria None seen (Normal) Mucus Threads Present (Normal) Epithelial Cells (non renal) 0-10 {/hpf} (Normal) Range: 0 - 10 RBC 0-2 {/hpf} (Normal) Range: 0 - 2 WBC 0-5 {/hpf} (Normal) Range: 0 - 5 :41 TSH (24638) Comments: PATIENT WAS FASTINGPERFORMED BY: [employer] Goarsu5603 Chaudhari [facility] [id number] TSH 2.840 {uIU/mL} (Normal) Range: 0.450-4.500 :41 URINALYSIS, W/ MICRO (49419) Comments: PATIENT WAS FASTINGPERFORMED BY: [employer] Nuve [facility] [id number] Microscopic Examination See below: (Normal) Comments: Microscopic was indicated and was performed. Microscopic Examination MICRON (Normal) Comments: Microscopic follows if indicated. Nitrite, Urine Negative (Normal) Urobilinogen,Semi-Qn 0.2 mg/dL (Normal) Range: 0.0-1.9 Bilirubin Negative (Normal) Occult Blood Negative (Normal) Ketones Negative (Normal) Glucose Negative (Normal) Protein Negative (Normal) WBC Esterase Negative (Normal) Appearance Clear (Normal) Urine-Color Yellow (Normal) pH 6.5 (Normal) Range: 5.0-7.5 Specific [place] 1.021 (Normal) Range: 1.005-1.030 :41 MICROALBUMIN: CREATININE RATIO Comments: PATIENT WAS FASTINGPERFORMED BY: [employer] Jlxlbb8795 Chaudhari [facility] [id number] (98434) AND (40645) Microalb/Creat Ratio <4.6 {mg/g_creat} (Normal) Range: 0.0-30.0 Microalbumin, Urine <3.0 ug/mL (Normal) Range: 0.0-17.0 Creatinine, Urine 64.9 mg/dL (Normal) Range: 15.0-278.0 :41 METABOLIC PANEL, COMPREHENSIVE Comments: PATIENT WAS FASTINGPERFORMED BY: ZYOMYX6370 Chaudhari [facility] [id number] (68916) ALT (SGPT) 22 [iU]/L (Normal) Range: 0-32 [...] mg/dL (Normal) Range: 65-99 :41 LIPID PANEL (35088) Comments: PATIENT WAS FASTINGPERFORMED BY: 21viaNet6370 [facility] [id number] LDL/HDL Ratio 2.4 {ratio_units} (Normal) Range: 0.0-3.2 [...] auto diff Comments: PATIENT WAS FASTINGPERFORMED BY: GlobalServeRehabilitation Hospital of South JerseyZonucq9893 [facility] [id number] Information: [id number] (99630) Immature Grans (Abs) 0.0 {x10E3/uL} (Normal) Range: [...] Range: 3.4-10.8 :30 Blood Glucose , Office (86537) Blood Glucose , Office 113 (Normal) :30 HgA1C , Office (03426) HgA1C , Office 6.1 % (Normal) Range: 4.6 - 7.1 :55 Microscopic Examination Comments: PATIENT WAS FASTINGPERFORMED BY: [facility] Hvomwq9269 [facility] [id number] Bacteria None seen (Normal) Mucus Threads Present (Normal) Crystal Type Amorphous Sediment (Normal) Crystals Present (Abnormal) Epithelial Cells (non renal) 0-10 {/hpf} (Normal) Range: 0 - 10 RBC 0-2 {/hpf} (Normal) Range: 0 - 2 WBC 0-5 {/hpf} (Normal) Range: 0 - 5 :30 Blood Glucose , Office (61642) Blood Glucose , Office 79 (Normal) 24-Ccd-616971:30 HgA1C , Office (31102) HgA1C , Office 6.0 % (Normal) Range: 4.6 - 7.1 :55 TSH (98048) Comments: PATIENT WAS FASTINGPERFORMED BY: [facility]6370 [facility] [id number] TSH 1.750 {uIU/mL} (Normal) Range: 0.450-4.500 :55 URINALYSIS, W/ MICRO (74279) Comments: PATIENT WAS FASTINGPERFORMED BY: [facility]6370 [facility] [id number] Microscopic Examination See below: (Normal) Comments: Microscopic was indicated and was performed. Microscopic Examination MICRON (Normal) Comments: Microscopic follows if indicated. Nitrite, Urine Negative (Normal) Urobilinogen,Semi-Qn 0.2 mg/dL (Normal) Range: 0.0-1.9 Bilirubin Negative (Normal) Occult Blood Negative (Normal) Ketones Negative (Normal) Glucose Negative (Normal) Protein Trace (Normal) WBC Esterase Negative (Normal) Appearance Cloudy (Abnormal) Urine-Color Yellow (Normal) pH 8.0 (Abnormal) Range: 5.0-7.5 Specific [place] 1.019 (Normal) Range: 1.005-1.030 :55 MICROALBUMIN: CREATININE RATIO Comments: PATIENT WAS FASTINGPERFORMED BY: [place] 4370770 [facility] [id number] (47728) AND (78803) Microalb/Creat Ratio 5.1 {mg/g_creat} (Normal) Range: 0.0-30.0 Microalbumin, Urine 3.7 ug/mL (Normal) Range: 0.0-17.0 Creatinine, Urine 71.9 mg/dL (Normal) Range: 15.0-278.0 :55 METABOLIC PANEL, COMPREHENSIVE Comments: PATIENT WAS FASTINGPERFORMED BY: [place] 4370770 [facility] [id number] (29919) ALT (SGPT) 19 [iU]/L (Normal) Range: 0-32 [...] Glucose, Serum 104 mg/dL (Abnormal) Range: 65-99 05-Fst-526898:55 LIPID PANEL (72834) Comments: PATIENT WAS FASTINGPERFORMED BY: [facility]EC[facility] [id number] LDL/HDL Ratio 3.2 {ratio_units} (Normal) Range: 0.0-3.2 LDL Cholesterol Calc 145 mg/dL (Abnormal) Range: 0-99 VLDL Cholesterol Kareem 37 mg/dL (Normal) Range: 5-40 HDL Cholesterol 46 mg/dL (Normal) Comments: According to ATP-III Guidelines, HDL-C >59 mg/dL is considered anegative risk factor for CHD. Triglycerides 183 mg/dL (Abnormal) Range: 0-149 Cholesterol, Total 228 mg/dL (Abnormal) Range: 100-199 08-Dis-764817:55 CBC W/AUTO DIFF WBC Comments: PATIENT WAS FASTINGPERFORMED BY: ZYOMYX6370 [facility]Mer[facility] [id number] Information: [id number] (03974) Immature Grans (Abs) 0.0 {x10E3/uL} (Normal) Range: [...] 3.77-5.28 WBC 6.2 {x10E3/uL} (Normal) Range: 3.4-10.8 67-Rru-179433:09 HgA1C , Office (96897) HgA1C , Office 6.0 % (Normal) Range: 4.6 - 7.1 84-Aaf-165546:14 TSH (13732) Comments: PATIENT WAS FASTINGPERFORMED BY: LabCoRehabilitation Hospital of South JerseyPupvsg1669 [facility] [id number] TSH 0.330 {uIU/mL} (Abnormal) Range: 0.450-4.500 18-Qpr-090701:14 LIPID PANEL (72019) Comments: PATIENT WAS FASTINGPERFORMED BY: LabCoRehabilitation Hospital of South JerseySmecus8232 [facility] [id number] LDL/HDL Ratio 3.0 {ratio_units} (Normal) Range: 0.0-3.2 LDL Cholesterol Calc 132 mg/dL (Abnormal) Range: 0-99 VLDL Cholesterol Kraeem 31 mg/dL (Normal) Range: 5-40 HDL Cholesterol 44 mg/dL (Normal) Comments: According to ATP-III Guidelines, HDL-C >59 mg/dL is considered anegative risk factor for CHD. Triglycerides 155 mg/dL (Abnormal) Range: 0-149 Cholesterol, Total 207 mg/dL (Abnormal) Range: 100-199 70-Saw-799560:14 CMV ANTIBODY (61324) Comments: PATIENT WAS FASTINGPERFORMED BY: GlobalServeKaren [place] 1610170 [facility] [id number] Cytomegalovirus (CMV) Ab, IgG >10.00 U/mL (Abnormal) Range: 0.00-0.59 Comments: Negative <0.60 Equivocal 0.60 - 0.69 Positive >0.69 20-Vdr-096024:14 CMV IGM ANTBDY (50500) Comments: PATIENT WAS FASTINGPERFORMED BY: GlobalServeRehabilitation Hospital of South JerseyGethse4069 [facility] [id number] Cytomegalovirus (CMV) Ab, IgM <30.0 AU/mL (Normal) Range: 0.0-29.9 Comments: Negative <30.0 Equivocal 30.0 - 34.9 Positive >34.9 A positive result is generally indicative of acute infection, reactivation or persistent IgM production. 29-Qmq-810134:14 EB ANTIBODY VIRAL CAPSID Comments: PATIENT WAS FASTINGPERFORMED BY: GlobalServeKaren [place] 1610170 [facility] [id number] (92613) X2 Interpretation: SPRCS (Normal) Comments: EBV Interpretation [...] <36.0 Equivocal 36.0 - 43.9 Positive >43.9 31-Png-739709:14 LDH (LD) (LACTATE DEHYDROGENASE) Comments: PATIENT WAS FASTINGPERFORMED BY: [employer] Nuve [facility] [id number] (36472) LDH 188 [iU]/L (Normal) Range: 0-214 93-Tpm-053939:14 JAY (ANTINUCLEAR ANTIBODY) Comments: PATIENT WAS FASTINGPERFORMED BY: GlobalServeMimbres Memorial HospitalSllykq7068 [facility] [id number] (22566) JAY Direct Negative (Normal) 43-Acz-652117:14 C-REACTIVE PROTEIN (78343) Comments: PATIENT WAS FASTINGPERFORMED BY: [employer] Nuve [facility] [id number] C-Reactive Protein, Quant 6.4 mg/L (Abnormal) Range: 0.0-4.9 49-Qwf-809634:14 SED RATE ERYTHROCYTE (28294) Comments: PATIENT WAS FASTINGPERFORMED BY: GlobalServeRehabilitation Hospital of South JerseySgbfzb5982 [facility] [id number] Sedimentation Rate-Westergren 7 mm/h (Normal) Range: 0-40 40-Qbn-264192:14 CBC WITH MANUAL DIFF Comments: PATIENT WAS FASTINGPERFORMED BY: GlobalServeRehabilitation Hospital of South JerseyGcwofi5402 [facility] [id number] Information: [id number] (78165) Immature Grans (Abs) 0.0 {x10E3/uL} (Normal) Range: [...] 3.77-5.28 WBC 6.9 {x10E3/uL} (Normal) Range: 3.4-10.8 04-Fux-389443:14 METABOLIC PANEL, COMPREHENSIVE Comments: PATIENT WAS FASTINGPERFORMED BY: [facility]Co Yjrlyk5230 [facility] [id number] (81902) ALT (SGPT) 18 [iU]/L (Normal) Range: 0-32 [...] Range: 65-99 :09 Blood Glucose , Office (20824) Blood Glucose , Office 89 (Normal) :09 HgA1C , Office (52112) HgA1C , Office 6.0 % (Normal) Range: 4.6 - 7.1 22-Zno-425490:28 HgA1C , Office (25888) HgA1C , Office 6.1 % (Normal) Range: 4.6 - 7.1 :26 Blood Glucose , Office (83015) Blood Glucose , Office 94 (Normal) :26 HgA1C , Office (29517) HgA1C , Office 5.7 % (Normal) Range: 4.6 - 7.1 :47 Vitamin D Hydroxy (73191) Comments: PATIENT WAS FASTINGPERFORMED BY: LabCoRehabilitation Hospital of South JerseyFpcism2772 [facility] [id number] Vitamin D, 25-Hydroxy 34.9 ng/mL (Normal) Range: 30.0-100.0 Comments: Vitamin D deficiency has been defined by the [place] of[place]icine and an Endocrine Society practice guideline as alevel of serum 25-OH vitamin D less than 20 ng/mL (1,2).The Endocrine Society went on to further define vitamin Dinsufficiency as a level between 21 and 29 ng/mL (2).1. IOM ([place] of Medicine). 2010. Dietary reference intakes for calcium and D. [place]: The National Academies Press.2. Willow MF, Tyler NATOIN, Contreras BRANNON, et al. Evaluation, treatment, and prevention of vitamin D deficiency: an Endocrine Society clinical practice guideline. JCEM. 2010; 96(7):1911-30. :47 URINALYSIS, W/ MICRO (07697) Comments: PATIENT WAS FASTINGPERFORMED BY: [facility] [place] [id number] Microscopic Examination See below: (Normal) Nitrite, Urine Negative (Normal) Urobilinogen,Semi-Qn 0.2 mg/dL (Normal) Range: 0.0-1.9 Bilirubin Negative (Normal) Occult Blood Negative (Normal) Ketones Negative (Normal) Glucose Negative (Normal) Protein Negative (Normal) WBC Esterase 2+ (Abnormal) Appearance Clear (Normal) Urine-Color Yellow (Normal) pH 7.5 (Normal) Range: 5.0-7.5 Specific [place] 1.016 (Normal) Range: 1.005-1.030 :47 MICROALBUMIN: CREATININE RATIO Comments: PATIENT WAS FASTINGPERFORMED BY: [employer] [facility] [place] [id number] (33229) AND (46590) Microalb/Creat Ratio 9.1 {mg/g_creat} (Normal) Range: 0.0-30.0 Microalbumin, Urine 5.6 ug/mL (Normal) Range: 0.0-17.0 Creatinine, Urine 61.6 mg/dL (Normal) Range: 15.0-278.0 :47 METABOLIC PANEL, COMPREHENSIVE Comments: PATIENT WAS FASTINGPERFORMED BY: [facility] [place] [id number] (36574) ALT (SGPT) 22 [iU]/L (Normal) Range: 0-32 [...] mg/dL (Abnormal) Range: 65-99 :47 LIPID PANEL (49174) Comments: PATIENT WAS FASTINGPERFORMED BY: [employer] Krxyrn8164 [facility] [id number] LDL/HDL Ratio 2.8 {ratio_units} (Normal) Range: 0.0-3.2 [...] MANUAL DIFF Comments: PATIENT WAS FASTINGPERFORMED BY: 21viaNet6370 [facility] [id number] Information: [id number] (74938) Immature Grans (Abs) 0.0 {x10E3/uL} (Normal) Range: [...] 6.5 {x10E3/uL} (Normal) Range: 4.0-10.5 :47 TSH (07940) Comments: PATIENT WAS FASTINGPERFORMED BY: [employer] NavmiiEC[facility] [id number] TSH 2.380 {uIU/mL} (Normal) Range: 0.450-4.500 :47 Microscopic Examination Comments: PATIENT WAS FASTINGPERFORMED BY: [employer] Xbrxov8543 Chaudhari [facility] [id number] Bacteria Few (Normal) Mucus Threads Present (Normal) Crystal Type Amorphous Sediment (Normal) Crystals Present (Abnormal) Epithelial Cells (non renal) 0-10 {/hpf} (Normal) Range: 0 - 10 RBC 0-3 {/hpf} (Normal) Range: 0 - 3 WBC 11-30 {/hpf} (Abnormal) Range: 0 - 5 :46 Anti-TPO Antibody (60192) Comments: PATIENT NOT FASTINGPERFORMED BY: SettlewareRehabilitation Hospital of South JerseyHtxmpy1500 [facility] [id number] Thyroid Peroxidase (TPO) Ab 113 {IU/mL} (Abnormal) Range: 0-34 :46 TSH (21034) Comments: PATIENT NOT FASTINGPERFORMED BY: [employer] NavmiiEC[facility] Hospital [id number] TSH 0.590 {uIU/mL} (Normal) Range: 0.450-4.500 :46 T4, FREE (THYROXINE) (47599) Comments: PATIENT NOT FASTINGPERFORMED BY: [facility] Nqrawv2377 [facility] [place] [id number] T4,Free(Direct) 1.63 ng/dL (Normal) Range: 0.82-1.77 :46 T3, FREE (TRIDOTHYRONINE) (86774) Comments: PATIENT NOT FASTINGPERFORMED BY: [facility] Dwfjta2648 [facility] [id number] Triiodothyronine,Free,Serum 3.1 pg/mL (Normal) Range: 2.0-4.4 :34 Blood Glucose , Office (76808) Blood Glucose , Office 89 (Normal) :34 HgA1C , Office (85577) HgA1C , Office 5.7 % (Normal) Range: 4.6 - 7.1 :52 Microscopic Examination Comments: PATIENT NOT FASTINGPERFORMED BY: [facility]6370 [facility] [id number] Bacteria None seen (Normal) Mucus Threads Present (Normal) Epithelial Cells (non renal) 0-10 {/hpf} (Normal) Range: 0 - 10 RBC 0-3 {/hpf} (Normal) Range: 0 - 3 WBC 0-5 {/hpf} (Normal) Range: 0 - 5 :52 Vitamin D Hydroxy (89176) Comments: PATIENT NOT FASTINGPERFORMED BY: [facility] Lpdjtf1790 [facility] [id number] Vitamin D, 25-Hydroxy 24.5 ng/mL (Abnormal) Range: 30.0-100.0 Comments: Vitamin D deficiency has been defined by the [place] ofMedicine and an Endocrine Society practice guideline as alevel of serum 25-OH vitamin D less than 20 ng/mL (1,2).The Endocrine Society went on to further define vitamin Dinsufficiency as a level between 21 and 29 ng/mL (2).1. IOM ([place] of Medicine). 2010. Dietary reference intakes for calcium and D. [place]: The National Academies Press.2. Willow MF, [place], Contreras BRANNON, et al. Evaluation, treatment, and prevention of vitamin D deficiency: an Endocrine Society clinical practice guideline. JCEM. 2010; 96(7):1911-30. :52 TSH (32337) Comments: PATIENT NOT FASTINGPERFORMED BY: [employer] Yxnoqo5465 Chaudhari [facility] [id number] TSH 6.560 {uIU/mL} (Abnormal) Range: 0.450-4.500 :52 URINALYSIS, W/ MICRO (57817) Comments: PATIENT NOT FASTINGPERFORMED BY: [employer] Opnyya3403 [facility] [id number] Microscopic Examination See below: (Normal) Microscopic Examination MICRON (Normal) Comments: Microscopic follows if indicated. Nitrite, Urine Negative (Normal) Urobilinogen,Semi-Qn 0.2 mg/dL (Normal) Range: 0.0-1.9 Bilirubin Negative (Normal) Occult Blood Negative (Normal) Ketones Negative (Normal) Glucose Negative (Normal) Protein Negative (Normal) WBC Esterase Negative (Normal) Appearance Clear (Normal) Urine-Color Yellow (Normal) pH 7.5 (Normal) Range: 5.0-7.5 Specific [place] 1.019 (Normal) Range: 1.005-1.030 :52 MICROALBUMIN: CREATININE RATIO Comments: PATIENT NOT FASTINGPERFORMED BY: [employer] Tiganw7477 [facility] [id number] (43071) AND (03511) Microalb/Creat Ratio 15.5 {mg/g_creat} (Normal) Range: 0.0-30.0 Microalbumin, Urine 13.8 ug/mL (Normal) Range: 0.0-17.0 Creatinine, Urine 89.1 mg/dL (Normal) Range: 15.0-278.0 :52 METABOLIC PANEL, COMPREHENSIVE Comments: PATIENT NOT FASTINGPERFORMED BY: [employer] Bxjzxq6858 [facility] [id number] (85587) ALT (SGPT) 24 [iU]/L (Normal) Range: 0-32 [...] mg/dL (Abnormal) Range: 65-99 :52 LIPID PANEL (54436) Comments: PATIENT NOT FASTINGPERFORMED BY: [facility] LabT-RAM Semiconductorrp Tpnnwz5017 [facility] [id number] LDL Cholesterol Calc 163 mg/dL (Abnormal) Range: 0-99 LDL/HDL Ratio 2.9 {ratio_units} (Normal) Range: 0.0-3.2 VLDL Cholesterol Kareem 28 mg/dL (Normal) Range: 5-40 HDL Cholesterol 56 mg/dL (Normal) Comments: According to ATP-III Guidelines, HDL-C >59 mg/dL is considered anegative risk factor for CHD. Triglycerides 140 mg/dL (Normal) Range: 0-149 Cholesterol, Total 247 mg/dL (Abnormal) Range: 100-199 :52 CBC WITH MANUAL DIFF (20196) Comments: PATIENT NOT FASTINGPERFORMED BY: [facility]6370 [facility] [id number] Immature Grans (Abs) 0.0 {x10E3/uL} (Normal) Range: [...] 3.77-5.28 WBC 6.9 {x10E3/uL} (Normal) Range: 4.0-10.5 9-Aaq-643689:07 CBC With Differential/Platelet Comments: PATIENT WAS FASTINGPERFORMED BY: [facility]6370 [facility] [id number] Immature Grans (Abs) 0.0 {x10E3/uL} (Normal) Range: [...] 3.80-5.10 WBC 6.5 {x10E3/uL} (Normal) Range: 4.0-10.5 0-Vav-572920:07 Comp. Metabolic Panel (14) Comments: PATIENT WAS FASTINGPERFORMED BY: LabCoRehabilitation Hospital of South JerseyNjdtjg6175 [facility] [id number] ALT (SGPT) 18 [iU]/L (Normal) Range: 0-40 [...] Glucose, Serum 105 mg/dL (Abnormal) Range: 65-99 :07 Lipid Panel With LDL/HDL Comments: PATIENT WAS FASTINGPERFORMED BY: [facility] [facility] [id number] Ratio LDL/HDL Ratio 2.9 {ratio_units} Range: 0.0-3.2 (Normal) LDL Cholesterol Calc 124 mg/dL (Abnormal) Range: 0-99 HDL Cholesterol 43 mg/dL (Normal) Comments: According to ATP-III Guidelines, HDL-C >59 mg/dL is considered anegative risk factor for CHD. VLDL Cholesterol Kareem 30 mg/dL (Normal) Range: 5-40 Triglycerides 150 mg/dL (Abnormal) Range: 0-149 Cholesterol, Total 197 mg/dL (Normal) Range: 100-199 7-Sep-10011 TSH 1.070 {uIU/mL} Comments: PATIENT WAS FASTINGPERFORMED BY: [facility] [id number] Ch[address] RoadDublin [place] [id number] 2:07 (Normal) Range: 0.450-4.500 Vitamin D, 25-Hydroxy 20.4 ng/mL (Abnormal) Comments: PATIENT WAS FASTINGPERFORMED BY: [facility] Nbnart9742 [address] RoadDublin [place] [id number] 2:07 Range: 32.0-100.0 Comments: Recent studies consider the lower limit of 32.0 ng/mL to be athreshold for optimal health.Branham BW. J Nutr. 2004;135(2):317-22. 1-Ljp-517748:46 Glucose, PP/2 Hour Comments: PATIENT WAS FASTINGPERFORMED BY: [facility] Lubaas95[address] RoadDublin [place] [id number] Information: [id number] 75G DRAW N@10: (28111) Glucose, Two-Hour Postprandial 125 mg/dL (Normal) Range: 65-139 46-Ysk-111703:07 Microscopic Examination Comments: PATIENT WAS FASTINGPERFORMED BY: [facility] Zfcyma1809 [address]Dublin [place] [id number] Bacteria None seen (Normal) Mucus Threads Present (Normal) Epithelial Cells (non renal) 0-10 {/hpf} (Normal) Range: 0 - 10 RBC 0-3 {/hpf} (Normal) Range: 0 - 3 WBC 6-10 {/hpf} (Abnormal) Range: 0 - 5 07-Wxa-942011:07 Vitamin D Hydroxy (14478) Comments: PATIENT WAS FASTINGPERFORMED BY: [facility] Gzwgwg16[address]Dublin [place] [id number] Vitamin D, 25-Hydroxy 18.7 ng/mL (Abnormal) Range: 32.0-100.0 Comments: Recent studies consider the lower limit of 32.0 ng/mL to be athreshold for optimal health.Branham BW. J Nutr. 2004;135(2):317-22. 55-Wjw-770942:07 TSH (16608) Comments: PATIENT WAS FASTINGPERFORMED BY: CB [facility] Mdvjql0167 [address]Dublin [place] [id number] TSH 1.020 {uIU/mL} (Normal) Range: 0.450-4.500 :07 URINALYSIS, W/ MICRO (66751) Comments: PATIENT WAS FASTINGPERFORMED BY: [facility] [facility] [id number] Microscopic Examination See below: (Normal) Nitrite, Urine Negative (Normal) Urobilinogen,Semi-Qn 0.2 mg/dL (Normal) Range: 0.0-1.9 Bilirubin Negative (Normal) Glucose Negative (Normal) Ketones Negative (Normal) Occult Blood Negative (Normal) Appearance Clear (Normal) pH 6.5 (Normal) Range: 5.0-7.5 Protein Negative (Normal) Urine-Color Yellow (Normal) WBC Esterase 1+ (Abnormal) Specific [place] 1.026 (Normal) Range: 1.005-1.030 :07 MICROALBUMIN: CREATININE RATIO Comments: PATIENT WAS FASTINGPERFORMED BY: [facility]6[address] [facility] [id number] ([id number]) AND (58328) Microalb/Creat Ratio 4.5 {mg/g_creat} (Normal) Range: 0.0-30.0 Microalbumin, Urine 4.4 ug/mL (Normal) Range: 0.0-17.0 Creatinine, Urine 97.0 mg/dL (Normal) Range: 15.0-278.0 :07 METABOLIC PANEL, COMPREHENSIVE Comments: PATIENT WAS FASTINGPERFORMED BY: [facility] [facility] [id number] (16507) ALT (SGPT) 24 [iU]/L (Normal) Range: 0-40 [...] Glucose, Serum 114 mg/dL (Abnormal) Range: 65-99 35-Fpm-113757:07 LIPID PANEL (69978) Comments: PATIENT WAS FASTINGPERFORMED BY: ZYOMYX6370 [facility] [id number] LDL Cholesterol Calc 164 mg/dL (Abnormal) Range: 0-99 LDL/HDL Ratio 3.2 {ratio_units} (Normal) Range: 0.0-3.2 VLDL Cholesterol Kareem 26 mg/dL (Normal) Range: 5-40 HDL Cholesterol 51 mg/dL (Normal) Comments: According to ATP-III Guidelines, HDL-C >59 mg/dL is considered anegative risk factor for CHD. Triglycerides 130 mg/dL (Normal) Range: 0-149 Cholesterol, Total 241 mg/dL (Abnormal) Range: 100-199 43-Fiw-397647:07 CBC WITH MANUAL DIFF Comments: PATIENT WAS FASTINGPERFORMED BY: [employer] [facility] [id number] Information: ADD [id number] AND DRAW FEE 99 9102 (90569) Immature Grans (Abs) 0.0 {x10E3/uL} (Normal) Range: [...] CULTURE (SUKUMAR Comments: PATIENT NOT FASTINGPERFORMED BY: LINCOLN [facility] Oahyrj3889 [facility] [id number] Information: SRC:UR ADD [id number] COL COUNT) (82851) Result 1 MUG (Normal) Comments: Mixed urogenital flora1,000 Colonies/mL Urine Culture,Comprehensive Final report (Normal) 22-Omr-90638:50 Urinalysis, Office (33851) Comments: done aw UA - LEUKOCYTE Trace [...] (Normal) TSH 0.741 {uIU/mL} Comments: PERFORMED BY: [facility] [place] [id number] 3:42 (Normal) Range: 0.450-4.500 81-Vms-076068:16 CAMILO CULTURE-OTHER (44448) Comments: PATIENT NOT FASTINGClinical Information: SRC:THRT ADD [id number] PERFORMED BY: [facility] [id number] Result 1 RRF (Normal) Comments: Routine respiratory ronak Upper Respiratory Culture Final report (Normal) 29-Xkf-37669:13 Rapid Strep Test, Office (09255) Rapid Strep Test, Office Negative (Normal) 60-Jgk-327264:46 TSH (06863) Comments: PATIENT WAS FASTINGPERFORMED BY: [employer] [facility]1 [facility]Dor[facility] [id number] TSH 10.376 {uIU/mL} (Abnormal) Range: 0.450-4.500 39-Ouf-656936:46 LIPID PANEL (34528) Comments: PATIENT WAS FASTINGClinical Information: ADD DRAW FEE [id number] ADD J 93125 PERFORMED BY: [facility] [id number] Cholesterol, Total 254 mg/dL (Abnormal) Range: 100-199 [...] Cholesterol Kareem 34 mg/dL (Normal) Range: 5-40 0-Hyw-437917:30 GLUP 136 mg/dL (Normal) Comments: GLU,2HPPG 75gm GLUC PPG GLUP from 1006:E64899Y. :25 TSH 3.21 {uIU/mL} (Normal) Range: 0.34-4.82 5-Cak-885681:19 Upper Respiratory Culture Comments: Clinical Information: SRC:TH PERFORMED BY: [facility] [id number] Result 1 RRF (Normal) Comments: Routine respiratory ronak Upper Respiratory Culture Final report (Normal) 0-Jck-900803:25 Rapid Strep Test, Office (86892) Comments: NEGATIVE Rapid Strep Test, Office Negative (Normal) :51 CBC With Differential/Platelet Comments: PATIENT WAS FASTINGPERFORMED BY: LIN[place]N [facility]70 [facility] [id number] Baso (Absolute) 0.0 {x10E3/uL} (Normal) Range: 0.0-0.2 [...] Panel (14) Comments: PATIENT WAS FASTINGPERFORMED BY: [facility] Wqcxxf7546 [facility] [id number] A/G Ratio 1.7 (Normal) Range: 1.1-2.5 Albumin, [...] Serum 107 mg/dL (Abnormal) Range: 65-99 If -Portuguese >60 mL/min (Normal) Range: 60-128 Comments: Note: [...] With LDL/HDL Comments: PATIENT WAS FASTINGPERFORMED BY: [employer] [facility] [id number] Ratio Cholesterol, Total 213 mg/dL (Abnormal) Range: [...] Randm Ur Comments: PATIENT WAS FASTINGPERFORMED BY: [employer]6370 [facility] [id number] Creatinine, Urine 62.0 mg/dL (Normal) Microalb/Creat Ratio 7.9 {ug/mg_creat} (Normal) Range: 0.0-30.0 Microalbum.,U,Random 4.9 ug/mL (Normal) Range: 0.0-17.0 :51 Microscopic Examination Comments: PATIENT WAS FASTINGPERFORMED BY: [employer] [facility] [id number] Bacteria None seen (Normal) Crystal Type Amorphous Sediment (Normal) Crystals Present (Abnormal) Epithelial Cells (non 0-10 {/hpf} (Normal) Range: 0 - 10 renal) Mucus Threads Present (Abnormal) RBC None seen {/hpf} Range: 0 - 3 (Normal) WBC 0-5 {/hpf} (Normal) Range: 0 - 5 TSH 17.282 {uIU/mL} Comments: PATIENT WAS FASTINGPERFORMED BY: [facility] [facility] [id number] :51 (Abnormal) Range: 0.350-5.500 Comments: Adult TSH concentrations below 5.5 uIU/mL do not rule out the presence of subclinical hypothyroidism. . EFFECTIVE Jun the adult reference interval for TSH will be changing to 0.450 - 4.500 uIU/mL. :51 Urinalysis, Routine Comments: PATIENT WAS FASTINGPERFORMED BY: [facility]Former[facility] [facility] [id number] Appearance Cloudy (Abnormal) Bilirubin Negative (Normal) Glucose Negative (Normal) Ketones Negative (Normal) Microscopic Examination See below: (Normal) Nitrite, Urine Negative (Normal) Occult Blood Negative (Normal) pH 7.5 (Normal) Range: 5.0-7.5 Protein Negative (Normal) Specific [place] 1.016 (Normal) Range: 1.005-1.030 Urine-Color Yellow (Normal) Urobilinogen,Semi-Qn 0.2 mg/dL (Normal) Range: 0.0-1.9 WBC Esterase Negative (Normal) :23 UPPER EXT/JT ONLY (ROUTINE) Radiology Report See Note (Normal) Comments: Exam Number: [id number] RIGHT SHOULDER MRI REASON FOR EXAMINATIONRight shoulder [...] Report See Note (Normal) Comments: Exam Number: [id number] MAMMOGRAPHY, BILATERAL SCREENING DIGITAL AND CAD HISTORYRoutine [...] mammograms werealso examined with computer-aided detection software ([employer] Reported By: ANABEL LINK M.D. :1 [...] Comments: GLU,2HPPG 75gm GLUC PPG GLUP from 1117:A79126S. :42 CBC HCT 38.3 % (Normal) Range: [...] : Follow up in 6 weeks with [facility] Indication: Varicose vein Essential hypertension : Diet, Exercise, and Wt loss Indication: Essential hypertension Cerumen impaction : Follow up in 2 weeks with [facility] Indication: Cerumen impaction Benign essential hypertension [...] Diet and Exercise Indication: Hyperlipidemia Planned Observations Metabolic Panel, Comprehensive (39308)Indication: Dysmetabolic syndrome X On: :48 Request TSH (THYROID STIMULATING HORMONE) (51797)Indication: Abnormal TSH On: :48 Request Cologuard - Strool Based DNA Test, CRC SCREEN (56942)Indication: Colon cancer screening (Renamed from Encounter for screening for malignant neoplasm of colon) On: 63-Tzx-69826:22 Request VITAMIN B-12 (CYANOCOBALAMIN) (67225)Indication: B12 deficiency On: :17 Request CALCIFIDIOL (86049) VIT D 25Indication: Vitamin D deficiency On: :16 Request URINALYSIS, W/ MICRO (15292)Indication: Impaired glucose metabolism On: :16 Request MICROALBUMIN: CREATININE RATIO (24299) AND (39700)Indication: Impaired glucose metabolism On: :16 Request METABOLIC PANEL, COMPREHENSIVE (73693)Indication: Impaired glucose metabolism On: :16 Request LIPOPROTEIN, BLD, BY NMR (01388)Indication: Hyperlipidemia On: :16 Request CBC W/AUTO DIFF WBC (26082)Indication: Impaired glucose metabolism On: :16 Request TSH (75232)Indication: Hypothyroidism On: 98-Nxu-90997:16 Request VITAMIN B-12 (CYANOCOBALAMIN) (43300)Indication: B12 deficiency On: :21 Request TSH (57119)Indication: Abnormal TSH On: :18 Request T4, FREE (THYROXINE) (30901)Indication: Abnormal TSH On: :18 Request T3, FREE (TRIDOTHYRONINE) (24542)Indication: Abnormal TSH On: :18 Request CALCIFEDIOL (35148)Indication: Vitamin D deficiency On: :16 Request Methymalonic Acid, Serum (07350)Indication: B12 deficiency On: :28 Request VITAMIN B-12 (CYANOCOBALAMIN) (50627)Indication: B12 deficiency On: : Request TSH (55579)Indication: Hypothyroidism On: : Request CALCIFEDIOL (66850)Indication: Vitamin D deficiency On: : Request CALCIFEDIOL (07321)Indication: Vitamin D deficiency On: :03 Request URINALYSIS, W/ MICRO (13619)Indication: Essential hypertension On: :02 Request MICROALBUMIN: CREATININE RATIO (20084) AND (06035)Indication: Essential hypertension On: : Request METABOLIC PANEL, COMPREHENSIVE (08592)Indication: Essential hypertension On: : Request LIPID PANEL (58950)Indication: Hyperlipidemia On: : Request CBC W/AUTO DIFF WBC (04735)Indication: Essential hypertension On: : Request TSH (99433)Indication: Hypothyroidism On: : Request Blood Glucose , Office (69978)Indication: Impaired glucose metabolism On: :52 Request CALCIFIDIOL (42073) VIT D 25Indication: Vitamin D deficiency On: :17 Request TSH (44585)Indication: Abnormal TSH On: :15 Request T4, FREE (THYROXINE) (90795)Indication: Abnormal TSH On: :15 Request T3, FREE (TRIDOTHYRONINE) (58360)Indication: Abnormal TSH On: :15 Request LIPID PANEL (85238)Indication: Hyperlipidemia On: :13 Request URINALYSIS, W/ MICRO (15014)Indication: Impaired glucose metabolism On: :12 Request MICROALBUMIN: CREATININE RATIO (43801) AND (81820)Indication: Impaired glucose metabolism On: :12 Request METABOLIC PANEL, COMPREHENSIVE (47163)Indication: Impaired glucose metabolism On: :12 Request LIPID PANEL (59576)Indication: Impaired glucose metabolism On: :12 Request CBC W/AUTO DIFF WBC (63890)Indication: Impaired glucose metabolism On: :12 Request TSH (85586)Indication: Hypothyroidism On: :12 Request Influenza A&B Viral Culture (73501)Indication: Flu-like symptoms On: 46-Kxn-566109:09 Request CAMILO CULTURE-OTHER (94680)Indication: Paronychia On: :52 Request EB ANTIBODY NUCLR ANTIGN (46980) On: 08-Lky-206216:08 Request Vitamin D Hydroxy (15424)Indication: Other specified abnormal findings of blood chemistry On: 60-Toh-78914:10 Request TSH (89454)Indication: Hypothyroidism On: :09 Request URINALYSIS, W/ MICRO (51373)Indication: Essential hypertension On: 81-Mjc-82322:09 Request MICROALBUMIN: CREATININE RATIO (95949) AND (21731)Indication: Essential hypertension On: :09 Request METABOLIC PANEL, COMPREHENSIVE (69724)Indication: Essential hypertension On: 24-Hbo-46842:09 Request LIPID PANEL (48922)Indication: Essential hypertension On: :09 Request CBC WITH MANUAL DIFF (54415)Indication: Essential hypertension On: 01-Vtn-63104:09 Request TSH (13528)Indication: Abnormal TSH On: 29-Jox-430061:04 Request TSH (15070)Indication: Hypothyroidism On: 43-Uhs-617707:33 Request Blood Glucose , Office (76709)Indication: Dysmetabolic syndrome X On: :23 Request HgA1C , Office (85978)Indication: Dysmetabolic syndrome X On: 68-Rmn-77560:23 Request CALCIFIDIOL (11759) VIT D 25Indication: Vitamin D deficiency, unspecified On: 34-Mlf-619896:04 Request TSH (16562)Indication: Hypothyroidism On: 40-Aqm-869445:03 Request URINALYSIS, W/ MICRO (46277)Indication: Benign essential hypertension On: 53-Jjv-148514:03 Request MICROALBUMIN: CREATININE RATIO (05727) AND (41015)Indication: Benign essential hypertension On: 32-Ght-300295:03 Request METABOLIC PANEL, COMPREHENSIVE (10191)Indication: Benign essential hypertension On: : Request CBC WITH MANUAL DIFF (93652)Indication: Benign essential hypertension On: : Request LIPID PANEL (81929)Indication: Hyperlipidemia On: : Request CAMILO CULTURE-OTHER (37300)Indication: Pharyngitis, acute On: 1-Fbr-333764:25 Request Glucose, PP/2 Hour (04250)Indication: Other specified abnormal findings of blood chemistry On: 96-Mce-077671:00 Request TSH (28974)Indication: Abnormal TSH On: 30-Gvu-222136:00 Request Comments: DO IN 6 WEEKS MICROALBUMIN: CREATININE RATIO (05128) AND (86528)Indication: Benign essential hypertension On: :36 Request URINALYSIS W/O MICRO (03874)Indication: Benign essential hypertension On: :36 Request LIPID PANEL (44955)Indication: Hyperlipidemia On: :36 Request METABOLIC PANEL, COMPREHENSIVE (32031)Indication: Benign essential hypertension On: :36 Request CBC WITH MANUAL DIFF (38669)Indication: Benign essential hypertension On: :36 Request TSH (14417)Indication: Hypothyroidism On: :35 Request TSH (72808)Indication: Hypothyroidism On: 3-Ruw-521128:32 Request Comments: DO IN 8 WEEKS Thin prep Pap (61779)Indication: Well woman exam with routine gynecological exam On: 00-Mwq-073703:05 Request TSH (99246)Indication: Abnormal TSH On: 42-Hnj-522206:13 Request Comments: do in 10 weeks LIPID PANEL (16890)Indication: Hyperlipidemia On: 98-Gwa-01798:45 Request Planned Encounters Medical; 4 Month FU - On: 28-Dec-2018 9:45 [facility] Bridgett Bansal DO, DO, Kathleen Planned Procedures Holter Monitor 24 hrsBy: Sonia CASTILLO, On: 25-Oct-2018 Intent Mily ELECTROCARDIOGRAM, COMPLETE (ECG) On: 25-Oct-2018 Intent (33686)By: Katie Kebede Comments: sinus bradycardia, ELECTROCARDIOGRAM, COMPLETE (ECG) On: 20-Apr-2018 Intent (86162)By: Bridgett Bansal DO Comments: nsr no acute cgh Bridgett Bansal DO B 12 Injection, 1000 mcg (J3420)By: On: 08-Sep-2017 Bridgett Sanchez DO, DO, Comments: Lot:[id number]:07/16Dose:1mlRoute:IMSite:l armGiven By:JEREMY signed Bridgett Radiology - Chest- PA and LatBy: On: 23-Apr-2017 Intent Bridgett Bansal DO, DO, Kathleen Spirometry (96525)By: Rolf OLIVER, On: 23-Apr-2017 Intent Bridgett Weinstein DO Comments: mild obstruction but poor technique Echo CompleteBy: Rolf OLIVER, On: 05-Feb-2017 Intent Bridgett Weinstein DO PFT - CompleteBy: Rolf OLIVER, On: 05-Feb-2017 Intent Bridgett Weinstein DO Comments: dr Alves to read CT - Chest (IV Contrast Needed)By: On: 27-Jan-2017 Intent Bridgett Bansal DO, DO, Kathleen Aerosol Treatment (83039)By: Rolf On: 25-Jan-2017 Bridgett Barboza DO, DO, Kathleen Comments: albulterol 0.83%more a/e but pt states notices no differecne Radiology - Chest- PA and LatBy: On: 25-Jan-2017 Intent Brdigett Bansal DO, DO, Kathleen Spirometry (26343)By: Rolf OLIVER, On: 25-Jan-2017 Intent Bridgett Weinstein DO Comments: restrictive disease but poor technique X-RAY OF LUMBAR SPINE, FOUR VIEWS On: 28-Aug-2016 Intent (71476)By: Bridgett Bansal DO, DO, Kathleen Wax Currettes (83302)By: Rolf OLIVER, On: 05-Aug-2016 Intent Bridgett Weinstein DO Ear Irrigation (35379)By: Rolf On: 05-Aug-2016 Bridgett Barboza DO, DO, Kathleen Comments: Ear Irrigation performed on:bilateralAmount/color removed cerumen: moderate amount, OUtcome:clear and toleratedUsed wax curettes ELECTROCARDIOGRAM, COMPLETE (ECG) On: 28-Jul-2016 Intent (15160)By: Shalini Johnson DO Comments: sinus bradyfreq pacs and no acute st twave chnages MAMMOGRAM, SCREENING, BOTH BREAST On: 08-Apr-2016 Intent (77253)By: Bridgett Bansal DO, DO, Kathleen DEXA SCAN AXIAL SKELETON (68579)By: On: 08-Apr-2016 Intent Bridgett Bansal DO, DO, Kathleen MAMMOGRAM, SCREENING, BOTH BREAST On: 01-Apr-2016 Intent (04779)By: Bridgett Bansal DO, DO, Kathleen ELECTROCARDIOGRAM, COMPLETE (ECG) On: 14-Nov-2014 Intent (94990)By: Bridgett Bansal DO Comments: nsr no acute chg Bridgett Bansal DO CT - Neck (IV Contrast Needed)By: On: 23-May-2014 Intent Bridgett Bansal DO, DO, Kathleen Eprescribed prescriptions On: 21-Mar-2014 Intent (G8553)By: Bridgett Bansal DO, DO, Kathleen EKG (85325)By: Radha Eckert On: 25-Dec-2013 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 Comments: sinus martha no acute chg Venous Doppler - RightBy: Ciesa On: 20-Nov-2013 Intent ANNA Mily Wax CurettesBy: Ciesa Rosie CASTILLO E On: 07-Nov-2013 Intent Ear Irrigation (36680)By: Ciesa On: 07-Nov-2013 Intent ANNA Mily Eprescribed prescriptions On: 18-Oct-2013 Intent (G8553)By: Bridgett Bansal DO, DO, Kathleen SQLG-UP-[facility]SELING On: 18-Oct-2013 Intent FOR OBESITY, 15 MINUTES (G0447)By: Bridgett Bansal DO, DO, Kathleen EKG (04285)By: Bridgett Bansal DO On: 26-Jul-2013 Intent Bridgett Bansal DO Comments: nsr no acute chg Eprescribed prescriptions On: 26-Jul-2013 Intent (G8553)By: Radha Eckert LPN Eprescribed prescriptions On: 22-Mar-2013 Intent (G8553)By: Radha Eckert LPN Eprescribed prescriptions On: 04-Jan-2013 Intent (G8553)By: Bridgett Bansal DO, DO, Kathleen EKG (80630)By: Bridgett Bansal DO On: 23-Nov-2012 Intent Bridgett Bansal DO Comments: nsr no acute chg Eprescribed prescriptions On: 23-Nov-2012 Intent (G8553)By: Radha Eckert LPN EKG (05581)By: Bridgett Bansal DO On: 29-Jul-2011 Intent Bridgett Bansal DO Comments: nsr no acute chg TDAP VACCINE >7 IM (89404)By: On: 29-Jul-2011 Bridgett Sanchez DO, DO, Comments: Pt refused Bridgett Radiology - Lumbar SpineBy: Rolf On: 11-Jun-2010 Bridgett Barboza DO, DO, Kathleen EKG (28895)By: Radha Eckert On: 11-Jun-2010 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 SPECIALIST Comments: done awnsr no avute chsg pvc noted SPECIMEN HNDLNG/TRNSPRT, OFFC > LAB On: 12-Aug-2009 Intent (73694)By: Bridgett Bansal DO, DO, Kathleen EKG (62671)By: Radha Eckert On: 18-Mar-2009 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 SPECIALIST Comments: nsr no acute changes -nonspecific flattening SPECIMEN HNDLNG/TRNSPRT, OFFC > LAB On: 31-Jul-2008 Intent (96970)By: Bridgett Bansal DO, DO, Kathleen EKG (07213)By: Bridgett Bansal DO On: 22-Jun-2008 Intent Bridgett Bansal DO Comments: NSR NO ACUTE ISCHEMIC CHANGES EKG (70829)By: Bridgett Bansal DO On: 06-Jun-2007 Intent Bridgett Bansal DO Comments: NSR NO ACUTE ISCHEMIC CHANGES DXA, BONE DENSITY, AXIAL SKELETON On: 10-Mar-2007 Intent (20023)By: Bridgett Bansal DO, DO, Kathleen MAMMOGRAM, SCREENING, BOTH BREASTS On: 10-Mar-2007 Intent (34555)By: Bridgett Bansal DO, DO, Kathleen Planned Medications [...] : Patient Instructions Indication: Essential hypertension Encounters Review On: 11-Nov-2018 10:09 [facility] Office Visit On: 11-Nov-2018 [...] 9:19 [facility] Office Visit On: 11-May-2016 9:05 Encounter Reason: Well Women Exam - [...]
== END ==
PROVIDERS: Family Provider Internal Medicine; PCP Internal Medicine; Referring Provider Nurse Practitioner; Visit Provider Nurse Practitioner
DX: R00.1 Bradycardia, unspecified (principal)
CPT/HCPCS: 93225; 93226

== ENCOUNTER → 2020-07-08 08:34 | Outpatient (CLI) | payer BC, SELFPAY ==
--- NOTE | 2020-07-08 08:46 | EKG12_ITS ---
Test Reason : PREOP Blood Pressure : / mmHG Vent. Rate : 068 BPM Atrial Rate : 068 BPM P-R Int : 148 ms QRS Dur : 088 ms QT Int : 380 ms P-R-T Axes : 051 016 -03 degrees QTc Int : 404 ms Sinus rhythm with marked sinus arrhythmia with occasional Premature ventricular complexes Low voltage QRS Borderline ECG Confirmed by RANI BROWN, CRISTIAN ([id number]), graphic editor SIXTO VALLES ([id number]) on 07/09/2020 10:47:40 AM Referred By: Abdoulaye Correia Confirmed By:CRISTIAN SARAVIA MD
[2020-07-08 09:07] LABS: Absolute Lymphocyte Count 1.48 X10^3/uL (0.83-4.51); Absolute Neutrophil Count 3.7 X10^3/uL (2.0-7.7); Basophil# 0.04 X10^3/uL; Basophil% 0.7 % (0-1); Eosinophil# 0.23 X10^3/uL; Eosinophils% 3.8 % (0-5); Hematocrit 42.2 % (37-47); Hemoglobin 13.6 g/dL (12.0-15.0); Lymphocyte # 1.48 X10^3/ul (4.0); Lymphocyte % 24.6 % (19-41); Mean Corp Hgb Conc 32.2 g/dL (32-36); Mean Corpuscular Hgb 32.4 pg (27.0-32.0); Mean Corpuscular Volume 100.5 fL (81-99); Mean Platelet Vol. 9.5 fl (6.2-12.0); Monocyte# 0.59 X10^3/uL; Monocyte% 9.8 % (0-10); NRBC Flagged by Analyzer 0 % (0-5); Neutrophil # 3.65 X10^3/uL (2.7-7.7); Neutrophil % 60.8 % (47-70); Platelet Count 255 K/mm3 (150-450); RBC Distribution Width CV 12.5 % (11.6-14.6); RBC Distribution Width SD 46.7 fl (35.1-43.9)
[2020-07-08 09:24] LABS: Anion Gap 7 (5-15); BUN 22 mg/dL (7-18); BUN/Creat Ratio 32.4 RATIO (10-20); Calcium,Total 9.1 mg/dL (8.5-10.1); Chloride 103 mmol/L (98-107); Creatinine, Serum 0.68 mg/dL (0.55-1.02); EST Glomerular Filtration Rate 92 mL/min (>60); Est Glom Filt Rate - Afr Amer 111 mL/min (>60); Glucose 128 mg/dL (74-106); Potassium 3.7 mmol/L (3.5-5.1); Sodium Level 141 mmol/L (136-145)
== END ==
PROVIDERS: PCP Internal Medicine; Referring Provider Orthopaedic Surgery; Visit Provider Orthopaedic Surgery
DX: Z01.818 Encounter for other preprocedural examination (principal); I10 Essential (primary) hypertension; Z79.899 Other long term (current) drug therapy
CPT/HCPCS: 36415; 80048; 85025; 93005

== ENCOUNTER 2020-10-11 11:30 | Outpatient (RCR) | payer BC, SELFPAY ==
--- NOTE | 2020-08-07 16:10 | HP.OTEVAL_ITS ---
Patient's Visit Information NATALIE PRAJAPATI is a 69 year old F, referred to Occupational Therapy by Dr. Abdoulaye Correia DO, with a diagnosis of CTS s/p CTR. Date of Evaluation: 08/07/20 Occupational Therapist: Dior Engel, NATWANR/Dontae, CHT - Subjective This 69 year old female was seen for OT eval with dx of right CTS with sx on 2019. pt states she had tingiling and numbness for about 2-3 years. pt states she would like to get her sensation back in her right IF,MF and thumb so she can return to her PLOF with her ADLs and IADLS. 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 tasks and ind. With manipulating fasteners for dressing by D/C. Pt will demo the ability to form a composite fist to return to performing BADLs and IADLS at PLOF by d/c. Goal:: Pt will report pain no greater than 1/10 with use of affected hand with BADLs and IADLs by d/c. Goal:: pt will demo a decrease in monofilament testing to a mild sensation loss by d/c Goal:: pt will demo understanding of scar mtg by end of 1st session to decrease risk of scar adhesions - Rehabilitation General Assessment: pt is currently 3 weeks s/p right CTR who is struggling with ROM /strength and sensation. pt is limited with ADLs and IADsl at this time due to the above limitations. Pt would benefit from skilled OT services 1-2 x week for 6 weeks to assist pt in recovery following CTR. Today therapsit extensively explained the CTR sx and that the sharp shooting pains/tingling was releated to nerve healing. Pt demo understanding. Today therapist ed. pt on tendon glide, scar mtg and recovery process with nerve. Pt demo understanding and agree to POV. Rehabilitation Potential: Good - Anticipated Interventions A/AAROM/PROM, Strengthening, Scar Care, Triggerpoint Release, Desensitization, Sensory Retraining, Modalities - Visit Plan Frequency: 1-2x /Week Duration: 4 Weeks TEXT: Thank you for the opportunity to evaluate your patient. For Medicare and Medicare HMO plans, please review the plan of care and approve it. It will need to be FAXED BACK to us at [phone] for Medicare purposes. Please let me know if there are questions or concerns regarding this plan of care. Physician Signature: Date:
--- NOTE | 2021-03-10 10:13 | HP.OT.NRP ---
NATALIE PRAJAPATI was seen in my office for initial evaluation on 08/07/20. The following Plan of Care was established for this patient: Plan: US. PROM. AROM Anticipated Interventions: A/AAROM/PROM, Strengthening, Scar Care, Triggerpoint Release, Desensitization, Sensory Retraining, Modalities This patient was last seen in our office 10/11/20. Pertinent comments regarding their Occupational therapy will appear below: pt was seen for 7 OT visits following a CTR- pt continued to struggle with pain and numbness following her sx. pt was linited with ADLs and IADLs at her last visit. therapist advised to return to her sx. pt has not scheduled further apts at this time pt is d/c due to time lapse in care. At this point I will be discontinuing this patient from occupational therapy. I would be happy to see this patient again in the future if found appropriate by the physician. Thank you! Dior Engel, OTR/L, CHT
== END 2020-10-11 19:00 | disposition home or self-care (01) ==
LOC: OT 11:30
PROVIDERS: PCP Internal Medicine; Referring Provider Orthopaedic Surgery; Visit Provider Orthopaedic Surgery
DX: G56.01 Carpal tunnel syndrome, right upper limb (principal)
CPT/HCPCS: 97035; 97140; 97166; 97530

== ENCOUNTER 2022-08-01 10:50 | Emergency (ER) | payer BC, SELFPAY ==
[2022-08-01 10:52] VITALS: BP 125/60; PULSE 71; RESP 17; TEMP 36.4; O2SAT 95; BMI 35.9
--- NOTE | 2022-08-01 11:07 | EDS_ITS ---
HPI History of Present Illness Chief Complaint: Cellulitis Detail of Chief Complaint: Cellulitis and popping the nose and left side of face Informant: patient and family Onset/Context/Timing Onset: Yesterday Context: Sudden Onset Timing: Continuous Quality: Erythema and warmth of nose and face Location: Nose and predominantly left maxillary region Current Severity: Moderate Maximum Severity: Moderate Worsened by: Nothing Relieved by: Nothing Associated Symptoms Associated Symptoms: No constitutional symptoms Narrative Narrative: Patient is a 71-year-old woman with history of borderline diabetes, hypertension, hypercholesterolemia and hypothyroidism who presents because of progression of the cellulitis. She was seen by her PCP yesterday and prescribed doxycycline. Yesterday it was predominately the tip of the nose. Today the entire nose is involved. There is erythema over the left maxillary area. The margins are not raised. She denies fever, chills night sweats. She denies drainage from her eyes. She denies change in vision, blurred vision or double vision. She denies polyuria, polydipsia or nocturia. Prior similar symptoms: Yes Recent Illness/Hospitalization: Yes PFSH PFSH Medical History no medical history no medical history (Per HPI) Home Medications bisoprolol 10 mg-hydrochlorothiazide 6.25 mg tablet 1 tab PO DAILY 04/21/17 [History Last Taken Unknown] levothyroxine 137 mcg tablet 127 mcg PO DAILY 04/21/17 [History Last Taken 05/03/17 07:30] acetaminophen 500 mg tablet 1,000 mg PO Q8 #60 tabs 05/04/17 [Rx Last Taken Unknown] rivaroxaban 10 mg tablet 10 mg PO DAILY@0600 #12 tabs 05/04/17 [Rx Last Taken Unknown] Allergy/AdvReac Type Severity Reaction Status Date / Time No Known Allergies Allergy Verified 08/01/22 10:51 Social History (Updated 08/01/22 @ 11:[address] Wallace Salmon MD) household members: family Smoking Status: Never smoker substance use type: does not use ROS ROS ED Constitutional Constitutional ED: Denies chills, fever(s), subjective, sweats or weight loss Eyes Eyes: Denies blurry vision, change in vision or diplopia ENT ENT ED: Denies ear pain, rhinorrhea or sore throat Cardiovascular Cardiovascular: Denies chest pain or palpitations Respiratory/Chest Respiratory/Chest: Denies cough or dyspnea Gastrointestinal Gastrointestinal: Denies nausea or vomiting Integumentary Reports other Details: Cellulitis as described per HPI Endocrine Endocrinology: Denies polydipsia, polyphagia or polyuria Hematologic/Lymphatic Hematologic/Lymphatic: Denies anemia, easy bleeding or easy bruising EXAM Physical Exam Const Vital Signs: 08/01/22 10:52 08/01/22 11:18 08/01/22 11:20 Temperature 97.6 F L 97.6 F L Temperature Source Temporal Temporal Pulse Rate 71 75 Respiratory Rate 17 21 H Respiratory Effort Normal Non-Labored Respiratory Pattern Normal Blood Pressure 125/60 H 125/60 H Blood Pressure Mean 81 81 Pulse Ox 95 95 Oxygen Delivery Method Room Air Room Air Positive well nourished, well developed and obese General Appearance ED: well developed and NAD; Negative for cyanotic, diaphoretic or pallor Nutritional Appearance: obese HEENT Reports moist mucous membranes HEENT Narrative: There is erythema, warmth, induration of the nose and left maxillary area. Margins not raised. There is no preauricular lymphadenopathy. There is no nasal drainage. Mucosas moist. Uvula midline. No deviation tongue protrusion. No erythema or exudate of the posterior pharynx. Eyes PERRL and EOMs intact bilaterally Eyes Narrative: Conjunctive is not injected. General Eye ED: Negative for pale conjunctiva or scleral icterus Neck no lymphadenopathy, supple and no JVD Resp normal respiratory effort and clear to auscultation bilaterally Cardio regular rate, regular rhythm, S1 normal heart sound, S2 normal heart sound and no murmurs Extremity normal to inspection Neuro oriented x3, CN's II-XII intact bilaterally and no sensory deficits noted Psych mental status grossly normal Skin no wounds Skin Narrative: Rash described at under the HEENT portion of the exam. General Skin Exam: Negative for jaundice or pallor Rashes: rashes noted MDM MDM MDM Narrative Medical decision making narrative: Patient with cellulitis. Because there is history of prediabetes we will obtain BMP to check blood sugar and CO2 anion gap. We will also assess renal function determine if dosing of antibiotics need to be adjusted. CBC to assess white count differential. Patient was given a dose of Unasyn since suspect this is a streptococcal organism and not staph. Lab Data Attestation: I reviewed the patient's lab results. Lab results narrative: CBC is unremarkable. Basic metabolic panels marked for slight elevation glucose. She does have history of prediabetes. Labs: Laboratory Results - last 24 hr 08/01/22 08/01/22 11:15 11:15 WBC 8.8 RBC 4.29 Hgb 14.5 Hct 41.6 MCV 97.0 MCH 33.8 H MCHC 34.9 RDW Std Deviation 46.1 H RDW Coeff of Cecelia 12.9 Plt Count 213 MPV 8.8 Immature Gran % (Auto) 0.300 Neut % (Auto) 71.3 H Lymph % (Auto) 15.2 L Clayton % (Auto) 12.0 H Eos % (Auto) 0.7 Baso % (Auto) 0.5 Absolute Neuts (auto) 6.3 Absolute Lymphs (auto) 1.34 Nucleated RBC % 0 Sodium 138 Potassium 3.6 Chloride 104 Carbon Dioxide 27.0 Anion Gap 7 BUN 14 Creatinine 0.62 Estim Creat Clear Calc 45.20 Est GFR (MDRD) Af Amer 121 Est GFR (MDRD) Non-Af 100 BUN/Creatinine Ratio 22.4 H Glucose 144 H Calcium 9.4 Discharge Plan Triage Chief Complaint: Cellulitis ED Provider: Wallace Salmon Dx/Rx/DC Orders Clinical Impression: Facial cellulitis Instructions: ED Cellulitis Prescriptions: No Action levothyroxine 137 MCG tablet 127 mcg PO DAILY Label Comments: THYROID bisoprolol-hydrochlorothiazide 1 TAB tablet 1 tab PO DAILY Label Comments: STATES TAKES 1/2 PILL. blood pressure pill acetaminophen 500 MG tablet 1,000 mg PO Q8 Qty: 60 0RF rivaroxaban 10 MG tablet 10 mg PO DAILY@0600 Qty: 12 0RF Primary Care Provider: Bridgett Bansal Referrals: Bridgett Bansal DO [Primary Care Provider] - 3-5 Days if not improving Activity Restrictions/Additional Instructions: 1. Continue taking the doxycycline until gone 2. If the rash gets worse over the next 24 to 48 hours, return to the emergency department; otherwise, follow-up with your doctor 3. You should see improvement over the next 24 to 48 hours Disposition Disposition: Home, Self Care
[2022-08-01 11:20] VITALS: BP 125/60; PULSE 75; RESP 21; TEMP 36.4; O2SAT 95
[2022-08-01 11:30] LABS: Absolute Lymphocyte Count 1.34 X10^3/uL (0.83-4.51); Absolute Neutrophil Count 6.3 X10^3/uL (2.0-7.7); Basophil# 0.04 X10^3/uL; Basophil% 0.5 % (0-1); Eosinophil# 0.06 X10^3/uL; Eosinophils% 0.7 % (0-5); Hematocrit 41.6 % (37-47); Hemoglobin 14.5 g/dL (12.0-15.0); Lymphocyte # 1.34 X10^3/ul (0.83-4.51); Lymphocyte % 15.2 % (19-41); Mean Corp Hgb Conc 34.9 g/dL (32-36); Mean Corpuscular Hgb 33.8 pg (27.0-32.0); Mean Platelet Vol. 8.8 fl (6.2-12.0); Monocyte# 1.06 X10^3/uL; NRBC Flagged by Analyzer 0 % (0-5); Neutrophil # 6.31 X10^3/uL (2.7-7.7); Neutrophil % 71.3 % (47-70); Platelet Count 213 K/mm3 (150-450); RBC Distribution Width CV 12.9 % (11.6-14.6); RBC Distribution Width SD 46.1 fl (35.1-43.9); Red Blood Count 4.29 M/mm3 (4.2-5.4); White Blood Count 8.8 K/mm3 (4.4-11.0)
[2022-08-01 11:44] LABS: Anion Gap 7 (5-15); BUN 14 mg/dL (7-18); BUN/Creat Ratio 22.4 RATIO (10-20); Calcium,Total 9.4 mg/dL (8.5-10.1); Chloride 104 mmol/L (98-107); Creatinine, Serum 0.62 mg/dL (0.55-1.02); EST Glomerular Filtration Rate 100 mL/min (>60); Est Glom Filt Rate - Afr Amer 121 mL/min (>60); Glucose 144 mg/dL (74-106); Potassium 3.6 mmol/L (3.5-5.1); Sodium Level 138 mmol/L (136-145)
[2022-08-01 13:01] VITALS: BP 127/94; PULSE 74
== END 2022-08-01 13:01 | disposition home or self-care (01) ==
PROVIDERS: Emergency Provider Emergency Medicine; PCP Internal Medicine; Visit Provider Emergency Medicine
DX: L03.211 Cellulitis of face (principal); E78.00 Pure hypercholesterolemia, unspecified; I10 Essential (primary) hypertension; Z79.899 Other long term (current) drug therapy; E03.9 Hypothyroidism, unspecified; R73.03 Prediabetes; E66.9 Obesity, unspecified; Z68.35 Body mass index [BMI] 35.0-35.9, adult
CPT/HCPCS: 80048; 85025; 96365; 99283; A4216; J0295

== ENCOUNTER → 2023-12-10 | Outpatient (CLI) | payer BC, SELFPAY ==
--- NOTE | 2023-12-10 08:34 | EKG12_ITS ---
Test Reason : PRE OP Blood Pressure : / mmHG Vent. Rate : 074 BPM Atrial Rate : 074 BPM P-R Int : 144 ms QRS Dur : 082 ms QT Int : 354 ms P-R-T Axes : 044 000 -03 degrees QTc Int : 392 ms Sinus rhythm with occasional Premature ventricular complexes and Premature atrial complexes Nonspecific ST abnormality Abnormal ECG Confirmed by RANI BROWN, CRISTIAN ([id number]), dictionary editor JESSENIA WILSON ([id number]) on 12/10/2023 10:35:24 AM Referred By: MARKUS Confirmed By:CRISTIAN SARAVIA MD
--- NOTE | 2023-12-10 08:34 | CT_ITS ---
CT RIGHT LOWER EXTREMITY WITH 3-D IMAGING CLINICAL INDICATION: Pain in right knee. Right knee surgical planning. TECHNIQUE: Axial CT images of the right lower extremity (including right hip, right knee, and right ankle) was performed without IV contrast material. Coronal and sagittal reformats were provided. RADIATION DOSAGE (If Supplied By Facility): CTDIvol = ( 18.76 ) mGy, DLP = ( 1168.50 ) mGycm COMPARISON: No relevant prior comparison study available FINDINGS: Bones: There is mild degenerative arthrosis of the right hip joint with mild marginal osteophyte formation and mild joint space narrowing. There is pubic symphysis arthrosis. There is moderate tricompartment degenerative arthrosis of the right knee with marginal osteophyte formation and moderate joint space narrowing. Unremarkable right ankle. Osseous structures are intact without evidence of fracture or dislocation. No lytic or blastic osseous masses. Soft Tissues: There is a small right knee joint effusion. The deep soft tissue structures are unremarkable. The superficial soft tissues are unremarkable without evidence of edema, hematoma, or foreign body. CT/Extremity Lower without Contra IMPRESSION: Moderate tricompartment degenerative arthrosis of the right knee. Small right knee joint effusion. Electronically Signed: Freddy Rodriguez MD at 10:53 EST Reading Location ID and State: [address] [place] [address] , Service support ,
[2023-12-10 09:59] LABS: Absolute Neutrophil Count 6.5 X10^3/uL (2.0-7.7); Basophil# 0.04 X10^3/uL; Basophil% 0.4 % (0-1); Eosinophil# 0.26 X10^3/uL; Eosinophils% 2.9 % (0-5); Hematocrit 42.8 % (37-47); Hemoglobin 14.3 g/dL (12.0-15.0); Lymphocyte % 13.3 % (19-41); Mean Corp Hgb Conc 33.4 g/dL (32-36); Mean Corpuscular Hgb 32.5 pg (27.0-32.0); Mean Corpuscular Volume 97.3 fL (81-99); Mean Platelet Vol. 9.5 fl (6.2-12.0); Monocyte# 0.93 X10^3/uL; Monocyte% 10.3 % (0-10); NRBC Flagged by Analyzer 0 % (0-5); Neutrophil # 6.53 X10^3/uL (2.7-7.7); Neutrophil % 72.8 % (47-70); Platelet Count 279 K/mm3 (150-450); RBC Distribution Width CV 13.2 % (11.6-14.6); RBC Distribution Width SD 47.9 fl (35.1-43.9)
[2023-12-10 10:40] LABS: Albumin, Serum 3.6 g/dL (3.2-5.0); Anion Gap 5 (5-15); BUN 20 mg/dL (7-18); Calcium,Total 9.2 mg/dL (8.5-10.1); Chloride 104 mmol/L (98-107); Creatinine, Serum 0.57 mg/dL (0.55-1.02); EST Glomerular Filtration Rate 110 mL/min (>60); Est Glom Filt Rate - Afr Amer 133 mL/min (>60); Glucose 149 mg/dL (74-106); Potassium 4.1 mmol/L (3.5-5.1); Sodium Level 138 mmol/L (136-145)
== END | disposition home or self-care (01) ==
PROVIDERS: PCP Internal Medicine; Visit Provider Specialist
DX: Z01.818 Encounter for other preprocedural examination (principal); M25.561 Pain in right knee; M17.11 Unilateral primary osteoarthritis, right knee
CPT/HCPCS: 36415; 73700; 80048; 82040; 85025; 93005

== ENCOUNTER → 2023-12-20 | Outpatient (CLI) | payer BC, SELFPAY ==
--- NOTE | 2023-12-20 13:12 | STRESSREP ---
Stress Test Report Pharmacologic myocardial perfusion stress test. 73-year-old lady with a history of preoperative evaluation Resting EKG demonstrates sinus rhythm with a rate of 70 bpm. Resting blood pressure is 152/80 mmHg. 0.4 mg of regadenoson was infused per usual protocol followed by rapid intravenous saline flush injection. Continuous EKG monitoring was performed. The maximum heart rate was 83 bpm which was 56% of max impacted heart rate the maximum workload was 1 metabolic equivalent. At rest there were no ST or T wave changes noted to suggest ischemia and at peak infusion nonspecific ST changes were noted which did not meet the criteria for ischemia. No clinical angina is noted. The final blood pressure was 142/80 mmHg. Myocardial perfusion protocol. 14.1 mCi of technetium 99m sestamibi was injected at rest. 0.4 mg of regadenoson was infused per usual protocol. At peak infusion 43.4 mCi of technetium 99m sestamibi was injected stress images were obtained stress and rest images were reconstructed and compared in the short axis vertical long and horizontal long axis. Gated images were also obtained. Perfusion SPECT analysis: Review of the stress images demonstrate normal uptake of tracer noted in all areas of the myocardium. The resting images similar demonstrated normal uptake of tracer noted in all areas of the myocardium. No areas of reversibility are noted to suggest ischemia and no previous infarct is noted. Gated SPECT analysis: The gated ejection fraction is 65%. Conclusion: Normal pharmacologic myocardial perfusion stress test. Preserved ejection fraction.
== END | disposition home or self-care (01) ==
PROVIDERS: PCP Internal Medicine; Referring Provider Internal Medicine; Visit Provider Internal Medicine
DX: R94.31 Abnormal electrocardiogram [ECG] [EKG] (principal)
CPT/HCPCS: 78452; 93017; A9500; A4216; J2785

== ENCOUNTER 2024-01-10 18:25 | Emergency (ER) | payer BC, SELFPAY ==
[2024-01-10 18:26] VITALS: BP 146/117; PULSE 74; RESP 16; TEMP 36.2; O2SAT 98
--- NOTE | 2024-01-10 18:42 | ED.VIS.GI ---
HPI HPI - GI History of Present Illness Chief Complaint: Constipation Detail of Chief Complaint: Constipation Informant: patient Narrative Narrative: Patient presents to the emergency department complaint of constipation. Patient states that she has not had a good bowel movement in approximately 10 days. Patient states that 10 days ago she had a right knee replacement with Dr. Mock. She had been on oxycodone. She is only passed several small brooke of stool. They tried fleets enema yesterday and today without relief. She really denies any abdominal pain. She has had no fever no vomiting and no hematemesis. PFSH PFSH Home Medications bisoprolol 10 mg-hydrochlorothiazide 6.25 mg tablet 1 tab PO DAILY 04/21/17 [History Last Taken Unknown] levothyroxine 137 mcg tablet 127 mcg PO DAILY 04/21/17 [History Last Taken 05/03/17 07:30] acetaminophen 500 mg tablet 1,000 mg (2 x 500 mg) PO Q8 #60 tabs 05/04/17 [Rx Last Taken Unknown] rivaroxaban 10 mg tablet 10 mg PO DAILY@0600 #12 tabs 05/04/17 [Rx Last Taken Unknown] Allergy/AdvReac Type Severity Reaction Status Date / Time No Known Allergies Allergy Verified 08/01/22 10:51 Social History (Updated 08/01/22 @ 11:[address] Wallace Salmon MD) household members: family Smoking Status: Never smoker substance use type: does not use ROS ROS ED Review of Systems ROS Unobtainable: other Constitutional Constitutional ED: Reports lethargy; Denies chills, fever(s), sweats or weight loss Eyes Eyes: Denies blurry vision, change in vision or diplopia ENT ENT ED: Denies rhinorrhea or sore throat Cardiovascular Cardiovascular: Denies chest pain, orthopnea or racing heartbeat Respiratory/Chest Respiratory/Chest: Denies cough, dyspnea, dyspnea on exertion, orthopnea or sputum Gastrointestinal Gastrointestinal: Reports constipation; Denies abdominal pain, diarrhea, nausea or vomiting Genitourinary Genitourinary ED: Denies dysuria, hematuria or urinary frequency Musculoskeletal Musculoskeletal: Denies arthralgias, back pain, myalgias or neck pain Integumentary Denies abscess, Abrasions or rash Neurologic Neurologic: Denies headache(s) or weakness Psychiatric Psychiatric: Denies anxiety, depression or suicidal thoughts Endocrine Endocrinology: Denies polydipsia, polyphagia or polyuria Hematologic/Lymphatic Hematologic/Lymphatic: Denies easy bleeding, easy bruising or lymphadenopathy Allergic/Immunologic Allergic/Immunologic ED: Denies mouth swelling, tongue swelling or urticaria EXAM Physical Exam Const Vital Signs: 01/10/24 18:26 Temperature 97.2 F L Temperature Source Temporal Pulse Rate 74 Respiratory Rate 16 Blood Pressure 146/117 H Blood Pressure Mean 126 Pulse Ox 98 Oxygen Delivery Method Room Air Positive well nourished and well developed General Appearance ED: well developed and NAD HEENT Reports TM's clear and moist mucous membranes normocephalic and atraumatic; Negative for trauma or tenderness Tympanic Membrane ED: Yes TM's clear Eyes PERRL and EOMs intact bilaterally General Eye ED: Negative for pale conjunctiva or scleral icterus Neck no lymphadenopathy, supple and no JVD General: Negative for tenderness Chest Wall inspection of chest normal and palpation of chest normal Chest: Negative for tenderness Resp normal respiratory effort and clear to auscultation bilaterally Effort and Inspection: Negative for respiratory distress or pain with movement Auscultation: Negative for rhonchi, wheezes or diminished lung sounds Cardio regular rate, regular rhythm, S1 normal heart sound, S2 normal heart sound and no murmurs Peripheral Pulses: pulses 2+ throughout GI normal to inspection, nondistended, normoactive bowel sounds, soft to palpation, non-tender, non-distended and no masses GI Narrative: Rectal exam performed and there was some hard stool up high in the rectal vault that I am unable to digitally disimpact. Back/Spine no CVA tenderness and no thoracic nor lumbar tenderness Extremity normal to inspection General Extremety ED: Negative for edema General Extremity: Negative for edema Neuro oriented x3, CN's II-XII intact bilaterally, no sensory deficits noted and gait normal Sensorium / Orientation: awake, alert, oriented to person, oriented to place and oriented to time Motor Exam: strength 5/5 throughout and strength abnormal Psych mental status grossly normal Skin no rashes or lesions noted and no wounds MDM MDM MDM Narrative Medical decision making narrative: Patient will have a KUB performed. I will order soapsuds enemas. KUB showed large amount of stool throughout the colon without evidence for bowel obstruction or bowel perforation. Patient had a soapsuds enema and had large results with that. Clinically felt improved. This point she looks well. I feel she can be discharged to home. She has discontinued her narcotic pain medication. I will send her home with a bottle of magnesium citrate as well. Also advised on MiraLAX daily until her stool pattern is back to her normal. Radiography Diagnostic Testing: Clinical Impression(s) from Imaging Studies KUB X-Ray 01/10/24 18:45 IMPRESSION: Constipation with no signs of bowel obstruction or free air. Electronically Signed: Angela Espana MD at 19:32 EST , 1 view KUB obtained interpreted by myself as large amount of stool throughout the colon without evidence for obstruction or perforation. Radiology in agreement. Discharge Plan Triage Chief Complaint: Constipation ED Provider: Fer Bonner Dx/Rx/DC Orders Clinical Impression: Constipation Instructions: ED Constipation (Adult) Prescriptions: No Action levothyroxine 137 MCG tablet 127 mcg PO DAILY Patient Comments: THYROID bisoprolol-hydrochlorothiazide 1 TAB tablet 1 tab PO DAILY Patient Comments: STATES TAKES 1/2 PILL. blood pressure pill acetaminophen 500 MG tablet 1,000 mg PO Q8 Qty: 60 0RF rivaroxaban 10 MG tablet 10 mg PO DAILY@0600 Qty: 12 0RF Primary Care Provider: Bridgett Bansal Referrals: Bridgett Bansal DO [Primary Care Provider] - 3-5 Days Activity Restrictions/Additional Instructions: You may use MiraLAX daily to help keep the stool soft. Return to the ER if severe abdominal pain, vomiting, bloody stools, or condition should worsen anyway. Disposition Disposition: Home, Self Care
--- NOTE | 2024-01-10 18:45 | RAD_ITS ---
STUDY: X-RAY - ABDOMEN/PELVIS REASON FOR EXAM: Female, 73 years old. constipation TECHNIQUE: Single AP view of the abdomen / pelvis. COMPARISON: None. FINDINGS: Normal visualized lung bases. Abundant fecal debris within the colon suggestive of constipation. There is no demonstrated free abdominal air. The visualized liver, spleen and kidneys are grossly normal in size and morphology. Normal soft tissue structures. There are diffuse degenerative changes of the visualized lumbar spine, bilateral SI joints and less severe through the hips. Degenerative disease of the pubic symphysis. RAD/Abdomen Single View (Portable) IMPRESSION: Constipation with no signs of bowel obstruction or free air. Electronically Signed: Angela Espana MD at 19:32 EST ,
[2024-01-10] MEDS: Magnesium Citrate 300 ML PO (20:37)
== END 2024-01-10 20:38 | disposition home or self-care (01) ==
PROVIDERS: Emergency Provider Emergency Medicine; PCP Internal Medicine; Visit Provider Emergency Medicine
DX: K59.00 Constipation, unspecified (principal); Z96.651 Presence of right artificial knee joint
CPT/HCPCS: 74018; 99284

== ENCOUNTER → 2024-02-04 | Outpatient (CLI) | payer BC, SELFPAY ==
--- NOTE | 2024-02-04 15:05 | VDLE_ITS ---
Reason For Study: Right leg pain RIGHT LEFT GSV is normal. CFV is compressible, spontaneous, phasic, CFV is compressible, spontaneous, phasic, competent, and demonstrates normal competent and demonstrates normal augmentation. augmentation. FV is compressible, spontaneous, phasic, competent and demonstrates normal augmentation. POP V is compressible, spontaneous, phasic, competent and demonstrates normal augmentation. T/P Trunk is compressible. RT PerV is compressible. Acute deep vein thrombosis is noted in the PTV and SoleusV. It is dilated and NONCOMPRESSIBLE. Procedure This is a venous duplex using B-mode, color flow and spectral Doppler. Exam performed in department. A preliminary report was called and/or faxed to Ortho: Dr. Mock and PCP: Dr. Mariscal. VL/Venous Duplex US, Unilateral Interpretation Summary Right great saphenous vein appears patent and compressible segmentally. Acute d eep venous thrombosis right posterior tibial and soleus veins. Normal flow patterns left common femoral vein Ordering Physician: Kofi Mock Referring Physician: Bridgett Bansal M.D. Performed By: Dianne Bourne RVT
== END | disposition home or self-care (01) ==
LOC: CVS 14:58
PROVIDERS: PCP Internal Medicine; Referring Provider Specialist; Visit Provider Specialist
DX: M79.661 Pain in right lower leg (principal)
CPT/HCPCS: 93971

== ENCOUNTER → 2024-02-14 | Outpatient (CLI) | payer BC, SELFPAY ==
--- NOTE | 2024-02-14 14:26 | VDLE_ITS ---
Reason For Study: DVT RIGHT LEFT GSV is normal. CFV is compressible, spontaneous, phasic, CFV is compressible, spontaneous, phasic, competent, and demonstrates normal competent and demonstrates normal augmentation. augmentation. FV is compressible, spontaneous, phasic, competent and demonstrates normal augmentation. POP V is compressible, spontaneous, phasic, competent and demonstrates normal augmentation. T/P Trunk is compressible. RT PerV is compressible. Acute deep vein thrombosis is noted in the PTV and SoleusV. It is dilated and NONCOMPRESSIBLE. Procedure This is a venous duplex using B-mode, color flow and spectral Doppler. Exam performed in department. Compared to 02/04/2024. A preliminary report was called and/or faxed to Camilla AVILA. VL/Venous Duplex US, Unilateral Interpretation Summary Deep venous thrombosis right posterior tibial and soleus veins. Dilated and non compressible. Patent and compressible right great saphenous vein Normal flow patterns left common femoral vein No significant change from the previous examination of February 04, 2024 Ordering Physician: Bridgett Bansal Referring Physician: Bridgett Bansal Performed By: Dianne Bourne RVT
== END | disposition home or self-care (01) ==
PROVIDERS: PCP Internal Medicine; Referring Provider Internal Medicine; Visit Provider Internal Medicine
DX: I82.441 Acute embolism and thrombosis of right tibial vein (principal); I82.461 Acute embolism and thrombosis of right calf muscular vein
CPT/HCPCS: 93971

== ENCOUNTER → 2024-03-02 | Outpatient (CLI) | payer BC, SELFPAY ==
--- NOTE | 2024-03-02 12:38 | CT_ITS ---
STUDY: CTA CHEST REASON FOR EXAM: Female, 73 years old. Chest pain at rest (R07.9) RADIATION DOSAGE (If Supplied By Facility): CTDIvol = ( 11.42 ) mGy, DLP = ( 481.67 ) mGycm TECHNIQUE: The examination was performed with the intravenous administration of IV 100mL [id number]-370. Post-processing of the angiographic images was performed, with multiplanar reformation and 3D reconstruction. Individualized dose optimization techniques were used for this CT. COMPARISON: None. FINDINGS: Normal enhancement of the main pulmonary artery and right and left pulmonary arteries. Normal enhancement of the bilateral peripheral pulmonary arteries. There is no demonstrated pulmonary embolism. There is atherosclerotic calcification of the aortic arch with tortuosity. There is no demonstrated aortic dissection. No coronary calcifications seen. Normal mediastinum. Normal hilar regions. Normal visualized trachea and bronchi. The lungs are well expanded. There is evidence of a several areas of groundglass appearance in the upper and lower lobes. This may represent a mild degree of pneumonitis. There is evidence of linear scarring at the lung bases. Normal pleura. Normal chest wall structures. There are degenerative changes of thoracic spine. Normal visualized upper abdomen. CT/CTA Chest W/WO Contrast IMPRESSION: Scattered geographic areas of groundglass appearance in both lungs involving the upper and lower lobes. A mild degree of pneumonitis should BE ruled out. Follow up recommended. Electronically Signed: Christian Cornelius MD at 13:30 EDT ,
[2024-03-02 13:12] LABS: CREATININE FINGERSTICK < 1.0 mg/dL (0.55-1.02); EGFR FINGERSTICK > 60.0000 mL/min (>60)
== END | disposition home or self-care (01) ==
LOC: CT 12:36
PROVIDERS: PCP Internal Medicine; Referring Provider Internal Medicine; Visit Provider Internal Medicine
DX: R07.9 Chest pain, unspecified (principal)
CPT/HCPCS: 71275; Q9967

== ENCOUNTER → 2024-03-03 | Outpatient (CLI) | payer BC, SELFPAY ==
--- NOTE | 2024-03-03 12:29 | VDLE_ITS ---
Reason For Study: rle swelling/pain RIGHT LEFT GSV is normal. CFV is compressible, spontaneous, phasic, CFV is compressible, spontaneous, phasic, competent, and demonstrates normal competent and demonstrates normal augmentation. augmentation. FV is compressible, spontaneous, phasic, competent and demonstrates normal augmentation. POP V is compressible, spontaneous, phasic, competent and demonstrates normal augmentation. T/P Trunk is compressible. PTV is compressible. RT PerV is compressible. PTV appears resolved from 01/2024. Soleus V is dilated and NONCOMPRESSIBLE C/W ACUTE DVT. (First seen in 01/2024 margarita). Procedure This is a venous duplex using B-mode, color flow and spectral Doppler. Exam performed in department. A preliminary report was called and/or faxed to dR. Rees @ 1:[address] Rees's office was called and notified Yaneli of results at 1:45 pm. VL/Venous Duplex US, Unilateral Interpretation Summary Deep venous thrombosis right soleus vein Seemingly resolved right posterior tibial vein venous thrombosis from previous examination of 02/14/2024 Patent and compressible right great saphenous vein Normal flow patterns left common femoral vein Ordering Physician: Bridgett Rees Referring Physician: Bridgett Rees Performed By: Lida Almodovar, RYAN, RVT
== END | disposition home or self-care (01) ==
LOC: CVS 12:28
PROVIDERS: PCP Internal Medicine; Referring Provider Internal Medicine; Visit Provider Internal Medicine
DX: I82.461 Acute embolism and thrombosis of right calf muscular vein (principal)
CPT/HCPCS: 93971

== ENCOUNTER → 2024-03-24 | Outpatient (CLI) | payer BC, SELFPAY ==
[2024-03-24 09:15] LABS: BNP,B-Type NATRIURETIC PEPTIDE 51.5 pg/mL (0-100)
== END | disposition home or self-care (01) ==
PROVIDERS: PCP Internal Medicine; Referring Provider Internal Medicine Pulmonary Disease; Visit Provider Internal Medicine Pulmonary Disease
DX: I27.20 Pulmonary hypertension, unspecified (principal)
CPT/HCPCS: 36415; 83880

== ENCOUNTER → 2024-04-14 | Outpatient (CLI) | payer BC, MEDICARE, SELFPAY ==
--- NOTE | 2024-04-14 08:40 | ECHOD_ITS ---
Reason For Study: PHTN Procedure This was a 2D Doppler, Color Flow transthoracic echocardiogram. The study was technically difficult. Exam performed in department. Left Ventricle Normal LV size. The estimated ejection fraction is 50 %. No evidence for diastolic dysfunction. No regional wall motion abnormalities noted. Right Ventricle Normal RV size. Normal systolic function. Atria The left and right atria are normal. No doppler evidence for ASD. Mitral Valve There is no mitral valve stenosis. No mitral valve insufficiency. Tricuspid Valve There is no tricuspid stenosis. Trivial tricuspid valve insufficiency. Pulmonary artery systolic pressure is 35 mmHg. Aortic Valve Trisinus/trileaflet aortic valve. There is no aortic stenosis. No aortic valve insufficiency. Pulmonic Valve There is no pulmonic valvular stenosis. No pulmonic valve insufficiency. Great Vessels Normal aortic root. Pericardium/Pleural No pericardial effusion. MMode/2D Measurements & Calculations LVIDd: 5.2 cm IVSd: 1.2 cm Ao root diam: 3.4 cm LVIDs: 3.4 cm LVPWd: 1.1 cm LA dimension: 4.2 cm RVDd: 3.1 cm FS: 35.2 % LAV(MOD-bp): 52.4 ml LA A4 area: 15.1 cm2 RA A4 area: 14.4 cm2 LAV(MOD-bp) Indexed: 26.7 ml/m2 LAV(MOD-sp2): 56.8 ml LAV(MOD-sp4): 40.5 ml TAPSE: 2.0 cm Time Measurements MV dec time: 0.21 sec Doppler Measurements & Calculations MV E max kamran: 50.9 cm/sec Lat Peak E' Kamran: 10.5 cm/sec Med Peak E' Kamran: 5.5 cm/sec MV A max kamran: 53.1 cm/sec E/E' lat: 4.9 E/E' med: 9.3 MV E/A: 0.96 MV V2 max: 69.2 cm/sec MV P1/2t max kamran: 69.2 cm/sec Ao V2 max: 113.1 cm/sec MV max P.9 mmHg MV P1/2t: 78.2 msec Ao max P.1 mmHg MV V2 mean: 35.9 cm/sec Ao V2 mean: 79.1 cm/sec MV mean P.64 mmHg MV dec slope: 259.4 cm/sec2 Ao mean P.8 mmHg MV V2 VTI: 25.6 cm MVA(P1/2t): 2.8 cm2 Ao V2 VTI: 26.2 cm AV (velocity ratio): 0.71 LV V1 max: 77.7 cm/sec PA V2 max: 90.2 cm/sec TR max kamran: 270.6 cm/sec LV V1 max P.4 mmHg PA V2 mean: 58.9 cm/sec TR max P.3 mmHg LV V1 mean P.3 mmHg LV V1 mean: 54.1 cm/sec LV V1 VTI: 18.6 cm ECHO/Echo Complete Interpretation Summary The estimated ejection fraction is 50 %. No evidence for diastolic dysfunction. Ordering Physician: Arik Hernandes V Referring Physician: Arik Hernandes V Performed By: Dheeraj Rousseau RCS
== END | disposition home or self-care (01) ==
PROVIDERS: PCP Internal Medicine; Referring Provider Internal Medicine Pulmonary Disease; Visit Provider Internal Medicine Pulmonary Disease
DX: I27.20 Pulmonary hypertension, unspecified (principal)
CPT/HCPCS: 93306

== ENCOUNTER → 2024-05-08 | Outpatient (CLI) | payer BC, SELFPAY ==
--- NOTE | 2024-05-08 13:06 | VDLE_ITS ---
Reason For Study: Right leg DVT RIGHT LEFT GSV is normal. CFV is compressible, spontaneous, phasic, CFV is compressible, spontaneous, phasic, competent, and demonstrates normal competent and demonstrates normal augmentation. augmentation. FV is compressible, spontaneous, phasic, competent and demonstrates normal augmentation. POP V is compressible, spontaneous, phasic, competent and demonstrates normal augmentation. T/P Trunk is compressible. PTV is compressible. RT PerV is compressible. Soleus V is partially compressible with venous flow noted. Procedure This is a venous duplex using B-mode, color flow and spectral Doppler. Exam performed in department. Compared to 03/03/2024. VL/Venous Duplex US, Unilateral Interpretation Summary Chronic deep venous thrombosis right soleus vein. Patent and compressible right great saphenous vein Normal flow patterns left common femoral vein Improvement is noted in the right soleus vein from the previous examination of March 03, 2024 Ordering Physician: Bridgett Bansal Referring Physician: Bridgett Bansal M.D. Performed By: Dianne Bourne RVT
== END | disposition home or self-care (01) ==
LOC: CVS 13:02
PROVIDERS: PCP Internal Medicine; Referring Provider Internal Medicine; Visit Provider Internal Medicine
DX: I82.401 Acute embolism and thrombosis of unspecified deep veins of right lower extremity (principal)
CPT/HCPCS: 93971

== ENCOUNTER → 2024-10-04 | Outpatient (CLI) | payer BC, SELFPAY | END | disposition home or self-care (01) | PROVIDERS: PCP Internal Medicine; Referring Provider Otolaryngology; Visit Provider Otolaryngology | DX: R13.14 Dysphagia, pharyngoesophageal phase (principal) | CPT/HCPCS: 74220; 74221 ==